=== PATIENT | male | born 1985 | race Caucasian/White ===

== ENCOUNTER 2022-09-22 14:56 | Outpatient (CLI) | payer OTHER, SELFPAY ==
[2022-09-22 15:32] LABS: Basophils Absolute Auto 0.1 K/mm3 (0.0-0.1); Basophils Percent Auto 0.8 % (0.2-1.2); Eosinophils Absolute Auto 0.4 K/mm3 (0-0.3); Eosinophils Percent Auto 3.8 % (0-4.4); Hematocrit 49.1 % (42.0-52.0); Immature Granulocyte Absolute 0.08 K/mm3 (0.00-0.031); Immature Granulocyte Percent A 0.8 % (0-0.5); Lymphocytes Absolute Auto 2.61 K/mm3 (0.9-3.2); Mean Corpuscular HGB Conc 32.6 g/dl (32-36); Mean Corpuscular Hemoglobin 29.1 pg (26-34); Mean Corpuscular Volume 89.3 fl (80-100); Mean Platelet Volume 8.7 fl (7.4-10.4); Monocytes Absolute Auto 0.9 K/mm3 (0.1-0.6); Monocytes Percent Auto 8.6 % (2.6-8.5); Neutrophils Absolute Auto 6.4 K/mm3 (1.3-6.7); Platelet Count Result 250 k/mm3 (150-375); Red Cell Distribution Width 13.5 % (11.5-14.5); White Blood Count 10.4 K/mm3 (4.5-10.0)
== END 2022-09-22 14:57 | disposition home or self-care (01) ==
LOC: ANHLAB 14:57
PROVIDERS: PCP Nurse Practitioner Family; Visit Provider Nurse Practitioner Family
DX: R09.3 Abnormal sputum (principal); J30.9 Allergic rhinitis, unspecified
CPT/HCPCS: 36415; 82785; 85025; 86003

== ENCOUNTER 2022-09-23 06:54 | Outpatient (NON) | payer OTHER, SELFPAY | END 2022-09-23 06:55 | disposition home or self-care (01) | LOC: ANHLAB 06:58 | PROVIDERS: PCP Nurse Practitioner Family; Visit Provider Nurse Practitioner Family | DX: R09.3 Abnormal sputum (principal) | CPT/HCPCS: 87015; 87070; 87102; 87107; 87116; 87205; 87206 ==

== ENCOUNTER 2022-10-18 08:00 | Outpatient (CLI) | payer OTHER, SELFPAY ==
--- NOTE | 2022-10-18 12:50 | WPDSIXMINUTE ---
Six Minute Walk Procedure Procedure Performed Pulmonary Stress Test (6 min walk) Six Minute Walk Six Minute Walk: This is a 6 minute walk test. The test was performed and interpreted in accordance with the 2014 ERS/ATS task force guidelines. Findings: The patient's resting room air oxygen saturation measured by pulse oximetry was 94% and heart rate was 80 bpm. Patient ambulated for 427 meters and oxygen saturation remained 93 to 95%. Heart rate at the end of the study was 90 bpm. The patient did not qualify for supplemental oxygen at rest or with ambulation. There are no prior studies for comparison.
--- NOTE | 2022-10-18 12:51 | WPDPFTINT ---
PFT Procedure Performed PFT Procedure Performed Spirometry with Pre/Post Bronchodilator Plethysmography (Lung Vol) Diffusing Cap (DLCO) Flow Vol Loop PFT Interpretation This is a pulmonary function test with pre and post-bronchodilator spirometry, plethysmography and diffusing capacity. The test was performed and results interpreted in accordance with the 2019 and 2005 ATS/ERS Task Force guidelines respectively using the Global Lung Function Initiative-2012 reference equations. Patient demonstrated good effort and cooperation. Reproducibility criteria were met. The quality of the pre bronchodilator spirometry maneuver was Grade B and post bronchodilator spirometry maneuver was Grade B. Findings: Spirometry: The contour the inspiratory and expiratory flow tracing are normal. The pre bronchodilator FVC is 5.06 L, 109% predicted. The pre bronchodilator FEV1 is 4.11 L, 108% predicted. The pre bronchodilator FEV1: FVC ratio is 81%. The post bronchodilator FVC is 5.17 L, representing a 2% increase. The post bronchodilator FEV1 is 4.24 L, representing a 3% increase. The post bronchodilator FEV1: FVC ratio is 82%. Plethysmography: Total lung capacity is 6.16 L, 100% predicted. The functional residual capacity is 2.59 L, 87% predicted. The residual volume is 1.10 L, 70% predicted. Diffusing capacity: The diffusing capacity unadjusted for hemoglobin and carboxyhemoglobin is 32.6, 102% predicted. The diffusing capacity adjusted for alveolar volume is 6.12, 118% predicted. Impression: The spirometry is normal without evidence of an obstructive abnormality. There is no significant improvement after inhaling a single dose of albuterol. The lung volumes are normal. The diffusing capacity is normal. There are no prior studies for comparison
== END 2022-10-18 08:01 | disposition home or self-care (01) ==
LOC: ANHPFT 08:03
PROVIDERS: PCP Nurse Practitioner Family; Visit Provider Nurse Practitioner Family
DX: R06.09 Other forms of dyspnea (principal); R05.3 Chronic cough
CPT/HCPCS: 94060; 94618; 94726; 94729

== ENCOUNTER 2022-11-10 18:42 | Emergency (ER) | payer OTHER, SELFPAY ==
--- NOTE | ~2022-11-10 | XR_ITS ---
EXAMINATION: [id number] Exam Date/Time: 11/10/2022 19:22 CDT HISTORY: Lt side pain, felt a pop while running this morning non smok Comparison: None. RESULT: Lines, tubes, and devices: None. Lungs and pleura: Clear. Cardiomediastinal silhouette: Normal. Other: No acute osseous or upper abdominal finding. IMPRESSION: No acute cardiopulmonary process. No acute osseous finding in the left ribs. Reviewed, dictated and finalized at location K.
[2022-11-10 18:56] VITALS: BP 133/80; PULSE 61; RESP 18; TEMP 36.4; O2SAT 97
--- NOTE | 2022-11-10 19:22 | ED.GENADULT ---
HPI - General Adult General Chief complaint: Back Pain/Injury Stated complaint: lt side pain Time Seen by Provider: 11/10/22 19:22 Source: patient Mode of arrival: ambulatory Limitations: no limitations History of Present Illness HPI narrative: 36-year-old male presents with complaint of left-sided rib pain. Reports this morning he was doing sprints and felt a sudden pop and left rib cage. Has been having pain since. Took naproxen around 10:00 a.m.. Reports pain when taking a deep breath. Patient is concern for rib fracture. Ambulatory with steady gait. All systems reviewed and negative except as noted above. Related Data Allergies Allergy/AdvReac Type Severity Reaction Status Date / Time No Known Allergies Allergy Verified 11/10/22 19:33 Review of Systems Review of Systems: CONSTITUTIONAL: Denies fever, chills, or sweats. EYES: Denies visual changes, redness, or discharge. ENT: Denies rhinorrhea, congestion, sore throat, or otalgia. CARDIOVASCULAR: Denies chest pain, palpitations, or edema. RESPIRATORY: Denies cough or dyspnea. GASTROINTESTINAL: Denies abdominal pain, nausea, vomiting, or diarrhea. GENITOURINARY: Denies dysuria or hematuria. SKIN: Denies rash or itching. MUSCULOSKELETAL: Denies back pain, joint pain, or myalgia. Reports left-sided rib pain. NEUROLOGIC: Denies headache, numbness, or weakness. PSYCHIATRIC: Denies anxiety or depression. All other systems reviewed are negative, except as documented in HPI. PMFSH Past Medical History Medical History Chronic cough Migraines Sleep apnea Social History Social History Smoking status: Former smoker Additional smoking assessment comments: Smoked 1 year in high school socially. Alcohol intake: current Substance use: never Comments At time of signature, agree with nursing past medical, surgical, social and family history. There is no relevant family history pertinent to the presenting complaint. Exam Narrative: GENERAL: This is a well-nourished, well-developed patient, in no apparent distress. HEAD: normocephalic, atraumatic. EYES: PERRL. Sclera clear/white. Vision is grossly intact. EARS: External ears normal NOSE: External nose normal NECK: Neck supple, non-tender without lymphadenopathy, masses or thyromegaly. CARDIOVASCULAR: Regular rate and rhythm without murmurs, gallops, or rubs. RESPIRATORY: Clear to auscultation. Breath sounds equal bilaterally. No wheezes, rales, or rhonchi. SKIN: warm, Dry, intact with no suspicious lesions or rash, good texture and turgor. NEURO: awake, alert, and oriented to person, place and time. There were no obvious focal neurologic abnormalities. EXTREMITIES: No joint tenderness, effusion, or edema noted. MUSCULOSKELETAL: tenderness to L lateral ribs on palpation. no bruising or swelling noted. Course Course Level of Care: Express Care Visit Vital Signs Vital signs: Vital Signs Temperature 36.4 C 11/10/22 18:56 Pulse Rate 61 11/10/22 18:56 Respiratory Rate 18 11/10/22 18:56 Blood Pressure 133/80 11/10/22 18:56 Pulse Oximetry 97 11/10/22 18:56 Oxygen Delivery Room Air 11/10/22 18:56 Temperature 36.4 C 11/10/22 18:56 Pulse Rate 61 11/10/22 18:56 Respiratory Rate 18 11/10/22 18:56 Blood Pressure 133/80 11/10/22 18:56 Pulse Oximetry 97 11/10/22 18:56 Oxygen Delivery Room Air 11/10/22 18:56 reviewed Medical Decision Making MDM Narrative Medical decision making narrative: Patient is aware of diagnosis, understands and agrees to treatment plan. Anticipatory guidance given. Patient agrees to follow-up as directed and is aware of reasons to seek care at the emergency department. Portions of this record may have been created with voice recognition software Vital Signs Vital Signs: Vital Signs Temperature 36.4
== END 2022-11-10 19:42 | disposition home or self-care (01) ==
PROVIDERS: Emergency Provider Nurse Practitioner Family
DX: S29.011A Strain of muscle and tendon of front wall of thorax, initial encounter (principal); X50.3XXA Overexertion from repetitive movements, initial encounter; Y93.02 Activity, running; Z87.891 Personal history of nicotine dependence
CPT/HCPCS: 71101; 99213; G0463

== ENCOUNTER 2022-11-11 08:42 | Outpatient (CLI) | payer OTHER, SELFPAY ==
[2022-11-11 12:03] LABS: Basophils Absolute Auto 0.1 K/mm3 (0.0-0.1); Basophils Percent Auto 0.7 % (0.2-1.2); Eosinophils Absolute Auto 0.4 K/mm3 (0-0.3); Eosinophils Percent Auto 5.2 % (0-4.4); Hematocrit 48.9 % (42.0-52.0); Hemoglobin 15.9 g/dL (14.0-18.0); Immature Granulocyte Absolute 0.05 K/mm3 (0.00-0.031); Immature Granulocyte Percent A 0.7 % (0-0.5); Lymphocytes Absolute Auto 2.51 K/mm3 (0.9-3.2); Lymphocytes Percent Auto 33.3 % (18.3-44.2); Mean Corpuscular HGB Conc 32.5 g/dl (32-36); Mean Corpuscular Hemoglobin 29.4 pg (26-34); Mean Corpuscular Volume 90.4 fl (80-100); Mean Platelet Volume 9.3 fl (7.4-10.4); Monocytes Absolute Auto 0.6 K/mm3 (0.1-0.6); Monocytes Percent Auto 7.4 % (2.6-8.5); Neutrophils Percent Auto 52.7 % (45.5-73.1); Platelet Count Result 241 k/mm3 (150-375); Red Blood Count 5.41 M/mm3 (4.6-6.20); Red Cell Distribution Width 13.6 % (11.5-14.5); White Blood Count 7.5 K/mm3 (4.5-10.0)
[2022-11-15 15:30] LABS: Eosinophils, Sputum 0%
== END 2022-11-11 08:43 | disposition home or self-care (01) ==
PROVIDERS: Visit Provider Nurse Practitioner Family
DX: R09.3 Abnormal sputum (principal); J45.909 Unspecified asthma, uncomplicated
CPT/HCPCS: 36415; 85025; 87015; 87070; 87102; 87116; 87205; 87206; 89190

== ENCOUNTER 2022-12-07 08:34 | Outpatient (CLI) | payer OTHER, SELFPAY ==
--- NOTE | 2022-12-07 08:36 | EST_ITS ---
Patient Info Name: Jose Elias Vela Age: 36 years : 1985 Gender: Male Ht: 66 in Wt: 200 lbs BSA: 2.09 m2 HR: 72 bpm BP: 144 / 86 mmHg Heart Rhythm: Sinus Rhythm Exam Date: 12/07/2022 8:51 AM Exam Location: [facility] Stress Patient Status: Outpatient Admit Date: 12/07/2022 Staff Ordering Physician: Jose D Queen APRN Attending Provider: Jose D Queen APRN Exercise Technologist: Shira Tucker CT Exercise Physician: Jason Zavaleta DO Exam Type: CA stress test treadmill Study Info Indications R07.89 - Other chest pain A treadmill exercise stress test was performed. Summary 1. 1. Negative Víctor exercise stress test for ischemic ST changes by ECG criteria. 2. 2. Good functional capacity, achieving 14.9 METs of workload. 3. 3. Appropriate HR response to exercise. 4. 4. Appropriate HR recovery at 1 minute post exercise. 5. 5. No imaging with stress testing. 6. 6. Patient informed of the above results. Protocol: Víctor Stress ECG Details Stage: REST Duration (min): 1 min : 33 sec Speed (mph): 0.0 Grade (%): 0 HR (bpm): 75 SBP (mmHg): 144 DBP (mmHg): 86 METS: --- Stage: REST Duration (min): 8 min : 6 sec Speed (mph): 0.0 Grade (%): 0 HR (bpm): 75 SBP (mmHg): 144 DBP (mmHg): 86 METS: --- Stage: STAGE 1 Duration (min): 1 min : 0 sec Speed (mph): 1.7 Grade (%): 10 HR (bpm): 97 SBP (mmHg): 144 DBP (mmHg): 86 METS: --- Stage: STAGE 1 Duration (min): 2 min : 0 sec Speed (mph): 1.7 Grade (%): 10 HR (bpm): 100 SBP (mmHg): 144 DBP (mmHg): 86 METS: --- Stage: STAGE 1 Duration (min): 3 min : 0 sec Speed (mph): 1.7 Grade (%): 10 HR (bpm): 98 SBP (mmHg): 137 DBP (mmHg): 76 METS: --- Stage: STAGE 2 Duration (min): 1 min : 0 sec Speed (mph): 2.5 Grade (%): 12 HR (bpm): 111 SBP (mmHg): 137 DBP (mmHg): 76 METS: --- Stage: STAGE 2 Duration (min): 2 min : 0 sec Speed (mph): 2.5 Grade (%): 12 HR (bpm): 110 SBP (mmHg): 137 DBP (mmHg): 76 METS: --- Stage: STAGE 2 Duration (min): 3 min : 0 sec Speed (mph): 2.5 Grade (%): 12 HR (bpm): 109 SBP (mmHg): 137 DBP (mmHg): 76 METS: --- Stage: STAGE 3 Duration (min): 1 min : 0 sec Speed (mph): 3.4 Grade (%): 14 HR (bpm): 120 SBP (mmHg): 142 DBP (mmHg): 49 METS: --- Stage: STAGE 3 Duration (min): 2 min : 0 sec Speed (mph): 3.4 Grade (%): 14 HR (bpm): 121 SBP (mmHg): 157 DBP (mmHg): 54 METS: --- Stage: STAGE 3 Duration (min): 3 min : 0 sec Speed (mph): 3.4 Grade (%): 14 HR (bpm): 121 SBP (mmHg): 155 DBP (mmHg): 47 METS: --- Stage: STAGE 4 Duration (min): 1 min : 0 sec Speed (mph): 4.2 Grade (%): 16 HR (bpm): 132 SBP (mmHg): 155 DBP (mmHg): 47 METS: --- Stage: STAGE 4 Duration (min): 2 min : 0 sec Speed (mph): 4.2 Grade (%): 16 HR (bpm): 137 SBP (mmHg): 175 DBP (mmHg): 50 METS
== END 2022-12-07 08:35 | disposition home or self-care (01) ==
LOC: ANHCARD 08:35
PROVIDERS: Visit Provider Nurse Practitioner Family
DX: R07.9 Chest pain, unspecified (principal)
CPT/HCPCS: 93017

== ENCOUNTER 2022-12-28 15:50 | Outpatient (CLI) | payer OTHER, SELFPAY ==
[2022-12-28 16:31] LABS: Basophils Absolute Auto 0.1 K/mm3 (0.0-0.1); Basophils Percent Auto 0.6 % (0.2-1.2); Eosinophils Absolute Auto 0.3 K/mm3 (0-0.3); Eosinophils Percent Auto 3.4 % (0-4.4); Hematocrit 46.8 % (42.0-52.0); Hemoglobin 15.5 g/dL (14.0-18.0); Immature Granulocyte Absolute 0.04 K/mm3 (0.00-0.031); Immature Granulocyte Percent A 0.4 % (0-0.5); Lymphocytes Absolute Auto 2.28 K/mm3 (0.9-3.2); Lymphocytes Percent Auto 25.5 % (18.3-44.2); Mean Corpuscular HGB Conc 33.1 g/dl (32-36); Mean Corpuscular Hemoglobin 29.5 pg (26-34); Mean Corpuscular Volume 89.1 fl (80-100); Mean Platelet Volume 9.3 fl (7.4-10.4); Monocytes Absolute Auto 0.8 K/mm3 (0.1-0.6); Monocytes Percent Auto 8.5 % (2.6-8.5); Neutrophils Absolute Auto 5.5 K/mm3 (1.3-6.7); Neutrophils Percent Auto 61.6 % (45.5-73.1); Platelet Count Result 261 k/mm3 (150-375); Red Blood Count 5.25 M/mm3 (4.6-6.20); Red Cell Distribution Width 13.1 % (11.5-14.5); White Blood Count 8.9 K/mm3 (4.5-10.0)
[2022-12-31 19:03] LABS: Aspergillus Fumigatus K/UL <0.10 (<0.10); Conventional Class 0 (0)
[2023-01-01 18:48] LABS: Aspergillus fumigatus (m3) IgG 6.7 mcg/mL (<2.0)
== END 2022-12-28 15:51 | disposition home or self-care (01) ==
PROVIDERS: Visit Provider Internal Medicine Pulmonary Disease
DX: J44.9 Chronic obstructive pulmonary disease, unspecified (principal); J45.991 Cough variant asthma
CPT/HCPCS: 36415; 85025; 86001; 86003

== ENCOUNTER 2023-03-22 12:30 | Outpatient (CLI) | payer OTHER, SELFPAY ==
--- NOTE | 2023-03-22 17:37 | WPDMETH ---
Methacholine Procedure Perform Procedure Performed Methacholine Challenge Methacholine Challenge Methacholine Challenge: This is a methacholine challenge test. The test was performed and interpreted in accordance with the 2017 ERS technical standard, endorsed by the ATS, using the GLI 2012 reference equations. Testing was performed with increasing doses of nebulized methacholine following a quadrupling dosage protocol. The methacholine dose was delivered via the [employer] nebulizer using a 1-minutes tidal breathing protocol. The best post-methacholine FEV1 values were used to determine the change from the post diluent FEV1. The delivered dose of methacholine was used to calculate the provocative dose causing a 20% fall in FEV1 (PD20). Findings: Baseline FEV1 3.60 L, 95% predicted. Post diluent FEV1 3.63 L Post 1.81 mcg methacholine FEV1 3.52 L, decreased 3% Post 7.26 mcg methacholine FEV1 3.55 L, decreased 2% Post 29.03 mcg methacholine FEV1 3.49 L, decreased 4% Post 116.1 mcg methacholine FEV1 3.47 L, decreased 5% Post 464.4 mcg methacholine FEV1 3.40 L, decreased 6% Post albuterol nebulization FEV1 3.80 L Impression: The PD20 is > 400 mcg which is categorized as normal airway hyperresponsiveness. There are no prior methacholine challenge studies for comparison
== END 2023-03-22 12:31 | disposition home or self-care (01) ==
LOC: ANHPFT 12:31
PROVIDERS: Visit Provider Nurse Practitioner Family
DX: J45.991 Cough variant asthma (principal)
CPT/HCPCS: 94070; J7674

== ENCOUNTER 2024-08-12 10:29 | Emergency (ER) | payer OTHER, SELFPAY ==
--- OUTSIDE RECORDS SUMMARY | 2024-08-12 10:32 | XMS_ITS ---
Author Organization [facility] ([address]) Address [address] [place] [address] Care Team Providers [facility] [employer] Drill Operator Name Role Phone Panda Morin Primary Care Provider UnavailAniceto Shaver Unavailable [phone] Jose D Queen Unavailable Unavailable Trav Doan Unavailable [phone] REASON FOR VISIT SCIT - Traditional Schedule Allergy Immunotherapy (Week ) Medications Medication SIG (Take, Route, Frequency, Duration) Notes Start Date End Date Status Fluticasone Propionate 50 MCG/ACT 2 spray(s) in each nostril twice a day for 30 days Active amLODIPine Besylate 2.5 MG 1 tablet Orally Once a day for 30 day(s) 09/20/2023 Active Telmisartan 40 MG 1 tablet Orally Once a day for 30 day(s) 09/20/2023 Active Azelastine HCl 137 MCG/SPRAY 2 puffs (1 spray in each nostril) Nasally Twice a day for 90 days 07/09/2024 Active Cetirizine HCl 10 MG 1 tablet Orally Onc e a day for 90 days 07/09/2024 Active Azelastine-Fluticasone 137-50 MCG/ACT 2 spray(s) intranasally 2 times a day Active SIT (CLUSTER) variable per schedule per schedule for 999 days Active Fluticasone Propionate 50 MCG/ACT 2 spray(s) in each nostril twice a day for 90 days Active Azelastine HCl 137 MCG/SPRAY 2 spray(s) intranasally 2 times a day for 90 days Active Fluticasone Propionate (Inhal) 220 MCG/INH 2 PUFF(S) INHALED 2 TIMES A DAY for 30 DAYS *Please review and pick correct strength-formula tion from [employer] options. If intended option is not shown, discontinue and re-order from Quick Search* Active FLUTICASONE NASAL 50 mcg/inh 2 spray(s) in each nostril twice a day for 90 days Active hydroCHLOROthiazide 25 MG 1 tablet in the morning Orally Once a day Active CETIRIZINE 10 mg 1 tab(s) orally once a day for 90 days Active AZELASTINE NASAL 137 mcg/inh 2 spray(s) intranasally 2 times a day for 90 days Active MONTELUKAST 10 mg 1 tab(s) orally once a day for 90 days 07/19/2023 Active Escitalopram Oxalate 10 MG 1 tablet Orally Once a day Active EpiPen 2-Wilfrido 0.3 mg as directed intramuscularly once for 30 days Active NASAL WASHES N/A as directed intranasally as needed for 30 days Active FLUTICASONE 220 mcg/inh 2 puff(s) inhale d 2 times a day for 30 days Active MONTELUKAST 10 mg 1 tab(s) orally once a day for 90 days Active FLUTICASONE NASAL 50 mcg/inh 2 spray(s) in each nostril twice a day for 90 days Active Encounters Encounter Location Date Provider Diagnosis [facility] [address] [place] [address] 07/17/2024 Trav Doan Allergic rhinitis du e to pollen J30.1 ; Other allergic rhinitis J30.89 ; Allergic rhinitis due to animal (cat) (dog) hair and dander J30.81 and Other chronic allergic conjunctivitis H10.45 Assessments Encounter Date Diagnosis (ICD Code) Assessment Notes Treatment Notes Treatment Clinical Notes Section Notes 07/17/2024 Allergic rhinitis due to pollen (ICD-10 - J30.1) 07/17/2024 Other allergic rhinitis (ICD-10 - J30.89) 07/17/2024 Allergic rhinitis due to animal (cat) (dog) hair and dander (ICD-10 - J30.81) 07/17/2024 Other chronic allergic conjunctivitis (ICD-10 - H10.45) Plan Of Treatment Next Appt Details Follow Up: As scheduled, Anna son: Provider Name:Trav Velasquez Franki , 08/13/2024 04:00:00 PM, [address] [facility], [address], [place], [address], Progress Notes * Jose Elias HERNA[birth year]DOB:[birth year] (38 yo M)Acc No.[id number]:07/17/2024 SCIT-Aeroallergen Patient: Jose Elias FRIEDMAN Provider: Inocencia Doan MD :1985 A ge:38 Y S ex:Male Date:07/17/2024 Address:[address] [place] [address], [place] , [id number] Pcp:Panda Morin Subjective: * Chief Complaints: * S CIT - Traditional Schedule Allergy Immunotherapy (Week ) * HPI: * Introduction: The patient is here for scheduled immunotherapy. Please see the attached specialty form regarding the specifics of the administration of these vaccines. As per our protocol, they must undergo a screening health questionnaire (medication changes, reaction(s) to last immunotherapy dose(s), current health status, ACT (if appropriate), self-injectable epinephrine on patient(?) and peak flow (if appropriate)). Also, the patient must wait in our office for 30 minutes after receiving the vaccine(s). Furthermore, every patient must have an epinephrine pen (self-injectable) with them at the time of administration--and carry if for the following 1.5 hours after they leave our office. The patient must also have taken their antihistamine the day of the injection, preferably 2 hours prior. The consent form for SCIT (subcutaneous immunotherapy) is on file. * Medical History: * Surgical History: * Hospitalization/Major Diagno stic Procedure: * Medications: T akingFLUTICASONE NASAL 50 mcg/inh spray 2 spray(s) in each nostril twice a day EpiPen 2-Wilfrido 0.3 mg kit as directed intramuscularly once NASAL WASHES N/A 1 quart of sterilized tap water or distilled water, 1 tsp NaCl, 1 pinch of baking soda as directed intranasally as needed FLUTICASONE 220 mcg/inh aerosol 2 puff(s) inhaled 2 times a day MONTELUKAST 10 mg tablet 1 tab(s) orally once a day Escitalopram Oxalate 10 MG Tablet 1 tablet Orally Once a day hydroCHLOROthiazide 25 MG Tablet 1 tablet in the morning Orally Once a day EpiPen 2-Wilfrido 0.3 mg kit as directed intramuscularly once CETIRIZINE 10 mg tablet 1 tab(s) orally once a day FLUTICASONE NASAL 50 mcg/inh spray 2 spray(s) in each nostril twice a day AZELASTINE NASAL 137 mcg/inh spray 2 spray(s) intranasally 2 times a day MONTELUKAST 10 mg tablet 1 tab(s) orally once a day SIT (CLUSTER) variable see record per schedule per schedule Fluticasone Propionate 50 MCG/ACT Suspension 2 spray(s) in each nostril twice a day Azelastine HCl 137 MCG/SPRAY Solution 2 spray(s) intranasally 2 times a day Fluticasone Propionate (Inhal) 220 MCG/INH AEROSOL 2 PUFF(S) INHALED 2 TIMES A DAY , Notes to Pharmacist: *Please review and pick correct strength-formulation from [employer] options. If intended option is not shown, discontinue and re-order from Quick Search*Azelastine-Fluticasone 137-50 MCG/ACT Suspension 2 spray(s) intranasally 2 times a day Fluticasone Propionate 50 MCG/ACT Suspension 2 spray(s) in each nostril twice a day amLODIPine Besylate 2.5 MG Tablet 1 tablet Orally Once a day Telmisartan 40 MG Tablet 1 tablet Orally Once a day Azelastine HCl 137 MCG/SPRAY Solution 2 puffs (1 spray in each nostril) Nasally Twice a day Cetirizine HCl 10 MG Tablet 1 tablet Orally Once a day Taking FLUTICASONE NASAL 50 mcg/inh spray 2 spray(s) in each nostril twice a day Taking EpiPen 2-Wilfrido 0.3 mg kit as directed intramuscularly once Taking NASAL WASHES N/A 1 quart of sterilized tap water or distilled water, 1 tsp NaCl, 1 pinch of baking soda as directed intranasally as needed Taking FLUTICASONE 220 mcg/inh aerosol 2 puff(s) inhaled 2 times a day Taking MONTELUKAST 10 mg tablet 1 tab(s) orally once a day Taking Escitalopram Oxalate 10 MG Tablet 1 tablet Orally Once a day Taking hydroCHLOROthiazide 25 MG Tablet 1 tablet in the morning Orally Once a day Taking EpiPen 2-Wilfriod 0.3 mg kit as directed intramuscularly once Taking CETIRIZINE 10 mg tablet 1 tab(s) orally once a day Taking FLUTICASONE NASAL 50 mcg/inh spray 2 spray(s) in each nostril twice a day Taking AZELASTINE NASAL 137 mcg/inh spray 2 spray(s) intranasally 2 times a day Taking MONTELUKAST 10 mg tablet 1 tab(s) orally once a day Taking SIT (CLUSTER) variable see record per schedule per schedule Taking Fluticasone Propionate 50 MCG/ACT Suspension 2 spray(s) in each nostril twice a day Taking Azelastine HCl 137 MCG/SPRAY Solution 2 spray(s) intranasally 2 times a day Taking Fluticasone Propionate (Inhal) 220 MCG/INH AEROSOL 2 PUFF(S) INHALED 2 TIMES A DAY , Notes to Pharmacist: *Please review and pick correct strength-formulation from [employer] options. If intended option is not shown, discontinue and re-order from Quick Search*Taking Azelastine-Fluticasone 137-50 MCG/ACT Suspension 2 spray(s) intranasally 2 times a day Taking Fluticasone Propionate 50 MCG/ACT Suspension 2 spray(s) in each nostril twice a day Taking amLODIPine Besylate 2.5 MG Tablet 1 tablet Orally Once a day Taking Telmisartan 40 MG Tablet 1 tablet Orally Once a day Taking Azelastine HCl 137 MCG/SPRAY Solution 2 puffs (1 spray in each nostril) Nasally Twice a day Taking Cetirizine HCl 10 MG Tablet 1 tablet Orally Once a day Objective: * Vitals: Assessment: * Assessment: 1. A llergic rhinitis due to pollen - J30.1 (Primary) 2 . O ther allergic rhinitis - J30.89 3 . A llergic rhinitis due to animal (cat) (dog) hair and dander - J30.81 4 . O ther chronic allergic conjunctivitis - H10.45 Plan: * Treatment: * Procedure Codes: 9 5117 IMMUNOTHERAPY INJECTIONS * Preventive Medicine: Counseling: E xercise A void heavy lifting on days of allergy immunotherapy. M edication instruction: I njectable epinephrine education and instruction w/ discussion of signs and symptoms of anaphylaxis and reasons to seek urgent or emergent care, Watch for side effects of prescribed medications. E ducation: A ble to return demonstration of self-injectable epinephrine. * Follow Up: A s scheduled * Billing Information: * Visit Code: * Procedure Codes: 70779 IMMUNOTHERAPY INJECTIONS. * Sign off status: Completed true * Provider: Inocencia Doan MD Date: 0 07/17/2024 Generated for Savannah barnes/Millie/Nichole on: 0 08/12/2024 10:32 AM CDT History and Physical Notes * HPI (History of Present Illness) Category Sub-Category Detail Notes Category Not es *Introduction The patient is here for scheduled immunotherapy. Please see the attached specialty form regarding the specifics of the administration of these vaccines. As per our protocol, they must undergo a screening health questionnaire (medication changes, reaction(s) to last immunotherapy dose(s), current health status, ACT (if appropriate), self-injectable epinephrine on patient(?) and peak flow (if appropriate)). Also, the patient must wait in our office for 30 minutes after receiving the vaccine(s). Furthermore, every patient must have an epinephrine pen (self-injectable) with them at the time of administration--and carry if for the following 1.5 hours after they leave our office. The patient must also have taken their antihistamine the day of the injection, preferably 2 hours prior. The consent form for SCIT (subcutaneous immunotherapy) is on file.
--- OUTSIDE RECORDS SUMMARY | 2024-08-12 10:32 | XMS_ITS | Continuity of Care Document ---
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 It does not include entries that were removed or entered in error. 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 Check BP at home. 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 2619D-Ov-C-[facility] Pain in lower limb Active 024 Condition 6138R-Uo-Q-[facility] Tear film insufficiency4 Active Condition Outside Source Comment: Last Assessment & Plan: Moderate SARAHI both eyes (OU), Art tears daily, monitor 5010N-Rd-U-[facility] Chronic cough Active 024 Condition 3733S-As-N-[facility] Chronic sinusitis Active 024 Condition 1352I-Ks-W-[facility] Unspecified problems related to employment Active Condition 0055R [employer]-C-[facility] EXAM/ASSESSMENT, OCCUPATIONAL, FOR INDIVIDUAL IN PERSONAL RELIABILITY PROGRAM/SURETY (CHEMICAL/BIOLOGICA L/NUCLEAR) PROGRAM Active Condition Unknow n Organization 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 gave handout op excercises for choudhury splints. f/u prn or sooner if sx's worsens. 8603Q-Sd-R-[facility] EXAM/ASSESSMENT, OCCUPATIONAL, FOR INDIVIDUAL IN PERSONAL RELIABILITY PROGRAM/SURETY (CHEMICAL/BIOLOGICA L/NUCLEAR) PROGRAM Active Condition DoD Encounter for other administrative examinations Active Condition DoD Person consulting for explanation of examination or test findings Active Condition DoD visit for: administrative purpose Inactive Condition DoD ear symptoms Inactive Condition DoD Laboratory Studies Inactive Condition Do D visit for: refer patient without exam or treatment Inactive Condition DoD SHOULDER SPRAIN ACROMIOCLAVICULAR LIGAMENT RIGHT Inactive Condition DoD pain in the leg (below the knee) Active Condition DoD COMPARTMENT SYNDROME NONTRAUMATIC Active Condition DoD NEOPLASM - SOFT TISSUE LEG LEFT Active Condition DoD Patient Education - Dietary Active Condition DoD SKIN ABSCESS OF THE LEFT AXILLA Inactive Condition DoD joint pain, localized in the knee Inactive Condition DoD WOUND INFECTION Inactive Condition DoD visit for: follow-up exam Inactive Condition DoD SUPERFICIAL INJURY OF KNEE INFECTED Inactive Condition DoD SUPERFICIAL INJURY - NONVENOMOUS INSECT BITE OF LEG Active Condition DoD visit for: examination of subpopulation Inactive Condition See DD From 6963 DoD visit for: services physical Inactive Condition visit for: services physical (INITIAL POST-DEPLOYMEN T ASSESSMENT: DOCUMENTED ON [id number]): No referral, member is to f/u as needed with pcm/provider at home station or if needed RTC at deployed location prn prior to leaving. Pt had all questions answered verbalized understanding and agreed to plan as above. DoD CHOUDHURY SPLINT Active Condition assured pt. gave handout op excercises for choudhury splints. f/u prn or sooner if sx's worsens. DoD Medications Combined list of outpatient medications from Department of Defense and Veterans Affairs facilities.Medications provided include 1) outpatient medications from the last 15 months, and 2) patient-reported medications. Medication Details Route Status Patient Instructions Prescription Expires Prescription Number Last Dispense Date Ordering Provider Order Date Order Qty Source AZELASTINE HCL (AZELASTINE HCL), 137 MCG, SPRAY/PUMP, NASAL, APOTEX ANGELINE, 30 ml SQUEEZ BTL Active [id number] 4 2023 90 Pharmac y Data Transac tion Service Facilit y AZELASTINE HCL (AZELASTINE HCL), 137 MCG, SPRAY/PUMP, NASAL, APOTEX ANGELINE, 30 ml SQUEEZ BTL Active [id number] 4 2023 30 Pharmac y Data Transac tion Service Facilit y CETIRIZINE HCL (cetirizine HCl), 10 MG, TABLET, ORAL, 'S LAB, 500 ea. BOTTLE Active [id number] 4 2023 90 Pharmac y Data Transac tion Service Facilit y CETIRIZINE HCL (cetirizine HCl), 10 MG, TABLET, ORAL, 'S LAB, 500 ea. BOTTLE Active [id number] 4 2023 90 Pharmac y Data Transac tion Service Facilit y CETIRIZINE HCL (cetirizine HCl), 10 MG, TABLET, ORAL, 'S LAB, 500 ea. BOTTLE Active [id number] 4 2023 30 Pharmac y Data Transac tion Service Facilit y EPINEPHRINE (epinephrin e), 0.3MG/0.3, AUTO INJCT, INJECTION, MYLAN SPECIALTY, 2 ea. SYRINGE Active [id number] 4 2023 2 Pharmac y Data Transac tion Service Facilit y FLUTICASONE PROPIONATE (FLUTICASON E PROPIONATE) , 50MCG, SPRAY SUSP, NASAL, LESLIE LABS., 16 g AER W/ADAP Active [id number] 4 2023 48 Pharmac y Data Transac tion Service Facilit y FLUTICASONE PROPIONATE (FLUTICASON E PROPIONATE) , 50MCG, SPRAY SUSP, NASAL, LESLIE LABS., 16 g AER W/ADAP Active [id number] 4 2023 48 Pharmac y Data Transac tion Service Facilit y FLUTICASONE PROPIONATE (FLUTICASON E PROPIONATE) , 50MCG, SPRAY SUSP, NASAL, LESLIE LABS., 16 g AER W/ADAP Active [id number] 4 2023 16 Pharmac y Data Transac tion Service Facilit y FLUTICASONE PROPIONATE HFA (fluticason e propionate) , 220 MCG, AER W/ADAP, INHALATION, PRASCO LABS, 12 g AER W/ADAP Cancele d [id number] : 2023 0 Pharmac y Data Transac tion Service Facilit y FLUTICASONE PROPIONATE HFA (fluticason e propionate) , 220 MCG, AER W/ADAP, INHALATION, PRASCO LABS, 12 g AER W/ADAP Cancele d [id number] : 2023 0 Pharmac y Data Transac tion Service Facilit y HYDROCODONE -ACETAMINOP HEN (HYDROCODON E/ACETAMINO PHEN), 7.5-325MG, TABLET, ORAL, MALLINCKROD T PH, 500 ea. BOTTLE Active [id number] 4 2023 28 Pharmac y Data Transac tion Service Facilit y LORATADINE (LORATADINE ), 10 MG, TABLET, ORAL, NOVARTIS CONSUM, 30 ea. BLIST PACK Cancele d [id number] : 2023 0 Pharmac y Data Transac tion Service Facilit y MONTELUKAST SODIUM (MONTELUKAS T SODIUM), 10 MG, TABLET, ORAL, CAMBER PHARMACE, 1000 ea. BOTTLE Active [id number] 4 2023 90 Pharmac y Data Transac tion Service Facilit y telmisartan (U/D) 40 MG ORAL TAB Be careful if taking OTCs.Samm e or use exactly as directed .Do not take if . Active 09/15/2024 [id number] 2023 90 [facility] [place] Allergies, Adverse Reactions, Alerts Combined list of allergies from Department of Defense and Veterans Affairs facilities. It does not include entries that were removed or entered in error. Substance Category Reaction Severity Reaction type Status Date Reported Comments Source No Known Allergies Drug allergy (disorder) active 12/29/2022 DoD Immunizations Combined list of available immunizations from the Department of Defense and Veterans Affairs facilities. Immunization Series Date Given Administered By Site Reaction Lot Number CVX Code Drug Engine Boss Status Comments Source influenza virus vaccine, inactivated 2022 ANNY Vasquez luis, right (delt oid) [id number] 150 [employer], A MiiPharos complet ed influenza virus vaccine, inactivat ed 01/19/23 Given 0055C-3 [facility] influenza, injectable, quadrivalent- pf 2022 CAPTCHRISTOPH ERRWEISGARBER [id number] 150 complet ed Result Comment: Route: Unknown Manufactu rer: OTH (SEQ) 6130C-A f-C-[facility] yellow fever vaccine 2022 CAPTCHRISTOPVasile CHENISSERGIOBER [id number] 37 complet ed Result Comment: Route: Unknown Manufactu rer: Sanofi Pasteur ([facility]) 6130C-A f-C-375 [facility] typhoid Vi capsular polysaccharid e vac 2022 CAPTCHRISTOPVasile MIN [id number] 101 complet ed Result Comment: Route: Unknown Manufactu rer: Sanofi Pasteur (PMC) 6130C-A f-C-375 [facility] meningococcal oligosacchari de (MCV4O) 2022 [facility] [id number] 136 complet ed Result Comment: Route: Unknown Manufactu rer: SmithKlin e (SKB) 6130C-A f-C-375 Th [facility] yellow fever vaccine 1 2022 [id number] 37 Sanofi Pasteur (PMC) complet ed yellow fever vaccine DoD typhoid Vi capsular polysaccharid e vaccine 3 2022 [id number] Sanofi Pasteur ([facility]) complet ed typhoid Vi capsular polysacch aride vaccine DoD meningococcal oligosacchari de (groups A, C, Y and W-135) diphtheria toxoid conjugate vaccine (MCV4O) 2 2022 [id number] 136 [facility] (SKB) complet ed meningoco ccal oligosacc haride (groups A, C, Y and W-135) diphtheri a toxoid conjugate vaccine (MCV4O) [facility] tetanus-dipht h toxoids (Td) adult/adol 2022 CAPTCHRISTOPH ERRWEISGARBER [id number] 09 complet ed Result Comment: Route: Unknown Manufactu rer: Sanofi Pasteur ([facility]) 6130C-A f-C-375 Th [facility] Paul tetanus and diphtheria toxoids, adsorbed, preservative free, for adult use (2 Lf of tetanus toxoid and 2 Lf of diphtheria toxoid) 3 2022 [id number] 09 Sanofi Pasteur ([facility]) complet ed tetanus and diphtheri a toxoids, adsorbed, preservat mark free, for adult use (2 Lf of tetanus toxoid and 2 Lf of diphtheri a toxoid) [facility] influenza, injectable, quadrivalent- pf 2021 CAPTCHRISTOPH ERRWEISGARBER [id number] 150 complet ed Result Comment: Route: Unknown Manufactu rer: [employer]Klin e ([facility]) 6130C-A f-C-375 Th [facility] Paul Influenza, injectable, quadrivalent, preservative free 0 2021 [id number] 150 [facility] ([facility]) complet ed Influenza , injectabl e, quadrival ent, preservat mark free DoD COVID Vaccine Pfizer 2021 YOMAIRA Vasquez luis, right (delt oid) [id number] 208 PFIZER complet ed COVID Vaccine Pfizer 05/01/21 Given 0083C-K [facility] SARS-COV-2 (COVID-19) vaccine, mRNA, spike protein, LNP, preservative free, 30 mcg/0.3mL dose 3 2021 [id number] 208 Pfizer, Inc (PFR) complet ed SARS-COV- 2 (COVID-19 ) vaccine, mRNA, spike protein, LNP, preservat mark free, 30 mcg/0.3mL dose DoD influenza virus vaccine, inactivated 2020 HORACIO Vasquez luis, right (delt oid) [id number] 150 [facility] complet ed influenza virus vaccine, inactivat ed 01/09/21 Given 0083C-[facility] influenza, injectable, quadrivalent- pf 2020 CAPTCHRISTOPH AMYBER [id number] 150 complet ed Result Comment: Route: Unknown Manufactu rer: RejiKljericho monroe (SKTravis) 6130C-A f-C-375 [facility] Influenza, injectable, quadrivalent, preservative free 0 2020 [id number] 150 S[employer] (SK) complet ed Influenza , injectabl e, quadrival ent, preservat mark free DoD COVID Vaccine Pfizer 2020 [id number] 208 PFIZER complet ed COVID Vaccine Pfizer 07/29/20 Given Ambulat ory Pharmac y SARS-COV-2 (COVID-19) vaccine, mRNA, spike protein, LNP, preservative free, 30 mcg/0.3mL dose 2 2020 [id number] 208 Pfizer, Inc (PFR) complet ed SARS-COV- 2 (COVID-19 ) vaccine, mRNA, spike protein, LNP, preservat mark free, 30 mcg/0.3mL dose DoD COVID Vaccine Pfizer 2020 [id number] 208 PFIZER complet ed COVID Vaccine Pfizer 07/08/20 Given Ambulat ory Pharmac y COVID Vaccine Pfizer 2020 [id number] 208 PFIZER complet ed COVID Vaccine Pfizer 07/08/20 Given Ambulat ory Pharmac y SARS-COV-2 (COVID-19) vaccine, mRNA, spike protein, LNP, preservative free, 30 mcg/0.3mL dose 1 2020 [id number] 208 Pfizer, Inc (PFR) complet ed SARS-COV- 2 (COVID-19 ) vaccine, mRNA, spike protein, LNP, preservat mark free, 30 mcg/0.3mL dose DoD Influenza, inj, MDCK, quadrivalent- pf 2019 171 complet ed Influenza , inj, MDCK, quadrival ent-pf 02/07/20 Given Ambulat ory Pharmac y influenza virus vaccine, unspecified 2019 TRANSCR IBED 88 complet ed influenza virus vaccine, unspecifi ed 02/07/20 Given Ambulat ory Pharmac y Influenza, inj, MDCK, quadrivalent- pf 2019 171 complet ed Influenza , inj, MDCK, quadrival ent-pf 02/07/20 Given Ambulat ory Pharmac y influenza virus vaccine, unspecified 2019 TRANSCR IBED 88 complet ed influenza virus vaccine, unspecifi ed 02/07/20 Given Ambulat ory Pharmac y influenza virus vaccine, inactivated 2019 CAPTCHRISTOPH MECHELLE 88 complet ed Result Comment: Route: Unknown Manufactu rer: Seqirus (SEQ) 6130C-A f-C-375 Th [facility] Influenza, injectable, MDCK, preservative free, quadrivalent 2019 VALENTIN, () Not Given Influenza , injectabl e, MDCK, preservat mark free, quadrival ent DoD influenza virus vaccine, unspecified formulation 1 2019 88 Transcribed (TRS) complet ed influenza virus vaccine, unspecifi ed formulati on DoD Influenza, injectable, Madin Tessy Canine Kidney, preservative free, quadrivalent 0 2019 171 (MVX) complet ed Influenza , injectabl e, Madin Clitherall Canine Kidney, preservat mark free, quadrival ent DoD Influenza, injectable, Madin Clitherall Canine Kidney, quadrivalent with preservative 0 2019 186 Seqirus (SEQ) comple t ed Influenza , injectabl e, Madin Clitherall Canine Kidney, quadrival ent with preservat mark DoD influenza, injectable, quadrivalent- pf 2018 [id number] 040 150 Seqirus complet ed influenza , injectabl e, quadrival ent-pf 01/16/19 Given Ambulat ory Pharmac y influenza, injectable, quadrivalent- pf 2018 [id number] 040 150 Seqirus complet ed influenza , injectabl e, quadrival ent-pf 01/16/19 Given Ambulat ory Pharmac y Influenza, injectable, quadrivalent, preservative free 0 2018 [id number] 040 150 Seqirus (SEQ) complet ed Influenza , injectabl e, quadrival ent, preservat mark free DoD influenza, injectable, quadrivalent- pf 2017 [id number] 150 Seqirus complet ed influenza , injectabl e, quadrival ent-pf 01/25/18 Given Ambulat ory Pharmac y influenza, injectable, quadrivalent- pf 2017 [id number] 150 Seqirus complet ed influenza , injectabl e, quadrival ent-pf 01/25/18 Given Ambulat ory Pharmac y Influenza, injectable, quadrivalent, preservative free 13 2017 [id number] 150 Seqirus (SEQ) comple t ed Influenza , injectabl e, quadrival ent, preservat mark free DoD influenza, injectable, quadrivalent- pf 2016 [id number] 150 GlaxoSmithKli ne complet ed influenza , injectabl e, quadrival ent-pf 01/03/17 Given Ambulat ory Pharmac y influenza, injectable, quadrivalent- pf 2016 [id number] 150 GlaxoSmithKli ne complet ed influenza , injectabl e, quadrival ent-pf 01/03/17 Given Ambulat ory Pharmac y Influenza, injectable, quadrivalent, preservative free 0 2016 [id number] 150 SmithKline (SKB) complet ed Influenza , injectabl e, quadrival ent, preservat mark free DoD influenza, injectable, quadrivalent 2015 [id number] 158 GlaxoSmithKli ne complet ed influenza , injectabl e, quadrival ent 12/29/15 Given Ambulat ory Pharmac y influenza, injectable, quadrivalent 2015 [id number] 158 GlaxoSmithKli ne complet ed influenza , injectabl e, quadrival ent 12/29/15 Given Ambulat ory Pharmac y influenza, injectable, quadrivalent, contains preservative 11 2015 [id number] 158 SmithKline (SKB) complet ed influenza , injectabl e, quadrival ent, contains preservat mark DoD influenza, seasonal, injectable-pf 2014 [id number] 140 CSL Behring complet ed influenza , seasonal, injectabl e-pf 01/17/15 Given Ambulat ory Pharmac y influenza, seasonal, injectable-pf 2014 [id number] 140 CSL Behring complet ed influenza , seasonal, injectabl e-pf 01/17/15 Given Ambulat ory Pharmac y Influenza, seasonal, injectable, preservative free 0 2014 [id number] 140 [facility] [employer] (CSL) complet ed Influenza , seasonal, injectabl e, preservat mark free DoD influenza, seasonal, injectable-pf 2013 [id number] 140 Novartis Pharmaceutica ls complet ed influenza , seasonal, injectabl e-pf 01/15/14 Given Ambulat ory Pharmac y influenza, seasonal, injectable-pf 2013 [id number] 140 Novartis Pharmaceutica ls complet ed influenza , seasonal, injectabl e-pf 01/15/14 Given Ambulat ory Pharmac y Influenza, seasonal, injectable, preservative free 0 2013 [id number] 140 Novartis LeadPagestica [employer] Angeline. (NOV) complet ed Influenza , seasonal, injectabl e, preservat mark free DoD anthrax vaccine 2013 [id number] 24 Emergent [employer] complet ed anthrax vaccine 01/08/14 Given Ambulat ory Pharmac y anthrax vaccine 2013 [id number] 24 [employer] complet ed anthrax vaccine 01/08/14 Given Ambulat ory Pharmac y anthrax vaccine 4 2013 [id number] 24 [employer] [place] (MIP) complet ed anthrax vaccine DoD typhoid Vi capsular polysaccharid e vac 2013 [id number] 101 sanofi pasteur complet ed typhoid Vi capsular polysacch aride vac 06/18/13 Given Ambulat ory Pharmac y anthrax vaccine 2013 [id number] 24 [employer] complet ed anthrax vaccine 06/18/13 Given Ambulat ory Pharmac y typhoid Vi capsular polysaccharid e vac 2013 J1201 101 sanofi pasteur complet ed typhoid Vi capsular polysacch aride vac 06/18/13 Given Ambulat ory Pharmac y anthrax vaccine 2013 [id number] 24 [employer] complet ed anthrax vaccine 06/18/13 Given Ambulat ory Pharmac y anthrax vaccine 3 2013 [id number] 24 [employer] [place] (MIP) complet ed anthrax vaccine DoD typhoid Vi capsular polysaccharid e vaccine 2 2013 J1201 101 Sanofi Pasteur ([facility]) complet ed typhoid Vi capsular polysacch aride vaccine DoD influenza, live, intranasal,qu adrivalent 2012 [id number] 149 Medimmune Inc comple t ed influenza , live, intranasa l,quadriv alent 12/20/12 Given Ambulat ory Pharmac y influenza, live, intranasal,qu adrivalent 2012 [id number] 149 Medimmune Inc comple t ed influenza , live, intranasa l,quadriv alent 12/20/12 Given Ambulat ory Pharmac y influenza, live, intranasal, quadrivalent 8 2012 [id number] 149 MedImmune, Inc. (MED) complet ed influenza , live, intranasa l, quadrival ent DoD tetanus, diphtheria, acellular pertu is 2012 [id number] 115 GlaxoSmithKli ne complet ed tetanus, diphtheri a, acellular pertussis 05/05/12 Given Ambulat ory Pharmac y tetanus, diphtheria, acellular pertu is 2012 [id number] 7AA 115 GlaxoSmithKli ne complet ed tetanus, diphtheri a, acellular pertussis 05/05/12 Given Ambulat ory Pharmac y tetanus toxoid, reduced diphtheria toxoid, and acellular pertu is vaccine, adsorbed 0 2012 [id number] 7AA 115 [facility] (B) complet ed tetanus toxoid, reduced diphtheri a toxoid, and acellular pertussis vaccine, adsorbed DoD influenza virus vaccine, live 2011 [id number] 111 Medimmune Inc comple t ed influenza virus vaccine, live 01/13/12 Given Ambulat ory Pharmac y influenza virus vaccine, live 2011 [id number] 111 Medimmune Inc comple t ed influenza virus vaccine, live 01/13/12 Given Ambulat ory Pharmac y influenza virus vaccine, live, attenuated, for intranasal use 0 2011 [id number] 111 MedImmune, Inc. (MED) complet ed influenza virus vaccine, live, attenuate d, for intranasa l use DoD influenza virus vaccine, live 2009 [id number] 111 Medimmune Inc comple t ed influenza virus vaccine, live 01/06/10 Given Ambulat ory Pharmac y influenza virus vaccine, live 2009 [id number] 111 Medimmune Inc comple t ed influenza virus vaccine, live 01/06/10 Given Ambulat ory Pharmac y influenza virus vaccine, live, attenuated, for intranasal use 1 2009 [id number] 111 MedImmune, Inc. (MED) complet ed influenza virus vaccine, live, attenuate d, for intranasa l use DoD Novel influenza-H1N 1-09,pf,injec table 2009 [id number] 1 126 Novartis Pharmaceutica ls complet ed Novel influenza -[id number], pf,inject able 04/16/09 Given Ambulat ory Pharmac y Novel Influenza-H1N 1-09,live virus,nasal 2009 [id number] 125 Medimmune Inc comple t ed Novel Influenza -Y7M3-71, live virus,josh al 04/16/09 Given Ambulat ory Pharmac y Novel influenza-H1N 1-09,pf,injec table 2009 [id number] 1 126 Novartis Pharmaceutica ls complet ed Novel influenza -V0W8-10, pf,inject able 04/16/09 Given Ambulat ory Pharmac y Novel Influenza-H1N 1-09,live virus,nasal 2009 [id number] 125 Medimmune Inc comple t ed Novel Influenza -P5X2-85, live virus,josh al 04/16/09 Given Ambulat ory Pharmac y Novel Influenza-H1N 1-09, live virus for nasal administratio n 1 2009 [id number] 125 MedImmune, Inc. (MED) complet ed Novel Influenza -J1A9-91, live virus for nasal administr ation DoD Novel influenza-H1N 1-09, preservative- free, injectable 1 2009 [id number] 1 126 Novartis Pharmaceutica l Angeline. (NOV) complet ed Novel influenza -W9N9-25, preservat mark-free, injectabl e DoD influenza virus vaccine, live 2008 [id number] 111 Medimmune Inc comple t ed influenza virus vaccine, live 01/21/09 Given Ambulat ory Pharmac y influenza virus vaccine, live 2008 [id number] 111 Medimmune Inc comple t ed influenza virus vaccine, live 01/21/09 Given Ambulat ory Pharmac y influenza virus vaccine, live, attenuated, for intranasal use 1 2008 [id number] 111 MedImmune, Inc. (MED) complet ed influenza virus vaccine, live, attenuate d, for intranasa l use DoD influenza virus vaccine,split 2007 [id number] 15 sanofi pasteur complet ed influenza virus vaccine,s plit 01/29/08 Given Ambulat ory Pharmac y influenza virus vaccine,split 2007 [id number] 15 sanofi pasteur complet ed influenza virus vaccine,s plit 01/29/08 Given Ambulat ory Pharmac y influenza virus vaccine, split virus (incl. purified surface antigen)-reti red CODE 1 2007 [id number] 15 Sanofi Pasteur (PMC) complet ed influenza virus vaccine, split virus (incl. purified surface antigen)- retired CODE DoD influenza virus vaccine, live 2006 [id number] 111 [employer] comple t ed influenza virus vaccine, live 02/25/07 Given Ambulat ory Pharmac y influenza virus vaccine, live 2006 [id number] 111 [employer] comple t ed influenza virus vaccine, live 02/25/07 Given Ambulat ory Pharmac y influenza virus vaccine, live, attenuated, for intranasal use 0 2006 [id number] 111 [employer] Inc. (MED) complet ed influenza virus vaccine, live, attenuate d, for intranasa l use DoD vaccinia (smallpox) vaccine 2006 [id number] 75 nivio complet ed vaccinia (smallpox ) vaccine 01/23/07 Given Ambulat ory Pharmac y anthrax vaccine 2006 [id number] 24 Emer[employer] complet ed anthrax vaccine 01/23/07 Given Ambulat ory Pharmac y anthrax vaccine 2006 [id number] 24 [employer] complet ed anthrax vaccine 01/23/07 Given Ambulat ory Pharmac y vaccinia (smallpox) vaccine 2006 [id number] 75 nivio complet ed vaccinia (smallpox ) vaccine 01/23/07 Given Ambulat ory Pharmac y anthrax vaccine 3 2006 [id number] 24 [employer] [place] (MIP) complet ed anthrax vaccine DoD vaccinia (smallpox) vaccine 0 2006 [id number] 75 [facility] (WAL) complet ed vaccinia (smallpox ) vaccine DoD anthrax vaccine 2006 [id number] 24 [employer] complet ed anthrax vaccine 12/22/06 Given Ambulat ory Pharmac y anthrax vaccine 2006 [id number] 24 [employer] complet ed anthrax vaccine 12/22/06 Given Ambulat ory Pharmac y anthrax vaccine 2 2006 [id number] 24 [employer] [place] ([facility]) complet ed anthrax vaccine DoD typhoid vaccine, inactivated 2006 [id number] 101 sanofi pasteur complet ed typhoid vaccine, inactivat ed 10/31/06 Given Ambulat ory Pharmac y anthrax vaccine 2006 [id number] 24 [employer] complet ed anthrax vaccine 10/31/06 Given Ambulat ory Pharmac y typhoid vaccine, inactivated 2006 Z1102 101 sanofi pasteur complet ed typhoid vaccine, inactivat ed 10/31/06 Given Ambulat ory Pharmac y anthrax vaccine 2006 [id number] [employer] complet ed anthrax vaccine 10/31/06 Given Ambulat ory Pharmac y anthrax vaccine 1 2006 [id number] [employer] [place] ([facility]) complet ed anthrax vaccine DoD typhoid vaccine, parenteral, other than acetone-kille d, dried 1 2006 [id number] Sanofi Pasteur (PMC) complet ed typhoid vaccine, parentera l, other than acetone-k illed, dried DoD influenza virus vaccine,split 2005 [id number] 15 sanofi pasteur complet ed influenza virus vaccine,s plit 03/10/06 Given Ambulat ory Pharmac y influenza virus vaccine,split 2005 [id number] 15 sanofi pasteur complet ed influenza virus vaccine,s plit 03/10/06 Given Ambulat ory Pharmac y influenza virus vaccine, split virus (incl. purified surface antigen)-reti red CODE 1 2005 [id number] 15 Sanofi Pasteur (PMC) complet ed influenza virus vaccine, split virus (incl. purified surface antigen)- retired CODE DoD hepatitis A adult vaccine 2005 [id number] 52 Merck & Company Inc complet ed hepatitis A adult vaccine 10/08/05 Given Ambulat ory Pharmac y hepatitis A adult vaccine 2005 [id number] 52 [employer]ck [employer] Inc complet ed hepatitis A adult vaccine 10/08/05 Given Ambulat ory Pharmac y hepatitis A vaccine, adult dosage 2 2005 [id number] 52 Merck (MSD) complet ed hepatitis A vaccine, adult dosage DoD hepatitis A adult vaccine 2004 [id number] 52 GlaxoSmithK[employer] ne complet ed hepatitis A adult vaccine 03/17/05 Given Ambulat ory Pharmac y influenza virus vaccine,split 2004 [id number] 15 sanofi pasteur complet ed influenza virus vaccine,s plit 03/17/05 Given Ambulat ory Pharmac y hepatitis A adult vaccine 2004 [id number] 52 GlaxoSmithKli ne complet ed hepatitis A adult vaccine 03/17/05 Given Ambulat ory Pharmac y influenza virus vaccine,split 2004 [id number] 15 sanofi pasteur complet ed influenza virus vaccine,s plit 03/17/05 Given Ambulat ory Pharmac y influenza virus vaccine, whole virus 2004 CAPTCHRISTOPH ERRWEISGARBER [id number] 16 complet ed Result Comment: Route: Unknown Manufactu rer: Sanofi Pasteur ([facility]) [id number]-375 [facility] measles, mumps and rubella virus vaccine 1 2004 03 () Not Given measles, mumps and rubella virus vaccine DoD influenza virus vaccine, split virus (incl. purified surface antigen)-reti red CODE 1 2004 [id number] 15 Sanofi Pasteur ([facility]) complet ed influenza virus vaccine, split virus (incl. purified surface antigen)- retired CODE DoD influenza virus vaccine, whole virus 0 2004 [id number] 16 Sanofi Pasteur ([facility]) complet ed influenza virus vaccine, whole virus DoD varicella virus vaccine 1 2004 21 () Not Given varicella virus vaccine DoD hepatitis B vaccine, adult dosage 1 2004 43 () Not Given hepatitis B vaccine, adult dosage DoD hepatitis A vaccine, adult dosage 1 2004 [id number] 52 [employer] (SKB) complet ed hepatitis A vaccine, adult dosage DoD tuberculin purified protein derivative 2004 [id number] 96 sanofi pasteur complet ed tuberculi n purified protein derivativ e 03/11/05 Given Ambulat ory Pharmac y meningococcal polysaccharid e (MPSV4) 2004 [id number] 32 sanofi pasteur complet ed meningoco ccal polysacch aride (MPSV4) 03/10/05 Given Ambulat ory Pharmac y poliovirus vaccine, inactivated 2004 [id number] 10 sanofi pasteur complet ed polioviru s vaccine, inactivat ed 03/10/05 Given Ambulat ory Pharmac y tetanus-dipht h toxoids (Td) adult/adol 2004 [id number] 09 sanofi pasteur complet ed tetanus-d iphth toxoids (Td) adult/ado l 03/10/05 Given Ambulat ory Pharmac y meningococcal polysaccharid e (MPSV4) 2004 [id number] 32 sanofi pasteur complet ed meningoco ccal polysacch aride (MPSV4) 03/10/05 Given Ambulat ory Pharmac y poliovirus vaccine, inactivated 2004 [id number] 10 sanofi pasteur complet ed polioviru s vaccine, inactivat ed 03/10/05 Given Ambulat ory Pharmac y tetanus-dipht h toxoids (Td) adult/adol 2004 [id number] 09 sanofi pasteur complet ed tetanus-d iphth toxoids (Td) adult/ado l 03/10/05 Given Ambulat ory Pharmac y tetanus and diphtheria toxoids, adsorbed, preservative free, for adult use (2 Lf of tetanus toxoid and 2 Lf of diphtheria toxoid) 1 2004 [id number] 09 Sanofi Pasteur ([facility]) complet ed tetanus and diphtheri a toxoids, adsorbed, preservat mark free, for adult use (2 Lf of tetanus toxoid and 2 Lf of diphtheri a toxoid) DoD poliovirus vaccine, inactivated 1 2004 [id number] 10 Sanofi Pasteur ([facility]MC) complet ed polioviru s vaccine, inactivat ed DoD meningococcal polysaccharid e vaccine (MPSV4) 1 2004 [id number] 32 Sanofi Pasteur (PMC) complet ed meningoco ccal polysacch aride vaccine (MPSV4) DoD hepatitis B adult vaccine 2002 [id number] 43 Merck & Company Inc complet ed hepatitis B adult vaccine 01/25/03 Given Ambulat ory Pharmac y hepatitis B adult vaccine 2002 [id number] 43 [employer]ck [employer] Inc complet ed hepatitis B adult vaccine 01/25/03 Given Ambulat ory Pharmac y HepB, Adult 2002 CAPTCHRISTOPH ERRWEISGARBER [id number] 43 complet ed Result Comment: Route: Unknown Manufactu rer: Merck (MSD) [id number]-A f-C-375 [facility] [employer] hepatitis B vaccine, adult dosage 2 2002 [id number] 43 Merck (MSD) complet ed hepatitis B vaccine, adult dosage DoD hepatitis B adult vaccine 2000 [id number] 43 [employer]ck & Company Inc complet ed hepatitis B adult vaccine 11/29/00 Given Ambulat ory Pharmac y tetanus-dipht h toxoids (Td) adult/adol 2000 [id number] 09 [facility] complet ed tetanus-d iphth toxoids (Td) adult/ado l 11/29/00 Given Ambulat ory Pharmac y hepatitis B adult vaccine 2000 [id number] 43 [employer] Inc complet ed hepatitis B adult vaccine 11/29/00 Given Ambulat ory Pharmac y tetanus-dipht h toxoids (Td) adult/adol 2000 [id number] 09 [facility] complet ed tetanus-d iphth toxoids (Td) adult/ado l 11/29/00 Given Ambulat ory Pharmac y HepB, Adult 2000 CAPTCHRISTOPH ERRWEISGARBER [id number] 43 complet ed Result Comment: Route: Unknown Manufactu rer: Merck (MSD) [id number]-[id number] [id number]-375 [facility] [employer] [facility] tetanus and diphtheria toxoids, adsorbed, preservative free, for adult use (2 Lf of tetanus toxoid and 2 Lf of diphtheria toxoid) 1 2000 [id number] 09 [facility] (CON) complet ed tetanus and diphtheri a toxoids, adsorbed, preservat mark free, for adult use (2 Lf of tetanus toxoid and 2 Lf of diphtheri a toxoid) DoD hepatitis B vaccine, adult dosage 1 2000 [id number] 43 Merck (MSD) complet ed hepatitis B vaccine, adult dosage DoD measles/mumps /rubella virus vaccine 1990 [id number] 03 [employer]ck [employer] Company Inc complet ed measles/m umps/rube lla virus vaccine 11/20/90 Given Ambulat ory Pharmac y measles/mumps /rubella virus vaccine 1990 [id number] 03 [employer] complet ed measles/m umps/rube lla virus vaccine 11/20/90 Given Ambulat ory Pharmac y measles, mumps and rubella virus vaccine 2 1990 [id number] 03 Merck (MSD) complet ed measles, mumps and rubella virus vaccine DoD poliovirus vaccine, live, oral 1989 [id number] 02 sanofi pasteur complet ed polioviru s vaccine, live, oral 11/21/89 Given Ambulat ory Pharmac y poliovirus vaccine, live, oral 1989 [id number] 02 sanofi pasteur complet ed polioviru s vaccine, live, oral 11/21/89 Given Ambulat ory Pharmac y trivalent poliovirus vaccine, live, oral 5 1989 [id number] 02 Sanofi Pasteur ([facility]) complet ed trivalent polioviru s vaccine, live, oral DoD poliovirus vaccine, live, oral 1986 [id number] 02 sanofi pasteur complet ed polioviru s vaccine, live, oral 07/19/86 Given Ambulat ory Pharmac y poliovirus vaccine, live, oral 1986 [id number] 02 sanofi pasteur complet ed polioviru s vaccine, live, oral 07/19/86 Given Ambulat ory Pharmac y trivalent poliovirus vaccine, live, oral 4 1986 [id number] 02 Sanofi Pasteur ([facility]) complet ed trivalent polioviru s vaccine, live, oral DoD measles/mumps /rubella virus vaccine 1986 [id number] 03 [employer] Inc complet ed measles/m umps/rube lla virus vaccine 05/07/86 Given Ambulat ory Pharmac y measles/mumps /rubella virus vaccine 1986 [id number] 03 [employer] Inc complet ed measles/m umps/rube lla virus vaccine 05/07/86 Given Ambulat ory Pharmac y measles, mumps and rubella virus vaccine 1 1986 [id number] 03 Merck (MSD) complet ed measles, mumps and rubella virus vaccine DoD poliovirus vaccine, live, oral 1985 [id number] 02 [facility] complet ed polioviru s vaccine, live, oral 07/19/85 Given Ambulat ory Pharmac y poliovirus vaccine, live, oral 1985 [id number] 02 [facility] complet ed polioviru s vaccine, live, oral 07/19/85 Given Ambulat ory Pharmac y trivalent poliovirus vaccine, live, oral 3 1985 [id number] 02 [facility] (CON) complet ed trivalent polioviru s vaccine, live, oral DoD poliovirus vaccine, live, oral 1985 02 complet ed polioviru s vaccine, live, oral 05/14/85 Given Ambulat ory Pharmac y poliovirus vaccine, live, oral 1985 02 complet ed polioviru s vaccine, live, oral 05/14/85 Given Ambulat ory Pharmac y trivalent poliovirus vaccine, live, oral 2 1985 02 () complet ed trivalent polioviru s vaccine, live, oral DoD poliovirus vaccine, live, oral 1984 02 complet ed polioviru s vaccine, live, oral 03/06/85 Given Ambulat ory Pharmac y poliovirus vaccine, live, oral 1984 02 complet ed polioviru s vaccine, live, oral 03/06/85 Given Ambulat ory Pharmac y trivalent poliovirus vaccine, live, oral 1 1984 02 () complet ed trivalent polioviru s vaccine, live, oral DoD Results Combined list of recent chemistry, hematology and other laboratory results from [facility], ranging from 15 months to all on record, depending upon the facility. Order Name Results Value Reference Range Date Interpretation Specimen Comments Source Infectiou s Disease HIV-1/O/2 Non-Reac tive 12 (07/02/24 11:55 AM) 07/02 N Interpretiv e Data: INTERPRETAT ION: This method is a screening procedure for the detection of HIV p24 Antigen and Antibodies to HIV-1, including Group O, and/or HIV-2. NON-REACTIV E: HIV-1 antigen and HIV-1 / HIV-2 antibodies were not detected. No laboratory evidence of HIV infection. A negative test result does not exclude the possibility of exposure to or infection with HIV. HIV antibodies and/or p24 antigen may be undetectabl e in some stages of the infection and in some clinical conditions. If acute HIV infection is suspected, consider submitting another specimen to a reference laboratory for HIV-1 RNA. SCREEN REACTIVE - CONFIRMATIO N TO FOLLOW: Possible presence of HIV-1antibo dies, HIV-2 antibodies and/or HIV-1 p24 antigen. Specimen will reflex to the confirmatio n testing that fulfills the Center for Disease Control and Prevention' s HIV diagnostic algorithm. Refer to [facility] Lab Guide for additional information : [email or web address] x Testing performed by [employer]. 5600A-US AFSA EPILAB Chemistry eGFR CKD EPI 99 mL/min/1 .73_m2 09/18 Interpretiv e Data: Estimated Glomerular Filtration Rate (eGFR) calculated using the 2020 Chronic Kidney Disease-Epi demiology (CKD-EPI) Collaborati on creatinine equation; units of measure are mL/min/1.73 m2. Results are only valid for adults (>=18 years) whose serum creatinine is in steady state. eGFR calculation s are not valid for patients with acute kidney injury and for patients on dialysis. Creatinine- based estimates of kidney function may also be inaccurate in patients with reduced creatinine generation due to decreased muscle mass (e.g., malnutritio n, severe hypoalbumin emia, sarcopenia, chronic neuromuscul ar disease, amputations , severe heart failure or liver disease) and in patients with increased creatinine generation due to increased muscle mass (e.g., muscle builders, anabolic steroids) or increased dietary intake. CKD is diagnosed based on abnormaliti es of kidney structure or function, present for >3 months, with implication s for health and disease. CKD is classified and staged based on cause, eGFR and albuminuria (quantified as urine albumin to creatinine ratio). An eGFR >60 mL/min/1.73 m2 in the absence of increased urine albumin excretion or structural abnormaliti es does not CKD. eGFR provides only an estimate of measured GFR within +/- 30% for most patients. As mentioned, nutritional status and muscle mass, among many factors, may lead to inaccuracy in the estimate. Consider ordering the creatinine- cystatin C panel if better accuracy is needed for clinical decision-sharron courtney. eGFR (mL/min/1.7 3 m2) CKD stage Interpretat ion Normal 60-89 Mild decrease 45-59 Mild to moderate decrease 30-44 Moderate to severe decrease 15-29 Severe decrease <15 Kidney failure [facility] Chemistry BUN 12 mg/dL 8 - 26 09/18 N [facility] Chemistry BUN/Creat Ratio 12 mg/dL 12 - 20 09/18 N [facility] Chemistry Calcium 9.2 mg/dL 8.4 - 10.2 09/18 N [facility] Chemistry Chloride 109 mmol/L 98 - 107 09/18 H [facility] Chemistry CO2 23 mmol/L 22 - 09/[address] [place] [address] Chemistry Creatinine Level 1.00 mg/dL 0.72 - 1.25 09/[address] [place] [address] Chemistry Glucose Lvl 101 mg/dL 74 - 99 09/[address] [place] [address] Chemistry Potassium Lvl 3.9 mmol/L 3.5 - 5.1 09/[address] [place] [address] Chemistry Sodium 142 mmol/L 136 - 145 09/[address] [place] [address] Chemistry AGAP 10.00 0.00 - 15.00 09/18 N [facility] Hematolog y Differenti al? Auto (09/16/23 12:12 PM) 09/15 N [facility] Hematolog y RDW 12.4 % 11.0 - 14.9 09/15 N [facility] Hematolog y WBC 11.8 x10^3/mc L 4.0 - 11.0103 09/15 H [facility] Hematolog y Platelets 305.0 x10^3/mc L 150.0 - 450.0103 09/15 N [facility] Hematolog y RBC 5.3 x10^6/mc L 4.0 - 5.6106 09/15 N [facility] Hematolog y MCHC 33.0 g/dL 33.0 - 36.5 09/15 N [facility] Hematolog y MCV 88 fL 80 - 97 09/15 N [facility] Hematolog y MPV 8.8 fL 7.4 - 10.4 09/15 N [facility] Hematolog y Hematocrit 47 % 40 - 49 09/15 N [facility] Hematolog y Hemoglobin 15.5 g/dL 13.0 - 16.3 09/15 N [facility] Hematolog y MCH 29 pg 28 - 33 09/[address] [place] [address] Chemistry Triglyceri sarahi 166 mg/dL 7 - 149 09/15 H Interpretiv e Data: AGES 0-9: Desirable: < 75 mg/dL Borderline High: 75-99 mg/dL High: >/= 100 mg/dL AGES 10-19: Desirable: < 90 mg/dL Borderline High: 90-129 mg/dL High: >/= 130 mg/dL ADULTS: Desirable: < 150 mg/dL Borderline High: 150-199 mg/dL High: >/= 240 mg/dL Very High: >/= 500 mg/dL [facility] Chemistry LDL 169 mg/dL 100 - 130 09/15 H Interpretiv e Data: AGES 0-19: Desirable: < 110 mg/dL Borderline High: 110-129 mg/dL High: >/= 130 mg/dL ADULTS: Desirable: <100 mg/dL Near/above optimal: 100-130 mg/dL Borderline High: 131-159 mg/dL High: 160-189 mg/dL Very High: 190 mg/dL [facility] Chemistry LDL/HDL 5 09/15 [facility] Chemistry HDL Cholestero l 37 mg/dL 40 - 59 09/15 L Interpretiv e Data: HDL (HIGH DENSITY LIPOPROTEIN ): ADULTS: Low: < 40 mg/dL High: >/= 60 mg/dL AGES 0 -19: Low: < 40 mg/dL Borderline Low: 40 - 45 mg/dL Acceptable: > 45 mg/dL [address] [place] [address] Chemistry Cholestero l Total 225 mg/dL 09/15 H Interpretiv e Data: According to the [place] [employer] : AGES 0-19: Desirable: < 170 mg/dL Borderline High: 170-199 mg/dL High Blood Cholesterol : >/= 200 mg/dL ADULTS: Desirable < 200 mg/dL Borderline High: 200-239 mg/dL High Blood Cholesterol : >/= 240 mg/dL [address] [place] [address] Chemistry Chol/HDL 6 mg/dL 09/[address] [place] [address] Chemistry Albumin 3.90 g/dL 3.50 - 5.20 09/[address] [place] [address] Chemistry Alk Phos 91 U/L 40 - 150 09/[address] [place] [address] Chemistry ALT 31 U/L 5 - 55 09/[address] [place] [address] Chemistry AST 17 U/L 5 - 34 09/[address] [place] [address] Chemistry Bilirubin Total 0.5 mg/dL 0.2 - 1.2 09/[address] [place] [address] Chemistry AGAP 9.00 0.00 - 15.00 09/[address] [place] [address] Chemistry CO2 24 mmol/L 22 - 29 09/[address] [place] [address] Chemistry Creatinine Level 0.90 mg/dL 0.72 - 1.25 09/[address] [place] [address] Chemistry Glucose Lvl 88 mg/dL 74 - 99 09/[address] [place] [address] Chemistry BUN 17 mg/dL 8 - 26 09/[address] [place] [address] Chemistry BUN/Creat Ratio 19 mg/dL 12 - 20 09/[address] [place] [address] Chemistry Calcium 9.2 mg/dL 8.4 - 10.2 09/[address] [place] [address] [facility] Chemistry Chloride 107 mmol/L 98 - 107 09/15 [facility] Protein Total 7.1 g/dL 6.4 - 8.3 09/15 [facility] Chemistry Potassium Lvl 4.1 mmol/L 3.5 - 5.1 09/15 [facility] Chemistry Sodium 140 mmol/L 136 - 145 09/15 N [facility] Clarity Clear *NA* (09/16/23 12:12 PM) 09/15 [facility] Color Yellow *NA* (09/16/23 12:12 PM) 09/15 [facility] Bili Negative (09/16/23 12:12 PM) 09/15 N [facility]A Blood Negative (09/16/23 12:12 PM) 09/15 N [facility]A WBC TNP 09/15 [facility]A Spec [place] 1.025 1.001 - 1.035 09/15 N [facility]A Protein Negative mg/dL 09/15 N [facility]A RBC TNP 09/15 [facility]A Urobilinog en 0.2 E.U./dL 0.2 - 1.0.. 09/15 N [facility]A Leuk Esterase Negative (09/16/23 12:12 PM) 09/15 N [facility]A Nitrite Negative (09/16/23 12:12 PM) 09/15 N [facility] Urinalysi s UA Glucose Negative mg/dL 09/15 N [facility]inalysi s UA Ketones Negative mg/dL 09/15 N [facility]inalys[facility] s UA pH 5.5 5 - 8 09/[address] [place] [address] Chemistry eAvg Glucose 128 mg/dL 09/[address] [place] [address] Chemistry Hemoglobin A1c 6.1 % 4.0 - 5.6 09/15 H Interpretiv e Data: Normal: 4.0 - 5.6% Increased Risk: 5.7 - 6.4% Diabetic Range: 6.5% For patients without diabetes, the normal range for the hemoglobin A1c test is between 4% and 5.6%. Hemoglobin A1c levels between 5.7% and 6.4% indicate increased risk of diabetes, and levels of 6.5% or higher indicate diabetes. Because studies have repeatedly shown that out-of-cont rol diabetes results in complicatio ns from the disease, the goal for people with diabetes is a hemoglobin A1c less than 7%. The higher the hemoglobin A1c, the higher the risks of developing complicatio ns related to diabetes. If confirmatio n is needed, consider recalling the patient and ordering Hemoglobin Electrophor esis. [facility] Chemistry eGFR CKD EPI 112 mL/min/1 .73_m2 09/15 Interpretiv e Data: Estimated Glomerular Filtration Rate (eGFR) calculated using the 2020 Chronic Kidney Disease-Epi demiology (CKD-EPI) Collaborati on creatinine equation; units of measure are mL/min/1.73 m2. Results are only valid for adults (>=18 years) whose serum creatinine is in steady state. eGFR calculation s are not valid for patients with acute kidney injury and for patients on dialysis. Creatinine- based estimates of kidney function may also be inaccurate in patients with reduced creatinine generation due to decreased muscle mass (e.g., malnutritio n, severe hypoalbumin emia, sarcopenia, chronic neuromuscul ar disease, amputations , severe heart failure or liver disease) and in patients with increased creatinine generation due to increased muscle mass (e.g., muscle builders, anabolic steroids) or increased dietary intake. CKD is diagnosed based on abnormaliti es of kidney structure or function, present for >3 months, with implication s for health and disease. CKD is classified and staged based on cause, eGFR and albuminuria (quantified as urine albumin to creatinine ratio). An eGFR >60 mL/min/1.73 m2 in the absence of increased urine albumin excretion or structural abnormaliti es does not CKD. eGFR provides only an estimate of measured GFR within +/- 30% for most patients. As mentioned, nutritional status and muscle mass, among many factors, may lead to inaccuracy in the estimate. Consider ordering the creatinine- cystatin C panel if better accuracy is needed for clinical decision-sharron courtney. eGFR (mL/min/1.7 3 m2) CKD stage Interpretat ion Normal 60-89 Mild decrease 45-59 Mild to moderate decrease 30-44 Moderate to severe decrease 15-29 Severe decrease <15 Kidney failure [facility] Chemistry TSH 1.190 mIU/L 0.270 - 4.200 09/15 N Interpretiv e Data: Recommend: TPO/Thyrope roxidase Antibody when TSH result is > 4.2 uIU/mL 5600A-US AFSAM EPILAB Hematolog y Eos Absolute 0.1 x10^3/mc L 0.0 - 0.7103 09/15 N [facility] Hematolog y Basophil % Auto 0.2 % 0.0 - 2.5 09/15 N [facility] Hematolog y Lymphocyte % Auto 21.7 % 20.0 - 40.0 09/15 N [facility] Hematolog y Eosinophil % Auto 1 % 0 - 5 09/15 N [facility] Hematolog y Baso Absolute 0.0 x10^3/mc L 0.0 - 0.1103 09/[address] [place] [address] Hematolog y Neutro Absolute 7.9 x10^3/mc L 2.0 - 7.0103 09/15 H [facility] Hematolog y Monocyte % Auto 9 % 1 - 12 09/15 N [facility] Hematolog y Galax Absolute 1.0 x10^3/mc L 0.2 - 0.8103 09/15 H - [facility] Hematolog y Lymph Absolute 2.6 x10^3/mc L 1.2 - 4.0103 09/15 [facility] Hematolog y Neutrophil % Auto 67.2 % 46.0 - 77.0 09/15 N [facility] Chemistry eGFR AA 128 10/[address] [place] [address] Chemistry eGFR Non-AA 110 10/[address] [place] [address] Chemistry CRP Qn.LC 2 mg/L 10/29 Result Comment: Performed At: 01 [facility] [address] [id number] Berny Sutherland MD Ph:[phone] [address] [place] [address] Chemistry Hemoglobin A1c 5.8 % 4.0 - 5.6 10/[address] [place] [address] Chemistry eAvg Glucose 120 10/[address] [place] [address] Hematolog y MCV 86 fL 80 - 100 10/[address] [place] [address] Hematolog y MPV 9.3 8.0 - 11.0 10/[address] [place] [address] Hematolog y Platelets 227 10^3/uL 150 - [id number] 10/[address] [place] [address] Hematolog y RBC 5.67 x10^6/mc L 4.50 - 6.67636 10/[address] [place] [address] Hematolog y WBC 6.0 x10^3/mc L 4.0 - 11.0103 10/[address] [place] [address] Hematolog y Hemoglobin 16.4 g/dL 14.5 - 18.0 10/[address] [place] [address] Hematolog y MCH 28.9 pg 27.0 - 33.0 10/[address] [place] [address] Hematolog y MCHC 34 g/dL 32 - 36 10/[address] [place] [address] Hematolog y Hematocrit 48.8 % 43.0 - 53.0 10/[address] [place] [address] Hematolog y RDW SD 41.2 10/[address] [place] [address] Hematolog y RDW CV 13 10/[address] [place] [address] Chemistry Free Testostero ne Direct LC 11.1 pg/mL 10/29 Result Comment: Performed At: 01 [facility] [place] [address] [facility] [address] [place], [place] [id number] Berny Sutherland MD Ph:[phone] Performed At: [address] [id number] Abraham Vincent MD Ph:[phone] [address] [place] [address] Chemistry Testostero ne Serum LC 455 ng/dL 10/29 Result Comment: Adult male reference interval is based on a population of healthy nonobese males (BMI <30) between 19 and 39 years old. Radha et.al. JCEM 2017,102;11 61-1173. PMID: [id number]. [address] [place] [address] Chemistry Vit D, 25-OH.LC 39.8 ng/mL 10/29 Result Comment: Vitamin D deficiency has been defined by the [place] [employer] and an Endocrine Society practice guideline as a level of serum 25-OH vitamin D less than 20 ng/mL (1,2). The Endocrine Society went on to further define vitamin D insufficien cy as a level between 21 and 29 ng/mL (2). 1. IOM ([place] [employer]). 2010. Dietary reference intakes for calcium and D. [place]: The National Academies Press. 2. Yoni MF, Benji [place], Diana vergara KASPER, et al. Evaluation, treatment, and prevention of vitamin D deficiency: an Endocrine Society clinical practice guideline. JCEM. 2010; 96(7):1911- 30. Performed At: 01 [facility] [address] [facility] [address] [place], [place] [id number] Berny Sutherland MD Ph:[phone] [address] [place] [address] Chemistry ALT 48 U/L 10/[address] [place] [address] Chemistry Alk Phos 72 U/L 38 - 126 10/[address] [place] [address] Chemistry Albumin 4.1 g/dL 3.5 - 5.0 10/[address] [place] [address] Chemistry AGAP 8 10/[address] [place] [address] Chemistry Globulin 3 10/[address] [place] [address] Chemistry Calcium 8.9 mg/dL 8.4 - 10.2 10/[address] [place] [address] Chemistry BUN 21.0 mg/dL 7.0 - 20.0 10/[address] [place] [address] Chemistry Bilirubin Total 0.9 mg/dL 0.2 - 1.5 10/[address] [place] [address] Chemistry Bilirubin Direct No Result 0.0 - 1.1 10/[address] [place] [address] Chemistry AST 31 U/L 15 - 46 10/[address] [place] [address] Chemistry Creatinine Level 0.9 mg/dL 0.7 - 1.5 10/[address] [place] [address] Chemistry A/G Ratio 1.4 10/[address] [place] [address] Chemistry Osmo Calc 272 10/[address] [place] [address] Chemistry BUN/Creat Ratio 24 10/[address] [place] [address] Chemistry Sodium 139 mmol/L 137 - 145 10/[address] [place] [address] Chemistry Potassium Lvl 3.80 mmol/L 3.50 - 5.10 10/[address] [place] [address] Chemistry Glucose Lvl 99 mg/dL 74 - 100 10/[address] [place] [address] Chemistry CO2 20.0 mmol/L 22.0 - 30.0 10/[address] [place] [address] Chemistry Chloride 111 mmol/L 96 - 107 10/[address] [place] [address] Chemistry Protein Total 7 g/dL 6 - 8 10/[address] [place] [address] Chemistry HDL Cholestero l 32 mg/dL 40 - 60 10/[address] [place] [address] Chemistry Chol/HDL 6 10/[address] [place] [address] Chemistry HDL/Chol 0 10/[address] [place] [address] Chemistry Cholestero l Total 183 mg/dL 100 - 200 10/[address] [place] [address] Chemistry Triglyceri sarahi 80.0 mg/dL 0.0 - 150.0 10/[address] [place] [address] Chemistry VLDL 16 10/[address] [place] [address] Chemistry LDL 136 mg/dL 0 - 100 10/[address] [place] [address] Chemistry LDL/HDL 4 10/[address] [place] [address] Chemistry TSH LC 2.340 uIU/mL 10/[address] [place] [address] Chemistry T4 Free Direct.LC 1.16 ng/dL 10/29 Result Comment: Performed At: 01 [facility] [address] [id number] Berny Sutherland MD Ph:[phone] [address] [place] [address] Hematolog y ESR Auto Plus 1 mm/h 0 - 15 10/[address] [place] [address] Hematolog y Neutrophil % Auto 56.6 10/[address] [place] [address] Hematolog y Monocyte % Auto 10.0 10/[address] [place] [address] Hematolog y Imm. Granulocyt e Absolute 0 10/[address] [place] [address] Hematolog y Eosinophil % Auto 3.2 % 0 - 5 10/[address] [place] [address] Hematolog y Imm. Granulocyt e % 0 10/[address] [place] [address] Hematolog y Neutro Absolute 3.4 x10^3/mc L 1.6 - 6.1103 10/[address] [place] [address] Hematolog y Baso Absolute 0.0 x10^3/mc L 0.0 - 0.1103 10/[address] [place] [address] Hematolog y Lymph Absolute 1.8 x10^3/mc L 1.2 - 3.9103 10/[address] [place] [address] Hematolog y Lymphocyte % Auto 30 10/[address] [place] [address] Hematolog y Basophil % Auto 0.3 10/[address] [place] [address] Hematolog y Eos Absolute 0.2 x10^3/mc L 0.0 - 0.5103 10/[address] [place] [address] Hematolog y Galax Absolute 0.6 x10^3/mc L 0.3 - 0.9103 10/[address] [place] [address] Vital Signs Combined list of inpatient and outpatient Vital Signs from Department of Defense and Veterans Affairs, ranging from 12 months to all on record, depending upon the facility. Vital Sign Value Date Comments Source Blood Pressure Manual Automatic 12/24/2022 18:24:00 0055C-[facility]th [facility] Temperature Oral 36.7 Silvia 09/30/2023 18:10:00 7928A-Vp-P-[facility] BP Site Left arm 09/30/2023 18:10:00 8391Y-Vp-L-[facility] Mean Arterial Pressure, Calc 96 mm[Hg] 09/30/2023 18:10:00 4320Z-Ls-F-[facility] Peripheral Pulse Rate 71 bpm 09/30/2023 18:10:00 7884R-Ct-M-[facility] Systolic Blood Pressure 135 mm[Hg] 09/30/19 24 18:10:00 3916Q-Yr-Q-[facility] Diastolic Blood Pressure 76 mm[Hg] 024 18:10:00 6345X-Aj-E-[facility] Respiratory Rate 16 br/min 09/30/2023 18:10:00 3582P-Vs-E-[facility]Th [facility] Peripheral Pulse Rate 69 bpm 05/13/2023 15:17:00 0055C-[facility] Blood Pressure Manual Automatic 05/13/2023 15:17:00 0055C-[facility] Temperature Oral 36.7 Silvia 05/13/2023 15:17:00 0055C-[facility] Respiratory Rate 16 br/min 05/13/2023 15:17:00 0055C-[facility]th [facility] Temperature Oral 36.7 Silvia 10/20/2023 19:15:00 7633X-Bc-Y-[facility] Respiratory Rate 17 br/min 10/20/2023 19:15:00 7630I-Gn-W-[facility]Th [facility] Systolic Blood Pressure 137 mm[Hg] 10/20/19 19:15:00 9409Z-Co-X-[facility] Diastolic Blood Pressure 78 mm[Hg] 19:15:00 8138M-Tj-Y-[facility] BP Site Right arm 10/20/2023 19:15:00 2706Z-Ap-G-[facility] Peripheral Pulse Rate 73 bpm 10/20/2023 19:15:00 2924B-Gl-T-[facility] Mean Arterial Pressure, Calc 98 mm[Hg] 10/20/2023 19:15:00 0424L-Sv-P-[facility] Blood Pressure Manual Automatic 03/16/2021 22:11:[address] [place] [address] Temperature Temporal Artery 37 Silvia 04/27/2023 15:02:00 0055C-[facility] Blood Pressure Manual Automatic 04/27/2023 15:02:00 0055C-[facility] Mean Arterial Pressure, Calc 98 mm[Hg] 09/02/2023 16:40:00 0055C-[facility] BP Site Right arm 09/02/2023 16:40:00 0055C-[facility] Systolic Blood Pressure 138 mm[Hg] 09/02/19 16:40:00 0055C-[facility] Diastolic Blood Pressure 78 mm[Hg] 16:40:00 0055C-[facility] Peripheral Pulse Rate 72 bpm 09/02/2023 16:40:00 0055C-[facility] Temperature Oral 36.8 Silvia 09/02/2023 16:40:00 0055C-[facility] Respiratory Rate 17 br/min 09/02/2023 16:40:00 0055C-[facility] Blood Pressure Manual Automatic 03/20/2024 13:34:00 0055C-[facility] BP Site Right arm 03/20/2024 13:34:00 0055C-[facility] Temperature Oral 36.7 Silvia 03/20/2024 13:34:00 0055C-[facility] Respiratory Rate 16 br/min 03/20/2024 13:34:00 0055C-[facility] Peripheral Pulse Rate 73 bpm 03/20/2024 13:34:00 0055C-[facility] Mean Arterial Pressure, Calc 94 mm[Hg] 03/20/2024 13:34:00 0055C-[facility] Systolic Blood Pressure 135 mm[Hg] 03/20/20 24 13:34:00 0055C-[facility] Diastolic Blood Pressure 73 mm[Hg] 024 13:34:00 0055C-[facility] Systolic Blood Pressure 130 mm[Hg] 09/09/19 24 18:00:00 4433Y-Qk-L-375Th [facility] Diastolic Blood Pressure 75 mm[Hg] 024 18:00:00 0039V-Ni-W-[facility]Th [facility] Respiratory Rate 15 br/min 09/09/2023 18:00:00 4539J-Mf-A-[facility]Th [facility] Temperature Oral 36.7 Silvia 09/09/2023 18:00:00 0242F-Pf-P-[facility] Mean Arterial Pressure, Calc 93 mm[Hg] 09/09/2023 18:00:00 4291G-Xj-C-[facility] Peripheral Pulse Rate 70 bpm 09/09/2023 18:00:00 4737V-Gi-J-[facility]Th [facility] BP Site Right arm 09/09/2023 18:00:00 6935C-Lp-C-[facility]Th [facility] Blood Pressure Manual Automatic 04/29/2022 21:00:00 4035A-DL-G-42nd [facility] Systolic Blood Pressure 145 mm[Hg] 09/16/19 15:51:00 0055C-[facility]th [facility] Diastolic Blood Pressure 79 mm[Hg] 15:51:00 0055C-375th [facility] BP Site Left arm 09/16/2023 15:51:00 0055C-375th [facility]Pual Blood Pressure Manual Automatic 09/16/2023 15:51:00 0055C-[facility] Peripheral Pulse Rate 76 bpm 09/16/2023 15:51:00 0055C-[facility]th [facility] Respiratory Rate 16 br/min 09/16/2023 15:51:00 0055C-[facility]th [facility] Mean Arterial Pressure, Calc 101 mm[Hg] 09/16/2023 15:51:00 0055C-[facility]th [facility] Temperature Oral 36.7 Silvia 09/16/2023 15:51:00 0055C-[facility]th [facility] Peripheral Pulse Rate 78 bpm 02/01/2024 19:39:00 0055C-[facility]th [facility] Mean Arterial Pressure, Calc 98 mm[Hg] 02/01/2024 19:39:00 0055C-[facility] Respiratory Rate 14 br/min 02/01/2024 19:39:00 0055C-[facility]th [facility] Temperature Oral 36.7 Silvia 02/01/2024 19:39:00 0055C-[facility]th [facility] Systolic Blood Pressure 137 mm[Hg] 02/01/20 19:39:00 0055C-[facility] Diastolic Blood Pressure 79 mm[Hg] 19:39:00 0055C-[facility]th [facility] BP Site Left arm 02/01/2024 19:39:00 0055C-[facility] Systolic Blood Pressure 140 mm[Hg] 10/31/19 15:25:00 2671S-Qb-Q-[facility] Diastolic Blood Pressure 82 mm[Hg] 15:25:00 7026F-Dq-G-[facility]Th [facility] BP Site Right arm 10/31/2023 15:25:00 0434S-Mh-B-[facility]Th [facility] Peripheral Pulse Rate 73 bpm 10/31/2023 15:25:00 7061A-Dm-Z-[facility] Mean Arterial Pressure, Calc 101 mm[Hg] 10/31/2023 15:25:00 3288D-Sk-W-[facility]Th [facility] Temperature Oral 36.8 Silvia 10/31/2023 15:25:00 0810N-Yi-N-[facility]Th [facility] Respiratory Rate 17 br/min 10/31/2023 15:25:00 9024C-Br-T-[facility] BP Site Left arm 05/30/2024 17:01:00 0055C-[facility] Blood Pressure Manual Automatic 05/30/2024 17:01:00 0055C-[facility] Systolic Blood Pressure 142 mm[Hg] 05/30/19 25 17:01:00 0055C-[facility] Diastolic Blood Pressure 90 mm[Hg] 025 17:01:00 0055C-[facility] Mean Arterial Pressure, Calc 107 mm[Hg] 05/30/2024 17:01:00 0055C-[facility] Peripheral Pulse Rate 72 bpm 05/30/2024 17:01:00 0055C-[facility]th [facility] Respiratory Rate 16 br/min 05/30/2024 17:01:00 0055C-[facility]th [facility] Temperature Oral 36.9 Silvia 05/30/2024 17:01:00 0055C-[facility] Systolic Blood Pressure 146 mm[Hg] 09/16/19 24 15:55:00 0055C-[facility] Diastolic Blood Pressure 80 mm[Hg] 024 15:55:00 0055C-[facility] Mean Arterial Pressure, Calc 102 mm[Hg] 09/16/2023 15:55:00 0055C-[facility] BP Site Right arm 09/16/2023 15:55:00 0055C-[facility] Blood Pressure Manual Automatic 01/19/2023 14:46:00 0055C-[facility] Blood Pressure Manual Automatic 06/01/2021 17:49:[address] [place] [address] Encounters Combined list of: 1) Encounters from Department of Veterans Affairs facilities going backup to the last 18 months, not all VA inpatient encounters are included; 2) Encounters from the Department of Defense facilities going backup to 280 months. Location Location Details Encounter Type Encounter Number Reason For Visit Attending Provider ADM Date DC Date Status Disposition Source [place] [employer] [place] OUTPATIENT [id number] [facility]ibl e [facility] [place] [facility] [place] [employer] [employer] OUTPATIENT [id number] INNA SANCHEZ 11/01 Released w/o Limitations [place] [employer] [place] [employer] TELE CONSULT [id number] Predepl oLUCITA Flores 11/02 [place] [facility] [employer] [employer] [facility] OUTPATIENT [id number] 01/09 Released w/o Limitations [facility] OUTPATIENT [id number] 01/10 Released w/o Limitations [facility] OUTPATIENT [id number] 02/13 Released with Work/Duty Limitations [facility] OUTPATIENT [id number] 02/14 Released w/o Limitations [facility] OUTPATIENT [id number] 02/14 Released w/o Limitations [facility] [place] [employer] OUTPATIENT [id number] post deploym ent AARTI ZHOU 07/27 Released w/o Limitations [place] [employer] [place] [employer] [employer] OUTPATIENT [id number] PHA RAIN ANDERSON 01/29 Released w/o Limitations [place] [employer] [place] [employer] OUTPATIENT [id number] choudhury splints RUEBN MOON 05/21 Released with Work/Duty Limitations [place] [employer] [place] [employer]) OUTPATIENT [id number] choudhury splint on lf leg CAPO MAYS Y 09/27 Released w/o Limitations [place] ([place] [employer] ) [employer]([facility]) OUTPATIENT [id number] f/u LLE DEMI WADSWORTH 12/19 Released with Work/Duty Limitations [employer](F amily Practic e Blue) [employer](PHA Cell) OUTPATIENT [id number] pha-inp MAURO Huitron 12/27 Released w/o Limitations [employer](P KASPER Cell) [employer] [facility] DENTAL [id number] Operati AP Zimmer 01/07 Released w/o Limitations [employer](D ental Clinic) [employer] DENTAL [id number] #2 cuspal MARYANN Mejia 02/13 Released w/o Limitations [employer](D ental Clinic) [employer]([facility]) TELE CONSULT [id number] referra l for stress test DEMI WADSWORTH 03/31 [employer](F amily Practic e Blue) [employer]([facility]) TELE CONSULT [id number] droppin g off paperwo JESSICA Batres 04/23 [employer](F amily Practic e Blue) [employer](Josette romuscosk eletal Screening ) OUTPATIENT [id number] COMPART MENT SYNDROM E NONTRAU MATFILIPPO BEATTY 04/25 Released w/o Limitations [employer](N euromus coskele ismael Screeni ng) [employer]([facility] Red) OUTPATIENT [id number] SICK CALL- R Shoulde r SAULO Mix 01/14 Released w/o Limitations [employer](F amily Practic e Red) [employer](PHA Cell) OUTPATIENT [id number] KUSH KELLY 01/14 Released w/o Limitations [employer](P KASPER Cell) [employer](Fam dacia Practice Blue) TELE CONSULT [id number] Referra l request for 2nd opinion MONY CHI 01/23 [employer](F amily Practic e Blue) [employer](Fam dacia Practice Blue) TELE CONSULT [id number] Referra l to Veronique BURCIAGA not entered ! SERRANO KERRI 02/02 Referred for Appointment [employer](F amily Practic e Blue) [employer](Fam dacia Practice Blue) OUTPATIENT [id number] ortho referra l JESSICA WATERMAN 02/09 Released w/o Limitations [employer](F amily Practic e Blue) [employer](Fam dacia Practice Blue) TELE CONSULT [id number] pt would like a referra l to be seen with orthope dic provide r MONY CHI 02/23 [employer](F amily Practic e Blue) [employer](Fam dacia Practice Blue) TELE CONSULT [id number] appt line - referra l DR. BING Brooks for f/u appt 1 JESSICA WATERMAN 03/18 Referred for Appointment [employer](F amily Practic e Blue) [employer](Fam dacia Practice Blue) TELE CONSULT [id number] appt line - labs for seperat ion physica dayron 1 KERRI SERRANO 06/16 Referred for Appointment [employer](F amily Practic e Blue) [employer](Fam dacia Practice Blue) OUTPATIENT [id number] seperat ion physica l BINH HICKMAN 07/06 Released w/o Limitations [employer](F amily Practic e Blue) [place] [address](Tylor patel [facility] Team B) TELE CONSULT [id number] Notes Entered by: CHELO LEWIS 01 May 2012 1947 ------- ------- ------- ------- -- PHA ROUTINE RR: 2012: ARPAN PFEIFFER I 05/02 Referred for Appointment [facility] [place] [address](Dayron rangel [facility] Team B) [place] [address]([facility]) TELE CONSULT [id number] Notes Entered by: JORDAN NANCE 30 May 2012 1327 ------- ------- ------- ------- -- Respira JORDAN Nieto 05/30 [facility] [place] [address](O ccupati onal Medicin e [facility]) [place] [address]([facility]) OUTPATIENT [id number] PREDEPL OYMENT/ CHELO LANIER V 06/28 Released w/o Limitations [facility] [place] [address](D [facility]) Theater Facility OUTPATIENT [id number] Theater Provider 01/08 Released w/o Limitations [place] [address]([facility]) OUTPATIENT [id number] [facility] 3 negativ e finding s HEIKE ESCAMILLA 05/24 Released w/o Limitations [facility] [place] [address](D [facility]) [place] [address]([place] _Team E) OUTPATIENT [id number] LEG PAIN/RE STEVE HERRERA 07/22 Released w/o Limitations [facility] [place] [address]([place] _[facility]_Te am E) [place] [address](Phy sical Therapy, [facility]) OUTPATIENT [id number] LIMB PAIN LOWER LEG MARCOS GONZALEZ 08/14 Released w/o Limitations [facility] [place] [address](P hysical Therapy , [facility]) [place] [address](Phy sical Therapy, [facility]) OUTPATIENT [id number] MARCOS GONZALEZ 09/06 Released w/o Limitations [facility] [place] [address](P hysical Therapy , [facility]) [place] [address]([facility] Emergency [facility]) OUTPATIENT [id number] Notes Entered by: YULI ZAVALA 16 Oct 2014 1020 ------- ------- ------- ------- -- CHILLS/ UPSET STOMACH /LIGHT DIARRHE A WAYNE LOUIS 10/16 Sick at Home/Quarter s [facility] [place] [address]([facility], [facility]) [place] [address]([facility]) TELE CONSULT [id number] Notes Entered by: Yifan DOMINGUEZ 21 Jan 2015 0802 ------- ------- ------- ------- -- CATARINO BOO RR [id number] RLG SANA CALLAWAY 01/21 [facility] [place] [address](Dayron [facility]) [place] [address]([facility] OUTPATIENT [id number] Notes Entered by: YOMAIRA STRICKLAND 21 Jan 2015 1428 ------- ------- ------- ------- -- JUN#4/P ALONZO MUSE 01/21 Released w/o Limitations [facility] [place] [address](D eploe [facility], [facility]) [place] [address](Phy sical Med [facility]) OUTPATIENT [id number] Encount er for other general examina tion DIXIE APARICIO 02/18 Released w/o Limitations [facility] [place] [address](P hysical Med BAM) [facility] [place] [address](Ort hopedics, [facility]) OUTPATIENT [id number] Pain in left leg LEXUS SWENSON 03/05 Released w/o Limitations [place] [address](O rthoped ics, [facility]) [place] [address]([facility] hopedi, [facility]) OUTPATIENT [id number] f/u Pain in left leg ;wants bone scan results done [id number] [facility] LEXUS SWENSON 03/20 Released w/o Limitations [facility] [place] [address](O rthoped ics, [facility]) [place] [address]([facility] hopedi, [facility]) OUTPATIENT [id number] f/u for compart ment testing on both legs ;per CARLEY Swenson [id number] LEXUS SWENSON 04/09 Released w/o Limitations [place] [address](O rthoped ics, [facility]) [place] [address]([facility], [facility]) OUTPATIENT [id number] f/u for compart ment testing on both legs ;per CARLEY Swenson [id number] LEXUS SWENSON 04/09 [facility]ased w/o Limitations [facility] [place] [address](O rthoped ics, [facility]) [place] [address]([facility] hopedi, [facility]) OUTPATIENT [id number] Surgica l eval for compart ment syndrom e on left leg ;ref by CARLEY Swenson [id number] KUSH ROGERS 04/23 [facility]ased w/o Limitations [facility] [place] [address](O rthoped ics, [facility]) [place] [address]([facility] hopedi, [facility]) OUTPATIENT [id number] pop hoglund heel resecti on, gastroc [place]; DOS: [id number] . KUSH SHEPPARD 07/10 Released w/o Limitations [place] [address](O rthoped ics, [facility]) [place] [address](Phy sical Therapy, [facility]) OUTPATIENT [id number] Left Leg. Post op, DOS: [id number] PAWAN LEY III 07/14 Released with Work/Duty Limitations [facility] [place] [address](P hysical Therapy , [facility]) [place] [address](Phy sical Therapy, [facility]) OUTPATIENT [id number] RAAD GATICA 07/21 Released w/o Limitations [facility] [place] [address](P hysical Therapy , [facility]) [place] [address](Phy sical Therapy, [facility]) OUTPATIENT [id number] ELAINE YESSENIA Roldan 07/23 Released w/o Limitations [facility] [place] [address](P hysical Therapy , [facility]) [place] [address](Phy sical Therapy, [facility]) OUTPATIENT [id number] KELLY COATES 07/24 [facility]ased w/o Limitations [facility] [place] [address](P hysical Therapy , [facility]) [place] [address](Phy sical Therapy, [facility]) OUTPATIENT [id number] KELLY COATES 07/27 Released w/o Limitations [place] [address](P hysical Therapy , [facility]) [place] [address](Phy sical Therapy, [facility]) OUTPATIENT [id number] KELLY COATES 07/29 [facility]ased w/o Limitations [facility] [place] [address](P hysical Therapy , [facility]) [place] [address](Phy sical Therapy, [facility]) OUTPATIENT [id number] KELLY COATES 07/30 Released w/o Limitations NADIA [place] [address](P hysical Therapy , [facility]) [place] [address](Ort hopedics, [facility]) OUTPATIENT [id number] 3wks f/u left leg surgery KUSH SHEPPARD Linda 07/31 Released w/o Limitations NADIA [place] [address](O rthoped ics, [facility]) [place] [address](Phy sical Therapy, [facility]) OUTPATIENT [id number] KELLY COATES 08/03 Released w/o Limitations [place] [address](P hysical Therapy , [facility]) [place] [address](Phy sical Therapy, [facility]) OUTPATIENT [id number] PAWAN LEY III 08/06 Released with Work/Duty Limitations [place] [address](P hysical Therapy , [facility]) [place] [address](Phy sical Therapy, [facility]) OUTPATIENT [id number] KELLY COATES 08/07 [facility]ased w/o Limitations [facility] [place] [place] [address](P hysical Therapy , [facility]) [place] [address](Phy sical Therapy, [facility]) OUTPATIENT [id number] ANGELITA CATALAN 08/10 Released w/o Limitations NADIA [place] [address](P hysical Therapy , [facility]) [place] [address](Phy sical Therapy, [facility]) OUTPATIENT [id number] ANGELITA CATALAN 08/12 [facility]itations [facility] [place] [address](P hysical Therapy , [facility]) [place] [address](Phy sical Therapy, [facility]) OUTPATIENT [id number] ANGELITA CATALAN 08/13 Released w/o Limitations NADIA [facility] [address](P hysical Therapy , [facility]) [place] [address](Phy sical Therapy, [facility]) OUTPATIENT [id number] ANGELITA CATALAN Rodrigue 08/17 Released w/o Limitations [facility] [address](P hysical Therapy , [facility]) [place] [address](Phy sical Therapy, [facility]) OUTPATIENT [id number] Notes Entered by: DIONISIO GONSALEZ 21 Aug 2015 1410 ------- ------- ------- ------- -- ADRIANA Avitia 08/20 Released w/o Limitations [facility] [place] [address](P hysical Therapy , [facility]) [place] [address](Phy sical Therapy, [facility]) OUTPATIENT [id number] ANGELITA CATALAN 08/24 Released w/o Limitations [facility] [place] [address](P hysical Therapy , [facility]) [place] [address](Phy sical Therapy, [facility]) OUTPATIENT [id number] RAAD GATICA 08/25 Released w/o Limitations [facility] [address](P hysical Therapy , [facility]) [place] [address](Phy sical Therapy, [facility]) OUTPATIENT [id number] ADRIANA DOMINGUEZ 08/27 Released w/o Limitations [place] [address](P hysical Therapy , [facility]) [place] [address](Phy sical Therapy, [facility]) OUTPATIENT [id number] ADRIANA DOMINGUEZ 09/01 Released w/o Limitations [place] [address](P hysical Therapy , [facility]) [place] [address](Phy sical Therapy, [facility]) OUTPATIENT [id number] SHAUN LEY 09/02 Released w/o Limitations [facility] [place] [address](P hysical Therapy , [facility]) [place] [address](Phy sical Therapy, [facility]) OUTPATIENT [id number] [facility] 09/03 Released w/o Limitations [facility] [place] [address](P hysical Therapy , [facility]) [place] [address](Phy sical Therapy, [facility]) OUTPATIENT [id number] GAVI RAAD DEMARCO 09/03 Released w/o Limitations [facility] [place] [address](P hysical Therapy , [facility]) [place] [address](Phy sical Therapy, [facility]) OUTPATIENT [id number] [facility] 10/01 Released w/o Limitations [facility] [place] [address](P hysical Therapy , [facility]) [place] [address](Tylor patel [facility] Team F) OUTPATIENT [id number] left leg pain SANA CALLAWAY 12/23 Released with Work/Duty Limitations [facility] [place] [address](Dayron rangel [facility] Team F) [place] [address](Hea ring Conservat ion,Fritz) OUTPATIENT [id number] Annual Audiogr am-082A KUSH ALMAGUER 03/01 Released w/o Limitations [facility] [place] [address](H earing Conserv ation,R pete) [place] [address]([facility], [facility]) TELE CONSULT [id number] Notes Entered by: YOMAIRA STRICKLAND 18 Mar 2016 1508 ------- ------- ------- ------- -- SU ELIZABETH appoint ment via telepho JAD Jo 03/18 [facility] [place] [address]([facility], [facility]) [place] [address]([facility] Med Team A) OUTPATIENT [id number] Notes Entered by: OSMIN CORDON DO 13 Apr 2016 1455 ------- ------- ------- ------- -- NON FLY ZULY DELACRUZ 04/13 Released w/o Limitations [facility] [place] [address]( [facility] [place] [address]([facility] Team F) OUTPATIENT [id number] C/O LT HAND ISSUES/ [facility] ULICES HUBBARD 01/12 Released w/o Limitations [facility] [place] [address]([facility] Team F) [place] [address]([facility] Team F) TELE CONSULT [id number] Notes Entered by: NIECY STOKES 13 Jan 2017 1110 ------- ------- ------- ------- -- Results ULICES HUBBARD 01/13 [facility] [place] [address]([facility] [place] [address](Occ upational Therapy, [facility]) OUTPATIENT [id number] Pain in left finger( s) HAO ROMO 02/09 Released w/o Limitations [facility] [place] [address](O ccupati onal Therapy , [facility]) [place] [address](Hea ring Conservat ion,Fritz) OUTPATIENT [id number] Annual - [id number] [id number]* * LOLLY ART 03/04 Released w/o Limitations [facility] [place] [address](H earing Conserv ation,R pete) [place] [address](Occ upational Therapy, [facility]) OUTPATIENT [id number] HAO ROMO 03/23 Released w/o Limitations [facility] [place] [address](O ccupati onal Therapy , [facility]) [place] [address](Phy sical Exams, Fritz) TELE CONSULT [id number] Notes Entered by: DERECK WOODWARD 31 Mar 2017 1506 ------- ------- ------- ------- -- AF FORM 422 REQUEST FOR RETRAIN DEONNA RIBERA SA 03/31 [facility] [place] [address](P hysical Exams, Fritz) [place] [address](BOM C,Fritz) OUTPATIENT [id number] MHA/PRE FERRED CONTACT TEL. CELL EULOGIO FARLEY 04/27 Released w/o Limitations [facility] [place] [address](B [facility],Je d) [place] [address]([facility] Team F) TELE CONSULT [id number] Notes Entered by: MARCELLO WALTER 16 May 2017 0914 ------- ------- ------- ------- -- FCR/JILL CK Appt. request re:high blood pressur e. [phone] CIARA GAMBINO 05/16 [facility] [place] [address](Dayron [facility] Team F) [place] [address]([facility] Team F) OUTPATIENT [id number] BLOOD PRESSULICES ARIAS 06/17 Released w/o Limitations [facility] [place] [address](Dayron rangel [facility] Team F) [facility] [place] [address]([facility], [facility]) OUTPATIENT [id number] Shortne ss of breath VERONIQUE MORALES 07/25 Released w/o Limitations [facility] [place] [address](P ulmonar y Medicin e, [facility]) [facility]) OUTPATIENT [id number] ENT referra VERONIQUE Bee 03/29 Released w/o Limitations [facility]) TELE CONSULT [id number] Notes Entered by: MIMI HWANG 06 Apr 2018 1340 ------- ------- ------- ------- -- Rout Req: req Audio ref SINGH BHARATHI Morrison 04/06 Referred for Appointment [facility](Aud iology Cl EG) OUTPATIENT [id number] ken Yusuf STEPHEN D 04/26 Released w/o Limitations [facility](A udiolog y Cl EG) [facility](Ti laryngolo EG) OUTPATIENT [id number] Other specifi ed disorde rs of tympani c membran e, unspeci fied ear STEVE WHALEY 05/01 Released w/o Limitations [facility](O tolaryn golo EG) [facility](Bas e Oper Med Cl Eg) OUTPATIENT [id number] [facility] #[id number] BASIL CATHERINE 05/24 Released w/o Limitations [facility](B ase Oper Med Cl Eg) [facility]) OUTPATIENT [id number] VIRTUAL / AIRFORC E SARAHI GUZMÁN 06/28 Released w/o Limitations [facility]( amily [facility]) [facility](Bas e Oper Med Cl Eg) TELE CONSULT [id number] Notes Entered by: BENITO CURTIS 18 Sep 2018 1412 ------- ------- ------- ------- -- COMMISS HARVEY LANGFORD 09/18 [facility](B ase Oper Med Cl Eg) [facility](Bas e Oper Med Cl Eg) TELE CONSULT [id number] Notes Entered by: YRIS LOJA 25 Jun 2019 0732 ------- ------- ------- ------- -- Eugeneiss GENE Proctor 06/24 [facility](B ase Oper Med Cl Eg) [facility](Bas e Oper Med Cl Eg) OUTPATIENT [id number] [facility]# [phone] DEYANIRA DUPONT 08/29 Released w/o Limitations [facility](B ase Oper Med Cl Eg) [facility](Fli ght Med) OUTPATIENT [id number] Notes Entered by: SHASHANK SCHMIDT CH 17 Oct 2019 0845 ------- ------- ------- ------- -- KUSH ROB 10/16 Released w/o Limitations [facility](F light Med) [facility](Fli ght Med) TELE CONSULT [id number] Notes Entered by: Maurilio OCONNELL 04 Dec 2019 0744 ------- ------- ------- ------- -- Member is stating he has been having SOB since June. KUSH UGALDE 12/03 Referred for Appointment [facility](F light Med) [facility](Z-F light Med) OUTPATIENT [id number] Fatigue GENE LANCE 01/20 Released w/o Limitations [facility](Z -Flight Med) [facility](Spe ech Pathology Cl Eg) OUTPATIENT [id number] Dyspnea , unspeci fied RAISA, SANTA V 02/04 Released w/o Limitations [facility](S peech Patholo gy Cl Eg) [facility](Pul m Disease EG) OUTPATIENT [id number] Notes Entered by: CARLY ROSARIO 08 Feb 2020 1007 ------- ------- ------- ------- -- PFT/Dys pnea, unspeci fied EVAN OWEN 02/07 Released w/o Limitations [facility](P ulm Disease EG) [facility](Z-F light Med) TELE CONSULT [id number] Notes Entered by: GENE LEACH 20 Feb 2020 1555 ------- ------- ------- ------- -- Contact pt GONZÁLEZ HERNANDEZ 02/19 Referred for Appointment [facility](Z -Flight Med) [address] [place] [address](Z-F light Med) OUTPATIENT [id number] F/U GENE LEACH 02/25 Released w/o Limitations [facility](Z -Flight Med) [facility](Z-F light Med) TELE CONSULT [id number] Notes Entered by: GENE LEACH 13 Mar 2020 1140 ------- ------- ------- ------- -- GERD JALEN COHEN 03/13 Other Not Elsewhere Classified [facility](Z -Flight Med) [facility](Pul m Disease EG) OUTPATIENT [id number] Gastro- esophag eal reflux disease without esophag itis KUSH KWON 04/11 Released w/o Limitations [facility](P ulm Disease EG) [facility](Pul m Disease EG) OUTPATIENT [id number] PSG EVAN OWEN 05/09 Released w/o Limitations [facility](P ulm Disease EG) [facility](Z-F light Med) TELE CONSULT [id number] Notes Entered by: Gio BLANCO 01 Jul 2020 1027 ------- ------- ------- ------- -- SLEEP STUDY RESULTS JALEN COHEN 07/01 Other Not Elsewhere Classified [facility](Z -Flight Med) [facility](War rior Operation al Medicine A) TELE CONSULT [id number] Notes Entered by: JALEN MUNSON 01 Jul 2020 1053 ------- ------- ------- ------- -- Request ing Sleep Study Results RUDDYDUANE SANCHEZ Krissy 07/01 Referred for Appointment [facility](W arrior Operati onal Medicin e A) [facility](War rior Operation al Medicine A) OUTPATIENT [id number] HC: Sleep study results MICHELLE CURIEL 07/01 Released w/o Limitations [facility](W arrior Operati onal Medicin e A) [facility](Z-F light Med) TELE CONSULT [id number] Notes Entered by: Maurilio OCONNELL 04 Jul 2020 1011 ------- ------- ------- ------- -- PRP ADHOC JUL 23 WARRIOR CL SARAHI GARCIA 07/04 [facility](Z -Flight Med) [facility], [place] [address](PRP Admin Qual Cell, RAFB) OUTPATIENT [id number] Notes Entered by: ANDRE DEL RIO 24 Jul 2020 0923 ------- ------- ------- ------- -- PRP Admin Qual ANDRE DEL RIO 07/24 Released w/o Limitations [facility] [place] [address](P RP Admin Qual Cell, [facility]) [facility], [place] [address](PRP Admin Qual Cell, RAFB) TELE CONSULT [id number] Notes Entered by: ORLANDO UGALDE 11 Aug 2020 1334 ------- ------- ------- ------- -- THEA Nj e 11 Aug 2020 KURT UGALDE 08/11 Released to Self Care [facility] [place] [address](P RP Admin Qual Cell, RAFB) [address] [place] [address] Paul [facility])(Aud iology Procedure s) OUTPATIENT [id number] ANNUAL [facility] EVERARDO MARKS 05/17 Released w/o Limitations [address] [place] [address])(A udiolog y Procedu res) [address] [place] [address] Paul [facility])(War rior Op Med Cln Tm A Ad) OUTPATIENT [id number] esequiel myles cough for 2 years F2F KUSH BECKETT 05/20 Released w/o Limitations [address] [place] [address] Paul [facility])(W arrior Op Med Cln Tm A Ad) [address] [place] [address] Paul [facility])(Sco tt Flight Medicine Tm) TELE CONSULT [id number] Notes Entered by: RAAD HONG 03 Jun 2022 1304 ------- ------- ------- ------- -- Jimmy knight/nolan myles notice/ 7days/A SWAPNA THOMAS 06/03 Other Not Elsewhere Classified [address] [place] [address] Paul [facility])(S cott Flight Medicin e Tm) [address] [place] [address] Paul [facility])(War rior Op Med Cln Tm A Ad) OUTPATIENT [id number] #5 rash on limbs PANDA MORIN 06/11 Released w/o Limitations [address] [place] [address] Paul [facility])(W arrior Op Med Cln Tm A Ad) [address] [place] [address] Paul [facility])(War rior Op Med Cln Tm A Ad) TELE CONSULT [id number] Notes Entered by: ALEXEY NI 09 Jul 2022 0908 ------- ------- ------- ------- -- Discuss Referra BEATRICE Mart 07/09 Other Not Elsewhere Classified [facility] Paul [facility]W arrior Op Med Cln Tm A Ad) [facility] Paul [facility]War rior Op Med Cln Tm A Ad) OUTPATIENT [id number] L2J-Aqc erral Req-[phone] SHARMAINE BEE 07/22 Released w/o Limitations [facility] Paul [facility]W arrior Op Med Cln Tm A Ad) 5A-375 MEDGRP-[facility] Outpatient [id number] AP BARLOWOBCO 07/02 Discharge Disposition: Home or Self Care - [facility] MEDGRP Paul [id number] C-[id number] Medgrp-[facility] Between Visit [id number] 07/06 Discharge Disposition: Home or Self Care [id number] f-C-[id number] Medgrp Paul 5C-375 [facility] [id number] General ized anxiety disorde r FREDDY MMENDOZA 07/10 Discharge Disposition: Home or Self Care -3 [facility] MED[facility] Paul 5C-375 [facility] [id number] Anxiety disorde r, unspeci fied JASONSIMMO NS 07/25 Discharge Disposition: Home or Self Care -[address] [place] [address] Paul 5C-375 MEDGRP-[facility] [id number] FREDDY MMENDOZA 08/225C-[address] [place] [address] Procedures Combined list of: 1) Procedures from Department of Veterans Affairs facilities going back up to thelast 18 months, not all VA non-surgical procedures are included; 2) All procedures from the Department of Defense facilities. Procedure Procedure Type Code Date Susanna Cantu e Acupuncture, 1 or more needles; without electrical stimulation, initial 15 minutes of personal one-on-one contact with the patient Acupuncture, one or more needles, without electrical stimulation; initial 15 minutes of personal one-on-one contact with the patient [id number] 2023 6130C-Af -C-375Th Medgrp-S giacomo Acupuncture, 1 or more needles; with electrical stimulation, initial 15 minutes of personal one-on-one contact with the patient Acupuncture, one or more needles, with electrical stimulation; initial 15 minutes of personal one-on-one contact with the patient 60080 2023 6130C-Af -C-375Th Medgrp-S cott Acupuncture, 1 or more needles; without electrical stimulation, initial 15 minutes of personal one-on-one contact with the patient Acupuncture, one or more needles, without electrical stimulation; initial 15 minutes of personal one-on-one contact with the patient 15536 2023 6130C-Af -C-375Th Medgrp-S giacomo Acupuncture, 1 or more needles; without electrical stimulation, initial 15 minutes of personal one-on-one contact with the patient Acupuncture, one or more needles, without electrical stimulation; initial 15 minutes of personal one-on-one contact with the patient [id number] 6130-Af -C-375Th Medgrp-S giacomo Acupuncture, 1 or more needles; without electrical stimulation, initial 15 minutes of personal one-on-one contact with the patient Acupuncture, one or more needles, without electrical stimulation; initial 15 minutes of personal one-on-one contact with the patient [id number]-[id number] 5th MEDGRP-S [facility] PURE TONE AUDIOMETRY (THRESHOLD), AUTOMATED; AIR ONLY 2022 [facility] WAIVER SERVICES; NOT OTHERWISE SPECIFIED (NOS) 2020 [facility] TELE ASSESS & MGT SRV PROV QUAL NONPHYS HLTH CARE PRO TO EST PAT,PARENT,GUARD NOT ORIG REL ASSESS & MGT SRV PROV W/IN PREV 7 DAYS NOR LEAD ASSESS & MGT SRV/PX W/IN NXT 24 HR/SOON APT;5-10 MIN MED DIS 2020 [facility] POLYSOMNOGRAPHY; AGE 6 YEARS OR OLDER, SLEEP STAGING WITH 4 OR MORE ADDITIONAL PARAMETERS OF SLEEP, ATTENDED BY A TECHNOLOGIST 2020 [facility] SLEEP STUDY, UNATTENDED, SIMULTANEOUS RECORDING; HEART RATE, OXYGEN SATURATION, RESPIRATORY ANALYSIS (EG, BY AIRFLOW OR PERIPHERAL ARTERIAL TONE), AND SLEEP TIME 2020 [facility] TELE ASSESS & MGT SRV PROV QUAL NONPHYS HLTH CARE PRO TO EST PAT,PARENT,GUARD NOT ORIG REL ASSESS & MGT SRV PROV W/IN PREV 7 DAYS NOR LEAD ASSESS & MGT SRV/PX W/IN NXT 24H/SOON APT; 11-20 MIN MED DIS 2019 DoD ELECTROCARDIOGRAM, ROUTINE ECG WITH AT LEAST 12 LEADS; WITH INTERPRETATION AND REPORT 2019 DoD TELE ASSESS & MGT SRV PROV QUAL NONPHYS HLTH CARE PRO TO EST PAT,PARENT,GUARD NOT ORIG REL ASSESS & MGT SRV PROV W/IN PREV 7 DAYS NOR LEAD ASSESS & MGT SRV/PX W/IN NXT 24H/SOON APT; 21-30 MIN MED DIS 2019 DoD MAXIMUM BREATHING CAPACITY, MAXIMAL VOLUNTARY VENTILATION 2019 DoD LARYNGOSCOPY, FLEXIBLE OR RIGID TELESCOPIC, WITH STROBOSCOPY 2019 DoD ELECTROCARDIOGRAM, ROUTINE ECG WITH AT LEAST 12 LEADS; WITH INTERPRETATION AND REPORT 2019 DoD TELE ASSESS & MGT SRV PROV QUAL NONPHYS HLTH CARE PRO TO EST PAT,PARENT,GUARD NOT ORIG REL ASSESS & MGT SRV PROV W/IN PREV 7 DAYS NOR LEAD ASSESS & MGT SRV/PX W/IN NXT 24H/SOON APT; 11-20 MIN MED DIS 2019 DoD ADMINISTRATION OF PATIENT-FOCUSED HEALTH RISK ASSESSMENT INSTRUMENT (EG, HEALTH HAZARD APPRAISAL) WITH SCORING AND DOCUMENTATION, PER STANDARDIZED INSTRUMENT 2019 DoD BRIEF EMOTIONAL/BEHAVIORAL ASSESSMENT (EG, DEPRESSION INVENTORY, ATTENTION-DEFICIT/HY PERACTIVITY DISORDER [ADHD] SCALE), WITH SCORING AND DOCUMENTATION, PER STANDARDIZED INSTRUMENT 2019 DoD ADMINISTRATION OF PATIENT-FOCUSED HEALTH RISK ASSESSMENT INSTRUMENT (EG, HEALTH HAZARD APPRAISAL) WITH SCORING AND DOCUMENTATION, PER STANDARDIZED INSTRUMENT 2018 DoD BRIEF EMOTIONAL/BEHAVIORAL ASSESSMENT (EG, DEPRESSION INVENTORY, ATTENTION-DEFICIT/HY PERACTIVITY DISORDER [ADHD] SCALE), WITH SCORING AND DOCUMENTATION, PER STANDARDIZED INSTRUMENT 2018 DoD TYMPANOMETRY AND REFLEX THRESHOLD MEASUREMENTS 2018 DoD PHYSICAL THERAPY EVALUATION 2009 DoD Internet Med Svc Qual Nonphys Healthcare Prof Estab Patient Internet Med Svc Qual Nonphys Healthcare Prof Estab Patient 36810 2018 BASIL CATHERINE DoD Tympanometry With Reflex Threshold Measurements Tympanometry With Reflex Threshold Measurements 69636 2018 TRENTON GIBBS DoD Comprehensive Audiometry Comprehensive Audiometry 32202 2018 TRENTON GIBBS Evoked Otoacoustic Stella ions Comprehensive Evoked Otoacoustic Emissions Comprehensive 31478 2018 TRENTON GIBBS Pulmonary Function Tests Flow Volume Loop Pulmonary Function [place] [address] 2017 VERONIQUE MORALES Internet Med Svc Qual Nonphys Healthcare Prof Estab Patient Internet Med Svc Qual Nonphys Healthcare Prof Estab Patient 36830 2017 EULOGIO RODRIGEZ Exercises A isted Exercises For ROM Exercises Assisted Exercises For ROM 44376 2016 HAO ROMO Occupational Therapy Re-Evaluation Occupational Therapy Re-Evaluation 69815 2016 HAO ROMO Threshold Audiogram (Pure Tone) Automated Threshold Audiogram (Pure Tone) Automated 0208T 2016 LOLLY ART Physical Therapy Education Orthotics Training 2016 HAO ROMO Hand finger orthosis, without joints, may include soft interface, straps, prefabricated, [id number] 2016 HAO ROMO Exercises A isted Exercises For ROM Exercises Assisted Exercises For ROM 15035 2016 HAO ROMO Threshold Audiogram (Pure Tone) Automated Threshold Audiogram (Pure Tone) Automated 0208T 2015 KUSH ALMAGUER [facility] Physical Therapy: ___ Se ion Segments, 15 Minutes Each Physical Therapy: ___ Session Segments, 15 Minutes Each 86936 2015 PAWAN LEY [facility] Physical Medicine Physical Therapy Re-Evaluation Physical Medicine Physical Therapy Re-Evaluation 93701 2015 LEYPAWAN SORIA [facility] Postoperative Visit, Without Charge Postoperative Visit, Without Charge 52634 2015 KUSH SHEPPARD [facility] Exercises A isted Exercises For ROM Exercises Assisted Exercises For ROM 60429 2015 RAAD GATICA [facility] Physical Therapy: ___ Se ion Segments, 15 Minutes Each Physical Therapy: ___ Session Segments, 15 Minutes Each 13703 2015 PAWAN LEY [facility] Physical Medicine Physical Therapy Re-Evaluation Physical Medicine Physical Therapy Re-Evaluation 48077 2015 PAWAN LEY [facility] Physical Therapy Neuromuscular Re-education Physical Therapy Neuromuscular Re-education 08736 2015 AV SHAUN [facility] Physical Therapy: ___ Se ion Segments, 15 Minutes Each Physical Therapy: ___ Session Segments, 15 Minutes Each 39090 2015 AV SHAUN Pam Exercises A isted Exercises For ROM Exercises Assisted Exercises For ROM 93969 2015 ADRIANA DOMINGUEZ Exercises A isted Exercises For ROM Exercises Assisted Exercises For ROM 84640 2015 ADRIANA DOMINGUEZ Exercises A isted Exercises For ROM Exercises Assisted Exercises For ROM 55487 2015 RAAD GATICA [facility] Physical Therapy: ___ Se ion Segments, 15 Minutes Each Physical Therapy: ___ Session Segments, 15 Minutes Each 89122 2015 ANGELITA CATALAN A [facility] Physical Therapy Neuromuscular Re-education Physical Therapy Neuromuscular Re-education 89687 2015 ANGELITA CATALAN [facility] Physical Therapy Neuromuscular Re-education Physical Therapy Neuromuscular Re-education 85081 2015 ADRIANA DOMINGUEZ [facility] Physical Therapy: ___ Se ion Segments, 15 Minutes Each Physical Therapy: ___ Session Segments, 15 Minutes Each 26868 2015 ANGELITA CATALAN A [facility] Physical Therapy Neuromuscular Re-education Physical Therapy Neuromuscular Re-education 21480 2015 ANGELITA CATALAN A [facility] Physical Therapy: ___ Se ion Segments, 15 Minutes Each Physical Therapy: ___ Session Segments, 15 Minutes Each 84205 2015 ANGELITA CATALAN A [facility] Neuromuscular Re-education Physical Therapy Neuromuscular Re-education 24658 2015 ANGELITA CATALAN A [facility] Physical Therapy: ___ Se ion Segments, 15 Minutes Each Physical Therapy: ___ Session Segments, 15 Minutes Each [id number] 2015 ANGELITA CATALAN A [facility] Neuromuscular Re-education Physical Therapy Neuromuscular Re-education 31626 2015 ANGELITA CATALAN A [facility] Physical Therapy: ___ Se ion Segments, 15 Minutes Each Physical Therapy: ___ Session Segments, 15 Minutes Each [id number] 2015 ANGELITA CATALAN [facility] Physical Therapy: ___ Se ion Segments, 15 Minutes Each Physical Therapy: ___ Session Segments, 15 Minutes Each [id number] 2015 KELLY COATES Physical Therapy: ___ Se ion Segments, 15 Minutes Each Physical Therapy: ___ Session Segments, 15 Minutes Each [id number] 2015 [facility] Re-Evaluation Physical Medicine Physical Therapy Re-Evaluation 13572 2015 [facility]: ___ Se ion Segments, 15 Minutes Each Physical Therapy: ___ Session Segments, 15 Minutes Each [id number] 2015 KELLY COATES Modalities Cryotherapy Cold Packs Modalities Cryotherapy Cold Packs 68517 2015 KELLY COATES Physical Therapy: ___ Se ion Segments, 15 Minutes Each Physical Therapy: ___ Session Segments, 15 Minutes Each [id number] 2015 KELLY COATES Modalities Cryotherapy Cold Packs Modalities Cryotherapy Cold Packs 38011 2015 KELLY COATES Physical Therapy: ___ Se ion Segments, 15 Minutes Each Physical Therapy: ___ Session Segments, 15 Minutes Each [id number] 2015 KELLY COATES Physical Therapy: ___ Se ion Segments, 15 Minutes Each Physical Therapy: ___ Session Segments, 15 Minutes Each 06103 2015 KELLY COATES Physical Therapy: ___ Se ion Segments, 15 Minutes Each Physical Therapy: ___ Session Segments, 15 Minutes Each [id number] 2015 KELLY COATES Postoperative Visit, Without Charge Postoperative Visit, Without Charge 43113 2015 KUSH SHEPPARD Modalities Cryotherapy Cold Packs Modalities Cryotherapy Cold Packs 20968 2015 YESSENIA HENRY [facility] Physical Therapy: ___ Se ion Segments, 15 Minutes Each Physical Therapy: ___ Session Segments, 15 Minutes Each [id number] 2015 YESSENIA HENRY Modalities Vasopneumatic Device Modalities Vasopneumatic Device 31915 2015 RAAD GATICA [facility] Exercises A isted Exercises For ROM Exercises Assisted Exercises For ROM 61652 2015 RAAD GATICA [facility] Physical Therapy: ___ Se ion Segments, 15 Minutes Each Physical Therapy: ___ Session Segments, 15 Minutes Each [id number] 2015 LEY PAWAN III [facility] Physical Medicine Physical Therapy Evaluation Physical Medicine Physical Therapy Evaluation 70147 2015 LEY, PAWAN III [facility] Interstitial Pre ure Monitoring Interstitial Pressure Monitoring 58063 2015 LEXUS SWENSON Compartments measured using [place] pressure moniter [facility] Physical Therapy: ___ Se ion Segments, 15 Minutes Each Physical Therapy: ___ Session Segments, 15 Minutes Each [id number] 2014 MARCOS GONZALEZ [facility] Physical Medicine Physical Therapy Re-Evaluation Physical Medicine Physical Therapy Re-Evaluation 32714 2014 LISA MARCOS R [facility] Physical Therapy: ___ Se ion Segments, 15 Minutes Each Physical Therapy: ___ Session Segments, 15 Minutes Each 10030 2014 MARCOS GONZALEZ [facility] Physical Medicine Physical Therapy Evaluation Physical Medicine Physical Therapy Evaluation 35348 2014 LISA MARCOS Yifan [facility] Physical Medicine Physical Therapy Evaluation Physical Medicine Physical Therapy Evaluation 85579 2009 FILIPPO LARSON [facility] Non-Physician Phone Call To Pt/Provider Intermed (11-20 min) Non-Physician Phone Call To Pt/Provider Intermed (11-20 min) 64077 KUSH UGALDE [facility] Electrocardiogram Electrocardiogram 27602 GENE LANCE [facility] Fiberoptic Laryngoscopy With Stroboscopy Fiberoptic Laryngoscopy With Stroboscopy 11228 SANTA KLINE V [facility] Pulmonary Function Tests Flow Volume Loop Pulmonary Function Tests Flow Volume Loop [address] [place] Pulmonary Function MVV Pulmonary Function MVV 15487 [place]EN Non-Physician Phone Call To Pt/Provider Lengthy (21-30 min) Non-Physician Phone Call To Pt/Provider Lengthy (21-30 min) 37690 GONZÁLEZ HERNANDEZ [facility] Sleep Study Unattended Record: Heart Rate, O2 Sat, Resp Analysis, Sleep Time Sleep Study Unattended Record: Heart Rate, O2 Sat, Resp Analysis, Sleep Time 55976 KUSH KWON Non-Physician Phone Call To Patient/Provider Brief (5-10min) Non-Physician Phone Call To Patient/Provider Brief (5-10min) 05346 DUANE BOWLING Waiver services; not otherwise specified (NOS) MICHELLE CURIEL Threshold Audiogram (Pure Tone) Automated Threshold Audiogram (Pure Tone) Automated 0208T EVERARDO YOUNG [facility] Social History Combined list of available smoking, tobacco, and other social history from Department of Defense and Veterans Affairs facilities. Social History Type Response Date Comment Sour e Sex Representation Male (finding) 10/01/2020 Un known Organization Tobacco Frequent/Daily exposure to secondhand smoke in indoor/confined spaces No. Cigarette use: Never-cigarette user. Other Tobacco use: Never-other tobacco user (not cigarettes). Ambulatory Pharmacy Sexual Orientation Ambula tory Pharmacy Gender identity Ambulator y Pharmacy This section is an empty social history section. DoD Assessment and Plan Combined list of future care activities from Department of Defense and Veterans Affairs facilities (e.g., assessment and plan notes, appointments, orders, and referrals). Additional future care activities may be listed in the Plan of Care section. Result Assessment and Plan Date Source Assessment and Plan Extracted from:Title : [facility] Anxiety Author: PANDA MORIN PA Date: 07/25/24 1. A nxiety VIRTUAL APPT 38 y/o ADAF male with depression/anxiety. R eviewed PHQ-9, NUPUR-7. Moderate s afety risk using C-SSRS, does not present immediate danger to self or others. Resume Lexapro 10 mg once daily dosing, Begin Wellbutrin 150 mg once daily dosing. - Discussed can take 4-6 weeks t o see improvement - Continue with MH as previously scheduled - Seek emergent care for any HI/SI - F/u in 6-8 weeks. Ordered: escitalopram(Lexapro 10 mg oral tablet), 1 tab(s), Oral, Daily, # 60 tab(s), 0 total refill(s), Maintenance, Pharmacy: [facility] #[id number] [External Rx] buPROPion(Wellbutrin XL 150 mg/24 hours oral tablet, extended release), 1 tab(s), Oral, every 24 hr, # 60 tab(s), 0 total refill(s), Maintenance, Pharmacy: [facility] #[id number] [External Rx] The patient (is not) World Wide Qualified. AM Dispo: Non-Fly Cleared for AFSC/MOS Duties: Y es Cleared for continued service: Yes Cleared for mobility duties: No Cleared for participation in physical fitness program: Yes PHA/MHA/DRHA: UTD Visit deployment related: No Profile Reviewed Yes MEB in progress: No IMR/ASIMS Status: R ed Maj Gio Morin BSC, PAAlisonC [facility] ([facility]) [place] Please note that this dictation was completed with computer voice recognition software, [employer]. Quite often unanticipated grammatical, syntax, homophones, and other interpretive errors are inadvertently transcribed by the computer software. Please disregard these errors and excuse any errors that have escaped final proofreading. If are any questions regarding documentation, please contact this provider directly. Extracted from:Title: [facility] Anxiety Author: GINA VARMA PA Date: 06/19/24 1. A nxiety *Virtual Appt: C onfirmed full name and before discussion* 38 Years o ld M r eports feeling a nxious f or several years. Denies SI/HI. D oes not seem to be a safety risk. Pt is in counseling with [facility] and was recommended to f/u w/ Primary Care for possible medication initiation. P t interested in starting med. PHQ-9: 7 (Q9: 0) NUPUR-7: 15 - Continue counseling with [facility] - Lexapro 5 mg x 14 days then 10mg qd thereafter - Educated pt that SSRIs can take 6-8 weeks for effect. Discussed SE - ED precautions given - F/u in 4 weeks f or reassessment. Will consider dose adjustment if needed Orders: escitalopram(Lexapro 10 mg oral tablet), See Instructions, Take one-half tablet by mouth every day for 14 days, then take one tablet every day for depression and anxiety, # 23 tab(s), 0 total refill(s), Maintenance, 30 days, Pharmacy: [facility] #[id number] [External Rx] The patient (is not) World Wide Qualified. AM Dispo: Non-Fly Cleared for AFSC/MOS Duties: Yes Cleared for continued service: Y es Cleared for mobility duties: N o Cleared for participation in physical fitness program: Y es PHA/MHA/DRHA: U TD Visit deployment related: N o Profile: Reviewed MEB in progress: Y es IMR/ASIMS Status: R ED Medications reconciled. Pt verbalized understanding and agreement. GINA VARMA, 1st Lt, PAYaneth [facility] [place] [address] Extracted from:Title: [facility]-L foot pain/HTN Author: AP BENNETT MD Date: 05/30/24 1. F oot pain Chronic, uncontrolled Exam concerning for fifth metatarsal tenderness Differential includes Bush fracture vs tarsal sprain vs arthritis Ordering PT and x-ray Advise patient on RICE and recommended that he sit out this upcoming marathon Patient verbalized understanding, however, declined profile and stated t hat he intends to continue training and ultimately run the oncoming 26 mile marathon next week Notified patient if he runs the marathon then h e is i ncreasing his risk o f further sprains and fractures w hich can negatively impact his ability to w alk or require surgery/hospitalization, patient verbalized understanding Ordered: Referral Request 2.0 - DoD 2. 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 S creening due Chronic, uncontrolled HIV screen ordered for A OTT, verbal consent obtained f rom?patient Ordered: HIV-1/O/2 Orders: XR Foot Weight Bearing 3+ Left The patient (is not) World Wide Qualified. AM Dispo: Non-Fly Cleared for AFSC/MOS Duties: Yes Cleared for continued service: Yes Cleared for mobility duties: n o Cleared for participation in physical fitness program: no PHA/MHA/DRHA: UTD Visit deployment related: N o Profile Reviewed MEB in progress: No I MR/ASIMS Status: [x] RED (Action: Member is currently OVERDUE for profile, notified to take action/or addressed overdue items) p atient listing as med boarded f or cough variant asthma profile,red also on HIV screen ? I was present in clinic building and examined patient in-person and spent 30 minutes reviewing chart and placing orders for this encounter. Capt Ap Bennett MD Resident, PGY-3 375 MDG, [facility] [place], [place] Extracted from:Title: [facility] Lumbago Author: PANDA MORIN PA Date: 03/20/24 1. L umbago [age] y/o ADAF male with acute midback pain. N o radiculopathy sxs. N o red flag sxs or exam findings. S uspect s pasm Recommend N o restrictions at this time - NSAIDs/Lidoderm patches P RN and F lexeril for severe pain. - D iscussed ER precautions - F/u PRN Ordered: cyclobenzaprine(cyclobenzaprine 10 mg oral tablet), 1 tab(s), Oral, TID, PRN spasm, Use on PRN basis for severe pain. Limit use to one tablet every 8 hours, X 30 days, # 30 tab(s), 0 total refill(s), Acute, 1 tab(s) Oral TID,x30 days,PRN:spasm,Instr:Use on PRN basis for severe pain. Limit use to one... [ lidocaine topical(Lidoderm 5% topical patch), 1 patch(es), Topical, Daily, Leave on for up to 12 hours within a 24 hour period (12 hours on, 12 hours off), # 30 patch(es), 3 total refill(s), Maintenance, 1 patch(es) Topical Daily,Instr:Leave on for up to 12 hours within a 24 hour period (12 hours... The patient (is not) World Wide Qualified. AM Dispo: Non-Fly Cleared for AFSC/MOS Duties: Y es Cleared for continued service: IRILO in process Cleared for mobility duties: No Cleared for participation in physical fitness program: Yes with restrictions PHA/MHA/DRHA: UTD Visit deployment related: No Profile Reviewed N/A MEB in progress: IRILO in process IMR/ASIMS Status: R ed Maj Gio Morin BSC, PA-C [facility] ([facility]) [place] Please note that this dictation was completed with computer voice recognition software, [employer]. Quite often unanticipated grammatical, syntax, homophones, and other interpretive errors are inadvertently transcribed by the computer software. Please disregard these errors and excuse any errors that have escaped final proofreading. If are any questions regarding documentation, please contact this provider directly. Extracted from:Title: [facility] HTN Author: PANDA MORIN PA Date: 02/01/24 1. H ypertension Est d x. Home BP readings r outinely above goal range. P er JNC 8 BP Goal < 140/90. Asymptomatic. Given cardiology concerns over paradoxical BP increase due to possible renal artery stenosis and chronic cough recommend against ELISA/ARB. Resume amlodipine 2.5 mg once daily dosing, continue 25 mg once daily dosing of HCTZ. - Reviewed diet/exercise, impact of weight loss - Discussed DASH diet - Limit ETOH intake - C ontinue home BP monitoring - F/u in 30 days to re-evaluate BP and titrate medication The patient (is not) World Wide Qualified. AM Dispo: Non-Fly Cleared for AFSC/MOS Duties: Y es with limitations Cleared for continued service: No; AMRO referral made Cleared for mobility duties: No Cleared for participation in physical fitness program: Yes PHA/MHA/DRHA: UTD Visit deployment related: No Profile Reviewed Yes MEB in progress: IRILO initiated IMR/ASIMS Status: Todd Morin, BSZhao, PAAlisonC [facility] ([facility]) [place] Please note that this dictation was completed with computer voice recognition software, [employer]. Quite often unanticipated grammatical, syntax, homophones, and other interpretive errors are inadvertently transcribed by the computer software. Please disregard these errors and excuse any errors that have escaped final proofreading. If are any questions regarding documentation, please contact this provider directly. Extracted from:Title: [facility] Cough Author: PANDA MORIN PA Date: 01/27/24 1. C [employer] cough VIRTUAL APPT 38-year-old male with chronic cough thought to be asthma variant, although no airway hyperresponsiveness noted during PFT and methacholine challenge test. Has been using Flovent as instructed. His case has been reviewed by the AMRO board and he has been recommended for completion of IRILO. - Discussed the IRILO process - F/u in clinic on 30 January or completion of vital signs and PFT Capt Panda Morin, ROSALIO, PAAlisonC [facility] ([facility]) [place] Please note that this dictation was completed with computer voice recognition software, [employer]. Quite often unanticipated grammatical, syntax, homophones, and other interpretive errors are inadvertently transcribed by the computer software. Please disregard these errors and excuse any errors that have escaped final proofreading. If are any questions regarding documentation, please contact this provider directly. Extracted from:Title: Office Clinic Note Author: KUSH LEONARD Date: 10/31/23 1. E ntered into device clinical trial Refer to hx of illness, procedure narrative, and pt. instructions for information. Addendum by CLARK RASMUSSEN DO on October 31, 2023 12:48:04 CDT i agree with above documentation and was personally present and placed ASP needles Clark Rasmussen DO. Family Medicine Physician Capt. USADano Extracted from:Title: Office Clinic Note Author: KUSH LEONARD Date: 10/20/23 1. E ncounter for examination for normal comparison and control in clinical research program Refer to history of illness, procedure narrative, and patient instructions for information. Addendum by CLARK RASMUSSEN DO on October 20, 2023 15:45:13 CDT I was present and performed ASP placment Clark Rasmussen DO. Family Medicine Physician Capt. [place] Extracted from:Title: Office Clinic Note Author: KUSH LEONARD Date: 09/30/23 1. E ncounter for examination for normal comparison and control in clinical research program Patient is participating on a clinical research study at the [facility] for sleep impairment / disturbances. They were treated today according to their randomization per study protocol. Treatment was tolerated well with no complications. Patient was released with no limitations. Addendum by VERONIQUE DENTON MD on September 30, 2023 15:02:52 CDT CPT: 16505 - application of a modality to 1 or more areas; electrical stimulationOn the date of this encounter, I saw and examined the patient, personally verifying the dhillon and critical findings and developed appropriate acupuncture t x plan in accordance with genna mcdowell protocol Maj Veronique Denton MD Family Medicine Physician [facility] [place], [place] Extracted from:Title: [facility] HTN Author: PANDA MORIN PA Date: 09/16/23 1. H ypertension New dx. Clear pattern of elevated BP readings a nd recent dx of h ypertensive retinopathy.? P er JNC 8 BP Goal < 140/90. Asymptomatic. EKG with NSR. Complete screening labs. Recommend beginning on Telmisartan (avoid ELISA due to hx of chronic cough), and Amlodipine. Repeat BMP 72 hours after starting Telmisartan. - Reviewed diet/exercise, impact of weight loss - Discussed DASH diet - Limit ETOH intake - C ontinue home BP monitoring - F/u in 2-4 weeks to review labs and titrate medications Ordered: amLODIPine(amLODIPine 2.5 mg oral tablet), 1 tab(s), Oral, Daily, # 90 tab(s), 0 total refill(s), Maintenance, 1 tab(s) Oral Daily, Pharmacy: [facility] [Not filled] telmisartan(telmisartan 40 mg oral tablet), 1 tab(s), Oral, Daily, for blood pressure, # 90 tab(s), 3 total refill(s), Maintenance, 1 tab(s) Oral Daily,Instr:for blood pressure, Pharmacy: [facility] [Not filled] Basic Metabolic Panel CBC w/ Diff Comprehensive Metabolic Panel Hemoglobin A1c Lipid Panel Thyroid Stimulating Hormone Urinalysis with Microscopic and Culture if Indicated 2. H ypertensive retinopathy see above Capt Panda Morin, BSC, PA-C [facility] ([facility]) [place] Please note that this dictation was completed with computer voice recognition software, [employer]. Quite often unanticipated grammatical, syntax, homophones, and other interpretive errors are inadvertently transcribed by the computer software. Please disregard these errors and excuse any errors that have escaped final proofreading. If are any questions regarding documentation, please contact this provider directly. Extracted from:Title: Office Clinic Note Author: KUSH LEONARD Date: 09/09/23 1. E sobeida for examination for normal comparison and control in clinical research program Refer to procedure narrative and patient instructions for information. Addendum by WAYLON GOLDMAN DO on September 09, 2023 13:39:31 CDT Dedra carrera ertify that I w as present during dhillon components of the procedure a nd assisted with the placement of acupuncture needles. I have reviewed the note and concur with the findings, assessment, and plan. Follow up as listed. All labs/imaging/consults to be followed by the ordering provider. Waylon Goldman, , [facility], Staff Physician Extracted from:Title: Office Clinic Note Author: KUSH LEONARD Date: 09/02/23 1. E sobeida for examination for normal comparison and control in clinical research program Please refer to procedure narrative and patient instructions for details. Addendum by REBEKAH WHYTE MD on September 05, 2023 14:23:07 CDT On the date of this encounter, I saw and examined the patient, personally completing the history, physical and procedure Lt Col Rebekah Whyte MD Family Medicine Physician [facility] [place], [place] Extracted from:Title: Optometry-CEE Author: JENNIFER CROFT, OD Date: 06/03/23 1. E XAM, FORMAL OCCUPATIONAL HEALTH PROGRAM INCLUDING HEARING CONSERVATION PROGRAM, PERIODIC FOR CONTINUED SURVEILLANCE FOR OCCUPATIONAL WORKPLACE EXPOSURE Testing completed for occupational health to include: Visual Acuity with (and without lenses), color vision, confrontation visual curry, slit lamp exam, and funduscopic eval. ASIMS updated. Normal findings with Dilated exam today. Mydriatic specs offered. Recommend comprehensive exam q2-3 years. I assessed the member's ocular health status and determined that it does not affect his/her ability to perform duties of assigned [employer], meet deployment standards, meet retention standards, or complete all components of the Fitness Assessment. Ordered: lifitegrast ophthalmic(Xiidra 5% ophthalmic solution), 1 drop(s), Eye-Both, BID, # 60 EA, 10 total refill(s), Maintenance, 1 drop(s) Eye-Both BID, Pharmacy: [facility] 2. 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 Discussed options, d ecided to trial x iidra due to no improvement and not willing to be on chronic l ow dose steroid.? O rdered: Determination Refractive State [id number]; 05/31/2023 08:13:00 M[facility] OR GLACIER GUIDE ? Ophthalmological Medical Xm&Eval Compre New Pt 1/> Vst [id number]; 05/31/2023 08:13:00 MOUNTAIN OR GLACIER GUIDE End of Orders Ordered: lifitegrast ophthalmic(Xiidra 5% ophthalmic solution), 1 drop(s), Eye-Both, BID, # 60 EA, 10 total refill(s), Maintenance, 1 drop(s) Eye-Both BID, Pharmacy: [facility] Extracted from:Title: [facility] R Knee Pain Author: PANDA MORIN PA Date: 05/13/23 1. R ight knee pain 37 y/o male with PMHx of [place] Schlatter with R knee pain. T TP and swelling at R tibial tubercle following injury 8 weeks. No findings suggestive of instability, infection, or acute systemic process. Suspect bone bruise, complete plain films to evaluate for fx. No restrictions recommended at this time. - Handout given on home exercises to perform - NSAIDS on PRN basis for pain relief - Reviewed ER precautions - F/u PRN, consider PT if pain fails to resolve Ordered: diclofenac topical(Voltaren 1% topical gel), See instructions, Apply 2 grams (upper extremities) or 4 grams (lower extremities) to affected area topically four times daily as needed for pain. Max total body dose of 32 grams per day, # 100 g, 0 total refill(s), Maintenance, Apply 2 grams (upper e... XR Knee 3 Views Right Capt Panda Morin, ROSALIO, PA-C [facility] ([facility]) [employer] Extracted from:Title: [facility] - MEQ Examination Author: BING RUSSELL DO Date: 04/27/23 1. C hest pain on exertion Patient has had extensive work-up recently from both pulmonary medicine and cardiology. Notes that he is presently being worked for asthma (states that different providers have told him differing opinions with one stating he has asthma and the other stating he does not) and notes that he has underwent recent cardiac risk stratification with treadmill stress testing which was normal. He is still at present endorsing exertional chest pain and dyspnea. Work-up is still ongoing and diagnosis that would explain his symptoms has yet to be arrived at. Thusly, he has not received targeted treatment for the underlying etiology as this is again, not know. Given the elusive diagnosis, will defer signing his MEQ form at this time until a final diagnosis can be arrived at. Reassuringly, his physical examination was largely unremarkable, including his cardiopulmonary assessment. --Defer MEQ signing at this time until patient is asymptomatic, diagnosis obtained and targeted therapy initiated. --No additional consults needed, as all that are involved are adequate enough to arrive at diagnosis 2. D yspnea on exertion See Above . //SIGNED// Bing Russell DO, Capt [facility] Wire Products Inspector/Flight Surgeon [facility] Extracted from:Title: [facility] - Asthma Follow-Up Author: KUSH BECKETT PA Date: 01/19/[address] [facility] Patient with recent diagnosis of asthma presents to clinic for updates. Patient states that for the past 4 years he has been suffering with chronic cough and chest tightness. Concerned that may have been caused from fungal infection to lungs due to sputum results and requested a second opinion referral to pulmonology. Followed up with second rfid systems architect and was determined that patient does have asthma but an MCT w as required. patient was discontinued on Advair and started on Flovent and states that he has had significant relief with current treatment plan. Patient still uses albuterol as needed. He has follow-up appointment with original rfid systems architect in 1 month for reassessment. Additionally patient is in the process of establishing care with allergy due to recent blood work showing elevated eosinophils. Discussed the following with the patient: - Expressed to patient that if fungal infection was present, steroid therapy could make symptoms worse. The fact that inhaled steroids in systemic steroids improved symptoms suggest that patient is most likely dealing with eosinophilic airway inflammation. - Additionally, advised patient to stress that h e needs a methacholine challenge test due to requirements for AMROB. - follow-up in the next 2-3 months for reevaluation. Once receipt of pulmonology records with MCT, return to clinic for repeat PFT. Patient verbalized understanding and agrees w ith plan. All questions were answered. Ordered: Referral Request 2.0 2. 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 Patient has tried topical eye droplets with no relief. - Referral placed optometry for consult. Ordered: Referral Request 2.0 Referral Request 2.0 Kush Ferraro Physician Meat Manager [facility] CLAUDIA Morales Extracted from:Title: Ambulatory Patient Education Author: EN BARKER Date: 04/07/21 Patient Education Materials Follows: Preventing Hearing Loss, Adult Hearing loss is a partial or total loss of the ability to hear. Hearing loss may start suddenly or gradually, at any age. It may be temporary or permanent, and it may affect one or both ears. There are two types of hearing loss. You can have just one type or both types. You may have a problem with: Damage to your hearing nerves (sensorineural hearing loss). This type of hearing loss is more likely to be permanent. A hearing aid is often the best treatment. Sound getting to your inner ear (conductive hearing loss). This type of hearing loss can usually be treated medically or surgically. Hearing loss may be referred to as deafness. Symptoms that may develop along with hearing loss include ringing in your ear (tinnitus), fullness in your ear, and dizziness (vertigo). Hearing loss that is not associated with aging can often be prevented by taking certain measures to protect your ears. How can hearing loss affect me? Hearing loss can affect you at school, at work, and at home. It can lower your overall quality of life. You may: Have trouble having conversations, especially in busy places with a lot of background noise. Need to make changes at work or at school. Feel depressed, isolated, or anxious. Sometimes hearing loss can make it more difficult to make friends, play sports, and have an active social life. Struggle to hear the TV, radio, or sound at the movies. Have trouble hearing the phone or doorbell. Have trouble hearing alarms and other warning sounds. What changes can I make to protect myself from hearing loss? Have hearing tests (screenings) as often as directed by your health care provider. Hearing screenings can help detect hearing loss early and may help prevent hearing loss from getting worse. This may include having screenings done by: An ear, nose, and throat specialist (loading machine tool setter or ENT specialist). A specialist in hearing problems (truck repair supervisor). Noise damage is the most preventable cause of hearing loss. Noise damage is caused by the loudness of the noise and how long you are exposed to it. Noises that can cause temporary or permanent nerve damage include noises from: Lawn mowers or chainsaws. Guns (firearms). Sirens. Jet engines. To avoid hearing loss from noise exposure: Wear ear protection whenever you are exposed to loud noises or working in a noisy environment, such as: Using a industrial sales manager or leaf blower. Shooting firearms. Woodworking with machines. Being near jet engines or sirens. If you are exposed to loud noise at your job, make sure that you are provided with the proper noise protection. Do not sit close to speakers at concerts. If you listen to music, keep the volume at a comfortable level. If you wear headphones, make sure that the noise is only loud enough for you to hear. If someone else can hear it, it is too loud. What can I do to cope with hearing loss? Work with your health care providers to determine what types of treatment are best for you. If you need a hearing aid, have it fitted by a specialist. Do not buy hearing aids without having a hearing aid evaluation first. Use assistive hearing devices and warning devices or alarms that vibrate or use lights. Face people who are talking to you and pay attention to their expressions as they speak. Ask people if they can speak more clearly or more slowly. Tell friends and family about your hearing loss. Avoid areas that have a lot of background noise. If you are feeling isolated, anxious, or depressed, tell someone. Where to find support For more support: Talk with your health care provider. Ask about hearing screenings and online or in-person support groups. Find resources through the Hearing Loss Association of [place]: www.hearingloss.org Get tips for living with hearing loss from the [place] [employer] for the Deaf and Hard of Hearing: www.agbell.org Where to find more information Find more information about how to prevent hearing loss from: Centers for Disease Control and Prevention: www.cdc.gov National [place] on Deafness and Other Communication Disorders: www.nidcd.nih.gov Contact a health care provider if you have: Any change in your hearing. Sudden hearing loss. Other symptoms, such as: Ear pain. Ear pressure. Tinnitus. Vertigo. Summary Have your hearing screened to detect early hearing loss and to prevent further loss. Hearing loss may be caused by damage to your hearing nerves, problems with sound getting to your inner ear, or both. Avoiding loud noises is the best way to prevent hearing loss. If your hearing changes suddenly, tell your health care provider right away. This information is not intended to replace advice given to you by your health care provider. Make sure you discuss any questions you have with your health care provider. Document Released: 05/10/2018 Document Revised: 05/10/2018 Document Reviewed: 05/10/2018 [employer] Interactive Patient Education 2019 [employer] Inc[employer] Future Appointments Appointment Date: 08/22/2024 01:30:00 PM Scheduled Provider: [facility] Location: [id number] Appointment Type: FTR Appointment Date: 09/04/2024 11:30:00 AM Scheduled Provider: PANDA MORIN Location: [id number] Appointment Type: [facility] 08/12/[address] [place], [place] [address]German Assessment and Plan Extracted from:Title : [facility] Anxiety Author: PANDA MORIN PA Date: 07/25/24 1. A nxiety VIRTUAL APPT 38 y/o ADAF male with depression/anxiety. R eviewed PHQ-9, NUPUR-7. Moderate s afety risk using C-SSRS, does not present immediate danger to self or others. Resume Lexapro 10 mg once daily dosing, Begin Wellbutrin 150 mg once daily dosing. - Discussed can take 4-6 weeks t o see improvement - Continue with MH as previously scheduled - Seek emergent care for any HI/SI - F/u in 6-8 weeks. Ordered: escitalopram(Lexapro 10 mg oral tablet), 1 tab(s), Oral, Daily, # 60 tab(s), 0 total refill(s), Maintenance, Pharmacy: [facility] #[id number] [External Rx] buPROPion(Wellbutrin XL 150 mg/24 hours oral tablet, extended release), 1 tab(s), Oral, every 24 hr, # 60 tab(s), 0 total refill(s), Maintenance, Pharmacy: [facility] #[id number] [External Rx] The patient (is not) World Wide Qualified. AM Dispo: Non-Fly Cleared for AFSC/MOS Duties: Y es Cleared for continued service: Yes Cleared for mobility duties: No Cleared for participation in physical fitness program: Yes PHA/MHA/DRHA: UTD Visit deployment related: No Profile Reviewed Yes MEB in progress: No IMR/ASIMS Status: R ed Maj Gio Morin BSC, PA-C [facility] ([facility]) [place] Please note that this dictation was completed with computer voice recognition software, [employer]. Quite often unanticipated grammatical, syntax, homophones, and other interpretive errors are inadvertently transcribed by the computer software. Please disregard these errors and excuse any errors that have escaped final proofreading. If are any questions regarding documentation, please contact this provider directly. Extracted from:Title: [facility] Anxiety Author: GINA VARMA PA Date: 06/19/24 1. A nxiety *Virtual Appt: C onfirmed full name and before discussion* 38 Years o ld M r eports feeling a nxious f or several years. Denies SI/HI. D oes not seem to be a safety risk. Pt is in counseling with OP and was recommended to f/u w/ Primary Care for possible medication initiation. P t interested in starting med. PHQ-9: 7 (Q9: 0) NUPUR-7: 15 - Continue counseling with [facility] - Lexapro 5 mg x 14 days then 10mg qd thereafter - Educated pt that SSRIs can take 6-8 weeks for effect. Discussed SE - ED precautions given - F/u in 4 weeks f or reassessment. Will consider dose adjustment if needed Orders: escitalopram(Lexapro 10 mg oral tablet), See Instructions, Take one-half tablet by mouth every day for 14 days, then take one tablet every day for depression and anxiety, # 23 tab(s), 0 total refill(s), Maintenance, 30 days, Pharmacy: [facility] #[id number] [External Rx] The patient (is not) World Wide Qualified. AM Dispo: Non-Fly Cleared for AFSC/MOS Duties: Yes Cleared for continued service: Y es Cleared for mobility duties: N o Cleared for participation in physical fitness program: Y es PHA/MHA/DRHA: U TD Visit deployment related: N o Profile: Reviewed MEB in progress: Y es IMR/ASIMS Status: R ED Medications reconciled. Pt verbalized understanding and agreement. GINA VARMA, 1st Lt, PAAlisonC [facility] [place] [facility] [place] [id number] Extracted from:Title: [facility]- foot pain/HTN Author: AP BENNETT MD Date: 05/30/24 1. F oot pain Chronic, uncontrolled Exam concerning for fifth metatarsal tenderness Differential includes Bush fracture vs tarsal sprain vs arthritis Ordering PT and x-ray Advise patient on RICE and recommended that he sit out this upcoming marathon Patient verbalized understanding, however, declined profile and stated t hat he intends to continue training and ultimately run the oncoming 26 mile marathon next week Notified patient if he runs the marathon then h e is i ncreasing his risk o f further sprains and fractures w hich can negatively impact his ability to w alk or require surgery/hospitalization, patient verbalized understanding Ordered: Referral Request 2.0 - [facility] 2. 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 S creening due Chronic, uncontrolled HIV screen ordered for A OTT, verbal consent obtained f rom?patient Ordered: HIV-1/O/2 Orders: XR Foot Weight Bearing 3+ Left The patient (is not) World Wide Qualified. AM Dispo: Non-Fly Cleared for AFSC/MOS Duties: Yes Cleared for continued service: Yes Cleared for mobility duties: n o Cleared for participation in physical fitness program: no PHA/MHA/DRHA: UTD Visit deployment related: N o Profile Reviewed MEB in progress: No I MR/ASIMS Status: [x] RED (Action: Member is currently OVERDUE for profile, notified to take action/or addressed overdue items) p atient listing as med boarded f or cough variant asthma profile,red also on HIV screen ? I was present in clinic building and examined patient in-person and spent 30 minutes reviewing chart and placing orders for this encounter. Capt Ap Bennett MD Resident, PGY-3 375 MDG, [employer] [facility] [place], [place] Extracted from:Title: [facility] Lumbago Author: PANDA MORIN PA Date: 03/20/24 1. L umbago [age] y/o ADAF male with acute midback pain. N o radiculopathy sxs. N o red flag sxs or exam findings. S uspect s pasm Recommend N o restrictions at this time - NSAIDs/Lidoderm patches P RN and F lexeril for severe pain. - D iscussed ER precautions - F/u PRN Ordered: cyclobenzaprine(cyclobenzaprine 10 mg oral tablet), 1 tab(s), Oral, TID, PRN spasm, Use on PRN basis for severe pain. Limit use to one tablet every 8 hours, X 30 days, # 30 tab(s), 0 total refill(s), Acute, 1 tab(s) Oral TID,x30 days,PRN:spasm,Instr:Use on PRN basis for severe pain. Limit use to one... [ lidocaine topical(Lidoderm 5% topical patch), 1 patch(es), Topical, Daily, Leave on for up to 12 hours within a 24 hour period (12 hours on, 12 hours off), # 30 patch(es), 3 total refill(s), Maintenance, 1 patch(es) Topical Daily,Instr:Leave on for up to 12 hours within a 24 hour period (12 hours... The patient (is not) World Wide Qualified. AM Dispo: Non-Fly Cleared for AFSC/MOS Duties: Y es Cleared for continued service: SONJALO in process Cleared for mobility duties: No Cleared for participation in physical fitness program: Yes with restrictions PHA/MHA/DRHA: UTD Visit deployment related: No Profile Reviewed N/A MEB in progress: IRILO in process IMR/ASIMS Status: Yifan Morin BSC, PA-C [facility] ([facility]) [place] Please note that this dictation was completed with computer voice recognition software, [employer]. Quite often unanticipated grammatical, syntax, homophones, and other interpretive errors are inadvertently transcribed by the computer software. Please disregard these errors and excuse any errors that have escaped final proofreading. If are any questions regarding documentation, please contact this provider directly. Extracted from:Title: [facility] HTN Author: PANDA MORIN PA Date: 02/01/24 1. H ypertension Est d x. Home BP readings r outinely above goal range. P er JNC 8 BP Goal < 140/90. Asymptomatic. Given cardiology concerns over paradoxical BP increase due to possible renal artery stenosis and chronic cough recommend against ELISA/ARB. Resume amlodipine 2.5 mg once daily dosing, continue 25 mg once daily dosing of HCTZ. - Reviewed diet/exercise, impact of weight loss - Discussed DASH diet - Limit ETOH intake - C ontinue home BP monitoring - F/u in 30 days to re-evaluate BP and titrate medication The patient (is not) World Wide Qualified. AM Dispo: Non-Fly Cleared for AFSC/MOS Duties: Y es with limitations Cleared for continued service: No; AMRO referral made Cleared for mobility duties: No Cleared for participation in physical fitness program: Yes PHA/MHA/DRHA: UTD Visit deployment related: No Profile Reviewed Yes MEB in progress: IRILO initiated IMR/ASIMS Status: Todd Morin BSC, JORGE [facility] ([facility]) [place] Please note that this dictation was completed with computer voice recognition software, [employer]. Quite often unanticipated grammatical, syntax, homophones, and other interpretive errors are inadvertently transcribed by the computer software. Please disregard these errors and excuse any errors that have escaped final proofreading. If are any questions regarding documentation, please contact this provider directly. Extracted from:Title: [facility] Cough Author: PANDA MORIN PA Date: 01/27/24 1. C hronic cough VIRTUAL APPT 38-year-old male with chronic cough thought to be asthma variant, although no airway hyperresponsiveness noted during PFT and methacholine challenge test. Has been using Flovent as instructed. His case has been reviewed by the AMRO board and he has been recommended for completion of IRILO. - Discussed the IRILO process - F/u in clinic on 30 January or completion of vital signs and PFT Capt Panda Morin, ROSALIO, PA-C [facility] ([facility]) [place] Please note that this dictation was completed with computer voice recognition software, [employer]. Quite often unanticipated grammatical, syntax, homophones, and other interpretive errors are inadvertently transcribed by the computer software. Please disregard these errors and excuse any errors that have escaped final proofreading. If are any questions regarding documentation, please contact this provider directly. Extracted from:Title: Office Clinic Note Author: KUSH LEONARD Date: 10/31/23 1. E ntered into device clinical trial Refer to hx of illness, procedure narrative, and pt. instructions for information. Addendum by CLARK RASMUSSEN DO on October 31, 2023 12:48:04 CDT i agree with above documentation and was personally present and placed ASP needles Clark Rasmussen DO. Family Medicine Physician Capt. RUBY Extracted from:Title: Office Clinic Note Author: KUSH LEONARD Date: 10/20/23 1. E ncounter for examination for normal comparison and control in clinical research program Refer to history of illness, procedure narrative, and patient instructions for information. Addendum by CLARK RASMUSSEN DO on October 20, 2023 15:45:13 CDT I was present and performed ASP placment Clark Rasmussen DO. Family Medicine Physician Capt. RUBY Extracted from:Title: Office Clinic Note Author: KUSH LEONARD Date: 09/30/23 1. E ncounter for examination for normal comparison and control in clinical research program Patient is participating on a clinical research study at the [facility] for sleep impairment / disturbances. They were treated today according to their randomization per study protocol. Treatment was tolerated well with no complications. Patient was released with no limitations. Addendum by VERONIQUE DENTON MD on September 30, 2023 15:02:52 CDT CPT: 42360 - application of a modality to 1 or more areas; electrical stimulationOn the date of this encounter, I saw and examined the patient, personally verifying the dhillon and critical findings and developed appropriate acupuncture t x plan in accordance with genna mcdowell protocol Maj Veronique Denton MD Family Medicine Physician [facility] [place], [place] Extracted from:Title: [facility] HTN Author: PANDA MORIN PA Date: 09/16/23 1. H ypertension New dx. Clear pattern of elevated BP readings a nd recent dx of h ypertensive retinopathy.? P er JNC 8 BP Goal < 140/90. Asymptomatic. EKG with NSR. Complete screening labs. Recommend beginning on Telmisartan (avoid ELISA due to hx of chronic cough), and Amlodipine. Repeat BMP 72 hours after starting Telmisartan. - Reviewed diet/exercise, impact of weight loss - Discussed DASH diet - Limit ETOH intake - C ontinue home BP monitoring - F/u in 2-4 weeks to review labs and titrate medications Ordered: amLODIPine(amLODIPine 2.5 mg oral tablet), 1 tab(s), Oral, Daily, # 90 tab(s), 0 total refill(s), Maintenance, 1 tab(s) Oral Daily, Pharmacy: [facility] [Not filled] telmisartan(telmisartan 40 mg oral tablet), 1 tab(s), Oral, Daily, for blood pressure, # 90 tab(s), 3 total refill(s), Maintenance, 1 tab(s) Oral Daily,Instr:for blood pressure, Pharmacy: [facility] [Not filled] Basic Metabolic Panel CBC w/ Diff Comprehensive Metabolic Panel Hemoglobin A1c Lipid Panel Thyroid Stimulating Hormone Urinalysis with Microscopic and Culture if Indicated 2. H ypertensive retinopathy see above Capt Panda Morin BSC, PA-C [facility] ([facility]) [place] Please note that this dictation was completed with computer voice recognition software, [employer]. Quite often unanticipated grammatical, syntax, homophones, and other interpretive errors are inadvertently transcribed by the computer software. Please disregard these errors and excuse any errors that have escaped final proofreading. If are any questions regarding documentation, please contact this provider directly. Extracted from:Title: Office Clinic Note Author: NAYEKUSH FOLEY Date: 09/09/23 1. E dawitunter for examination for normal comparison and control in clinical research program Refer to procedure narrative and patient instructions for information. Addendum by WAYLON GOLDMAN DO on September 09, 2023 13:39:31 CDT I c ertify that I w as present during dhillon components of the procedure a nd assisted with the placement of acupuncture needles. I have reviewed the note and concur with the findings, assessment, and plan. Follow up as listed. All labs/imaging/consults to be followed by the ordering provider. Maj Pam, [facility], Staff Physician Extracted from:Title: Office Clinic Note Author: KUSH LEONARD Date: 09/02/23 1. E sobeida for examination for normal comparison and control in clinical research program Please refer to procedure narrative and patient instructions for details. Addendum by REBEKAH WHYTE MD on September 05, 2023 14:23:07 CDT On the date of this encounter, I saw and examined the patient, personally completing the history, physical and procedure Lt Col Rebekah Whyte MD Family Medicine Physician [facility] [place], [place] Extracted from:Title: Optometry-CEE Author: JENNIFER CROFT, OD Date: 06/03/23 1. E XAM, FORMAL OCCUPATIONAL HEALTH PROGRAM INCLUDING HEARING CONSERVATION PROGRAM, PERIODIC FOR CONTINUED SURVEILLANCE FOR OCCUPATIONAL WORKPLACE EXPOSURE Testing completed for occupational health to include: Visual Acuity with (and without lenses), color vision, confrontation visual curry, slit lamp exam, and funduscopic eval. ASIMS updated. Normal findings with Dilated exam today. Mydriatic specs offered. Recommend comprehensive exam q2-3 years. I assessed the member's ocular health status and determined that it does not affect his/her ability to perform duties of assigned AFSC, meet deployment standards, meet retention standards, or complete all components of the Fitness Assessment. Ordered: lifitegrast ophthalmic(Xiidra 5% ophthalmic solution), 1 drop(s), Eye-Both, BID, # 60 EA, 10 total refill(s), Maintenance, 1 drop(s) Eye-Both BID, Pharmacy: [facility] 2. 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 Discussed options, d ecided to trial x iidra due to no improvement and not willing to be on chronic l ow dose steroid.? O rdered: Determination Refractive State [id number]; 05/31/2023 08:13:00 MOUNTAIN OR GLACIER GUIDE ? Ophthalmological Medical Xm&Eval Compre New Pt 1/> Vst [id number]; 05/31/2023 08:13:00 MOUNTAIN OR GLACIER GUIDE End of Orders Ordered: lifitegrast ophthalmic(Xiidra 5% ophthalmic solution), 1 drop(s), Eye-Both, BID, # 60 EA, 10 total refill(s), Maintenance, 1 drop(s) Eye-Both BID, Pharmacy: [facility] Extracted from:Title: [facility] R Knee Pain Author: PANDA MORIN PA Date: 05/13/23 1. R ight knee pain 37 y/o male with PMHx of Michael Schlatter with R knee pain. T TP and swelling at R tibial tubercle following injury 8 weeks. No findings suggestive of instability, infection, or acute systemic process. Suspect bone bruise, complete plain films to evaluate for fx. No restrictions recommended at this time. - Handout given on home exercises to perform - NSAIDS on PRN basis for pain relief - Reviewed ER precautions - F/u PRN, consider PT if pain fails to resolve Ordered: diclofenac topical(Voltaren 1% topical gel), See instructions, Apply 2 grams (upper extremities) or 4 grams (lower extremities) to affected area topically four times daily as needed for pain. Max total body dose of 32 grams per day, # 100 g, 0 total refill(s), Maintenance, Apply 2 grams (upper e... XR Knee 3 Views Right Capt Panda Morin BSC, PA-C [facility] ([facility]) Paul [place] Extracted from:Title: [facility] - MEQ Examination Author: BING RUSSELL DO Date: 04/27/23 1. C hest pain on exertion Patient has had extensive work-up recently from both pulmonary medicine and cardiology. Notes that he is presently being worked for asthma (states that different providers have told him differing opinions with one stating he has asthma and the other stating he does not) and notes that he has underwent recent cardiac risk stratification with treadmill stress testing which was normal. He is still at present endorsing exertional chest pain and dyspnea. Work-up is still ongoing and diagnosis that would explain his symptoms has yet to be arrived at. Thusly, he has not received targeted treatment for the underlying etiology as this is again, not know. Given the elusive diagnosis, will defer signing his MEQ form at this time until a final diagnosis can be arrived at. Reassuringly, his physical examination was largely unremarkable, including his cardiopulmonary assessment. --Defer MEQ signing at this time until patient is asymptomatic, diagnosis obtained and targeted therapy initiated. --No additional consults needed, as all that are involved are adequate enough to arrive at diagnosis 2. D yspnea on exertion See Above . //SIGNED// Bing Russell DO, , [facility] Wire Products Inspector/Flight Surgeon [facility] Extracted from:Title: [facility] - Asthma Follow-Up Author: KUSH BECKETT PA Date: 01/19/[address] [facility] Patient with recent diagnosis of asthma presents to clinic for updates. Patient states that for the past 4 years he has been suffering with chronic cough and chest tightness. Concerned that may have been caused from fungal infection to lungs due to sputum results and requested a second opinion referral to pulmonology. Followed up with second rfid systems architect and was determined that patient does have asthma but an MCT w as required. patient was discontinued on Advair and started on Flovent and states that he has had significant relief with current treatment plan. Patient still uses albuterol as needed. He has follow-up appointment with original rfid systems architect in 1 month for reassessment. Additionally patient is in the process of establishing care with allergy due to recent blood work showing elevated eosinophils. Discussed the following with the patient: - Expressed to patient that if fungal infection was present, steroid therapy could make symptoms worse. The fact that inhaled steroids in systemic steroids improved symptoms suggest that patient is most likely dealing with eosinophilic airway inflammation. - Additionally, advised patient to stress that h e needs a methacholine challenge test due to requirements for AMROB. - follow-up in the next 2-3 months for reevaluation. Once receipt of pulmonology records with MCT, return to clinic for repeat PFT. Patient verbalized understanding and agrees w ith plan. All questions were answered. Ordered: Referral Request 2.0 2. 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 Patient has tried topical eye droplets with no relief. - Referral placed optometry for consult. Ordered: Referral Request 2.0 Referral Request 2.0 Kush Ferraro Physician Meat Manager [facility] [place] ID Extracted from:Title: Ambulatory Patient Education Author: EN BARKER Date: 04/07/21 Patient Education Materials Follows: Preventing Hearing Loss, Adult Hearing loss is a partial or total loss of the ability to hear. Hearing loss may start suddenly or gradually, at any age. It may be temporary or permanent, and it may affect one or both ears. There are two types of hearing loss. You can have just one type or both types. You may have a problem with: Damage to your hearing nerves (sensorineural hearing loss). This type of hearing loss is more likely to be permanent. A hearing aid is often the best treatment. Sound getting to your inner ear (conductive hearing loss). This type of hearing loss can usually be treated medically or surgically. Hearing loss may be referred to as deafness. Symptoms that may develop along with hearing loss include ringing in your ear (tinnitus), fullness in your ear, and dizziness (vertigo). Hearing loss that is not associated with aging can often be prevented by taking certain measures to protect your ears. How can hearing loss affect me? Hearing loss can affect you at school, at work, and at home. It can lower your overall quality of life. You may: Have trouble having conversations, especially in busy places with a lot of background noise. Need to make changes at work or at school. Feel depressed, isolated, or anxious. Sometimes hearing loss can make it more difficult to make friends, play sports, and have an active social life. Struggle to hear the TV, radio, or sound at the movies. Have trouble hearing the phone or doorbell. Have trouble hearing alarms and other warning sounds. What changes can I make to protect myself from hearing loss? Have hearing tests (screenings) as often as directed by your health care provider. Hearing screenings can help detect hearing loss early and may help prevent hearing loss from getting worse. This may include having screenings done by: An ear, nose, and throat specialist (loading machine tool setter or ENT specialist). A specialist in hearing problems (truck repair supervisor). Noise damage is the most preventable cause of hearing loss. Noise damage is caused by the loudness of the noise and how long you are exposed to it. Noises that can cause temporary or permanent nerve damage include noises from: Lawn mowers or chainsaws. Guns (firearms). Sirens. Jet engines. To avoid hearing loss from noise exposure: Wear ear protection whenever you are exposed to loud noises or working in a noisy environment, such as: Using a industrial sales manager or leaf blower. Shooting firearms. Woodworking with machines. Being near jet engines or sirens. If you are exposed to loud noise at your job, make sure that you are provided with the proper noise protection. Do not sit close to speakers at concerts. If you listen to music, keep the volume at a comfortable level. If you wear headphones, make sure that the noise is only loud enough for you to hear. If someone else can hear it, it is too loud. What can I do to cope with hearing loss? Work with your health care providers to determine what types of treatment are best for you. If you need a hearing aid, have it fitted by a specialist. Do not buy hearing aids without having a hearing aid evaluation first. Use assistive hearing devices and warning devices or alarms that vibrate or use lights. Face people who are talking to you and pay attention to their expressions as they speak. Ask people if they can speak more clearly or more slowly. Tell friends and family about your hearing loss. Avoid areas that have a lot of background noise. If you are feeling isolated, anxious, or depressed, tell someone. Where to find support For more support: Talk with your health care provider. Ask about hearing screenings and online or in-person support groups. Find resources through the Hearing Loss Association of [place]: www.hearingloss.org Get tips for living with hearing loss from the [place] [employer] for the Deaf and Hard of Hearing: www.agbell.org Where to find more information Find more information about how to prevent hearing loss from: Centers for Disease Control and Prevention: www.cdc.gov National [place] on Deafness and Other Communication Disorders: www.nidcd.nih.gov Contact a health care provider if you have: Any change in your hearing. Sudden hearing loss. Other symptoms, such as: Ear pain. Ear pressure. Tinnitus. Vertigo. Summary Have your hearing screened to detect early hearing loss and to prevent further loss. Hearing loss may be caused by damage to your hearing nerves, problems with sound getting to your inner ear, or both. Avoiding loud noises is the best way to prevent hearing loss. If your hearing changes suddenly, tell your health care provider right away. This information is not intended to replace advice given to you by your health care provider. Make sure you discuss any questions you have with your health care provider. Document Released: 05/10/2018 Document Revised: 05/10/2018 Document Reviewed: 05/10/2018 [employer] Interactive Patient Education 2019 [employer] Inc[employer] Future Appointments Appointment Date: 08/22/2024 01:30:00 PM Scheduled Provider: [facility] Location: [id number] Appointment Type: [facility] Appointment Date: 09/04/2024 11:30:00 AM Scheduled Provider: PANDA MORIN Location: [id number] Appointment Type: [facility] 08/12/2024 [id number] [facility] Extracted from:Title : [facility] Anxiety Author: PANDA MORIN PA Date: 07/25/24 1. A nxiety VIRTUAL APPT 38 y/o ADAF male with depression/anxiety. R gertrudeieweroldan PHQ-9, NUPUR-7. Moderate s afety risk using C-SSRS, does not present immediate danger to self or others. Resume Lexapro 10 mg once daily dosing, Begin Wellbutrin 150 mg once daily dosing. - Discussed can take 4-6 weeks t o see improvement - Continue with MH as previously scheduled - Seek emergent care for any HI/SI - F/u in 6-8 weeks. Ordered: escitalopram(Lexapro 10 mg oral tablet), 1 tab(s), Oral, Daily, # 60 tab(s), 0 total refill(s), Maintenance, Pharmacy: [facility] #[id number] [External Rx] buPROPion(Wellbutrin XL 150 mg/24 hours oral tablet, extended release), 1 tab(s), Oral, every 24 hr, # 60 tab(s), 0 total refill(s), Maintenance, Pharmacy: [facility] #[id number] [External Rx] The patient (is not) World Wide Qualified. AM Dispo: Non-Fly Cleared for AFSC/MOS Duties: Y es Cleared for continued service: Yes Cleared for mobility duties: No Cleared for participation in physical fitness program: Yes PHA/MHA/DRHA: UTD Visit deployment related: No Profile Reviewed Yes MEB in progress: No IMR/ASIMS Status: R ed Maj Gio Morin BSC, PA-C [facility] ([facility]) [place] Please note that this dictation was completed with computer voice recognition software, [employer]. Quite often unanticipated grammatical, syntax, homophones, and other interpretive errors are inadvertently transcribed by the computer software. Please disregard these errors and excuse any errors that have escaped final proofreading. If are any questions regarding documentation, please contact this provider directly. Extracted from:Title: [facility] Anxiety Author: GINA VARMA PA Date: 06/19/24 1. A nxiety *Virtual Appt: C onfirmed full name and before discussion* 38 Years o ld M r eports feeling a nxious f or several years. Denies SI/HI. D oes not seem to be a safety risk. Pt is in counseling with [facility] and was recommended to f/u w/ Primary Care for possible medication initiation. P t interested in starting med. PHQ-9: 7 (Q9: 0) NUPUR-7: 15 - Continue counseling with BHOP - Lexapro 5 mg x 14 days then 10mg qd thereafter - Educated pt that SSRIs can take 6-8 weeks for effect. Discussed SE - ED precautions given - F/u in 4 weeks f or reassessment. Will consider dose adjustment if needed Orders: escitalopram(Lexapro 10 mg oral tablet), See Instructions, Take one-half tablet by mouth every day for 14 days, then take one tablet every day for depression and anxiety, # 23 tab(s), 0 total refill(s), Maintenance, 30 days, Pharmacy: [facility] #[id number] [External Rx] The patient (is not) World Wide Qualified. AM Dispo: Non-Fly Cleared for AFSC/MOS Duties: Yes Cleared for continued service: Y es Cleared for mobility duties: N o Cleared for participation in physical fitness program: Y es PHA/MHA/DRHA: U TD Visit deployment related: N o Profile: Reviewed MEB in progress: Y jake IMR/ASIMS Status: R ED Medications reconciled. Pt verbalized understanding and agreement. GINA VARMA, 1st Lt, PAAlisonC [facility] [place] [address] Extracted from:Title: [facility]- foot pain/HTN Author: AP BENNETT MD Date: 05/30/24 1. F oot pain Chronic, uncontrolled Exam concerning for fifth metatarsal tenderness Differential includes Bush fracture vs tarsal sprain vs arthritis Ordering PT and x-ray Advise patient on RICE and recommended that he sit out this upcoming marathon Patient verbalized understanding, however, declined profile and stated t hat he intends to continue training and ultimately run the oncoming 26 mile marathon next week Notified patient if he runs the marathon then h e is i ncreasing his risk o f further sprains and fractures w hich can negatively impact his ability to w alk or require surgery/hospitalization, patient verbalized understanding Ordered: Referral Request 2.0 - DoD 2. 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 S creening due Chronic, uncontrolled HIV screen ordered for A OTT, verbal consent obtained f rom?patient Ordered: HIV-1/O/2 Orders: XR Foot Weight Bearing 3+ Left The patient (is not) World Wide Qualified. AM Dispo: Non-Fly Cleared for AFSC/MOS Duties: Yes Cleared for continued service: Yes Cleared for mobility duties: n o Cleared for participation in physical fitness program: no PHA/MHA/DRHA: UTD Visit deployment related: N o Profile Reviewed MEB in progress: No I MR/ASIMS Status: [x] RED (Action: Member is currently OVERDUE for profile, notified to take action/or addressed overdue items) p atient listing as med boarded f or cough variant asthma profile,red also on HIV screen ? I was present in clinic building and examined patient in-person and spent 30 minutes reviewing chart and placing orders for this encounter. Capt Ap Bennett MD Resident, PGY-3 375 MDG, [facility] [place], [place] Extracted from:Title: [facility] Lumbago Author: PANDA MORIN PA Date: 03/20/24 1. L umbago [age] y/o ADAF male with acute midback pain. N o radiculopathy sxs. N o red flag sxs or exam findings. S uspect s pasm Recommend N o restrictions at this time - NSAIDs/Lidoderm patches P RN and F lexeril for severe pain. - D iscussed ER precautions - F/u PRN Ordered: cyclobenzaprine(cyclobenzaprine 10 mg oral tablet), 1 tab(s), Oral, TID, PRN spasm, Use on PRN basis for severe pain. Limit use to one tablet every 8 hours, X 30 days, # 30 tab(s), 0 total refill(s), Acute, 1 tab(s) Oral TID,x30 days,PRN:spasm,Instr:Use on PRN basis for severe pain. Limit use to one... [ lidocaine topical(Lidoderm 5% topical patch), 1 patch(es), Topical, Daily, Leave on for up to 12 hours within a 24 hour period (12 hours on, 12 hours off), # 30 patch(es), 3 total refill(s), Maintenance, 1 patch(es) Topical Daily,Instr:Leave on for up to 12 hours within a 24 hour period (12 hours... The patient (is not) World Wide Qualified. AM Dispo: Non-Fly Cleared for AFSC/MOS Duties: Y es Cleared for continued service: IRILO in process Cleared for mobility duties: No Cleared for participation in physical fitness program: Yes with restrictions PHA/MHA/DRHA: UTD Visit deployment related: No Profile Reviewed N/A MEB in progress: IRILO in process IMR/ASIMS Status: Yifan Morin BSC, PA-C [facility] ([facility]) [place] Please note that this dictation was completed with computer voice recognition software, [employer]. Quite often unanticipated grammatical, syntax, homophones, and other interpretive errors are inadvertently transcribed by the computer software. Please disregard these errors and excuse any errors that have escaped final proofreading. If are any questions regarding documentation, please contact this provider directly. Extracted from:Title: [facility] HTN Author: PANDA MORIN PA Date: 02/01/24 1. H ypertension Est d x. Home BP readings r outinely above goal range. P er JNC 8 BP Goal < 140/90. Asymptomatic. Given cardiology concerns over paradoxical BP increase due to possible renal artery stenosis and chronic cough recommend against ELISA/ARB. Resume amlodipine 2.5 mg once daily dosing, continue 25 mg once daily dosing of HCTZ. - Reviewed diet/exercise, impact of weight loss - Discussed DASH diet - Limit ETOH intake - C ontinue home BP monitoring - F/u in 30 days to re-evaluate BP and titrate medication The patient (is not) World Wide Qualified. AM Dispo: Non-Fly Cleared for AFSC/MOS Duties: Y es with limitations Cleared for continued service: No; AMRO referral made Cleared for mobility duties: No Cleared for participation in physical fitness program: Yes PHA/MHA/DRHA: UTD Visit deployment related: No Profile Reviewed Yes MEB in progress: IRILO initiated IMR/ASIMS Status: Todd Morin BSC, PA-C [facility] ([facility]) [place] Please note that this dictation was completed with computer voice recognition software, [employer]. Quite often unanticipated grammatical, syntax, homophones, and other interpretive errors are inadvertently transcribed by the computer software. Please disregard these errors and excuse any errors that have escaped final proofreading. If are any questions regarding documentation, please contact this provider directly. Extracted from:Title: [facility] Cough Author: PANDA MORIN PA Date: 01/27/24 1. C Plainlegal cough VIRTUAL APPT 38-year-old male with chronic cough thought to be asthma variant, although no airway hyperresponsiveness noted during PFT and methacholine challenge test. Has been using Flovent as instructed. His case has been reviewed by the AMRO board and he has been recommended for completion of IRILO. - Discussed the IRILO process - F/u in clinic on 30 January or completion of vital signs and PFT Capt Panda Morin BSC, JORGE [facility] ([facility]) [place] Please note that this dictation was completed with computer voice recognition software, [employer]. Quite often unanticipated grammatical, syntax, homophones, and other interpretive errors are inadvertently transcribed by the computer software. Please disregard these errors and excuse any errors that have escaped final proofreading. If are any questions regarding documentation, please contact this provider directly. Extracted from:Title: Office Clinic Note Author: KUSH LEONARD Date: 10/31/23 1. E ntered into device clinical trial Refer to hx of illness, procedure narrative, and pt. instructions for information. Addendum by CLARK RASMUSSEN DO on October 31, 2023 12:48:04 CDT i agree with above documentation and was personally present and placed ASP needles Clark Rasmussen DO. Family Medicine Physician CaptJeffrey RUBY Extracted from:Title: Office Clinic Note Author: KUSH LEONARD Date: 10/20/23 1. E ncounter for examination for normal comparison and control in clinical research program Refer to history of illness, procedure narrative, and patient instructions for information. Addendum by CLARK RASMUSSEN DO on October 20, 2023 15:45:13 CDT I was present and performed ASP placment Clark Rasmussen DO. Family Medicine Physician Capt. RUBY Extracted from:Title: Office Clinic Note Author: KUSH LEONARD Date: 09/30/23 1. E ncounter for examination for normal comparison and control in clinical research program Patient is participating on a clinical research study at the [facility] for sleep impairment / disturbances. They were treated today according to their randomization per study protocol. Treatment was tolerated well with no complications. Patient was released with no limitations. Addendum by VERONIQUE DENTON MD on September 30, 2023 15:02:52 CDT CPT: 66234 - application of a modality to 1 or more areas; electrical stimulationOn the date of this encounter, I saw and examined the patient, personally verifying the dhillon and critical findings and developed appropriate acupuncture t x plan in accordance with genna mcdowell protocol Maj Veronique Denton MD Family Medicine Physician [facility] [place] ID Extracted from:Title: [facility] HTN Author: PANDA MORIN PA Date: 09/16/23 1. H ypertension New dx. Clear pattern of elevated BP readings a nd recent dx of h ypertensive retinopathy.? P er JNC 8 BP Goal < 140/90. Asymptomatic. EKG with NSR. Complete screening labs. Recommend beginning on Telmisartan (avoid ELISA due to hx of chronic cough), and Amlodipine. Repeat BMP 72 hours after starting Telmisartan. - Reviewed diet/exercise, impact of weight loss - Discussed DASH diet - Limit ETOH intake - C ontinue home BP monitoring - F/u in 2-4 weeks to review labs and titrate medications Ordered: amLODIPine(amLODIPine 2.5 mg oral tablet), 1 tab(s), Oral, Daily, # 90 tab(s), 0 total refill(s), Maintenance, 1 tab(s) Oral Daily, Pharmacy: [facility] [Not filled] telmisartan(telmisartan 40 mg oral tablet), 1 tab(s), Oral, Daily, for blood pressure, # 90 tab(s), 3 total refill(s), Maintenance, 1 tab(s) Oral Daily,Instr:for blood pressure, Pharmacy: [facility] [Not filled] Basic Metabolic Panel CBC w/ Diff Comprehensive Metabolic Panel Hemoglobin A1c Lipid Panel Thyroid Stimulating Hormone Urinalysis with Microscopic and Culture if Indicated 2. H ypertensive retinopathy see above Capt Panda Morin, BSC, PA-C [facility] ([facility]) [place] Please note that this dictation was completed with computer voice recognition software, [employer]. Quite often unanticipated grammatical, syntax, homophones, and other interpretive errors are inadvertently transcribed by the computer software. Please disregard these errors and excuse any errors that have escaped final proofreading. If are any questions regarding documentation, please contact this provider directly. Extracted from:Title: Office Clinic Note Author: KUSH LEONARD Date: 09/09/23 1. E dawitunter for examination for normal comparison and control in clinical research program Refer to procedure narrative and patient instructions for information. Addendum by WAYLON GOLDMAN DO on September 09, 2023 13:39:31 CDT I c ertify that I w as present during dhillon components of the procedure a nd assisted with the placement of acupuncture needles. I have reviewed the note and concur with the findings, assessment, and plan. Follow up as listed. All labs/imaging/consults to be followed by the ordering provider. Maj Pam, [facility], Staff Physician Extracted from:Title: Office Clinic Note Author: KUSH LEONARD Date: 09/02/23 1. E dawituntar for examination for normal comparison and control in clinical research program Please refer to procedure narrative and patient instructions for details. Addendum by REBEKAH WHYTE MD on September 05, 2023 14:23:07 CDT On the date of this encounter, I saw and examined the patient, personally completing the history, physical and procedure Lt Col Rebekah Whyte MD Family Medicine Physician [facility] [place], [place] Extracted from:Title: Optometry-CEE Author: JENNIFER CROFT, OD Date: 06/03/23 1. E XAM, FORMAL OCCUPATIONAL HEALTH PROGRAM INCLUDING HEARING CONSERVATION PROGRAM, PERIODIC FOR CONTINUED SURVEILLANCE FOR OCCUPATIONAL WORKPLACE EXPOSURE Testing completed for occupational health to include: Visual Acuity with (and without lenses), color vision, confrontation visual curry, slit lamp exam, and funduscopic eval. ASIMS updated. Normal findings with Dilated exam today. Mydriatic specs offered. Recommend comprehensive exam q2-3 years. I assessed the member's ocular health status and determined that it does not affect his/her ability to perform duties of assigned [employer], meet deployment standards, meet retention standards, or complete all components of the Fitness Assessment. Ordered: lifitegrast ophthalmic(Xiidra 5% ophthalmic solution), 1 drop(s), Eye-Both, BID, # 60 EA, 10 total refill(s), Maintenance, 1 drop(s) Eye-Both BID, Pharmacy: [facility] 2. 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 Discussed options, d ecided to trial x iidra due to no improvement and not willing to be on chronic l ow dose steroid.? O rdered: Determination Refractive State [id number]; 05/31/2023 08:13:00 MOUNTAIN OR GLACIER GUIDE ? Ophthalmological Medical Xm&Eval Compre New Pt 1/> Vst [id number]; 05/31/2023 08:13:00 MOUNTAIN OR GLACIER GUIDE End of Orders Ordered: lifitegrast ophthalmic(Xiidra 5% ophthalmic solution), 1 drop(s), Eye-Both, BID, # 60 EA, 10 total refill(s), Maintenance, 1 drop(s) Eye-Both BID, Pharmacy: [facility] Extracted from:Title: [facility] R Knee Pain Author: PANDA MORIN PA Date: 05/13/23 1. R ight knee pain 37 y/o male with PMHx of [place] with R knee pain. T TP and swelling at R tibial tubercle following injury 8 weeks. No findings suggestive of instability, infection, or acute systemic process. Suspect bone bruise, complete plain films to evaluate for fx. No restrictions recommended at this time. - Handout given on home exercises to perform - NSAIDS on PRN basis for pain relief - Reviewed ER precautions - F/u PRN, consider PT if pain fails to resolve Ordered: diclofenac topical(Voltaren 1% topical gel), See instructions, Apply 2 grams (upper extremities) or 4 grams (lower extremities) to affected area topically four times daily as needed for pain. Max total body dose of 32 grams per day, # 100 g, 0 total refill(s), Maintenance, Apply 2 grams (upper e... XR Knee 3 Views Right Capt Panda Morin, ROSALIO, PAAlisonC [facility] ([facility]) [place] Extracted from:Title: [facility] - MEQ Examination Author: BING RUSSELL DO Date: 04/27/23 1. C hest pain on exertion Patient has had extensive work-up recently from both pulmonary medicine and cardiology. Notes that he is presently being worked for asthma (states that different providers have told him differing opinions with one stating he has asthma and the other stating he does not) and notes that he has underwent recent cardiac risk stratification with treadmill stress testing which was normal. He is still at present endorsing exertional chest pain and dyspnea. Work-up is still ongoing and diagnosis that would explain his symptoms has yet to be arrived at. Thusly, he has not received targeted treatment for the underlying etiology as this is again, not know. Given the elusive diagnosis, will defer signing his MEQ form at this time until a final diagnosis can be arrived at. Reassuringly, his physical examination was largely unremarkable, including his cardiopulmonary assessment. --Defer MEQ signing at this time until patient is asymptomatic, diagnosis obtained and targeted therapy initiated. --No additional consults needed, as all that are involved are adequate enough to arrive at diagnosis 2. D yspnea on exertion See Above . //SIGNED// Bing Russell DO, Capt, [facility] Wire Products Inspector/Flight Surgeon [facility] Extracted from:Title: [facility] - Asthma Follow-Up Author: KUSH BECKETT PA Date: 01/19/[address] [facility] Patient with recent diagnosis of asthma presents to clinic for updates. Patient states that for the past 4 years he has been suffering with chronic cough and chest tightness. Concerned that may have been caused from fungal infection to lungs due to sputum results and requested a second opinion referral to pulmonology. Followed up with second rfid systems architect and was determined that patient does have asthma but an MCT w as required. patient was discontinued on Advair and started on Flovent and states that he has had significant relief with current treatment plan. Patient still uses albuterol as needed. He has follow-up appointment with original rfid systems architect in 1 month for reassessment. Additionally patient is in the process of establishing care with allergy due to recent blood work showing elevated eosinophils. Discussed the following with the patient: - Expressed to patient that if fungal infection was present, steroid therapy could make symptoms worse. The fact that inhaled steroids in systemic steroids improved symptoms suggest that patient is most likely dealing with eosinophilic airway inflammation. - Additionally, advised patient to stress that h e needs a methacholine challenge test due to requirements for [facility]ROB. - follow-up in the next 2-3 months for reevaluation. Once receipt of pulmonology records with MCT, return to clinic for repeat PFT. Patient verbalized understanding and agrees w ith plan. All questions were answered. Ordered: Referral Request 2.0 2. 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 Patient has tried topical eye droplets with no relief. - Referral placed optometry for consult. Ordered: Referral Request 2.0 Referral Request 2.0 Kush Ferraro Physician Meat Manager [facility] CLAUDIA Morales Extracted from:Title: Ambulatory Patient Education Author: EN BARKER Date: 04/07/21 Patient Education Materials Follows: Preventing Hearing Loss, Adult Hearing loss is a partial or total loss of the ability to hear. Hearing loss may start suddenly or gradually, at any age. It may be temporary or permanent, and it may affect one or both ears. There are two types of hearing loss. You can have just one type or both types. You may have a problem with: Damage to your hearing nerves (sensorineural hearing loss). This type of hearing loss is more likely to be permanent. A hearing aid is often the best treatment. Sound getting to your inner ear (conductive hearing loss). This type of hearing loss can usually be treated medically or surgically. Hearing loss may be referred to as deafness. Symptoms that may develop along with hearing loss include ringing in your ear (tinnitus), fullness in your ear, and dizziness (vertigo). Hearing loss that is not associated with aging can often be prevented by taking certain measures to protect your ears. How can hearing loss affect me? Hearing loss can affect you at school, at work, and at home. It can lower your overall quality of life. You may: Have trouble having conversations, especially in busy places with a lot of background noise. Need to make changes at work or at school. Feel depressed, isolated, or anxious. Sometimes hearing loss can make it more difficult to make friends, play sports, and have an active social life. Struggle to hear the TV, radio, or sound at the movies. Have trouble hearing the phone or doorbell. Have trouble hearing alarms and other warning sounds. What changes can I make to protect myself from hearing loss? Have hearing tests (screenings) as often as directed by your health care provider. Hearing screenings can help detect hearing loss early and may help prevent hearing loss from getting worse. This may include having screenings done by: An ear, nose, and throat specialist (loading machine tool setter or ENT specialist). A specialist in hearing problems (truck repair supervisor). Noise damage is the most preventable cause of hearing loss. Noise damage is caused by the loudness of the noise and how long you are exposed to it. Noises that can cause temporary or permanent nerve damage include noises from: Lawn mowers or chainsaws. Guns (firearms). Sirens. Jet engines. To avoid hearing loss from noise exposure: Wear ear protection whenever you are exposed to loud noises or working in a noisy environment, such as: Using a industrial sales manager or leaf blower. Shooting firearms. Woodworking with machines. Being near jet engines or sirens. If you are exposed to loud noise at your job, make sure that you are provided with the proper noise protection. Do not sit close to speakers at concerts. If you listen to music, keep the volume at a comfortable level. If you wear headphones, make sure that the noise is only loud enough for you to hear. If someone else can hear it, it is too loud. What can I do to cope with hearing loss? Work with your health care providers to determine what types of treatment are best for you. If you need a hearing aid, have it fitted by a specialist. Do not buy hearing aids without having a hearing aid evaluation first. Use assistive hearing devices and warning devices or alarms that vibrate or use lights. Face people who are talking to you and pay attention to their expressions as they speak. Ask people if they can speak more clearly or more slowly. Tell friends and family about your hearing loss. Avoid areas that have a lot of background noise. If you are feeling isolated, anxious, or depressed, tell someone. Where to find support For more support: Talk with your health care provider. Ask about hearing screenings and online or in-person support groups. Find resources through the Hearing Loss Association of [place]: www.hearingloss.org Get tips for living with hearing loss from the [place] [employer] for the [employer] and Hard of Hearing: www.agbell.org Where to find more information Find more information about how to prevent hearing loss from: Centers for Disease Control and Prevention: www.cdc.gov National [place] on Deafness and Other Communication Disorders: www.nidcd.nih.gov Contact a health care provider if you have: Any change in your hearing. Sudden hearing loss. Other symptoms, such as: Ear pain. Ear pressure. Tinnitus. Vertigo. Summary Have your hearing screened to detect early hearing loss and to prevent further loss. Hearing loss may be caused by damage to your hearing nerves, problems with sound getting to your inner ear, or both. Avoiding loud noises is the best way to prevent hearing loss. If your hearing changes suddenly, tell your health care provider right away. This information is not intended to replace advice given to you by your health care provider. Make sure you discuss any questions you have with your health care provider. Document Released: 05/10/2018 Document Revised: 05/10/2018 Document Reviewed: 05/10/2018 [employer] Interactive Patient Education 2019 [employer] Future Appointments Appointment Date: 08/22/2024 01:30:00 PM Scheduled Provider: FREDDY HELM LCSW Location: [id number] Appointment Type: MARY GÓMEZ Appointment Date: 09/04/2024 11:30:00 AM Scheduled Provider: PANDA MORIN Location: [id number] Appointment Type: BENJI NEAL 08/12/[address] [place] [address] Functional Status Combined list of recent functional and cognitive assessments recorded at [employer] (VA).VA Functional [place] Measurement (FIM) Scale: 1 = Total Assistance (Subject = 0% +), 2 = Maximal Assistance (Subject = 25% +), 3 = Moderate Assistance (Subject = 50% +), 4 = Minimal Assistance (Subject = 75% +), 5 = Supervision, 6 = Modified [place] (Device), 7 = Complete [place] (Timely, Safely). Assessment Date/Time Source Assessment Type Assessment Skill Assessment Score Assessment Details No data available for this section
[2024-08-12 10:33] VITALS: BP 148/93; PULSE 79; RESP 18; TEMP 37.4; O2SAT 97
--- OUTSIDE RECORDS SUMMARY | 2024-08-12 10:33 | XMS_ITS | Data Portability ---
Author Organization [place] [facility], Main Office Address [address] [place] [address] Care Team Providers Care Telephone Supervisor Name Role Phone ALEXANDRA BURCIAGA REFERRAL MANAGEMENT Primary Care Provi luis SAULO KC Chest Pain Coordinator Assessment No assessment recorded. Plan of Treatment Reminders Order Date Submit Date Provider Last Modified By Organization Details Last Modified Time Details Appointments None recorded. Lab None recorded. Referral None recorded. Procedures None recorded. Surgeries septoplasty (SURG) 2023 024 [email or web address] Not available 4 09:27:42 endoscopy, nasal/sinus , w/ maxillary antrostomy & tissue removal (SURG) 2023 024 [email or web address] Not available 4 09:27:42 endoscopy, nasal/sinus , with frontal sinus exploration (SURG) 2023 024 [email or web address] Not available 4 09:27:42 endoscopy, nasal/sinus , w/ total ethmoidecto my (SURG) 2023 024 [email or web address] Not available 4 09:27:42 Imaging None recorded. Medication Orders None recorded. Patient TargetsNo targets recorded. Patient Instructions Encounter Date Encounter Id Patient Instructions Last Modified By Organization Details Last Modified Time 07/06/2023 [id number] to make sure alyce t no sinus cause of cough has been overlooked sinus CT is ordered. Not available 07/06/2023 15:49:36 09/19/2023 [id number] he will return a s needed Not available 09/19/2023 16:40:53 Reason for Referral None Reported. Results Created Date Observation Date Name Description Value Unit Range Abnormal Flag Note LastModifiedBy Organization Detail LastModifiedTime 09/05/19 24 09/12/2023 PATHO LOGY SERVI CE [facility] SEE COMMEN T See separ ate patho logy repor t. Not Available [facility] ([facility]) [address] [place], [address], 09/12/2023 14:40:34 08/11/19 24 08/08/2023 CT, sinus es, w/o contr ast No observ ation record ed. [email or web address] [facility] [address] [place], [address], 08/15/2023 10:32:08 08/12/19 24 08/12/2023 CT, sinus es, w/o contr ast No observ ation record ed. BARCODE [facility] [address] [place], [address], 08/12/2023 09:42:45 Result Notes None recorded. Problems Name Problem SNOMED Code Status Onset Date Resolution Date Notes Provider Name and Address Organization Details Recorded Time Posterior rhinorrhea 52876769 Active 024 Naz Beckwith RN null, [employer] [facility] [employer] 4 15:47:47 Chronic sinusitis 84772997 Active 024 Tanner Sena MD [address], [address], [address], [employer] [facility] [employer] 4 15:49:20 Chronic maxillary sinusitis 31995741 Active 024 Tanner Sena MD [address], [place], [address], [employer] [facility] [employer] 4 17:00:51 Chronic ethmoidal sinusitis 64478621 Active 024 Tanner Sena MD [address], [place], [address], [employer] [facility] [employer] [facility] 4 17:01:00 Chronic frontal sinusitis 58009189 Active 024 Tanner Sena MD [address], [place], [address], [facility] [employer] [facility] [employer] [facility] 4 17:01:11 Chronic sphenoidal sinusitis 75022143 Active 024 Tanner Sena MD [address], [address], [place], [address], [facility] [employer] [facility] [employer] [facility] 4 17:01:22 Deviated nasal septum 777109516 Active 024 Tanner Sena MD [address], [address], [place], [address], [facility] [employer] [facility] [employer] [facility] 4 17:01:30 Problem Notes None recorded. Procedures Surgical History Date Name Laterality Status Provider Name and Address Organization Details Recorded Time 4 nasal septoplasty completed SUSHANT Charles [facility] [employer] [facility] 09/16/2023 10:35:11 4 SEPTOPLASTY (SURG) completed Naz Beckwith RN [facility] @[employer] [facility] 09/19/2023 10:18:22 Imaging Results Imaging Date Name Status LastModified by Organiz ation Details LastModified Time 08/08/2023 CT, sinuses, w/o contrast completed [email or web address] [facility] [address] [place], [address], 08/15/2023 10:32:08 08/12/2023 CT, sinuses, w/o contrast completed BARCODE [facility] [address] [place], [address], 08/12/2023 09:42:45 Procedure Notes None recorded. Medical Equipment None Reported. Allergies No known drug allergies Medications Name Sig Start Date Stop Date Status Note LastModified by Organization Details LastModified Time cyclobenz aprine 10 mg tablet TAKE 1 TABLET BY MOUTH EVERY 8 HOURS NEEDED FOR MUSCLE SPASM active Not Available Not Available No t Available cetirizin e 10 mg tablet TAKE 1 TABLET BY MOUTH EVERY DAY active Not Available Not Available No t Available prednison e 20 mg tablet TAKE 1 TABLET BY MOUTH TWO TIMES A DAY FOR 5 DAYS 09/18 completed Not Available Not Available Not Available amlodipin e 2.5 mg tablet active Not Available Not Available Not Available ciclopiro x 8 % topical solution active Not Available Not Available Not Available prednisol one acetate 1 % eye drops,justyna pension INSTILL 1 DROP BOTH EYES FOUR TIMES DAILY active Not Available Not Available No t Available hydrocodo ne 7.5 mg-acetam inophen 325 mg tablet TAKE 1 TABLET BY MOUTH EVERY 4 HOURS NEEDED FOR PAIN 09/18 completed Not Available Not Available Not Available telmisart an 40 mg tablet active Not Available Not Available Not Available monteluka st 10 mg tablet TAKE 1 TABLET BY MOUTH DAILY active Not Available Not Available No t Available fluticaso ne propionat e 220 mcg/actua tion HFA aerosol inhaler INHALE 2 PUFFS EVERY 12 HOURS. USE WITH SPACER active Not Available Not Available No t Available azelastin e 137 mcg (0.1 %) nasal spray USE 2 SPRAYS IN EACH NOSTRIL TWICE DAILY active Not Available Not Available No t Available epinephri ne 0.3 mg/0.3 mL injection , auto-inje ctor INJECT 1 PEN IN THE MUSCLE ONE TIME DIRECTED active Not Available Not Available No t Available albuterol sulfate HFA 90 mcg/actua tion aerosol inhaler INHALE 2 PUFFS BY MOUTH EVERY 4 TO 6 HOURS NEEDED FOR SHORTNES S OF BREATH OR WHEEZING active Not Available Not Available No t Available fluticaso ne propionat e 50 mcg/actua tion nasal spray,justyna pension SHAKE LIQUID AND USE 2 SPRAYS IN EACH NOSTRIL TWICE DAILY active Not Available Not Available No t Available monteluka st active Not Available Not Available Not Available azelastin e 08/16 completed Nasal spray Not Available Not Available Not Available cetirizin e 08/16 completed Not Available Not Available Not Available diclofena c 1 % topical gel active Not Available Not Available Not Available inhaler, assist devices, accessori es active Flovent Inhaler Not Available Not Available Not Available Wixela Inhub 500 mcg-50 mcg/dose powder for inhalatio n INHALE 1 PUFF BY MOUTH EVERY 12 HOURS. RINSE AND SPIT. active Not Available Not Available No t Available Vitals Date Recorded Body height Body mass index (BMI) Body weight Body temperature Provider Name and Address Organization Details Last Updated DateTime 07/06/2023 167.64 cm 35.5 kg/m2 96663.32 g 97.9 [degF] Naz Beckwith RN [facility] [employer] [facility] 07/06/2023 15:41:08 Date Recorded Body height Body mass index (BMI) Body weight Body temperature Provider Name and Address Organization Details Last Updated DateTime 08/17/2023 167.64 cm 33.7 kg/m2 23187.81 g 97.9 [degF] Naz Beckwith RN [facility] [employer] [facility] 08/17/2023 16:43:00 Date Recorded Body height Body mass index (BMI) Body weight Provider Name and Address Organization Details Last Updated DateTime 09/19/2023 167.64 cm 33.6 kg/m2 07257.65 g Naz Beckwith RN [facility] [employer] [facility] 09/19/2023 16:13:39 Social History Question Answer Notes LastModified by Organizat ion Details LastModified Time Tobacco Smoking Status Former Smoker SUSHANT Charles, [facility] [employer] [facility] 06/17/2023 09:42:54 What Is Your Level Of Alcohol Consumption? Occasional ftrotter Information not available 06/17/2023 Sex: Unknown Functional Status None recorded. Mental Status None recorded. Family History Relationship Description Onset Age of this Age Resolved Age Notes LastModified by Organization Details LastModified Time Son Complete deafness R) ear [email or web address] Not available 2023 09:42:40 Medical History Condition Response ENT SLEEP DISORDER Y Past Encounters Encounter ID Performer Location Encounter Start Date Encounter Closed Date Diagnosis/Indication Diagnosis SNOMED-CT Code Diagnosis ICD10 Code Diagnosis Note [id number] Tanner Sena MD [facility] [place] [address] [place] [address] 07/06/2023 15:30:04 07/07/2023 09:49:41 Chronic sinusitis 99493069 J32.9 [id number] Tanner Sena MD [facility] [place] [address] [place] [address] 08/17/2023 16:38:12 08/18/2023 15:41:49 Chronic sinusitis 88339127 J32.9 Chronic ma xillary sinusitis 10157131 J32.0 Chronic et hmoidal sinusitis 82427991 J32.2 Chronic fr ontal sinusitis 38026935 J32.1 Chronic sp henoidal sinusitis 78363916 J32.3 Deviated nasal septum 12 2383863 J34.2 [id number] Tanner Sena MD [facility] [place] [address] [place] [address] 09/19/2023 16:10:37 09/20/2023 16:49:42 Deviated nasal septum 787425966 J34.2 Health Concerns Section Related Observation LastModified by Organization Detai ls LastModified Time None Recorded Concern Status LastModified by Organization Details LastModified Time None Recorded Advance Directives Directive None Recorded Payers Encounter Date Sequence Insurance Name Policy Number Policy Zendejas Covered Member ID Zendejas Member ID Guarantor Name 07/06/2023 1 [employer] () Jose Elias Batistaaconmandy [id number] Jose Elias Vela 08/17/2023 1 [employer] () Jose Elias Vela [id number] Jose Elias Batsitaaconmandy 09/19/2023 1 [employer] () Jose Elias Vela [id number] Jose Elias Vela Notes Date Note Type Note Provider Name and Address Organization Details Recorded Time 07/06/2023 text/html this patient is a 4 year history of chronic cough. This occurred in multiple different geographic locations. A legger press operator referred him to an showcase maker who found multiple allergies. Since treating the allergies his cough has substantially reduced in severity. Tanner Sena MD [address], [place], [address], [employer] 07/06/2023 15:49:59 08/17/2023 text/html patient had a si s CT and this revealed pansinusitis and septal deviation. He has not surprised but has been struggling with this for 4 years. Tanner Sena MD [address], [address], [place], [address], [employer] 08/17/2023 17:01:53 09/19/2023 text/html The patient is extremely happy with the result. He is now training for a marathon Tanner Sena MD [address] [place] [address], [address], [address], [facility] Sidelines 09/19/2023 16:41:13
--- OUTSIDE RECORDS SUMMARY | 2024-08-12 10:33 | XMS_ITS | Clinical Summary ---
Author Organization [facility] ([place], [place]) Address [address] [place] [address] Care Team Providers Care Drupal Developer Name Role Phone No, Physician Primary Care Provider [phone] Allergies No known active allergies Medications azelastine (ASTELIN) 137 mcg (0.1 %) nasal spray USE 1 SPRAY IN EACH NOSTRIL EVERY 12 HOURS 3 Active fluticasone propionate (FLONASE) 50 mcg/actuation nasal spray Vista 1 spray every day by intranasal route. 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 Check BP at home. Full Gomes visual field (HVF), normal RNFL both eyes (OU) and visual acuity ([place]) Neurology referral for management of migranes Dry eye syndrome of both eyes 08/16/2023 Assessment & Plan (08/16/2023 9:20 AM CDT): Moderate RICCARDO both eyes (OU), Art tears daily, monitor Conjunctivitis 08/16/2023 Assessment & Plan (08/16/2023 9:20 AM CDT): Loteprednol BID both eyes (OU) for 1 week Pataday daily lead assembler Monitor Hypertensive retinopathy of both eyes, grade 1 0 08/16/2023 Assessment & Plan (08/16/2023 9:22 AM CDT): Arterial narrowing and crossing changes Ou, pt states BP runs 140/90s. FU PCP Chronic cough 08/08/2023 Generalized enlarged lymph nodes 08/08/2023 Chronic sinusitis 07/06/2023 Posterior rhinorrhea 07/06/2023 Social History Tobacco Use Types Packs/Day Years Used Date Smoking Tobacco: Never Tobacco Cessation:Counseling Given: Not Answered Personal Safety Answer Date Recorded Getting School Help Needed Not on file 09/17 Sex and Gender Information Value Date Recorded Sex Assigned at Not on file Legal Sex Male 11:04 AM CDT Gender Identity Not on file Sexual Orientation Not on file Obstetrics History Last Filed Vital Signs Vital Sign Reading Time Taken Comments Blood Pressure 149/78 09/09/2022 4:35 PM CDT Pulse 84 09/09/2022 4:35 PM CDT Temperature 36.9 C (98.5 F) 09/09/2022 11:09 AM CDT Respiratory Rate 18 09/09/2022 4:35 PM CDT Oxygen Saturation 96% 09/09/2022 4:35 PM CDT Inhaled Oxygen Concentration - - Weight 91.3 kg (201 lb 4.5 oz) 09/09/2022 11:09 AM CDT Height - - Body Mass Index - - Plan of Treatment Health Maintenance Due Date Last Done Comments Depression Screening 1985 Hepatitis C Screening 1985 Regular Well Visit/Exam 18-64 2002 Varicella Vaccines (1 of 2 - 13+ 2-dose series) 01/17/2013 Covid-19 Vaccine ( season) 2023 05/01/2021, 07/29/2020, 07/08/2020 Influenza Vaccine (#1) 2023 , 02/18/2022, 01/09/2021, Additional history exists DTaP/Tdap/Td Vaccine (3 - Td or Tdap) 05/25/2032 05/25/2022, 05/05/2012, 03/10/2005, Additional history exists Hepatitis B Screening Completed 01/25/2003, 001 HPV Vaccines Aged Out No longer eligi ble based on patient's age to complete this topic Pneumococcal vaccine <65 Aged Out No longer eligible based on patient's age to complete this topic Insurance [facility] CLAIMS [facility] Care Teams Drupal Developer Relationship Specialty Start Date End Date No, Physician PCP - General 09/09/22
--- OUTSIDE RECORDS SUMMARY | 2024-08-12 10:33 | XMS_ITS | Clinical Summary ---
Author Organization [facility] Address [address] [place] [address] Care Team Providers Care Primary Counselor Name Role Phone Panda Morin PA-C Primary Care Provider [phone] Medications azelastine (ASTELIN) 0.1 % nasal spray 2 sprays 2 (two) times daily. 09/25/2023 Active cetirizine (ZYRTEC) 10 MG tablet Take 1 tablet (10 mg total) by mouth daily. 09/25/2023 Active montelukast (SINGULAIR) 10 MG tablet Take 1 tablet (10 mg total) by mouth daily. 07/19/2023 Active hydroCHLOROthiaz dae (HYDRODIURIL) 25 MG tablet Take 1 tablet (25 mg total) by mouth every morning. 90 tablet 3 10/28/2023 Active Active Problems No known active problems Family History Medical History Relation Comments Stroke Father Relation Status Comments Brother Alive Father Alive Mother Alive Sister Alive Social History Tobacco Use Types Packs/Day Years Used Date Smoking Tobacco: Never Smokeless Tobacco: Never Alcohol Use Standard Drinks/Week Comments Yes 0 (1 standard drink = 0.6 oz pur e alcohol) 4 x week Sex and Gender Information Value Date Recorded Sex Assigned at Not on file Legal Sex Male 8:00 AM CDT Gender Identity Not on file Sexual Orientation Not on file Last Filed Vital Signs Vital Sign Reading Time Taken Comments Blood Pressure 152/80 10/28/2023 3:22 PM CDT Pulse 76 10/28/2023 3:22 PM CDT Temperature - - Respiratory Rate - - Oxygen Saturation - - Inhaled Oxygen Concentration - - Weight 98 kg (216 lb) 10/28/2023 3:22 PM CDT Height 167.6 cm (5' 6 ) 10/28/2023 3:22 PM CDT Body Mass Index 34.86 10/28/2023 3:22 PM CDT Plan of Treatment Health Maintenance Due Date Last Done Comments Annual Physical 01/01/1988 Hepatitis C 2002 Hepatitis B Vaccines (3 of 3 - 3-dose series) 03/22/2003 01/25/2003, 11/29/2000 COVID-19 Vaccine ( - season) 2023 05/01/2021, 07/29/2020, 07/08/2020 DTaP, Tdap and Td Vaccines (4 - Td or Tdap) 05/25/2032 05/25/2022, 05/05/2012, 03/10/2005, Additional history exists Meningococcal Vaccine Aged Out 06/03/2022, 005 No longer eligible based on patient's age to complete this topic HPV Vaccines Aged Out No longer eligi ble based on patient's age to complete this topic Meningococcal B Vaccine Aged Out No l onger eligible based on patient's age to complete this topic Pneumococcal Vaccine: Pediatrics (0 to 5 Years) and At-Risk Patients (6 to 49 Years) Aged Out No longer eligible based on patient's age to complete this topic RSV Immunizations Under 20 Months Aged Out No longer eligible based on patient's age to complete this topic Insurance Care Teams Primary Counselor Relationship Specialty Start Date End Date Panda Morin PA-C [facility] [place] [address] PCP - General PHYSICIAN SYSTEMS MANAGER 09/22/23
--- OUTSIDE RECORDS SUMMARY | 2024-08-12 10:33 | XMS_ITS | Referral Summary ---
Author Organization [facility] Address [address] [place] [address] Care Team Providers Care Food And Beverage Manager Name Role Phone No, Physician Primary Care Provider Allergies No known active allergies Medications azelastine (ASTELIN) 137 mcg (0.1 %) nasal spray USE 1 SPRAY IN EACH NOSTRIL EVERY 12 HOURS 3 Active fluticasone propionate (FLONASE) 50 mcg/actuation nasal spray Crump 1 spray every day by intranasal route. [...] eyes (OU) for 1 week Pataday daily director long term care Monitor Hypertensive retinopathy of both eyes, grade [...] Mass Index - - Plan of Treatment Not on file Insurance [facility] Member Subscriber Plan / Payer (Ef fective 2022-Present) Name:Jose Elias Vela Relation to Subscriber:Self Name:Jose Elias Vela Payer ID:[id number] (NAIC) Group ID:Not on file Type: Address: [place] [phone] [facility] Member Subscriber Plan / Payer (Ef fective 2022-Present) Name:Jose Elias Vela Relation to Subscriber:Self Name:Jose Elias Vela Payer ID:[id number] (NAIC) Group ID:Not on file Type: Address: [place] [phone] [facility] Care Teams Food And Beverage Manager Relationship Specialty Start Date End Date No, Physician PCP - General 09/09/22
--- OUTSIDE RECORDS SUMMARY | 2024-08-12 10:33 | XMS_ITS ---
Author Organization [facility] [place] ([address]) Address [address] [place] [address] Care Team Providers Care Concrete Block Mason Name Role Phone Panda Morin Primary Care Provider UnavailAniceto Shaver Unavailable [phone] Jose D Queen Unavailable Unavailable Trav Doan Unavailable [phone] REASON FOR VISIT SCIT (Aeroallergen) Encounters Encounter Location Date Provider Diagnosis [facility] [address] [place] [address] 08/07/2024 Trav Doan Plan Of Treatment Next Appt Details Provider Name:Trav Doan , 08/13/2024 04:00:00 PM, [address] [facility], [address], [place], [address], Progress Notes * Fritz HERNANDEZferDOB:[birth year] (38 yo M)Acc No.[id number]:08/07/2024 SCIT-Aeroallergen Patient: Jose Elias FRIEDMAN Provider: Inocencia Doan MD :1985 A ge:38 Y S ex:Male Date:08/07/2024 Address:[address] [place], [place] [id number] Pcp:Panda Morin Subjective: * Chief Complaints: * 1 . SCIT (Aeroallergen). * Medical History: Objective: * Vitals: Assessment: Plan: * Treatment: * Billing Information: * Visit Code: * Procedure Codes: * Electronic signature of Cindy Doan MD, FAAAAI on 08/12/2024 at 10:32 AM CDT Sign off status: Pending * Provider: Inocencia Doan MD Date: 08/07/2024 Generated for Savannah barnes/Millie/Nichole on: 08/12/2024 10:32 AM CDT
--- OUTSIDE RECORDS SUMMARY | 2024-08-12 10:33 | XMS_ITS ---
Author Organization [facility] [place] ([address]) Address [address] [place] [address] Care Team Providers Care Energy Specialist Name Role Phone Panda Morin Primary Care Provider UnavailAniceto Shaver Unavailable [phone] Jose D Queen Unavailable Unavailable Trav Doan Unavailable [phone] REASON FOR VISIT SCIT (Aeroallergen) Encounters Encounter Location Date Provider Diagnosis [facility] [address] [place] [address] 07/11/2024 Trav Doan Plan Of Treatment Next Appt Details Provider Name:Trav Doan , 08/13/2024 04:00:00 PM, [address], [address], [place], [address], Progress Notes * Fritz HERNANDEZferDOB:[birth year] (38 yo M)Acc No.[id number]:07/11/2024 SCIT-Aeroallergen Patient: Jose Elias FRIEDMAN Provider: Inocencia Doan MD :1985 A ge:38 Y S ex:Male Date:07/11/2024 Address:[address] [place], [place] [address] Pcp:Panda Morin Subjective: * Chief Complaints: * 1 . SCIT (Aeroallergen). * Medical History: Objective: * Vitals: Assessment: Plan: * Treatment: * Billing Information: * Visit Code: * Procedure Codes: * Electronic signature of Cindy Doan MD, FAAAAI on 08/12/2024 at 10:33 AM CDT Sign off status: Pending * Provider: Inocencia Doan MD Date: 0 07/11/2024 Generated for Savannah barnes/Millie/Nichole on: 0 08/12/2024 10:33 AM CDT
--- OUTSIDE RECORDS SUMMARY | 2024-08-12 10:34 | XMS_ITS | Patient Health Record ---
Author Organization Formerly [facility] ([id number]) Address [address] [place] [address] Care Team Providers Care Memorial Designer Name Role Phone Panda Morin Primary Care Provider UnavailAniceto Shaver Unavailable [phone] Jose D Queen Unavailable Unavailable Trav Doan Unavailable [phone] Jennifer Coley Unavailable [phone] [facility], Provider Unavailable Unavailab le Allergies No Known Allergies Reason For Referral Reason [id number] Referring Provider First Name Panda Referring Provider Last Name Morin Referred Organization [facility] Referred Provider Aniceto Stone Referred Address [address] [place], [place],[address],[place] Referred Provider Specialty Allergy/Immu nology Referral Priority Routine Medications Medication SIG (Take, Route, Frequency, Duration) Notes Start Date End Date Status FLUTICASONE NASAL 50 mcg/inh 2 spray(s) in each nostril twice a day for 90 days Active Escitalopram Oxalate 10 MG 1 tablet Orally Once a day Active Azelastine-Fluticasone 137-50 MCG/ACT 2 spray(s) intranasally 2 times a day Active hydroCHLOROthiazide 25 MG 1 tablet in the morning Orally Once a day Active Fluticasone Propionate 50 MCG/ACT 2 spray(s) in each nostril twice a day for 30 days Active amLODIPine Besylate 2.5 MG 1 tablet Orally Once a day for 30 day(s) 09/20/2023 Active CETIRIZINE 10 mg 1 tab(s) orally once a day for 90 days Active Telmisartan 40 MG 1 tablet Orally Once a day for 30 day(s) 09/20/2023 Active EPIPEN 2-WILFRIDO 0.3 mg as directed intramuscularly once for 30 days Active EpiPen 2-Wilfrido 0.3 mg as directed intramuscularly once for 30 days Active SIT (CLUSTER) variable per schedule per schedule for 999 days Active NASAL WASHES N/A as directed intranasally as needed for 30 days Active Fluticasone Propionate 50 MCG/ACT 2 spray(s) in each nostril twice a day for 90 days Active FLUTICASONE 220 mcg/inh 2 puff(s) inhale d 2 times a day for 30 days Active Azelastine HCl 137 MCG/SPRAY 2 spray(s) intranasally 2 times a day for 90 days Active MONTELUKAST 10 mg 1 tab(s) orally once a day for 90 days Active Fluticasone Propionate (Inhal) 220 MCG/INH 2 PUFF(S) INHALED 2 TIMES A DAY for 30 DAYS *Please review and pick correct strength-formula tion from [facility] options. If intended option is not shown, discontinue and re-order from Quick Search* Active Azelastine HCl 137 MCG/SPRAY 2 puffs (1 spray in each nostril) Nasally Twice a day for 90 days 07/09/2024 Active AZELASTINE NASAL 137 mcg/inh 2 spray(s) intranasally 2 times a day for 90 days Active Cetirizine HCl 10 MG 1 tablet Orally Onc e a day for 90 days 07/09/2024 Active FLUTICASONE NASAL 50 mcg/inh 2 spray(s) in each nostril twice a day for 90 days Active MONTELUKAST 10 mg 1 tab(s) orally once a day for 90 days 07/19/2023 Active Social History Tobacco Use: Social History Observation Description Date Details (start date - stop date) Never Smoker NA - NA Tobacco Control (Standard) Question Answer Notes Tobacco use: Nonsmoker AUDIT-C (Standard) Question Answer Notes Did you have a drink contain ing alcohol in the past year? Yes How often did you have a dri nk containing alcohol in the past year? 2 to 4 times a month (2 points) How many drinks did you have on a typical day when you were drinking in the past year? 1 or 2 drinks (0 point) How often did you have six o r more drinks on one occasion in the past year? Less than monthly (1 point) Points 3 Interpretation Negative Problems Problem Type SNOMED Code ICD Code Onset Dates Problem Status W/U Status Risk Notes Problem Chronic allergic conjunctivitis (60886184) Other chronic allergic conjunctivitis (H10.45) Active confirmed Problem Allergic rhinitis caused by pollen (disorder) (44127986) Allergic rhinitis due to pollen (J30.1) Active confirmed Problem Allergic rhinitis (57574752) Other allergic rhinitis (J30.89) Active confirmed Problem Allergic rhinitis caused by animal hair and dander (614564597708462) Allergic rhinitis due to animal (cat) (dog) hair and dander (J30.81) Active confirmed Problem Chronic cough (54379177) Chronic cough (R05.3) Active confirmed Vital Signs Oximetry 96 % 07/09/2024 Blood pressure diastolic 78 mm Hg 07/09/2024 Height 66 in 07/09/2024 Blood pressure systolic 130 mm Hg 07/09/2024 Weight 208.0 lbs 07/09/2024 BMI 33.57 kg/m2 07/09/2024 Encounters Encounter Location Date Provider Diagnosis [address] [phone] 09/17/2023 Provider [facility]Migration Allergic rhinitis due to pollen J30.1 and Chronic cough R05.3 [facility] [address] [place] [phone] 01/24/2024 Trav Doan Allergic rhinitis du e to pollen J30.1 ; Other allergic rhinitis J30.89 ; Allergic rhinitis due to animal (cat) (dog) hair and dander J30.81 and Other chronic allergic conjunctivitis H10.[address] [phone] 01/31/2024 Trav Doan Allergic rhinitis du e to pollen J30.1 ; Other allergic rhinitis J30.89 ; Allergic rhinitis due to animal (cat) (dog) hair and dander J30.81 and Other chronic allergic conjunctivitis H10.[address] [address] 08/17/2023 Trav Doan Allergic rhinitis du e to pollen J30.1 ; Allergic rhinitis due to animal (cat) (dog) hair and dander J30.81 ; Other allergic rhinitis J30.89 and Other chronic allergic conjunctivitis H10.45 [facility] [address] [place] [id number] 08/24/2023 Trav Doan Allergic rhinitis du e to pollen J30.1 ; Allergic rhinitis due to animal (cat) (dog) hair and dander J30.81 ; Other allergic rhinitis J30.89 and Other chronic allergic conjunctivitis H10.45 [facility] [address] [place] [phone] 08/31/2023 Trav Doan Allergic rhinitis du e to pollen J30.1 ; Allergic rhinitis due to animal (cat) (dog) hair and dander J30.81 ; Other allergic rhinitis J30.89 and Other chronic allergic conjunctivitis H10.45 [facility] [address] [place] [phone] 09/20/2023 Jennifer Coley Allergic rhinitis du e to pollen J30.1 ; Allergic rhinitis due to animal (cat) (dog) hair and dander J30.81 ; Other allergic rhinitis J30.89 ; Other chronic allergic conjunctivitis H10.45 ; Chronic cough R05.3 and Elevated blood-pressure reading, without diagnosis of hypertension R03.0 [facility] [address] [place] [phone] 09/29/2023 Trav Doan Allergic rhinitis du e to pollen J30.1 ; Allergic rhinitis due to animal (cat) (dog) hair and dander J30.81 ; Other allergic rhinitis J30.89 and Other chronic allergic conjunctivitis H10.45 [facility] [address] [place] [phone] 10/05/2023 Trav Doan Allergic rhinitis du e to pollen J30.1 ; Other allergic rhinitis J30.89 ; Allergic rhinitis due to animal (cat) (dog) hair and dander J30.81 and Other chronic allergic conjunctivitis H10.45 [facility] [address] [place] [id number] 10/11/2023 Trav Doan Allergic rhinitis du e to pollen J30.1 ; Other allergic rhinitis J30.89 ; Allergic rhinitis due to animal (cat) (dog) hair and dander J30.81 and Other chronic allergic conjunctivitis H10.45 [facility] [address] [place] [phone] 10/20/2023 Trav Doan Allergic rhinitis du e to pollen J30.1 ; Other allergic rhinitis J30.89 ; Allergic rhinitis due to animal (cat) (dog) hair and dander J30.81 and Other chronic allergic conjunctivitis H10.45 [facility] [address] [place] [id number] 10/27/2023 Trav Doan Allergic rhinitis du e to pollen J30.1 ; Other allergic rhinitis J30.89 ; Allergic rhinitis due to animal (cat) (dog) hair and dander J30.81 and Other chronic allergic conjunctivitis H10.[address] [address] 11/10/2023 Trav Doan Allergic rhinitis du e to pollen J30.1 ; Other allergic rhinitis J30.89 ; Allergic rhinitis due to animal (cat) (dog) hair and dander J30.81 and Other chronic allergic conjunctivitis H10.45 [facility] [address] [place] [id number] 11/24/2023 Trav Doan Allergic rhinitis du e to pollen J30.1 ; Other allergic rhinitis J30.89 ; Allergic rhinitis due to animal (cat) (dog) hair and dander J30.81 and Other chronic allergic conjunctivitis H10.[address] [address] 12/07/2023 Trav Doan Allergic rhinitis du e to pollen J30.1 ; Other allergic rhinitis J30.89 ; Allergic rhinitis due to animal (cat) (dog) hair and dander J30.81 and Other chronic allergic conjunctivitis H10.[address] [address] 12/21/2023 Trav Doan Allergic rhinitis du e to pollen J30.1 ; Other allergic rhinitis J30.89 ; Allergic rhinitis due to animal (cat) (dog) hair and dander J30.81 and Other chronic allergic conjunctivitis H10.45 [facility] [address] [place] [phone] 01/19/2024 Trav Franki Allergic rhinitis du e to pollen J30.1 ; Other allergic rhinitis J30.89 ; Allergic rhinitis due to animal (cat) (dog) hair and dander J30.81 and Other chronic allergic conjunctivitis H10.45 [facility] [address] [place] [phone] 02/21/2024 Trav Franki Allergic rhinitis du e to pollen J30.1 ; Other allergic rhinitis J30.89 ; Allergic rhinitis due to animal (cat) (dog) hair and dander J30.81 and Other chronic allergic conjunctivitis H10.45 [facility] [address] [place] [id number] 03/20/2024 Trav Doan Allergic rhinitis du e to pollen J30.1 ; Other allergic rhinitis J30.89 ; Allergic rhinitis due to animal (cat) (dog) hair and dander J30.81 and Other chronic allergic conjunctivitis H10.45 [facility] [address] [place] [id number] 04/17/2024 Travponce Doan Allergic rhinitis du e to pollen J30.1 ; Other allergic rhinitis J30.89 ; Allergic rhinitis due to animal (cat) (dog) hair and dander J30.81 and Other chronic allergic conjunctivitis H10.[address] [phone] 06/12/2024 Trav Doan Allergic rhinitis du e to pollen J30.1 ; Other allergic rhinitis J30.89 ; Allergic rhinitis due to animal (cat) (dog) hair and dander J30.81 and Other chronic allergic conjunctivitis H10.[address] [address] 07/09/2024 Jennifer Coley Allergic rhinitis du e to pollen J30.1 ; Allergic rhinitis due to animal (cat) (dog) hair and dander J30.81 ; Other allergic rhinitis J30.89 ; Other chronic allergic conjunctivitis H10.45 ; Chronic cough R05.3 and Elevated blood-pressure reading, without diagnosis of hypertension R03.0 [facility] [address] [place] [phone] 07/17/2024 Trav Doan Allergic rhinitis du e to pollen J30.1 ; Other allergic rhinitis J30.89 ; Allergic rhinitis due to animal (cat) (dog) hair and dander J30.81 and Other chronic allergic conjunctivitis H10.[address] [address] 09/07/2023 Aniceto Stone [facility] [address] [place] [phone] 06/28/2024 Aniceto Stone Assessments Encounter Date Diagnosis (ICD Code) Assessment Notes Treatment Notes Treatment Clinical Notes Section Notes 08/17/2023 Allergic rhinitis due to pollen (ICD-10 - J30.1) 08/24/2023 Allergic rhinitis due to pollen (ICD-10 - J30.1) 08/31/2023 Allergic rhinitis due to pollen (ICD-10 - J30.1) 09/17/2023 Allergic rhinitis due to pollen (ICD-10 - J30.1) 09/20/2023 Allergic rhinitis due to pollen (ICD-10 - J30.1) Sp clearly suffers from atopic disease based upon our skin testing and clinical history. Accordingly, we have encouraged his aggressive medication regimen, discussed nasal washes and allergy-specific avoidance measures. We elected to continue SCIT via rapid build-up of which was tolerated without issue. Sp presented 13 days behind on SCIT dosing, repeated cluster 7 dosing without issue. He is to return next week for final cluster. Keep AIE on hand 2 hours after SCIT. Continue to premedicate with Zyrtec prior to SCIT. Follow-up in 1 week for SCIT and in 3-4 months for further evaluation and management 09/20/2023 Allergic rhinitis due to animal (cat) (dog) hair and dander (ICD-10 - J30.81) Follow allergen avoidance, meds and continue SCIT as an adjunctive treatment to current regimen 09/29/2023 Allergic rhinitis due to pollen (ICD-10 - J30.1) 10/05/2023 Allergic rhinitis due to pollen (ICD-10 - J30.1) 10/05/2023 Other allergic rhinitis (ICD-10 - J30.89) 10/11/2023 Allergic rhinitis due to pollen (ICD-10 - J30.1) 10/11/2023 Other allergic rhinitis (ICD-10 - J30.89) 10/20/2023 Allergic rhinitis due to pollen (ICD-10 - J30.1) 10/20/2023 Other allergic rhinitis (ICD-10 - J30.89) 10/27/2023 Allergic rhinitis due to pollen (ICD-10 - J30.1) 10/27/2023 Other allergic rhinitis (ICD-10 - J30.89) 11/10/2023 Allergic rhinitis due to pollen (ICD-10 - J30.1) 11/10/2023 Other allergic rhinitis (ICD-10 - J30.89) 11/24/2023 Allergic rhinitis due to pollen (ICD-10 - J30.1) 11/24/2023 Other allergic rhinitis (ICD-10 - J30.89) 12/07/2023 Allergic rhinitis due to pollen (ICD-10 - J30.1) 12/07/2023 Other allergic rhinitis (ICD-10 - J30.89) 12/21/2023 Allergic rhinitis due to pollen (ICD-10 - J30.1) 12/21/2023 Other allergic rhinitis (ICD-10 - J30.89) 01/19/2024 Allergic rhinitis due to pollen (ICD-10 - J30.1) 01/19/2024 Other allergic rhinitis (ICD-10 - J30.89) 01/24/2024 Allergic rhinitis due to pollen (ICD-10 - J30.1) 01/24/2024 Other allergic rhinitis (ICD-10 - J30.89) 01/31/2024 Allergic rhinitis due to pollen (ICD-10 - J30.1) 01/31/2024 Other allergic rhinitis (ICD-10 - J30.89) 02/21/2024 Allergic rhinitis due to pollen (ICD-10 - J30.1) 02/21/2024 Other allergic rhinitis (ICD-10 - J30.89) 03/20/2024 Allergic rhinitis due to pollen (ICD-10 - J30.1) 03/20/2024 Other allergic rhinitis (ICD-10 - J30.89) 04/17/2024 Allergic rhinitis due to pollen (ICD-10 - J30.1) 04/17/2024 Other allergic rhinitis (ICD-10 - J30.89) 06/12/2024 Allergic rhinitis due to pollen (ICD-10 - J30.1) 06/12/2024 Other allergic rhinitis (ICD-10 - J30.89) 07/09/2024 Allergic rhinitis due to pollen (ICD-10 - J30.1) Sp clearly suffers from atopic disease based upon our skin testing and clinical history. Accordingly, we have encouraged his aggressive medication regimen, discussed nasal washes and allergy-specific avoidance measures. - Sp continues SCIT, now at . He has gotten reduced dosing the last two visits as he has been behind. Dosing tolerated today without issue. Return next week for full dose. - Continue medication regimen as above, refills provided. - Discussed increasing frequency in peak season. - Follow-up in 6 months for further evaluation and management 07/09/2024 Allergic rhinitis due to animal (cat) (dog) hair and dander (ICD-10 - J30.81) Follow allergen avoidance, meds and continue SCIT as an adjunctive treatment to current regimen 07/17/2024 Allergic rhinitis due to pollen (ICD-10 - J30.1) 07/17/2024 Other allergic rhinitis (ICD-10 - J30.89) 07/17/2024 Allergic rhinitis due to animal (cat) (dog) hair and dander (ICD-10 - J30.81) 07/09/2024 Other allergic rhinitis (ICD-10 - J30.89) Follow allergen avoidance, meds and continue SCIT as an adjunctive treatment to current regimen 06/12/2024 Allergic rhinitis due to animal (cat) (dog) hair and dander (ICD-10 - J30.81) 04/17/2024 Allergic rhinitis due to animal (cat) (dog) hair and dander (ICD-10 - J30.81) 03/20/2024 Allergic rhinitis due to animal (cat) (dog) hair and dander (ICD-10 - J30.81) 02/21/2024 Allergic rhinitis due to animal (cat) (dog) hair and dander (ICD-10 - J30.81) 01/31/2024 Allergic rhinitis due to animal (cat) (dog) hair and dander (ICD-10 - J30.81) 01/24/2024 Allergic rhinitis due to animal (cat) (dog) hair and dander (ICD-10 - J30.81) 01/19/2024 Allergic rhinitis due to animal (cat) (dog) hair and dander (ICD-10 - J30.81) 12/21/2023 Allergic rhinitis due to animal (cat) (dog) hair and dander (ICD-10 - J30.81) 12/07/2023 Allergic rhinitis due to animal (cat) (dog) hair and dander (ICD-10 - J30.81) 11/24/2023 Allergic rhinitis due to animal (cat) (dog) hair and dander (ICD-10 - J30.81) 11/10/2023 Allergic rhinitis due to animal (cat) (dog) hair and dander (ICD-10 - J30.81) 10/27/2023 Allergic rhinitis due to animal (cat) (dog) hair and dander (ICD-10 - J30.81) 10/20/2023 Allergic rhinitis due to animal (cat) (dog) hair and dander (ICD-10 - J30.81) 10/11/2023 Allergic rhinitis due to animal (cat) (dog) hair and dander (ICD-10 - J30.81) 10/05/2023 Allergic rhinitis due to animal (cat) (dog) hair and dander (ICD-10 - J30.81) 09/29/2023 Allergic rhinitis due to animal (cat) (dog) hair and dander (ICD-10 - J30.81) 09/20/2023 Other allergic rhinitis (ICD-10 - J30.89) Follow allergen avoidance, meds and continue SCIT as an adjunctive treatment to current regimen 08/31/2023 Allergic rhinitis due to animal (cat) (dog) hair and dander (ICD-10 - J30.81) 08/24/2023 Allergic rhinitis due to animal (cat) (dog) hair and dander (ICD-10 - J30.81) 08/17/2023 Allergic rhinitis due to animal (cat) (dog) hair and dander (ICD-10 - J30.81) 08/17/2023 Other allergic rhinitis (ICD-10 - J30.89) 08/24/2023 Other allergic rhinitis (ICD-10 - J30.89) 08/31/2023 Other allergic rhinitis (ICD-10 - J30.89) 10/05/2023 Other chronic allergic conjunctivitis (ICD-10 - H10.45) 09/20/2023 Other chronic allergic conjunctivitis (ICD-10 - H10.45) Given ocular signs and symptoms I encouraged allergy avoidance measures and meds as above. If symptoms persist, consider adding additional medications including intraocular antihistamine/mast cell stabilizer, PRN and continue SCIT as an adjunctive measure 09/29/2023 Other allergic rhinitis (ICD-10 - J30.89) 10/11/2023 Other chronic allergic conjunctivitis (ICD-10 - H10.45) 10/20/2023 Other chronic allergic conjunctivitis (ICD-10 - H10.45) 10/27/2023 Other chronic allergic conjunctivitis (ICD-10 - H10.45) 11/10/2023 Other chronic allergic conjunctivitis (ICD-10 - H10.45) 11/24/2023 Other chronic allergic conjunctivitis (ICD-10 - H10.45) 12/07/2023 Other chronic allergic conjunctivitis (ICD-10 - H10.45) 12/21/2023 Other chronic allergic conjunctivitis (ICD-10 - H10.45) 01/19/2024 Other chronic allergic conjunctivitis (ICD-10 - H10.45) 01/24/2024 Other chronic allergic conjunctivitis (ICD-10 - H10.45) 01/31/2024 Other chronic allergic conjunctivitis (ICD-10 - H10.45) 02/21/2024 Other chronic allergic conjunctivitis (ICD-10 - H10.45) 03/20/2024 Other chronic allergic conjunctivitis (ICD-10 - H10.45) 04/17/2024 Other chronic allergic conjunctivitis (ICD-10 - H10.45) 06/12/2024 Other chronic allergic conjunctivitis (ICD-10 - H10.45) 07/09/2024 Other chronic allergic conjunctivitis (ICD-10 - H10.45) Given ocular signs and symptoms I encouraged allergy avoidance measures and meds as above. If symptoms persist, consider adding additional medications including intraocular antihistamine/mast cell stabilizer, PRN and continue SCIT as an adjunctive measure 07/17/2024 Other chronic allergic conjunctivitis (ICD-10 - H10.45) 07/09/2024 Chronic cough (ICD-10 - R05.3) Ongoing cough for the past 4 years occurring year-round. No noted triggers. Has treated with oral steroids 3 times in total with temporary resolution. Currently on Flovent. I have been through so many inhalers. This cough has persisted despite multiple moves across the country. Cough is worse in the am with production. Currently followed by Dr. 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 Reports PFT in May that was normal. Noted methacholine challenge that was also normal. No records to review today. - Currently on Diskus device with pulmonary. He is aware to rinse his mouth after use. - Slated for follow-up tomorrow. - Had chest CT in March 2023 showing a node followed by Dr. Queen. He does have a history of sleep apnea on CPAP. - Spirometry at initial visit was essentially normal. Records have again been requested from Dr. Queen. Plan to continue with Dr. Queen. - Continue SCIT as above. If cough persists, consider neurogenic cough and establish with neurology 09/20/2023 Chronic cough (ICD-10 - R05.3) Ongoing cough for the past 4 years occurring year-round. No noted triggers. Has treated with oral steroids 3 times in total with temporary resolution. Currently on Flovent. I have been through so many inhalers. This cough has persisted despite multiple moves across the country. Cough is worse in the am with production. Currently followed by Dr. 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 Reports PFT in May that was normal. Noted methacholine challenge that was also normal. No records to review today. Feels like Flovent was initially beneficial. He denies CECY use. He did smoke in high school, though none for at least 20 years. He has had pneumonia once in his life. No prior hospitalizations for lower airway issues. Had chest CT in March 2023 showing a node followed by Dr. Queen. He does have a history of sleep apnea on CPAP. Spirometry at initial visit was essentially normal. Records have again been requested from Dr. Queen. Plan to continue with Dr. Queen. Continue Flovent. Continue SCIT as above. If could persist, consider neurogenic cough and establish with neurology 09/29/2023 Other chronic allergic conjunctivitis (ICD-10 - H10.45) 09/17/2023 Chronic cough (ICD-10 - R05.3) 08/17/2023 Other chronic allergic conjunctivitis (ICD-10 - H10.45) 08/24/2023 Other chronic allergic conjunctivitis (ICD-10 - H10.45) 08/31/2023 Other chronic allergic conjunctivitis (ICD-10 - H10.45) 09/20/2023 Elevated blood-pressure reading, without diagnosis of hypertension (ICD-10 - R03.0) BP elevated today without symptoms of urgency or emergency. Continue serial checks and follow-up with PCP 07/09/2024 Elevated blood-pressure reading, without diagnosis of hypertension (ICD-10 - R03.0) BP elevated today without symptoms of urgency or emergency. Continue serial checks and follow-up with PCP 08/17/2023 Other 08/24/2023 Other 08/31/2023 Other 09/29/2023 Other Plan Of Treatment Next Appt Details Provider Name:Trav HJeffrey Doan , 08/13/2024 04:00:00 PM, [address] [facility], [address], [address], Insurance Providers Payer Name Payer Address Payer Phone Subscriber Number Group Number Insured Name Patient Relationship to Insured Coverage Start Date Coverage End Date [facility] [place] [address] [place] [address] [id number] Jose Elias Vela Self - patient is the insured Medical (General) History Medical History History ICD Code Chronic cough R05.3 Allergic rhinitis due to animal (cat) (d og) hair and dander J30.81 Other allergic rhinitis J30.89 Other chronic allergic conjunctivitis H1 0.45 Allergic rhinitis due to pollen J30.1 Surgical History Surgery Date(Month/Year) [place] teeth removal 2010 Sinoplasty 09/2023 Ceptoplasty 09/2023
--- NOTE | 2024-08-12 10:36 | ED.HEATRA ---
HPI - Head Injury General Chief complaint: Head Injury Stated complaint: head injury Time Seen by Provider: 08/12/24 10:33 History of Present Illness HPI Narrative: 38-year-old otherwise healthy appearing male presenting to the emergency room with chief complaint of a laceration to the top of head. 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 Patient did not lose consciousness, acting appropriately and ambulating without difficulty. No reported nausea, vomiting, vision changes or headache. He has a laceration approximately 6 cm without any active bleeding. He is not sure of his tetanus is up today. Does not take any blood thinner medications, has no history of seizures. Related Data Home Medications ?Medication ?Instructions ?Recorded ?Confirmed ?Last Taken ?Type cetirizine 10 mg tablet 10 mg PO DAILY PRN 11/02/23 07/10/24 Unknown History fluticasone propionate 50 1 spray intranasal DAILY 11/02/23 07/10/24 Unknown History mcg/actuation nasal spray,suspension (Allergy Relief (fluticasone)) hydrochlorothiazide 25 mg tablet 25 mg PO DAILY 11/02/23 07/10/24 Unknown History amlodipine 2.5 mg tablet (Norvasc) 2.5 mg PO DAILY 04/24/24 07/10/24 Unknown History escitalopram oxalate 10 mg tablet 10 mg PO DAILY 07/10/24 07/10/24 Unknown History Allergies Allergy/AdvReac Type Severity Reaction Status Date / Time No Known Allergies Allergy Verified 08/12/24 10:30 Review of Systems Review of Systems: As reviewed above in HPI [facility] Past Medical History Medical History Chronic cough Sleep apnea Migraines Surgical History Surgical History Hx of sinus surgery Social History Social History Smoking status: Former smoker Additional smoking assessment comments: Smoked 1 year in high school socially. Alcohol intake: current Substance use: never Exam Narrative: GENERAL: [Well-appearing, well-nourished, and in no acute distress.] HEAD: [Normocephalic, 6 cm laceration to the top of the head on the right side, no active bleeding, no wound dehiscence. EYES: [PERRLA and EOMI.] ENT: Nares clear, no rhinorrhea or epistaxis. Mucous membranes moist. NECK: Supple. CHEST: [Clear to auscultation. No respiratory distress.] HEART: [Regular rate and rhythm]. No murmur heard. [Normal peripheral pulses.] ABDOMEN: [Soft, nondistended], [nontender], [No rigidity or guarding] EXTREMITIES: Normal range of motion. [No edema.] SKIN: Warm, dry, no rash. NEURO: [No focal deficits]. Alert and oriented [x3.] PSYCH: [Normal mood and affect.] Course Vital Signs Vital signs: Vital Signs Temperature 37.4 C 08/12/24 10:33 Pulse Rate 79 08/12/24 10:33 Respiratory Rate 18 08/12/24 10:33 Blood Pressure 148/93 H 08/12/24 10:33 Pulse Oximetry 97 08/12/24 10:33 Oxygen Delivery Room Air 08/12/24 10:33 Temperature 37.4 C 08/12/24 10:33 Pulse Rate 79 08/12/24 10:33 Respiratory Rate 18 08/12/24 10:33 Blood Pressure 148/93 H 08/12/24 10:33 Pulse Oximetry 97 08/12/24 10:33 Oxygen Delivery Room Air 08/12/24 10:33 Procedures Laceration Laceration 1: Date: 08/12/24 Time: 10:45 Site: scalp Size (cm): 6 Description: linear and clean Depth: simple, single layer Local Anesthetic: lidocaine 1% and with epi Amount of anesthesia used (mL): 3 Pre-repair: wound explored, irrigated extensively and deep structures intact ====== Skin Level ====== Skin layer closed with: jaron (9 jaron) ====== Subcutaneous Layer ====== ====== Muscle Layer ====== ====== Tendon Layer ====== Dressing: gauze applied overtop MDM - Head Injury MDM Narrative Medical decision making narrative: 38-year-old male presenting with a head laceration after a freight delivery driver slipped and hit the top of his head. Patient did not lose consciousness, not having any nausea, vomiting, mental status changes, ataxia, headache or vision changes. He has normal vital signs, answer all questions appropriately and ambulatory here in the emergency department. He meets [place] head CT rules to be low risk and we can safely exclude significant intracranial injury and avoid CT imaging. Patient's laceration will be repaired with jaron, let gel was applied to anesthetize the area, tetanus was updated he was discharged home after repair. Patient given return precautions and management instructions. Medical Records Attestation: I reviewed the patient's medical records. Discharge Plan Discharge Clinical Impression: Scalp laceration, Closed head injury Patient Disposition: Home Condition: Stable Instructions: Antibiotic Form, Head Injury (ED), Staple Care (ED), Head Laceration (ED) Additional Instructions: Leave the jaron in for approximately 10-14 days and then return for removal and wound evaluation. He can take Tylenol and ibuprofen for any pain. Return with any urgent or emergent concerns otherwise. Follow-up with either Urgent Care, here at the emergency department, primary care or any healthcare provider that can remove the jaron. Patient Language: Georgian Prescriptions: No Action (DME) inhalational spacing device Spacer See Rx Instructions .ROUTE .MEDSUPPLY Qty: 1 0RF Rx Instructions: As directed azelastine 137 mcg (0.1 %) aerosol,spray 1 spray intranasal Q12H Qty: 30 2RF Rx Instructions: administer into each nostril hydrochlorothiazide 25 mg tablet 25 mg PO DAILY cetirizine 10 mg tablet 10 mg PO DAILY PRN fluticasone propionate [Allergy Relief (fluticasone)] 50 mcg/actuation spray,suspension 1 spray intranasal DAILY Rx Instructions: administer into each nostril amlodipine [Norvasc] 2.5 mg tablet 2.5 mg PO DAILY escitalopram oxalate 10 mg tablet 10 mg PO DAILY montelukast 10 mg tablet 10 mg PO QHS Qty: 30 6RF fluticasone propion-salmeterol [Wixela Inhub] 500-50 mcg/dose blister with device 1 inh inhalation Q12H Qty: 60 6RF Follow-up/Referrals: KESWICK, [Primary Care Provider] - Time of Disposition: 11:05
[2024-08-12] MEDS: LIDOCAINE, EPINEPHRINE, TETRACAINE VISCOUS SOLN 3 ML TOPICAL (10:40)
[2024-08-12] MEDS: TETANUS,DIPHTHERIA,AC PERTUSSIS ADULT (0.5 ML) BOOSTRIX IM (10:40)
--- OUTSIDE RECORDS SUMMARY | 2024-08-12 10:48 | XMS_ITS | Continuity of Care Document ---
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 It does not include entries that were removed or entered in error. 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 0117S-Hm-L-[facility] Migraine without aura, not refractory2 [...] ([place]) Neurology referral for management of migranes 8931X-Ro-H-[facility] 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 3899V-Qw-C-[facility] Pain in lower limb Active 024 Condition 0682P-Ke-Z-[facility] Tear film insufficiency4 Active Condition Outside Source Comment: Last Assessment & Plan: Moderate SARAHI both eyes (OU), Art tears daily, monitor 2001I-Zo-X-[facility] Chronic cough Active 024 Condition 0510D-Xo-R-[facility] Chronic sinusitis Active 024 Condition 5060B-Bd-Z-[facility] EXAM/ASSESSMENT, OCCUPATIONAL, FOR INDIVIDUAL IN [...] of subpopulation Inactive Condition See DD From 2115 DoD visit for: services physical Inactive Condition visit for: services physical (INITIAL POST-DEPLOYMEN T ASSESSMENT: DOCUMENTED ON [id number]): No referral, member is to f/u as needed with pcm/provider at home station or if needed RTC at deployed location prn prior to leaving. Pt had all questions answered verbalized understanding and agreed to plan as above. DoD CHOUDHURY SPLINT Active Condition assured pt. gave handout op excercises for choudhury splints. f/u prn or sooner if sx's worsens. 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 gave handout op excercises for choudhury splints. f/u prn or sooner if sx's worsens. 7704K-Iy-U-[facility] Medications Combined list of outpatient medications from Department of Defense and Veterans Affairs facilities.Medications provided include 1) outpatient medications from the last 15 months, and 2) patient-reported medications. Medication Details Route Status Patient Instructions Prescription Expires Prescription Number Last Dispense Date Ordering Provider Order Date Order Qty Source AZELASTINE HCL (AZELASTINE HCL), 137 MCG, SPRAY/PUMP, NASAL, APOTEX ANGELINE, 30 ml SQUEEZ BTL Active [id number] 4 2023 90 Pharmac y Data Transac tion Service Facilit y AZELASTINE HCL (AZELASTINE HCL), 137 MCG, SPRAY/PUMP, NASAL, APOTEX ANGELINE, 30 ml SQUEEZ BTL Active [id number] 4 2023 30 Pharmac y Data Transac tion Service Facilit y CETIRIZINE HCL (cetirizine HCl), 10 MG, TABLET, ORAL, 'S LAB, 500 ea. BOTTLE Active [id number] 4 2023 90 Pharmac y Data Transac tion Service Facilit y CETIRIZINE HCL (cetirizine HCl), 10 MG, TABLET, ORAL, 'S LAB, 500 ea. BOTTLE Active [id number] 4 2023 90 Pharmac y Data Transac tion Service Facilit y CETIRIZINE HCL (cetirizine HCl), 10 MG, TABLET, ORAL, 'S LAB, 500 ea. BOTTLE Active [id number] 4 2023 30 Pharmac y Data Transac tion Service Facilit y EPINEPHRINE (epinephrin e), 0.3MG/0.3, AUTO INJCT, INJECTION, MYLAN SPECIALTY, 2 ea. SYRINGE Active [id number] 4 2023 2 Pharmac y Data Transac tion Service Facilit y FLUTICASONE PROPIONATE (FLUTICASON E PROPIONATE) , 50MCG, SPRAY SUSP, NASAL, LESLIE LABS., 16 g AER W/ADAP Active [id number] 4 2023 48 Pharmac y Data Transac tion Service Facilit y FLUTICASONE PROPIONATE (FLUTICASON E PROPIONATE) , 50MCG, SPRAY SUSP, NASAL, LESLIE LABS., 16 g AER W/ADAP Active [id number] 4 2023 48 Pharmac y Data Transac tion Service Facilit y FLUTICASONE PROPIONATE (FLUTICASON E PROPIONATE) , 50MCG, SPRAY SUSP, NASAL, LESLIE LABS., 16 g AER W/ADAP Active [id number] 4 2023 16 Pharmac y Data Transac tion Service Facilit y FLUTICASONE PROPIONATE HFA (fluticason e propionate) , 220 MCG, AER W/ADAP, INHALATION, PRASCO LABS, 12 g AER W/ADAP Cancele d [id number] : 2023 0 Pharmac y Data Transac tion Service Facilit y FLUTICASONE PROPIONATE HFA (fluticason e propionate) , 220 MCG, AER W/ADAP, INHALATION, PRASCO LABS, 12 g AER W/ADAP Cancele d [id number] : 2023 0 Pharmac y Data Transac tion Service Facilit y HYDROCODONE -ACETAMINOP HEN (HYDROCODON E/ACETAMINO PHEN), 7.5-325MG, TABLET, ORAL, MALLINCKROD T PH, 500 ea. BOTTLE Active [id number] 2023 28 Pharmac y Data Transac tion Service Facilit y LORATADINE (LORATADINE ), 10 MG, TABLET, ORAL, NOVARTIS CONSUM, 30 ea. BLIST PACK Cancele d [id number] : 2023 0 Pharmac y Data Transac tion Service Facilit y MONTELUKAST SODIUM (MONTELUKAS T SODIUM), 10 MG, TABLET, ORAL, CAMBER PHARMACE, 1000 ea. BOTTLE Active [id number] 4 2023 90 Pharmac y Data Transac tion Service Facilit y telmisartan (U/D) 40 MG ORAL TAB Be careful if taking OTCs.Samm e or use exactly as directed .Do not take if . Active 09/15/2024 [id number] 2023 90 [facility] BURCIAGA ([facility]) Allergies, Adverse Reactions, Alerts Combined list of [...] Site Reaction Lot Number CVX Code Drug Legal Officer Status Comments Source influenza virus vaccine, inactivated 2022 ANNY Vasquez luis, right (delt oid) [id number] 150 [employer] complet ed influenza virus vaccine, inactivat ed 01/19/23 Given 0055C[facility] influenza, injectable, quadrivalent- pf 2022 CAPTCHRISTOPH ERRWEISGARBER [id number] 150 complet ed Result Comment: Route: Unknown Manufactu rer: OT (SEQ) 6130C-A f-C-375 [facility] yellow fever vaccine 1 2022 [id number] 37 Sanofi Pasteur ([facility]) complet ed yellow fever vaccine DoD typhoid Vi capsular polysaccharid e vaccine 3 2022 [id number] 101 Sanofi Pasteur (PMC) complet ed typhoid Vi capsular polysacch aride vaccine DoD meningococcal oligosacchari de (groups A, C, Y and W-135) diphtheria toxoid conjugate vaccine (MCV4O) 2 2022 [id number] 136 SmithKline (SKB) complet ed meningoco ccal oligosacc haride (groups A, C, Y and W-135) diphtheri a toxoid conjugate vaccine (MCV4O) DoD yellow fever vaccine 2022 CAPTCHRISTOPH ERRWEISGARBER [id number] 37 complet ed Result Comment: Route: Unknown Manufactu rer: Sanofi Pasteur (PMC) 6130C-A f-C-375 Th [facility] typhoid Vi capsular polysaccharid e vac 2022 CAPTCHRISTOPH APRILISGARBER [id number] 101 complet ed Result Comment: Route: Unknown Manufactu rer: SanLYYN Pasteur ([facility]) 6130C-A f-C-375 [facility] [place] meningococcal oligosacchari de (MCV4O) 2022 CAPTCHRISTOPH APRILISGARBER [id number] 136 complet ed Result Comment: Route: Unknown Manufactu rer: GeoMejericho e ([facility]) 6130C-A f-C-375 [facility] [place] tetanus and diphtheria toxoids, adsorbed, preservative free, for adult use (2 Lf of tetanus toxoid and 2 Lf of diphtheria toxoid) 3 2022 [id number] 09 SanLYYN Pasteur ([facility]) complet ed tetanus and diphtheri a toxoids, adsorbed, preservat mark free, for adult use (2 Lf of tetanus toxoid and 2 Lf of diphtheri a toxoid) DoD tetanus-dipht h toxoids (Td) adult/adol 2022 CAPTCHRISTOPH ERRJAMSHIDISGARBER [id number] 09 complet ed Result Comment: Route: Unknown Manufactu rer: Sanofi Pasteur ([facility]) 6130C-A f-C-375 [facility] [place] Influenza, injectable, quadrivalent, preservative free 0 2021 [id number] 150 [employer] [facility] ([facility] complet ed Influenza , injectabl e, quadrival ent, preservat mark free DoD influenza, injectable, quadrivalent- pf 2021 CAPTCHRISTOPVasile CHENISGARBER [id number] 150 complet ed Result Comment: Route: Unknown Manufactu rer: GeoMein e ([facility]) 6130C-A f-C-375 [facility] [place] COVID Vaccine Pfizer 2021 YOMAIRA Vasquez luis, right (delt oid) [id number] 208 PFIZER complet ed COVID Vaccine Pfizer 05/01/21 Given 0083C-K [facility] SARS-COV-2 (COVID-19) vaccine, mRNA, spike protein, LNP, preservative free, 30 mcg/0.3mL dose 3 2021 [id number] 208 Pfizer, Inc (PFR) complet ed SARS-COV- 2 (COVID-19 ) vaccine, mRNA, spike protein, LNP, preservat mark free, 30 mcg/0.3mL dose DoD influenza virus vaccine, inactivated 2020 HORACIO Gundersonelizabeth luis, right (delt oid) [id number] 150 [facility] complet ed influenza virus vaccine, inactivat ed 01/09/21 Given 0083C-K [facility] Influenza, injectable, quadrivalent, preservative free 0 2020 [id number] 150 [facility] ([facility]) complet ed Influenza , injectabl e, quadrival ent, preservat mark free DoD influenza, injectable, quadrivalent- pf 2020 CAPTCHRISTOPH MECHELLE [id number] 150 complet ed Result Comment: Route: Unknown Manufactu rer: John monroe ([facility]) 6130C-A f-C-375 Th [facility] COVID Vaccine Pfizer 2020 [id number] 208 PFIZER complet ed COVID Vaccine Pfizer 07/29/20 Given Ambulat ory Pharmac y SARS-COV-2 (COVID-19) vaccine, mRNA, spike protein, LNP, preservative free, 30 mcg/0.3mL dose 2 2020 [id number] 208 Pfizer, Inc (PFR) complet ed SARS-COV- 2 (COVID-19 ) vaccine, mRNA, spike protein, LNP, preservat mark free, 30 mcg/0.3mL dose DoD COVID Vaccine Pfizer 2020 [id number] 208 PFIZER complet ed COVID Vaccine Pfizer 07/08/20 Given Ambulat ory Pharmac y COVID Vaccine Pfizer 2020 [id number] 208 PFIZER complet ed COVID Vaccine Pfizer 07/08/20 Given Ambulat ory Pharmac y SARS-COV-2 (COVID-19) vaccine, mRNA, spike protein, LNP, preservative free, 30 mcg/0.3mL dose 1 2020 [id number] 208 Pfizer, Inc (PFR) complet ed SARS-COV- [...] 02/07/20 Given Ambulat ory Pharmac y Influenza, injectable, MDCK, preservative free, quadrivalent 2019 VALENTIN, () Not Given Influenza , injectabl e, MDCK, preservat mark free, quadrival ent DoD influenza virus vaccine, unspecified formulation 1 2019 88 Transcribed (TRS) complet ed influenza virus vaccine, unspecifi ed formulati on DoD Influenza, injectable, Madin Tessy Canine Kidney, preservative free, quadrivalent 0 2019 171 (MVX) complet ed Influenza , injectabl e, Madin Tessy Canine Kidney, preservat mark free, quadrival ent DoD Influenza, injectable, Madin [place] Canine Kidney, quadrivalent with preservative 0 2019 186 Seqirus (SEQ) comple t ed Influenza , injectabl e, Madin [place] Canine Kidney, quadrival ent with preservat mark DoD influenza virus vaccine, inactivated 2019 CAPTCHRISJACI MIN 88 complet ed Result Comment: Route: Unknown Manufactu rer: Seq[employer] (SEQ) 6130C-A f-C-375 [facility] influenza, injectable, quadrivalent- pf 2018 [id number] 040 150 [employer] complet ed influenza , injectabl e, quadrival ent-pf 01/16/19 Given Ambulat ory Pharmac y influenza, injectable, quadrivalent- pf 2018 [id number] 040 150 [employer] complet ed influenza , injectabl e, quadrival ent-pf 01/16/19 Given Ambulat ory Pharmac y Influenza, injectable, quadrivalent, preservative free 0 2018 [id number] 040 150 Se[employer] (SEQ) complet ed Influenza , injectabl e, quadrival ent, preservat mark free DoD influenza, injectable, quadrivalent- pf 2017 [id number] 150 [employer] complet ed influenza , injectabl e, quadrival ent-pf 01/25/18 Given Ambulat ory Pharmac y influenza, injectable, quadrivalent- pf 2017 [id number] 150 [employer] complet ed influenza , injectabl e, quadrival ent-pf 01/25/18 Given Ambulat ory Pharmac y Influenza, injectable, quadrivalent, preservative free 13 2017 [id number] 150 Se[employer] (SEQ) comple t ed Influenza [...] preservat mark DoD influenza, seasonal, injectable-pf 2014 [id number] 140 CSL Behring complet ed influenza , seasonal, injectabl e-pf 01/17/15 Given Ambulat ory Pharmac y influenza, seasonal, injectable-pf 2014 [id number] 140 CSL Behring complet ed influenza , seasonal, injectabl e-pf 01/17/15 Given Ambulat ory Pharmac y Influenza, seasonal, injectable, preservative free 0 2014 [id number] 140 [facility] [employer] Inc. (CSL) complet ed Influenza , seasonal, injectabl e, preservat mark free DoD influenza, seasonal, injectable-pf 2013 [id number] 140 Novartis Pharmaceutica ls complet ed influenza , seasonal, injectabl e-pf 01/15/14 Given Ambulat ory Pharmac y influenza, seasonal, injectable-pf 2013 [id number] 140 Novartis Pharmaceutica ls complet ed influenza , seasonal, injectabl e-pf 01/15/14 Given Ambulat ory Pharmac y Influenza, seasonal, injectable, preservative free 0 2013 [id number] 140 Novartis [employer] Aldis Angeline. (NOV) complet ed Influenza , seasonal, injectabl e, preservat mark free DoD anthrax vaccine 2013 [id number] 24 Emergent [employer] complet ed anthrax vaccine 01/08/14 Given Ambulat ory Pharmac y anthrax vaccine 2013 [id number] 24 [employer] complet ed anthrax vaccine 01/08/14 Given Ambulat ory Pharmac y anthrax vaccine 4 2013 [id number] 24 [employer] (MIP) complet ed anthrax vaccine DoD typhoid Vi capsular polysaccharid e vac 2013 J1201 101 sanofi pasteur complet ed typhoid Vi capsular polysacch aride vac 06/18/13 Given Ambulat ory Pharmac y anthrax vaccine 2013 [id number] 24 [employer] complet ed anthrax vaccine 06/18/13 Given Ambulat ory Pharmac y typhoid Vi capsular polysaccharid e vac 2013 J1201 101 sanofi pasteur complet ed typhoid Vi capsular polysacch aride vac 06/18/13 Given Ambulat ory Pharmac y anthrax vaccine 2013 [id number] 24 [employer] complet ed anthrax vaccine 06/18/13 Given Ambulat ory Pharmac y anthrax vaccine 3 2013 [id number] 24 [employer] (MIP) complet ed anthrax vaccine DoD typhoid Vi capsular polysaccharid e vaccine 2 2013 J1201 101 Sanofi Pasteur ([facility]) complet ed typhoid Vi capsular polysacch aride vaccine DoD influenza, live, intranasal,qu adrivalent 2012 [id number] 149 Medimmune Inc comple t ed influenza , live, intranasa l,quadriv alent 12/20/12 Given Ambulat ory Pharmac y influenza, live, intranasal,qu adrivalent 2012 [id number] 149 Medimmune Inc comple t ed influenza , live, intranasa l,quadriv alent 12/20/12 Given Ambulat ory Pharmac y influenza, live, intranasal, quadrivalent 8 2012 [id number] 149 MedImmune, Inc. (MED) complet ed influenza , live, intranasa l, quadrival ent DoD tetanus, diphtheria, acellular pertu is 2012 [id number] 7AA 115 GlaxoSmithKli ne complet ed tetanus, diphtheri a, acellular pertussis 05/05/12 Given Ambulat ory Pharmac y tetanus, diphtheria, acellular pertu is 2012 [id number] 7AA 115 GlaxoSmithKli ne complet ed tetanus, diphtheri a, acellular pertussis 05/05/12 Given Ambulat ory Pharmac y tetanus toxoid, reduced diphtheria toxoid, and acellular pertu is vaccine, adsorbed 0 2012 [id number] 7AA 115 [facility] (B) complet ed tetanus toxoid, reduced diphtheri a toxoid, and acellular pertussis vaccine, adsorbed DoD influenza virus vaccine, live 2011 [id number] 111 Medimmune Inc comple t ed influenza virus vaccine, live 01/13/12 Given Ambulat ory Pharmac y influenza virus vaccine, live 2011 [id number] 111 Medimmune Inc comple t ed influenza virus vaccine, live 01/13/12 Given Ambulat ory Pharmac y influenza virus vaccine, live, attenuated, for intranasal use 0 2011 [id number] 111 MedImmune, Inc. (MED) complet ed influenza virus vaccine, live, attenuate d, for intranasa l use DoD influenza virus vaccine, live 2009 [id number] 111 Medimmune Inc comple t ed influenza virus vaccine, live 01/06/10 Given Ambulat ory Pharmac y influenza virus vaccine, live 2009 [id number] 111 Medimmune Inc comple t ed influenza virus vaccine, live 01/06/10 Given Ambulat ory Pharmac y influenza virus vaccine, live, attenuated, for intranasal use 1 2009 [id number] 111 MedImmune, Inc. (MED) complet ed influenza virus vaccine, live, attenuate d, for intranasa l use DoD Novel influenza-H1N 1-09,pf,injec table 2009 [id number] 1 126 Novartis Pharmaceutica ls complet ed Novel influenza -T2D3-91, pf,inject able 04/16/09 Given Ambulat ory Pharmac y Novel Influenza-H1N 1-09,live virus,nasal 2009 [id number] 125 Medimmune Inc comple t ed Novel Influenza -P4X0-14, live virus,josh al 04/16/09 Given Ambulat ory Pharmac y Novel influenza-H1N 1-09,pf,injec table 2009 [id number] 1 126 Novartis Pharmaceutica ls complet ed Novel influenza -L4K4-35, pf,inject able 04/16/09 Given Ambulat ory Pharmac y Novel Influenza-H1N 1-09,live virus,nasal 2009 [id number] 125 Medimmune Inc comple t ed Novel Influenza -V5Q4-78, live virus,josh al 04/16/09 Given Ambulat ory Pharmac y Novel Influenza-H1N 1-09, live virus for nasal administratio n 1 2009 [id number] 125 MedImmune, Inc. (MED) complet ed Novel Influenza -N8H1-03, live virus for nasal administr ation DoD Novel influenza-H1N 1-09, preservative- free, injectable 1 2009 [id number] 1 126 Novartis Pharmaceutica l Angeline. (NOV) complet ed Novel influenza -R2T5-81, preservat mark-free, injectabl e DoD influenza virus vaccine, live 2008 [id number] 111 Medimmune Inc comple t ed influenza virus vaccine, live 01/21/09 Given Ambulat ory Pharmac y influenza virus vaccine, live 2008 [id number] 111 Medimmune Inc comple t ed influenza virus vaccine, live 01/21/09 Given Ambulat ory Pharmac y influenza virus vaccine, live, attenuated, for intranasal use 1 2008 [id number] 111 MedImmune, Inc. (MED) complet ed influenza virus vaccine, live, attenuate d, for intranasa l use DoD influenza virus vaccine,split 2007 [id number] 15 sanofi pasteur complet ed influenza virus vaccine,s plit 01/29/08 Given Ambulat ory Pharmac y influenza virus vaccine,split 2007 [id number] 15 sanofi pasteur complet ed influenza virus vaccine,s plit 01/29/08 Given Ambulat ory Pharmac y influenza virus vaccine, split virus (incl. purified surface antigen)-reti red CODE 1 2007 [id number] 15 Sanofi Pasteur (PMC) complet ed influenza virus vaccine, split virus (incl. purified surface antigen)- retired CODE DoD influenza virus vaccine, live 2006 [id number] 111 In[employer] Inc comple t ed influenza virus vaccine, live 02/25/07 Given Ambulat ory Pharmac y influenza virus vaccine, live 2006 [id number] 111 In[employer] Inc comple t ed influenza virus vaccine, live 02/25/07 Given Ambulat ory Pharmac y influenza virus vaccine, live, attenuated, for intranasal use 0 2006 [id number] 111 [employer], Inc. (MED) complet ed influenza virus vaccine, live, attenuate d, for intranasa l use DoD vaccinia (smallpox) vaccine 2006 [id number] 75 [employer] complet ed vaccinia (smallpox ) vaccine 01/23/07 Given Ambulat ory Pharmac y anthrax vaccine 2006 [id number] 24 Emergent [employer] complet ed anthrax vaccine 01/23/07 Given Ambulat ory Pharmac y anthrax vaccine 2006 [id number] 24 [employer] complet ed anthrax vaccine 01/23/07 Given Ambulat ory Pharmac y vaccinia (smallpox) vaccine 2006 [id number] 75 [employer] complet ed vaccinia (smallpox ) vaccine 01/23/07 Given Ambulat ory Pharmac y anthrax vaccine 3 2006 [id number] 24 [employer] (MIP) complet ed anthrax vaccine DoD vaccinia (smallpox) vaccine 0 2006 [id number] 75 [facility] ([facility]) complet ed vaccinia (smallpox ) vaccine DoD anthrax vaccine 2006 [id number] 24 [employer] complet ed anthrax vaccine 12/22/06 Given Ambulat ory Pharmac y anthrax vaccine 2006 [id number] 24 [employer] complet ed anthrax vaccine 12/22/06 Given Ambulat ory Pharmac y anthrax vaccine 2 2006 [id number] 24 [employer] ([facility]) complet ed anthrax vaccine DoD typhoid vaccine, inactivated 2006 [id number] 101 sanofi pasteur complet ed typhoid vaccine, inactivat ed 10/31/06 Given Ambulat ory Pharmac y anthrax vaccine 2006 [id number] 24 [employer] complet ed anthrax vaccine 10/31/06 Given Ambulat ory Pharmac y typhoid vaccine, inactivated 2006 Z1102 101 sanofi pasteur complet ed typhoid vaccine, inactivat ed 10/31/06 Given Ambulat ory Pharmac y anthrax vaccine 2006 [id number] 24 [employer] complet ed anthrax vaccine 10/31/06 Given Ambulat ory Pharmac y anthrax vaccine 1 2006 [id number] 24 [employer] ([facility]) complet ed anthrax vaccine DoD typhoid vaccine, parenteral, other than acetone-kille d, dried 1 2006 [id number] 41 Sanofi Pasteur (PMC) complet ed typhoid vaccine, parentera l, other than acetone-k illed, dried DoD influenza virus vaccine,split 2005 [id number] 15 sanofi pasteur complet ed influenza virus vaccine,s plit 03/10/06 Given Ambulat ory Pharmac y influenza virus vaccine,split 2005 [id number] 15 sanofi pasteur complet ed influenza virus vaccine,s plit 03/10/06 Given Ambulat ory Pharmac y influenza virus vaccine, split virus (incl. purified surface antigen)-reti red CODE 1 2005 [id number] 15 Sanofi Pasteur (PMC) complet ed influenza [...] ory Pharmac y influenza virus vaccine,split 2004 [id number] 15 sanofi pasteur complet ed influenza virus vaccine,s plit 03/17/05 Given Ambulat ory Pharmac y hepatitis A adult vaccine 2004 [id number] 52 GlaxoSmithKli ne complet ed hepatitis A adult vaccine 03/17/05 Given Ambulat ory Pharmac y influenza virus vaccine,split 2004 [id number] 15 sanofi pasteur complet ed influenza virus vaccine,s plit 03/17/05 Given Ambulat ory Pharmac y measles, mumps and rubella virus vaccine 1 2004 03 () Not Given measles, mumps and rubella virus vaccine DoD influenza virus vaccine, split virus (incl. purified surface antigen)-reti red CODE 1 2004 [id number] 15 Sanofi Pasteur ([facility]) complet ed influenza virus vaccine, split virus (incl. purified surface antigen)- retired CODE DoD influenza virus vaccine, whole virus 0 2004 [id number] 16 Sanofi Pasteur ([facility]) complet ed influenza virus vaccine, whole virus DoD varicella virus vaccine 1 2004 21 () Not Given varicella virus vaccine DoD hepatitis B vaccine, adult dosage 1 2004 43 () Not Given hepatitis B vaccine, adult dosage DoD hepatitis A vaccine, adult dosage 1 2004 [id number] 52 SmithKline (SKB) complet ed hepatitis A vaccine, adult dosage DoD influenza virus vaccine, whole virus 2004 CAPTCHRISTOPH ERRWEISGARBER [id number] 16 complet ed Result Comment: Route: Unknown Manufactu rer: Sanofi Pasteur (PMC) 6130C-A f-C-375 [facility] tuberculin purified protein derivative 2004 [id number] 96 sanofi pasteur complet ed tuberculi n purified protein derivativ e 03/11/05 Given Ambulat ory Pharmac y meningococcal polysaccharid e (MPSV4) 2004 [id number] 32 sanofi pasteur complet ed meningoco ccal polysacch aride (MPSV4) 03/10/05 Given Ambulat ory Pharmac y poliovirus vaccine, inactivated 2004 [id number] 10 sanofi pasteur complet ed polioviru s vaccine, inactivat ed 03/10/05 Given Ambulat ory Pharmac y tetanus-dipht h toxoids (Td) adult/adol 2004 [id number] 09 sanofi pasteur complet ed tetanus-d iphth toxoids (Td) adult/ado l 03/10/05 Given Ambulat ory Pharmac y meningococcal polysaccharid e (MPSV4) 2004 [id number] 32 sanofi pasteur complet ed meningoco ccal polysacch aride (MPSV4) 03/10/05 Given Ambulat ory Pharmac y poliovirus vaccine, inactivated 2004 [id number] 10 sanofi pasteur complet ed polioviru s vaccine, inactivat ed 03/10/05 Given Ambulat ory Pharmac y tetanus-dipht h toxoids (Td) adult/adol 2004 [id number] 09 sanofi pasteur complet ed tetanus-d iphth toxoids (Td) adult/ado l 03/10/05 Given Ambulat ory Pharmac y tetanus and diphtheria toxoids, adsorbed, preservative free, for adult use (2 Lf of tetanus toxoid and 2 Lf of diphtheria toxoid) 1 2004 [id number] Sanofi Pasteur (PMC) complet ed tetanus and diphtheri a toxoids, adsorbed, preservat mark free, for adult use (2 Lf of tetanus toxoid and 2 Lf of diphtheri a toxoid) DoD poliovirus vaccine, inactivated 1 2004 [id number] 10 Sanofi Pasteur (PMC) complet ed polioviru s vaccine, inactivat ed DoD meningococcal polysaccharid e vaccine (MPSV4) 1 2004 [id number] 32 Sanofi Pasteur (PMC) complet ed meningoco ccal polysacch aride vaccine (MPSV4) DoD hepatitis B adult vaccine 2002 [id number] 43 [employer] complet ed hepatitis B adult vaccine 01/25/03 Given Ambulat ory Pharmac y hepatitis B adult vaccine 2002 [id number] 43 [employer] complet ed hepatitis B adult vaccine 01/25/03 Given Ambulat ory Pharmac y hepatitis B vaccine, adult dosage 2 2002 [id number] 43 Merck (MSD) complet ed hepatitis B vaccine, adult dosage DoD HepB, Adult 2002 CAPTCHRISTOPH ERRWEISGARBER 1167M 43 complet ed Result Comment: Route: Unknown Manufactu rer: Merck (MSD) 6130C-A f-C-375 Th [facility] hepatitis B adult vaccine 2000 [id number] 43 [employer] Inc complet ed hepatitis B adult vaccine 11/29/00 Given Ambulat ory Pharmac y tetanus-dipht h toxoids (Td) adult/adol 2000 [id number] 09 [facility] complet ed tetanus-d iphth toxoids (Td) adult/ado l 11/29/00 Given Ambulat ory Pharmac y hepatitis B adult vaccine 2000 [id number] 43 [employer] complet ed hepatitis B adult vaccine 11/29/00 Given Ambulat ory Pharmac y tetanus-dipht h toxoids (Td) adult/adol 2000 [id number] 09 [facility] complet ed tetanus-d iphth toxoids (Td) adult/ado l 11/29/00 Given Ambulat ory Pharmac y tetanus and diphtheria toxoids, adsorbed, preservative free, for adult use (2 Lf of tetanus toxoid and 2 Lf of diphtheria toxoid) 1 2000 [id number] 09 [facility] (CON) complet ed tetanus and diphtheri a toxoids, adsorbed, preservat mark free, for adult use (2 Lf of tetanus toxoid and 2 Lf of diphtheri a toxoid) DoD hepatitis B vaccine, adult dosage 1 2000 [id number] 43 Merck (MSD) complet ed hepatitis B vaccine, adult dosage DoD HepB, Adult 2000 CAPTCHRISTOPH ERRWEISGARBER [id number] 43 complet ed Result Comment: Route: Unknown Manufactu rer: Merck (MSD) 6130C-[id number] f-C-375 Th [facility] measles/mumps /rubella virus vaccine 1990 [id number] 03 [...] 5 1989 T0559 02 Sanofi Pasteur ([facility]) complet ed trivalent polioviru s vaccine, [...] 4 1986 T0485 02 Sanofi Pasteur ([facility]) complet ed trivalent polioviru s vaccine, [...] vaccine DoD poliovirus vaccine, live, oral 1985 [id number] 02 [facility] complet ed polioviru s vaccine, live, oral 07/19/85 Given Ambulat ory Pharmac y poliovirus vaccine, live, oral 1985 L3321-9 02 [facility] complet ed polioviru s vaccine, live, oral 07/19/85 Given Ambulat ory Pharmac y trivalent poliovirus vaccine, live, oral 3 1985 A2249-7 02 [facility] (CON) complet ed trivalent polioviru s vaccine, [...] Prevention' s HIV diagnostic algorithm. Refer to [facility] Lab Guide for additional information : [email or web address]. [employer]/ [email or web address] ab/[email or web address]/la [email or web address].asp x Testing performed by [employer] ce. 5600A-US AFSA EPILAB Chemistry eGFR CKD [...] decrease 15-29 Severe decrease <15 Kidney failure [address] [place] [address] Chemistry BUN 12 mg/dL 8 - 26 09/[address] [place] [address] Chemistry BUN/Creat Ratio 12 mg/dL 12 - 20 09/[address] [place] [address] Chemistry Calcium 9.2 mg/dL 8.4 - 10.2 09/[address] [place] [address] Chemistry Chloride 109 mmol/L 98 - 107 09/[address] [place] [address] Chemistry CO2 23 mmol/L 22 - 09/[address] [place] [address] Chemistry Creatinine Level 1.00 mg/dL 0.72 - 1.25 09/[address] [place] [address] Chemistry Glucose Lvl 101 mg/dL 74 - 99 09/[address] [place] [address] Chemistry Potassium Lvl 3.9 mmol/L 3.5 - 5.1 09/[address] [place] [address] Chemistry Sodium 142 mmol/L 136 - 145 09/[address] [place] [address] Chemistry AGAP 10.00 0.00 - 15.00 09/[address] [place] [address] Chemistry Triglyceri sarahi 166 mg/dL 7 - 149 09/15 H Interpretiv e Data: AGES 0-9: Desirable: < 75 mg/dL Borderline High: 75-99 mg/dL High: >/= 100 mg/dL AGES 10-19: Desirable: < 90 mg/dL Borderline High: 90-129 mg/dL High: >/= 130 mg/dL ADULTS: Desirable: < 150 mg/dL Borderline High: 150-199 mg/dL High: >/= 240 mg/dL Very High: >/= 500 mg/dL [address] [place] [address] Chemistry LDL 169 mg/dL 100 - 130 09/15 H Interpretiv e Data: AGES 0-19: Desirable: < 110 mg/dL Borderline High: 110-129 mg/dL High: >/= 130 mg/dL ADULTS: Desirable: <100 mg/dL Near/above optimal: 100-130 mg/dL Borderline High: 131-159 mg/dL High: 160-189 mg/dL Very High: 190 mg/dL [address] [place] [address] Chemistry LDL/HDL 5 09/[address] [place] [address] Chemistry HDL Cholestero l 37 mg/dL 40 - 59 09/15 L Interpretiv e Data: HDL (HIGH DENSITY LIPOPROTEIN ): ADULTS: Low: < 40 mg/dL High: >/= 60 mg/dL AGES 0 -19: Low: < 40 mg/dL Borderline Low: 40 - 45 mg/dL Acceptable: > 45 mg/dL [address] [place] [address] Chemistry Cholestero l Total 225 mg/dL 09/15 H Interpretiv e Data: According to the [place] [employer] : AGES 0-19: Desirable: < 170 mg/dL Borderline High: 170-199 mg/dL High Blood Cholesterol : >/= 200 mg/dL ADULTS: Desirable < 200 mg/dL Borderline High: 200-239 mg/dL High Blood Cholesterol : >/= 240 mg/dL [address] [place] [address] Chemistry Chol/HDL 6 mg/dL 09/[address] [place] [address] Chemistry Albumin 3.90 g/dL 3.50 - 5.20 09/[address] [place] [address] Chemistry Alk Phos 91 U/L 40 - 150 09/[address] [place] [address] Chemistry ALT 31 U/L 5 - 55 09/[address] [place] [address] Chemistry AST 17 U/L 5 - 34 09/[address] [place] [address] Chemistry Bilirubin Total 0.5 mg/dL 0.2 - 1.2 09/[address] [place] [address] Chemistry AGAP 9.00 0.00 - 15.00 09/[address] [place] [address] Chemistry CO2 24 mmol/L 22 - 29 09/[address] [place] [address] Chemistry Creatinine Level 0.90 mg/dL 0.72 - 1.25 09/[address] [place] [address] Chemistry Glucose Lvl 88 mg/dL 74 - 99 09/[address] [place] [address] Chemistry BUN 17 mg/dL 8 - 26 09/[address] [place] [address] Chemistry BUN/Creat Ratio 19 mg/dL 12 - 20 09/[address] [place] [address] Chemistry Calcium 9.2 mg/dL 8.4 - 10.2 09/[address] [place] [address] Chemistry Chloride 107 mmol/L 98 - 107 09/[address] [place] [address] Chemistry Protein Total 7.1 g/dL 6.4 - 8.3 09/[address] [place] [address] Chemistry Potassium Lvl 4.1 mmol/L 3.5 - 5.1 09/[address] [place] [address] Chemistry Sodium 140 mmol/L 136 - 145 09/[address] [place] [address] Chemistry eAvg Glucose 128 mg/dL 09/[address] [place] [address] Chemistry Hemoglobin A1c 6.1 % 4.0 - [...] the patient and ordering Hemoglobin Electrophor esis. [address] [place] [address] Chemistry eGFR CKD EPI 112 mL/min/1 .73_m2 [...] decrease 15-29 Severe decrease <15 Kidney failure [address] [place] [address] Chemistry TSH 1.190 mIU/L 0.270 - 4.200 09/15 N Interpretiv e Data: Recommend: TPO/Thyrope roxidase Antibody when TSH result is > 4.2 uIU/mL 5600A-US AFSAM EPILAB Hematolog y Differenti al? Auto (09/16/23 12:12 PM) 09/15 N [facility] Hematolog y RDW 12.4 % 11.0 - 14.9 09/15 N [facility] Hematolog y WBC 11.8 x10^3/mc L 4.0 - 11.0103 09/15 H -37 [facility] [place] Hematolog y Platelets 305.0 x10^3/mc L 150.0 - 450.0103 09/15 N 37 [facility] [place] Hematolog y RBC 5.3 x10^6/mc L 4.0 - 5.6106 09/15 N - [facility] Hematolog y MCHC 33.0 g/dL 33.0 - 36.5 09/15 N - [facility] Hematolog y MCV 88 fL 80 - 97 09/15 N - [facility] Hematolog y MPV 8.8 fL 7.4 - 10.4 09/15 N - [facility] Hematolog y Hematocrit 47 % 40 - 49 09/15 N - [facility] Hematolog y Hemoglobin 15.5 g/dL 13.0 - 16.3 09/15 N -37 [facility] Hematolog y MCH 29 pg 28 - 33 09/15 N - [facility] Hematolog y Eos Absolute 0.1 x10^3/mc L 0.0 - 0.7103 09/15 N [facility] Hematolog y Basophil % Auto 0.2 % 0.0 - 2.5 09/15 N [facility] Hematolog y Lymphocyte % Auto 21.7 % 20.0 - 40.0 09/15 N - [facility] Hematolog y Eosinophil % Auto 1 % 0 - 5 09/15 N [facility] Hematolog y Baso Absolute 0.0 x10^3/mc L 0.0 - 0.1103 09/15 N [facility] Hematolog y Neutro Absolute 7.9 x10^3/mc L 2.0 - 7.0103 09/15 H [facility] [place] Hematolog y Monocyte % Auto 9 % 1 - 12 09/15 N [facility] Hematolog y [place] Absolute 1.0 x10^3/mc L 0.2 - 0.8103 09/15 H [facility] Hematolog y Lymph Absolute 2.6 x10^3/mc L 1.2 - 4.0103 09/15 N [facility] Hematolog y Neutrophil % Auto 67.2 % 46.0 - 77.0 09/15 N [facility] Urinalysi s UA Clarity Clear *NA* (09/16/23 12:12 PM) 09/15 [facility] Urinalysi s UA Color Yellow *NA* (09/16/23 12:12 PM) 09/15 [facility]ys[facility] UA Bili Negative (09/16/23 12:12 PM) 09/15 N [facility] Urinalysi s UA Blood Negative (09/16/23 12:12 PM) 09/15 N [facility]ys[facility] UA WBC TNP 09/15 [facility] Urinalysi s UA Spec Sandy 1.025 1.001 - 1.035 09/15 N [facility] Urinalysi s UA Protein Negative mg/dL 09/15 N [facility] Urinalysi s UA RBC TNP 09/15 [facility] Urinalysi s UA Urobilinog en 0.2 E.U./dL 0.2 - 1.0.. 09/15 N [facility] Urinalysi s UA Leuk Esterase Negative (09/16/23 12:12 PM) 09/15 N [facility] Urinalysi s UA Nitrite Negative (09/16/23 12:12 PM) 09/15 N [facility] Urinalysi s UA Glucose Negative mg/dL 09/15 N [facility] Urinalysi s UA Ketones Negative mg/dL 09/15 N [facility] Urinalysi s UA pH 5.5 5 - 8 09/15- [facility] Chemistry eGFR AA 128 10/[address] [place] [address] Chemistry eGFR Non-AA 110 10/[address] [place] [address] Chemistry CRP Qn.LC 2 mg/L 10/29 Result Comment: Performed At: 01 [facility] [place] [address] [id number] Berny Sutherland MD Ph:[phone] [address] [place] [address] Chemistry Hemoglobin A1c 5.8 % 4.0 - 5.6 10/[address] [place] [address] Chemistry eAvg Glucose 120 10/[address] [place] [address] Chemistry Free Testostero ne Direct LC 11.1 pg/mL 10/29 Result Comment: Performed At: 01 [facility] [place] [address] [id number] Berny Sutherland MD Ph:[phone] Performed At: [address] [id number] Abraham Vincent MD Ph:[phone] [address] [place] [address] Chemistry Testostero ne Serum LC 455 ng/dL 10/29 Result Comment: Adult male reference interval is based on a population of healthy nonobese males (BMI <30) between 19 and 39 years old. trudy Garcia.al. JCEM 2017,102;11 61-1173. PMID: [id number]. [address] [place] [address] Chemistry Vit D, 25-OH.LC 39.8 ng/mL 10/29 Result Comment: Vitamin D deficiency has been defined by the [place] [employer] and an Endocrine Society practice guideline as a level of serum 25-OH vitamin D less than 20 ng/mL (1,2). The Endocrine Society went on to further define vitamin D insufficien cy as a level between 21 and 29 ng/mL (2). 1. IOM ([place] [employer]). 2010. Dietary reference intakes for calcium and D. [place]: The National Academies Press. 2. Yoni MF, Benji FRYE, Diana vergara KASPER, et al. Evaluation, treatment, and prevention of vitamin D deficiency: an Endocrine Society clinical practice guideline. JCEM. 2010; 96(7):1911- 30. Performed At: 01 [facility] [place] [address] [id number] Berny Sutherland MD Ph:[phone] [address] [place] [address] Chemistry ALT 48 U/L 10/[address] [place] [address] Chemistry Alk Phos 72 U/L 38 - 126 10/[address] [place] [address] Chemistry Albumin 4.1 g/dL 3.5 - 5.0 10/[address] [place] [address] Chemistry AGAP 8 10/[address] [place] [address] Chemistry Globulin 3 10/[address] [place] [address] Chemistry Calcium 8.9 mg/dL 8.4 - 10.2 10/[address] [place] [address] Chemistry BUN 21.0 mg/dL 7.0 - 20.0 10/[address] [place] [address] Chemistry Bilirubin Total 0.9 mg/dL 0.2 - 1.5 10/[address] [place] [address] Chemistry Bilirubin Direct No Result 0.0 - 1.1 10/[address] [place] [address] Chemistry AST 31 U/L 15 - 46 10/[address] [place] [address] Chemistry Creatinine Level 0.9 mg/dL 0.7 - 1.5 10/[address] [place] [address] Chemistry A/G Ratio 1.4 10/[address] [place] [address] Chemistry Osmo Calc 272 10/[address] [place] [address] Chemistry BUN/Creat Ratio 24 10/[address] [place] [address] Chemistry Sodium 139 mmol/L 137 - 145 10/[address] [place] [address] Chemistry Potassium Lvl 3.80 mmol/L 3.50 - 5.10 10/[address] [place] [address] Chemistry Glucose Lvl 99 mg/dL 74 - 100 10/[address] [place] [address] Chemistry CO2 20.0 mmol/L 22.0 - 30.0 10/[address] [place] [address] Chemistry Chloride 111 mmol/L 96 - 107 10/[address] [place] [address] Chemistry Protein Total 7 g/dL 6 - 8 10/[address] [place] [address] Chemistry HDL Cholestero l 32 mg/dL 40 - 60 10/[address] [place] [address] Chemistry Chol/HDL 6 10/[address] [place] [address] Chemistry HDL/Chol 0 10/[address] [place] [address] Chemistry Cholestero l Total 183 mg/dL 100 - 200 10/[address] [place] [address] Chemistry Triglyceri sarahi 80.0 mg/dL 0.0 - 150.0 10/[address] [place] [address] Chemistry VLDL 16 10/[address] [place] [address] Chemistry LDL 136 mg/dL 0 - 100 10/[address] [place] [address] Chemistry LDL/HDL 4 10/[address] [place] [address] Chemistry TSH LC 2.340 uIU/mL 10/[address] [place] [address] Chemistry T4 Free Direct.LC 1.16 ng/dL 10/29 Result Comment: Performed At: 01 [facility] [address] [id number] Berny Sutherland MD Ph:[phone] [place] [address] Hematolog y MCV 86 fL 80 - 100 10/[address] [place] [address] Hematolog y MPV 9.3 8.0 - 11.0 10/[address] [place] [address] Hematolog y Platelets 227 10^3/uL 150 - 649115 10/[address] [place] [address] Hematolog y RBC 5.67 x10^6/mc L 4.50 - 6.85785 10/[address] [place] [address] Hematolog y WBC 6.0 x10^3/mc L 4.0 - 11.0103 10/[address] [place] [address] Hematolog y Hemoglobin 16.4 g/dL 14.5 - 18.0 10/[address] [place] [address] Hematolog y MCH 28.9 pg 27.0 - 33.0 10/[address] [place] [address] Hematolog y MCHC 34 g/dL 32 - 36 10/[address] [place] [address] Hematolog y Hematocrit 48.8 % 43.0 - 53.0 10/[address] [place] [address] Hematolog y RDW SD 41.2 10/[address] [place] [address] Hematolog y RDW CV 13 10/[address] [place] [address] Hematolog y ESR Auto Plus 1 mm/h 0 - 15 10/[address] [place] [address] Hematolog y Neutrophil % Auto 56.6 10/[address] [place] [address] Hematolog y Monocyte % Auto 10.0 10/[address] [place] [address] Hematolog y Imm. Granulocyt e Absolute 0 10/[address] [place] [address] Hematolog y Eosinophil % Auto 3.2 % 0 - 5 10/[address] [place] [address] Hematolog y Imm. Granulocyt e % 0 10/[address] [place] [address] Hematolog y Neutro Absolute 3.4 x10^3/mc L 1.6 - 6.1103 10/[address] [place] [address] Hematolog y Baso Absolute 0.0 x10^3/mc L 0.0 - 0.1103 10/[address] [place] [address] Hematolog y Lymph Absolute 1.8 x10^3/mc L 1.2 - 3.9103 10/[address] [place] [address] Hematolog y Lymphocyte % Auto 30 10/[address] [place] [address] Hematolog y Basophil % Auto 0.3 10/[address] [place] [address] Hematolog y Eos Absolute 0.2 x10^3/mc L 0.0 - 0.5103 10/[address] [place] [address] Hematolog y [place] Absolute 0.6 x10^3/mc L 0.3 - 0.9103 10/[address] [place] [address] Vital Signs Combined list of inpatient and outpatient Vital Signs from Department of Defense and Veterans Affairs, ranging from 12 months to all on record, depending upon the facility. Vital Sign Value Date Comments Source Blood Pressure Manual Automatic 12/24/2022 18:24:00 0055C-[facility] Temperature Oral 36.7 Silvia 09/30/2023 18:10:00 9695R-Ia-I-[facility] BP Site Left arm 09/30/2023 18:10:00 6478H-Uc-N-[facility] Mean Arterial Pressure, Calc 96 mm[Hg] 09/30/2023 18:10:00 7559G-Hr-S-[facility] Peripheral Pulse Rate 71 bpm 09/30/2023 18:10:00 0350N-Ky-Z-[facility] Systolic Blood Pressure 135 mm[Hg] 09/30/19 24 18:10:00 9240U-Uo-J-[facility] Diastolic Blood Pressure 76 mm[Hg] 024 18:10:00 7878A-Hz-E-[facility] Respiratory Rate 16 br/min 09/30/2023 18:10:00 6474L-Dn-U-[facility] Peripheral Pulse Rate 69 bpm 05/13/2023 15:17:00 0055C-[facility] Blood Pressure Manual Automatic 05/13/2023 15:17:00 0055C-[facility] Temperature Oral 36.7 Silvia 05/13/2023 15:17:00 0055C-[facility] Respiratory Rate 16 br/min 05/13/2023 15:17:00 0055C-[facility] Temperature Oral 36.7 Silvia 10/20/2023 19:15:00 2418G-Gr-B-[facility] Respiratory Rate 17 br/min 10/20/2023 19:15:00 3109Z-Ji-F-[facility] Systolic Blood Pressure 137 mm[Hg] 10/20/19 19:15:00 4006Z-Qg-A-[facility] Diastolic Blood Pressure 78 mm[Hg] 19:15:00 1502G-De-M-[facility] BP Site Right arm 10/20/2023 19:15:00 8413J-Te-O-[facility] Peripheral Pulse Rate 73 bpm 10/20/2023 19:15:00 3263W-Hn-L-[facility] Mean Arterial Pressure, Calc 98 mm[Hg] 10/20/2023 19:15:00 0336E-Xl-K-[facility] Blood Pressure Manual Automatic 03/16/2021 22:11:[address] [place] [address] Temperature Temporal Artery 37 Silvia 04/27/2023 15:02:00 [...] Blood Pressure 130 mm[Hg] 09/09/19 24 18:00:00 5286F-Ng-D-[facility] Diastolic Blood Pressure 75 mm[Hg] 024 18:00:00 1545L-Ft-Q-[facility] Respiratory Rate 15 br/min 09/09/2023 18:00:00 5118Y-Ms-F-[facility] Temperature Oral 36.7 Silvia 09/09/2023 18:00:00 8638N-Ar-R-[facility] Mean Arterial Pressure, Calc 93 mm[Hg] 09/09/2023 18:00:00 8314Y-Je-E-[facility] Peripheral Pulse Rate 70 bpm 09/09/2023 18:00:00 7547C-Ab-W-[facility] BP Site Right arm 09/09/2023 18:00:00 3338X-Ur-X-[facility] Blood Pressure Manual Automatic 04/29/2022 21:00:00 6613X-QB-H-42nd [facility] Systolic Blood Pressure 145 mm[Hg] 09/16/19 15:51:00 0055C-[facility] Diastolic Blood Pressure 79 mm[Hg] 15:51:00 0055C-[facility] BP Site Left arm 09/16/2023 15:51:00 0055C-[facility] Blood Pressure Manual Automatic 09/16/2023 15:51:00 0055C-375th [...] Systolic Blood Pressure 140 mm[Hg] 10/31/19 15:25:00 2482Y-Fb-Z-[facility] Diastolic Blood Pressure 82 mm[Hg] 15:25:00 9221P-Aj-A-[facility] BP Site Right arm 10/31/2023 15:25:00 1365C-Oj-J-[facility] Peripheral Pulse Rate 73 bpm 10/31/2023 15:25:00 3728X-Kk-G-[facility] Mean Arterial Pressure, Calc 101 mm[Hg] 10/31/2023 15:25:00 5708N-Wj-V-[facility] Temperature Oral 36.8 Silvia 10/31/2023 15:25:00 6876V-Ez-D-[facility] Respiratory Rate 17 br/min 10/31/2023 15:25:00 7964G-Ir-E-[facility] BP Site Left arm 05/30/2024 17:01:00 [...] [facility] Blood Pressure Manual Automatic 06/01/2021 17:49:[address] [place] [address] Encounters Combined list of: 1) Encounters from Department of Veterans Affairs facilities going backup to the last 18 months, not all VA inpatient encounters are included; 2) Encounters from the Department of Defense facilities going backup to 280 months. Location Location Details Encounter Type Encounter Number Reason For Visit Attending Provider ADM Date DC Date Status Disposition Source [place] [facility] [facility]PAT[facility] [id number] [facility]ibl [facility]/30 [facility] Limitations [place] [facility] [employer] [place] [facility] [facility] OUTPATIENT [id number] INNA SANCHEZ 11/01 Released w/o Limitations [place] [employer] [place] [facility] [facility] TELE CONSULT [id number] Predepl oLUCITA Flores 11/02 [place] [facility] [employer] OUTPATIENT [id number] 01/09 Released w/o Limitations [facility] OUTPATIENT [id number] 01/10 Released w/o Limitations [facility] OUTPATIENT [id number] 02/13 Released with Work/Duty Limitations [facility] OUTPATIENT [id number] 02/14 Released w/o Limitations [facility] OUTPATIENT [id number] 02/14 Released w/o Limitations Theater Facilit y [place] [employer] OUTPATIENT [id number] post deploym ent AARTI ZHOU 07/27 Released w/o Limitations [place] [employer] [place] [employer] OUTPATIENT [id number] PHA RAIN ANDERSON 01/29 Released w/o Limitations [place] [employer] [facility] [place] [facility] [employer] [employer] OUTPATIENT [id number] choudhury splints RUBEN MOON 05/21 Released with Work/Duty Limitations [place] [facility] [facility] [place] [facility] [facility] OUTPATIENT [id number] choudhury splint on lf leg CAPO MAYS Y 09/27 Released w/o Limitations [facility] [place] ) [employer]([facility]) OUTPATIENT [id number] f/u LLE DEMI WADSWORTH 12/19 Released with Work/Duty Limitations [employer](F amily Practic [facility]) [employer]([facility]) OUTPATIENT [id number] pha-inp MAURO Huitron 12/27 Released w/o Limitations [employer](P [facility] Cell) [facility] DENTAL [id number] Operati AP Zimmer 01/07 Released w/o Limitations [employer]([facility]) [facility] DENTAL [id number] #2 cuspal MARYANN Mejia 02/13 Released w/o Limitations [employer]([facility]al [facility]) [employer]([facility]) TELE CONSULT [id number] referra l for stress test DEMI WADSWORTH 03/31 [employer](F [facility] Practic e Blue) [employer]([facility] Blue) TELE CONSULT [id number] droppin g off paperwo JESSICA Batres 04/23 [employer](F [facility] Pract[facility] e Blue) [employer]([facility] eletal Screening ) OUTPATIENT [id number] COMPART MENT SYNDROM E NONTRAU MATFILIPPO BEATTY 04/25 Released w/o Limitations [employer](N euromus coskele ismael Screeni ng) [employer]([facility] Red) OUTPATIENT [id number] SICK CALL- R Shoulde r SAULO Mix 01/14 Released w/o Limitations [employer](F amily Practic e Red) [employer](PHA Cell) OUTPATIENT [id number] KUSH KELLY 01/14 Released w/o Limitations [employer](P [facility] Cell) [employer](Fam [facility]) TELE CONSULT [id number] Referra l request for 2nd opinion MONY CHI 01/23 [employer] [facility](F [facility] Practic e Blue) [employer] [facility]) TELE CONSULT [id number] Referra l to Veronique BURCIAGA not entered ! SERRANO KERRI 02/02 Referred for Appointment [facility](F [facility] Pract[facility]) [employer](Fam [facility]) OUTPATIENT [id number] ortho referra l JESSICA WATERMAN 02/09 Released w/o Limitations [employer](F amily Practic e Blue) [employer](Fam dacia Practice Blue) TELE CONSULT [id number] pt would like a referra l to be seen with orthope dic provide r MONY CHI 02/23 [employer](F am[facility] Practic e Blue) [employer]([facility]) TELE CONSULT [id number] appt line - referra l DR. BING Brooks for f/u appt 1 JESSICA WATERMAN 03/18 Referred for Appointment [employer](F amily Practic e Blue) [employer]([facility]am [facility] Practice Blue) TELE CONSULT [id number] appt line - labs for seperat ion physica dayron 1 KERRI SERRANO 06/16 Referred for Appointment [employer](F amily Practic e Blue) [employer](Fam [facility]acia Practice Blue) OUTPATIENT [id number] seperat ion physica l BINH HICKMAN 07/06 Released w/o Limitations [employer](F amily Practic e Blue) [place] [address](Tylor patel [facility] Team B) TELE CONSULT [id number] Notes Entered by: CHELO LEWIS 01 May 2012 1947 ------- ------- ------- ------- -- PHA ROUTINE RR: 2012: ARPAN PFEIFFER I 05/02 Referred for Appointment [facility] [place] [address](Dayron rangel [facility] Team B) [place] [address]([facility]) TELE CONSULT [id number] Notes Entered by: JORDAN NANCE 30 May 2012 1327 ------- ------- ------- ------- -- Respira JORDAN Nieto 05/30 [facility] [place] [address](O ccupati onal Medicin e [facility]) [place] [address]([facility]) OUTPATIENT [id number] PREDEPL OYMENT/ CHELO LANIER V 06/28 Released w/o Limitations [facility] [place] [address]([facility]) Theater Facility OUTPATIENT [id number] Theater Provider 01/08 Released w/o Limitations [place] [address]([facility]) OUTPATIENT [id number] [facility] 3 negativ e finding s HEIKE ESCAMILLA 05/24 Released w/o Limitations [facility] [place] [address](D [facility]) [place] [address]([place]_[facility] _Team E) OUTPATIENT [id number] LEG PAIN/RE STEVE HERRERA 07/22 Released w/o Limitations [facility] [place] [address]([place] _[facility]_Te am E) [place] [address](Phy sical Therapy, [facility]) OUTPATIENT [id number] LIMB PAIN LOWER LEG MARCOS GONZALEZ 08/14 Released w/o Limitations [facility] [place] [address](P hysical Therapy , [facility]) [place] [address](Phy sical Therapy, [facility]) OUTPATIENT [id number] MARCOS GONZALEZ 09/06 Released w/o Limitations [facility] [place] [address](P hysical Therapy , [facility]) [place] [address]([facility] [place],[facility]) OUTPATIENT [id number] Notes Entered by: YULI ZAVALA 16 Oct 2014 1020 ------- ------- ------- ------- -- CHILLS/ UPSET STOMACH /LIGHT DIARRHE A WAYNE LOUIS 10/16 Sick at Home/Quarter s [facility] [place] [address]([facility], [facility]) [place] [address]([facility]) TELE CONSULT [id number] Notes Entered by: Yifan DOMINGUEZ 21 Jan 2015 0802 ------- ------- ------- ------- -- CATARINO BOO RR [id number] RLG SANA CALLAWAY 01/21 [facility] [place] [address](Dayron [facility] am [facility]) [place] [address]([facility] OUTPATIENT [id number] Notes Entered by: YOMAIRA STRICKLAND 21 Jan 2015 1428 ------- ------- ------- ------- -- JUN#4/P ALONZO MUSE 01/21 Released w/o Limitations [facility] [place] [address](D eploe [facility], [facility]) [place] [address](Phy sical Med [facility]) OUTPATIENT [id number] Encount er for other general examina tion DIXIE APARICIO 02/18 Released w/o Limitations [facility] [place] [address](P hysical Med BAM) [facility] [place] [address](Ort hopedics, [facility]) OUTPATIENT [id number] Pain in left leg LEXUS SWENSON 03/05 Released w/o Limitations [facility] [place] [address](O rthoped ics, [facility]) [place] [address]([facility] hopedi, [facility]) OUTPATIENT [id number] f/u Pain in left leg ;wants bone scan results done [id number] @BANNER LEXUS SWENSON 03/20 Released w/o Limitations [facility] [place] [address](O rthoped ics, [facility]) [place] [address]([facility] hopedi, [facility]) OUTPATIENT [id number] f/u for compart ment testing on both legs ;per CARLEY Swenson [id number] LEXUS SWENSON 04/09 Released w/o Limitations [facility] [place] [address](O rthoped ics, [facility]) [place] [address]([facility]) OUTPATIENT [id number] f/u for compart ment testing on both legs ;per CARLEY Swenson [id number] LEXUS SWENSON 04/09 Released w/o Limitations [facility] [place] [address](O rthoped ics, [facility]) [place] [address]([facility] hopedi, [facility]) OUTPATIENT [id number] Surgica l eval for compart ment syndrom e on left leg ;ref by CARLEY Swenson [id number] KUSH ROGERS 04/23 Released w/o Limitations [facility] [place] [address](O rthoped ics, [facility]) [place] [address]([facility] hopedi, [facility]) OUTPATIENT [id number] pop hoglund heel resecti on, gastroc lengthe south; DOS: [id number] . KUSH SHEPPARD 07/10 Released w/o Limitations [facility] [place] [address](O rthoped ics, [facility]) [place] [address](Phy sical Therapy, [facility]) OUTPATIENT [id number] Left Leg. Post op, DOS: [id number] PAWAN LEY III 07/14 Released with Work/Duty Limitations [facility] [place] [address](P hysical Therapy , [facility]) [place] [address](Phy sical Therapy, [facility]) OUTPATIENT [id number] RAAD GATICA 07/21 Released w/o Limitations [facility] [place] [address](P hysical Therapy , [facility]) [place] [address](Phy sical Therapy, [facility]) OUTPATIENT [id number] ELAINE YESSENIA Roldan 07/23 Released w/o Limitations [facility] [place] [address](P hysical Therapy , [facility]) [place] [address](Phy sical Therapy, [facility]) OUTPATIENT [id number] KELLY COATES 07/24 Released w/o Limitations [facility] [place] [address](P hysical Therapy , [facility]) [place] [address](Phy sical Therapy, [facility]) OUTPATIENT [id number] KELLY COATES 07/27 Released w/o Limitations [facility] [place] [address](P hysical Therapy , [facility]) [place] [address](Phy sical Therapy, [facility]) OUTPATIENT [id number] KELLY COATES 07/29 Released w/o Limitations [facility] [place] [address](P hysical Therapy , [facility]) [place] [address](Phy sical Therapy, [facility]) OUTPATIENT [id number] KELLY COATES 07/30 Released w/o Limitations NADIA [facility] [place] [address](P hysical Therapy , [facility]) [place] [address](Ort hopedics, [facility]) OUTPATIENT [id number] 3wks f/u left leg surgery KUSH SHEPPARD Linda 07/31 Released w/o Limitations NADIA [facility] [place] [address](O rthoped ics, [facility]) [place] [address](Phy sical Therapy, [facility]) OUTPATIENT [id number] KELLY COATES 08/03 Released w/o Limitations [facility] [place] [address](P hysical Therapy , [facility]) [place] [address](Phy sical Therapy, [facility]) OUTPATIENT [id number] PAWAN LEY III 08/06 Released with Work/Duty Limitations [facility] [place] [address](P hysical Therapy , [facility]) [place] [address](Phy sical Therapy, [facility]) OUTPATIENT [id number] KELLY COATES 08/07 Released w/o Limitations [facility] [place] [address](P hysical Therapy , [facility]) [place] [address](Phy sical Therapy, [facility]) OUTPATIENT [id number] ANGELITA CATALAN 08/10 Released w/o Limitations NADIA [facility] [place] [address](P hysical Therapy , [facility]) [place] [address](Phy sical Therapy, [facility]) OUTPATIENT [id number] ANGELITA CATALAN 08/12 [facility] Limitations [facility] [place] [address](P hysical Therapy , [facility]) [place] [address](Phy sical Therapy, [facility]) OUTPATIENT [id number] ANGELITA CATALAN 08/13 Released w/o Limitations NADIA [facility] [place] [address](P hysical Therapy , [facility]) [place] [address](Phy sical Therapy, [facility]) OUTPATIENT [id number] ANGELITA CATALAN Rodrigue 08/17 Released w/o Limitations [facility] [place] [address](P hysical Therapy , [facility]) [place] [address](Phy sical Therapy, [facility]) OUTPATIENT [id number] Notes Entered by: DIONISIO GONSALEZ 21 Aug 2015 1410 ------- ------- ------- ------- -- ADRIANA Avitia 08/20 Released w/o Limitations [facility] [place] [address](P hysical Therapy , [facility]) [place] [address](Phy sical Therapy, [facility]) OUTPATIENT [id number] ANGELITA CATALAN 08/24 Released w/o Limitations [facility] [place] [address](P hysical Therapy , [facility]) [place] [address](Phy sical Therapy, [facility]) OUTPATIENT [id number] RAAD GATICA 08/25 Released w/o Limitations [facility] [place] [address](P hysical Therapy , [facility]) [place] [address](Phy sical Therapy, [facility]) OUTPATIENT [id number] ADRIANA DOMINGUEZ 08/27 Released w/o Limitations [facility] [place] [address](P hysical Therapy , [facility]) [place] [address](Phy sical Therapy, [facility]) OUTPATIENT [id number] ADRIANA DOMINGUEZ 09/01 Released w/o Limitations [facility] [place] [address](P hysical Therapy , [facility]) [place] [address](Phy sical Therapy, [facility]) OUTPATIENT [id number] SHAUN LEY 09/02 Released w/o Limitations [facility] [place] [address](P hysical Therapy , [facility]) [place] [address](Phy sical Therapy, [facility]) OUTPATIENT [id number] [facility] 09/03 Released w/o Limitations [facility] [place] [address](P hysical Therapy , [facility]) [place] [address](Phy sical Therapy, [facility]) OUTPATIENT [id number] GAVI RAAD DEMARCO 09/03 Released w/o Limitations [facility] [place] [address](P hysical Therapy , [facility]) [place] [address](Phy sical Therapy, [facility]) OUTPATIENT [id number] [facility] 10/01 Released w/o Limitations [facility] [place] [address](P hysical Therapy , [facility]) [place] [address](Tylor patel [facility] Team F) OUTPATIENT [id number] left leg pain SANA CALLAWAY 12/23 Released with Work/Duty Limitations [facility] [place] [address](Dayron rangel [facility] Team F) [place] [address](Hea ring Conservat ion,Fritz) OUTPATIENT [id number] Annual Audiogr am-082A KUSH ALMAGUER 03/01 Released w/o Limitations [facility] [place] [address](H earing Conserv ation,R pete) [place] [address]([facility], [facility]) TELE CONSULT [id number] Notes Entered by: YOMAIRA STRICKLAND 18 Mar 2016 1508 ------- ------- ------- ------- -- SU ELIZABETH appoint ment via telepho JAD Jo 03/18 [facility] [place] [address]([facility]an [facility], [facility]) [place] [address]([facility] Med Team A) OUTPATIENT [id number] Notes Entered by: OSMIN CORDON DO 13 Apr 2016 1455 ------- ------- ------- ------- -- NON FLY ZULY DELACRUZ 04/13 Released w/o Limitations [facility] [place] [address]( [facility] [place] [address]([facility] Team F) OUTPATIENT [id number] C/O LT HAND ISSUES/ [facility] ULICES HUBBARD 01/12 Released w/o Limitations [facility] [place] [address]([facility] Team F) [place] [address]([facility] Team F) TELE CONSULT [id number] Notes Entered by: NIECY STOKES 13 Jan 2017 1110 ------- ------- ------- ------- -- Results ULICES HUBBARD 01/13 [facility] [place] [address]([facility]) [place] [address](Occ upational Therapy, [facility]) OUTPATIENT [id number] Pain in left finger( s) HAO ROMO 02/09 Released w/o Limitations [facility] [place] [address](O ccupati onal Therapy , [facility]) [place] [address](Hea ring Conservat ion,Fritz) OUTPATIENT [id number] Annual - [id number]* * LOLLY ART 03/04 Released w/o Limitations [facility] [place] [address](H earing Conserv ation,R pete) [place] [address](Occ upational Therapy, [facility]) OUTPATIENT [id number] HAO ROMO 03/23 Released w/o Limitations [facility] [place] [address](O ccupati onal Therapy , [facility]) [place] [address](Phy sical Exams, [employer]) TELE CONSULT [id number] Notes Entered by: DERECK WOODWARD 31 Mar 2017 1506 ------- ------- ------- ------- -- AF FORM 422 REQUEST FOR RETRAIN DEONNA RIBERA SA 03/31 [facility] [place] [address](P hysical Exams, Fritz) [place] [address](BOM C,Fritz) OUTPATIENT [id number] MHA/PRE FERRED CONTACT TEL. CELL EULOGIO FARLEY 04/27 Released w/o Limitations [facility] [place] [address]([facility],Je d) [place] [address]([facility] Team F) TELE CONSULT [id number] Notes Entered by: MARCELLO WALTER 16 May 2017 0914 ------- ------- ------- ------- -- FCR/JILL CK Appt. request re:high blood pressur e. [phone] CIARA GAMBINO 05/16 [facility] [place] [address](Dayron [facility] Team F) [place] [address]([facility] Team F) OUTPATIENT [id number] BLOOD PRESSULICES ARIAS 06/17 Released w/o Limitations [facility] [place] [address](Dayron rangel [facility] Team F) [facility] [place] [address]([facility], [facility]) OUTPATIENT [id number] Shortne ss of breath VERONIQUE MORALES 07/25 Released w/o Limitations [facility] [place] [address](P ulmonar y Medicin e, [facility]) [facility]) OUTPATIENT [id number] ENT referra VERONIQUE Bee 03/29 Released w/o Limitations [facility]) TELE CONSULT [id number] Notes Entered by: MIMI HWANG 06 Apr 2018 1340 ------- ------- ------- ------- -- Rout Req: req Audio ref SINGH BHARATHI Morrison 04/06 Referred for Appointment [facility](Aud iology Cl EG) OUTPATIENT [id number] ken Yusuf STEPHEN D 04/26 Released w/o Limitations [facility](A udiolog y Cl EG) [facility](Ti laryngolo EG) OUTPATIENT [id number] Other specifi ed disorde rs of tympani c membran e, unspeci fied ear STEVE WHALEY 05/01 Released w/o Limitations [facility](O tolaryn golo EG) [facility](Bas e Oper Med Cl Eg) OUTPATIENT [id number] [id number] BASIL CATHERINE 05/24 Released w/o Limitations [facility](B ase Oper Med Cl Eg) [facility]) OUTPATIENT [id number] VIRTUAL / AIRFORC E SARAHI GUZMÁN 06/28 Released w/o Limitations [facility]( amily [facility]) [facility](Bas e Oper Med Cl Eg) TELE CONSULT [id number] Notes Entered by: BENITO CURTIS 18 Sep 2018 1412 ------- ------- ------- ------- -- COMMISS HARVEY LANGFORD 09/18 [facility](B ase Oper Med Cl Eg) [facility](Bas e Oper Med Cl Eg) TELE CONSULT [id number] Notes Entered by: YRIS LOJA 25 Jun 2019 0732 ------- ------- ------- ------- -- Eugeneiss GENE Proctor 06/24 [facility](B ase Oper Med Cl Eg) [facility](Bas e Oper Med Cl Eg) OUTPATIENT [id number] [facility]# [phone] DEYANIRA DUPONT 08/29 Released w/o Limitations [facility](B ase Oper Med Cl Eg) [facility](Fli ght Med) OUTPATIENT [id number] Notes Entered by: SHASHANK SCHMIDT CH 17 Oct 2019 0845 ------- ------- ------- ------- -- KUSH ROB 10/16 Released w/o Limitations [facility](F light Med) [facility](Fli ght Med) TELE CONSULT [id number] Notes Entered by: Maurilio OCONNELL 04 Dec 2019 0744 ------- ------- ------- ------- -- Member is stating he has been having SOB since June. KUSH UGALDE 12/03 Referred for Appointment [facility](F light Med) [facility](Z-F light Med) OUTPATIENT [id number] Fatigue GENE LANCE 01/20 Released w/o Limitations [facility](Z -Flight Med) [facility](Spe ech Pathology Cl Eg) OUTPATIENT [id number] Dyspnea , unspeci fied RAISA, SANTA V 02/04 Released w/o Limitations [facility](S peech Patholo gy Cl Eg) [facility](Pul m Disease EG) OUTPATIENT [id number] Notes Entered by: CARLY ROSARIO 08 Feb 2020 1007 ------- ------- ------- ------- -- PFT/Dys pnea, unspeci fied EVAN OWEN 02/07 Released w/o Limitations [facility](P ulm Disease EG) [facility](Z-F light Med) TELE CONSULT [id number] Notes Entered by: GENE LEACH 20 Feb 2020 1555 ------- ------- ------- ------- -- Contact pt GONZÁLEZ HERNANDEZ 02/19 Referred for Appointment [facility](Z -Flight Med) [address] [place] [address](Z-F light Med) OUTPATIENT [id number] F/U GENE LEACH 02/25 Released w/o Limitations [facility](Z -Flight Med) [facility](Z-F light Med) TELE CONSULT [id number] Notes Entered by: GENE LEACH 13 Mar 2020 1140 ------- ------- ------- ------- -- GERD JALEN COHEN 03/13 Other Not Elsewhere Classified [facility](Z -Flight Med) [facility](Pul m Disease EG) OUTPATIENT [id number] Gastro- esophag eal reflux disease without esophag itis KUSH KWON 04/11 Released w/o Limitations [facility](P ulm Disease EG) [facility](Pul m Disease EG) OUTPATIENT [id number] PSG EVAN OWEN 05/09 Released w/o Limitations [facility](P ulm Disease EG) [facility](Z-F light Med) TELE CONSULT [id number] Notes Entered by: Gio BLANCO 01 Jul 2020 1027 ------- ------- ------- ------- -- SLEEP STUDY RESULTS JALEN COHEN 07/01 Other Not Elsewhere Classified [facility](Z -Flight Med) [facility](War rior Operation al Medicine A) TELE CONSULT [id number] Notes Entered by: JALEN MUNSON 01 Jul 2020 1053 ------- ------- ------- ------- -- Request ing Sleep Study Results RUDDYDUANE SANCHEZ Krissy 07/01 Referred for Appointment [facility](W arrior Operati onal Medicin e A) [facility](War rior Operation al Medicine A) OUTPATIENT [id number] HC: Sleep study results MICHELLE CURIEL 07/01 Released w/o Limitations [facility](W arrior Operati onal Medicin e A) [facility](Z-F light Med) TELE CONSULT [id number] Notes Entered by: Maurilio OCONNELL 04 Jul 2020 1011 ------- ------- ------- ------- -- PRP ADHOC JUL 23 WARRIOR CL SARAHI GARCIA 07/04 [facility](Z -Flight Med) [facility], [place] [address](PRP Admin Qual Cell, RAFB) OUTPATIENT [id number] Notes Entered by: ANDRE DEL RIO 24 Jul 2020 0923 ------- ------- ------- ------- -- PRP Admin Qual ANDRE DEL RIO 07/24 Released w/o Limitations [facility] [place] [address](P RP Admin Qual Cell, [facility]) [facility], [place] [address](PRP Admin Qual Cell, [facility]) TELE CONSULT [id number] Notes Entered by: ORLANDO UGALDE 11 Aug 2020 1334 ------- ------- ------- ------- -- THEA Nj e 11 Aug 2020 KURT UGALDE 08/11 Released to Self Care [facility] [place] [address](P RP Admin Qual Cell, RAFB) [address] [place] [address] Ap[facility])(Aud iology Procedure s) OUTPATIENT [id number] ANNUAL [facility] EVERARDO MARKS 05/17 Released w/o Limitations [address] [place] [address])(A udiolog y Procedu res) [address] [place] [address] Paul [facility])(War rior Op Med Cln Tm A Ad) OUTPATIENT [id number] esequiel myles cough for 2 years F2F KUSH BECKETT 05/20 Released w/o Limitations [address] [place] [address] Paul [facility])(W arrior Op Med Cln Tm A Ad) [address] [place] [address] Paul [facility])(Sco tt Flight Medicine Tm) TELE CONSULT [id number] Notes Entered by: RAAD HONG 03 Jun 2022 1304 ------- ------- ------- ------- -- Jimmy knight/nolan myles notice/ 7days/A SWAPNA THOMAS 06/03 Other Not Elsewhere Classified [address] [place] [address] Paul [facility])(S cott Flight Medicin e Tm) [address] [place] [address] Paul [facility])(War rior Op Med Cln Tm A Ad) OUTPATIENT [id number] #5 rash on limbs PANDA MORIN 06/11 Released w/o Limitations [address] [place] [address] Paul [facility])(W arrior Op Med Cln Tm A Ad) [address] [place] [address] [facility] OF [place] ri[facility] Cln Tm A Ad) TELE CONSULT [id number] Notes Entered by: ALEXEY NI 09 Jul 2022 0908 ------- ------- ------- ------- -- Discuss Referra BEATRICE Mart 07/09 Other Not Elsewhere Classified [employer] [place] MANUEL ([facility]W arrior Op Med Cln Tm A Ad) [employer] [place]EL ([facility])(War rior Op Med Cln Tm A Ad) OUTPATIENT [id number] errilya [phone] SHARMAINE BEE 07/22 Released w/o Limitations [employer] [place]UEL ([facility])(W arrior Op Med Cln Tm A Ad) 0055A-375 th [facility] Outpatient [id number] AP BARLOWOBCO 07/02 Discharge Disposition: Home or Self Care 5A-3 [address] [facility] [place] 6130C-Af- C-375Th [facility] Between Visit [id number] 07/06 Discharge Disposition: Home or Self Care 6130C-A f-C-375 Th Medgr[facility]- [place] 0055C-375 th [facility] Clinic [id number] General ized anxiety disorde r FREDDY MMENDOZA 07/10 Discharge Disposition: Home or Self Care 5C-3 75th [facility]- [place] 0055C-375 th [facility] Clinic [phone] Anxiety disorde r, unspeci fied JASONSIMMO NS 07/25 Discharge Disposition: Home or Self Care 5C-3 [facility] MED[facility] Paul 5C-375 th [facility] Preclinic [id number] FREDDY MMENDOZA 08/225C-[address] [place] [address] Procedures Combined list of: 1) Procedures from Department of Veterans Affairs facilities going back up to thelast 18 months, not all VA non-surgical procedures are included; 2) All procedures from the Department of Defense facilities. Procedure Procedure Type Code Date Perfomer Comments Sourc e PURE TONE AUDIOMETRY (THRESHOLD), AUTOMATED; AIR ONLY 2022 DoD WAIVER SERVICES; NOT OTHERWISE SPECIFIED (NOS) 2020 DoD TELE ASSESS & MGT SRV PROV QUAL NONPHYS HLTH CARE PRO TO EST PAT,PARENT,GUARD NOT ORIG REL ASSESS & MGT SRV PROV W/IN PREV 7 DAYS NOR LEAD ASSESS & MGT SRV/PX W/IN NXT 24 HR/SOON APT;5-10 MIN MED DIS 2020 DoD POLYSOMNOGRAPHY; AGE 6 YEARS OR OLDER, SLEEP STAGING WITH 4 OR MORE ADDITIONAL PARAMETERS OF SLEEP, ATTENDED BY A TECHNOLOGIST 2020 DoD SLEEP STUDY, UNATTENDED, SIMULTANEOUS RECORDING; HEART RATE, OXYGEN SATURATION, RESPIRATORY ANALYSIS (EG, BY AIRFLOW OR PERIPHERAL ARTERIAL TONE), AND SLEEP TIME 2020 DoD TELE ASSESS & MGT SRV PROV [...] SCORING AND DOCUMENTATION, PER STANDARDIZED INSTRUMENT 2018 [facility] BRIEF EMOTIONAL/BEHAVIORAL ASSESSMENT (EG, DEPRESSION INVENTORY, ATTENTION-DEFICIT/HY PERACTIVITY DISORDER [ADHD] SCALE), WITH SCORING AND DOCUMENTATION, PER STANDARDIZED INSTRUMENT 2018 [facility] TYMPANOMETRY AND REFLEX THRESHOLD MEASUREMENTS 2018 [facility] PHYSICAL THERAPY EVALUATION 2009 [facility] Internet Med Svc Qual Nonphys Healthcare Prof Estab Patient Internet Med Svc Qual Nonphys Healthcare Prof Estab Patient 40027 2018 BASIL CATHERINE [facility] Tympanometry With Reflex Threshold Measurements Tympanometry With Reflex Threshold Measurements 54833 2018 TRENTON GIBBS Comprehensive Audiometry Comprehensive Audiometry 99032 2018 TRENTON GIBBS Evoked Otoacoustic Stella ions Comprehensive Evoked Otoacoustic Emissions Comprehensive 23706 2018 TRENTON GIBBS Pulmonary Function Tests Flow Volume Loop Pulmonary Function Tests Flow Volume Loop [address] 2017 VERONIQUE MORALES [facility] Internet Med Svc Qual Nonphys Healthcare Prof Estab Patient Internet Med Svc Qual Nonphys Healthcare Prof Estab Patient 85635 2017 EULOGIO RODRIGEZ Exercises A isted Exercises For ROM Exercises Assisted Exercises For ROM 97871 2016 HAO ROMO Occupational Therapy Re-Evaluation Occupational Therapy Re-Evaluation 32112 2016 HAO ROMO Threshold Audiogram (Pure Tone) Automated Threshold Audiogram (Pure Tone) Automated 0208T 2016 LOLLY ART [facility] Physical Therapy Education Orthotics Training 2016 HAO ROMO Hand finger orthosis, without joints, may include soft interface, straps, prefabricated, [id number] 2016 HAO ROMO Exercises A isted Exercises For ROM Exercises Assisted [place] ROM 59605 2016 HAO ROMO Threshold Audiogram (Pure Tone) Automated Threshold Audiogram (Pure Tone) Automated 0208T 2015 KUSH ALMAGUER [facility] Physical Therapy: ___ Se ion Segments, 15 Minutes Each Physical Therapy: ___ Session Segments, 15 Minutes Each 38804 2015 PAWAN LEY III [facility] Physical Medicine Physical Therapy Re-Evaluation Physical Medicine Physical Therapy Re-Evaluation 05553 2015 PAWAN LEY [facility] Postoperative Visit, Without Charge Postoperative Visit, Without Charge 42521 2015 KUSH SHEPPARD Exercises A isted Exercises For ROM Exercises Assisted Exercises For ROM 05698 2015 RAAD GATICA Physical Therapy: ___ Se ion Segments, 15 Minutes Each Physical Therapy: ___ Session Segments, 15 Minutes Each 22267 2015 PAWAN LEY [facility] Physical Medicine Physical Therapy Re-Evaluation Physical Medicine Physical Therapy Re-Evaluation 49099 2015 PAWAN LEY [facility] Physical Therapy Neuromuscular Re-education Physical Therapy Neuromuscular Re-education 70492 2015 SHAUN LEY Physical Therapy: ___ Se ion Segments, 15 Minutes Each Physical Therapy: ___ Session Segments, 15 Minutes Each 91403 2015 SHAUN LEY Exercises A isted Exercises For ROM Exercises Assisted Exercises For ROM 33985 2015 ADRIANA DOMINGUEZ Exercises A isted Exercises For ROM Exercises Assisted Exercises For ROM 91453 2015 ADRIANA DOMINGUEZ Exercises A isted Exercises For ROM Exercises Assisted Exercises [place] ROM 59539 2015 RAAD GATICA Physical Therapy: ___ Se ion Segments, 15 Minutes Each Physical Therapy: ___ Session Segments, 15 Minutes Each 06495 2015 ANGELITA CATALAN Physical Therapy Neuromuscular Re-education Physical Therapy Neuromuscular Re-education 70060 2015 ANGELITA CATALAN Physical Therapy Neuromuscular Re-education Physical Therapy Neuromuscular Re-education 39012 2015 ADRIANA DOMINGUEZ Physical Therapy: ___ Se ion Segments, 15 Minutes Each Physical Therapy: ___ Session Segments, 15 Minutes Each 15264 2015 ANGELITA CATALAN Physical Therapy Neuromuscular Re-education Physical Therapy Neuromuscular Re-education 65682 2015 ANGELITA CATALAN Physical Therapy: ___ Se ion Segments, 15 Minutes Each Physical Therapy: ___ Session Segments, 15 Minutes Each 55765 2015 ANGELITA CATALAN Physical Therapy Neuromuscular Re-education Physical Therapy Neuromuscular Re-education 30199 2015 HOSSEIN ANGELITA Husain [facility] Physical Therapy: ___ Se ion Segments, 15 Minutes Each Physical Therapy: ___ Session Segments, 15 Minutes Each 98773 2015 HOSSEIN ANGELITA A [facility] Physical Therapy Neuromuscular Re-education Physical Therapy Neuromuscular Re-education 60914 2015 ANGELITA CATALAN Rodrigue [facility] Physical Therapy: ___ Se ion Segments, 15 Minutes Each Physical Therapy: ___ Session Segments, 15 Minutes Each 15085 2015 HOSSEIN ANGELITA A [facility] Physical Therapy: ___ Se ion Segments, 15 Minutes Each Physical Therapy: ___ Session Segments, 15 Minutes Each 97739 2015 KELLY COATES Physical Therapy: ___ Se ion Segments, 15 Minutes Each Physical Therapy: ___ Session Segments, 15 Minutes Each 43228 [facility] Re-Evaluation Physical Medicine Physical Therapy Re-Evaluation 36875 2015 LEY, [email or web address] Physical Therapy: ___ Se ion Segments, 15 Minutes Each Physical Therapy: ___ Session Segments, 15 Minutes Each 31393 2015 KELLY COATES Modalities Cryotherapy Cold Packs Modalities Cryotherapy Cold Packs 96147 2015 KELLY COATES Physical Therapy: ___ Se ion Segments, 15 Minutes Each Physical Therapy: ___ Session Segments, 15 Minutes Each 70336 2015 KELLY COATES Modalities Cryotherapy Cold Packs Modalities Cryotherapy Cold Packs 91144 2015 KELLY COATES Physical Therapy: ___ Se ion Segments, 15 Minutes Each Physical Therapy: ___ Session Segments, 15 Minutes Each 31434 2015 KELLY COATES Physical Therapy: ___ Se ion Segments, 15 Minutes Each Physical Therapy: ___ Session Segments, 15 Minutes Each 69869 2015 KELLY COATES Physical Therapy: ___ Se ion Segments, 15 Minutes Each Physical Therapy: ___ Session Segments, 15 Minutes Each 12209 2015 KELLY COATES Postoperative Visit, Without Charge Postoperative Visit, Without Charge 79247 2015 KUSH SHEPPARD [facility] Modalities Cryotherapy Cold Packs Modalities Cryotherapy Cold Packs 90389 2015 YESSENIA HENRY [facility] Physical Therapy: ___ Se ion Segments, 15 Minutes Each Physical Therapy: ___ Session Segments, 15 Minutes Each 78205 2015 YESSENIA HENRY [facility] Modalities Vasopneumatic Device Modalities Vasopneumatic Device 36507 2015 RAAD GATICA [facility] Exercises A isted Exercises For ROM Exercises Assisted Exercises For ROM 29645 2015 RAAD GATICA [facility] Physical Therapy: ___ Se ion Segments, 15 Minutes Each Physical Therapy: ___ Session Segments, 15 Minutes Each 00002 2015 LEYPAWAN SORIA [facility] Physical Medicine Physical Therapy Evaluation Physical Medicine Physical Therapy Evaluation 93987 2015 [facility] Interstitial Pre ure Monitoring Interstitial Pressure Monitoring 27516 2015 LEXUS SWENSON Compartments measured using [place] pressure moniter [facility] Physical Therapy: ___ Se ion Segments, 15 Minutes Each Physical Therapy: ___ Session Segments, 15 Minutes Each 35259 2014 MARCOS GONZALEZ [facility] Physical Medicine Physical Therapy Re-Evaluation Physical Medicine Physical Therapy Re-Evaluation 39959 2014 MARCOS GONZALEZ [facility] Physical Therapy: ___ Se ion Segments, 15 Minutes Each Physical Therapy: ___ Session Segments, 15 Minutes Each 97847 2014 MARCOS GONZALEZ [facility] Physical Medicine Physical Therapy Evaluation Physical Medicine Physical Therapy Evaluation 81022 2014 MARCOS GONZALEZ [facility] Physical Medicine Physical Therapy Evaluation Physical Medicine Physical Therapy Evaluation 94841 2009 FILIPPO LARSON [facility] Non-Physician Phone Call To Pt/Provider Intermed (11-20 min) Non-Physician Phone Call To Pt/Provider Intermed (11-20 min) 04523 KUSH UGALDE [facility] Electrocardiogram Electrocardiogram 41544 GENE LANCE Fiberoptic Laryngoscopy With Stroboscopy Fiberoptic Laryngoscopy With Stroboscopy [address]67 [place] Pulmonary Function Tests Flow Volume Loop Pulmonary [place] [address] [place] Pulmonary Function MVV Pulmonary Function MVV 46736 [place] Non-Physician Phone Call To Pt/Provider Lengthy (21-30 min) Non-Physician Phone Call To Pt/Provider Lengthy (21-30 min) 44495 GONZÁLEZ HERNANDEZ [facility] Sleep Study Unattended Record: Heart Rate, O2 Sat, Resp Analysis, Sleep Time Sleep Study Unattended Record: Heart Rate, O2 Sat, Resp Analysis, Sleep Time 36373 KUSH KWON [facility] Non-Physician Phone Call To Patient/Provider Brief (5-10min) Non-Physician Phone Call To Patient/Provider Brief (5-10min) 36615 DUANE BOWLING Waiver services; not otherwise specified (NOS) MICHELLE CURIEL Threshold Audiogram (Pure Tone) Automated Threshold Audiogram (Pure Tone) Automated 0208T EVERARDO YOUNG [facility] Acupuncture, 1 or more needles; without electrical stimulation, initial 15 minutes of personal one-on-one contact with the patient Acupuncture, one or more needles, without electrical stimulation; initial 15 minutes of personal one-on-one contact with the patient 34887 2023 6130C-Af -C-375Th Medgr[facility]-S cott Acupuncture, 1 or more needles; with electrical stimulation, initial 15 minutes of personal one-on-one contact with the patient Acupuncture, one or more needles, with electrical stimulation; initial 15 minutes of personal one-on-one contact with the patient 34144 2023 6130C-Af -C-375Th Medgrp-S cott Acupuncture, 1 or more needles; without electrical stimulation, initial 15 minutes of personal one-on-one contact with the patient Acupuncture, one or more needles, without electrical stimulation; initial 15 minutes of personal one-on-one contact with the patient 44182 2023 6130C-Af -C-375Th Medgrp-S cott Acupuncture, 1 or more needles; without electrical stimulation, initial 15 minutes of personal one-on-one contact with the patient Acupuncture, one or more needles, without electrical stimulation; initial 15 minutes of personal one-on-one contact with the patient 51710 2023 6130C-Af -C-375Th Medgrp-S cott Acupuncture, 1 or more needles; without electrical stimulation, initial 15 minutes of personal one-on-one contact with the patient Acupuncture, one or more needles, without electrical stimulation; initial 15 minutes of personal one-on-one contact with the patient 91495 2023 0055C-37 [facility] Social History Combined list of available smoking, tobacco, and other social history from Department of Defense and Veterans Affairs facilities. Social History Type Response Date Comment [facility] e Sex Representation Male (finding) 10/01/2020 Un known Organization This section is an empty social history section. [facility] Tobacco Frequent/Daily exposure to secondhand smoke in indoor/confined spaces No. Cigarette use: Never-cigarette user. Other Tobacco use: Never-other tobacco user (not cigarettes). Ambulatory Pharmacy Sexual Orientation Ambula tory Pharmacy Gender identity Ambulator y Pharmacy Assessment and Plan Combined list of future care activities from Department of Defense and Veterans Affairs facilities (e.g., assessment and plan notes, appointments, orders, and referrals). Additional future care activities may be listed in the Plan of Care section. Result Assessment and Plan Date Source Assessment and Plan Extracted from:Title : [facility] Anxiety Author: PANDA MORIN PA Date: 07/25/24 [...] 60 tab(s), 0 total refill(s), Maintenance, Pharmacy: [facility] #[id number] [External Rx] buPROPion(Wellbutrin XL 150 mg/24 hours oral tablet, extended release), 1 tab(s), Oral, every 24 hr, # 60 tab(s), 0 total refill(s), Maintenance, Pharmacy: [facility] #[id number] [External Rx] The patient (is not) World Wide Qualified. AM Dispo: Non-Fly Cleared for AFSC/MOS Duties: Y es Cleared for continued service: Yes Cleared for mobility duties: No Cleared for participation in physical fitness program: Yes PHA/MHA/DRHA: UTD Visit deployment related: No Profile Reviewed Yes MEB in progress: No IMR/ASIMS Status: R ed Maj Gio Morin BSC, PAAlisonC [facility] ([facility]) [place] Please note that this dictation was completed with computer voice recognition software, [employer]. Quite often unanticipated grammatical, syntax, homophones, and other interpretive errors are inadvertently transcribed by the computer software. Please disregard these errors and excuse any errors that have escaped final proofreading. If are any questions regarding documentation, please contact this provider directly. Extracted from:Title: [facility] Anxiety Author: GINA VARMA PA Date: 06/19/24 [...] 0 total refill(s), Maintenance, 30 days, Pharmacy: [facility] #[id number] [External Rx] The patient (is not) World [...] and agreement. GINA VARMA, 1st Lt, PAYaneth [facility] [place] [address] Extracted from:Title: [facility]-L foot pain/HTN Author: AP BENNETT MD Date: [...] discontinuation precautions Recommended patient follow up with [facility] energy technician blood pressure clinic next week, patient verbalized understanding Advised on weight reduction strategies Ordered: amLODIPine(amLODIPine 10 mg oral tablet), 1 tab(s), Oral, Daily, # 90 tab(s), 0 total refill(s), Maintenance, Pharmacy: [facility] [Not filled] 3. S creening [...] Ap Bennett MD Resident, PGY-3 [facility] [place], [place] Extracted from:Title: [facility] Lumbago Author: PANDA MORIN PA Date: 03/20/24 [...] R ed Maj Gio Morin BSC, PA-C [facility] ([facility]) [place] Please note that this dictation was completed with computer voice recognition software, [employer]. Quite often unanticipated grammatical, syntax, homophones, and other interpretive errors are inadvertently transcribed by the computer software. Please disregard these errors and excuse any errors that have escaped final proofreading. If are any questions regarding documentation, please contact this provider directly. Extracted from:Title: [facility] HTN Author: PANDA MORIN PA Date: 02/01/24 [...] initiated IMR/ASIMS Status: Todd Morin, BSZhao, PAAlisonC [facility] ([facility]) [place] Please note that this dictation was completed with computer voice recognition software, [employer]. Quite often unanticipated grammatical, syntax, homophones, and other interpretive errors are inadvertently transcribed by the computer software. Please disregard these errors and excuse any errors that have escaped final proofreading. If are any questions regarding documentation, please contact this provider directly. Extracted from:Title: [facility] Cough Author: PANDA MORIN PA Date: 01/27/24 1. C [employer] cough VIRTUAL APPT 38-year-old male with chronic [...] and PFT Capt Panda Morin, ROSALIO, PAAlisonC [facility] ([facility]) [place] Please note that this dictation was completed with computer voice recognition software, [employer]. Quite often unanticipated grammatical, syntax, homophones, and [...] on a clinical research study at the [facility] for sleep impairment / disturbances. They were treated today according to their randomization per study protocol. Treatment was tolerated well with no complications. Patient was released with no limitations. Addendum by VERONIQUE DENTON MD on September 30, 2023 15:02:52 CDT CPT: 84572 - application of a modality to 1 or more areas; electrical stimulationOn the date of this encounter, I saw and examined the patient, personally verifying the dhillon and critical findings and developed appropriate acupuncture t x plan in accordance with genna mcdowell protocol Maj Veronique Denton MD Family Medicine Physician [facility] [place], [place] Extracted from:Title: [facility] HTN Author: PANDA MORIN PA Date: 09/16/23 [...] Maintenance, 1 tab(s) Oral Daily, Pharmacy: [facility] [Not filled] telmisartan(telmisartan 40 mg oral tablet), 1 tab(s), Oral, Daily, for blood pressure, # 90 tab(s), 3 total refill(s), Maintenance, 1 tab(s) Oral Daily,Instr:for blood pressure, Pharmacy: [facility] [Not filled] Basic Metabolic Panel CBC w/ Diff Comprehensive Metabolic Panel Hemoglobin A1c Lipid Panel Thyroid Stimulating Hormone Urinalysis with Microscopic and Culture if Indicated 2. H ypertensive retinopathy see above Capt Panda Morin, BSC, PA-C [facility] ([facility]) [place] Please note that this dictation was completed with computer voice recognition software, [employer]. Quite often unanticipated grammatical, syntax, homophones, and [...] by the ordering provider. Waylon Goldman, , [facility], Staff Physician Extracted from:Title: Office Clinic Note [...] Col Rebekah Whyte MD Family Medicine Physician [facility] [place], [place] Extracted from:Title: Optometry-CEE Author: JENNIFER CROFT, [...] his/her ability to perform duties of assigned AFME, meet deployment standards, meet retention standards, or complete all components of the Fitness Assessment. Ordered: lifitegrast ophthalmic(Xiidra 5% ophthalmic solution), 1 drop(s), Eye-Both, BID, # 60 EA, 10 total refill(s), Maintenance, 1 drop(s) Eye-Both BID, Pharmacy: [facility] 2. D ry eye syndrome of [...] dose steroid.? O rdered: Determination Refractive State 60830; 05/31/2023 08:13:00 MATHEMATICAL ENGINEERING TECHNICIAN ? Ophthalmological Medical Xm&Eval Compre New Pt 1/> Vst 01408; 05/31/2023 08:13:00 MATHEMATICAL ENGINEERING TECHNICIAN End of Orders Ordered: lifitegrast ophthalmic(Xiidra 5% ophthalmic solution), 1 drop(s), Eye-Both, BID, # 60 EA, 10 total refill(s), Maintenance, 1 drop(s) Eye-Both BID, Pharmacy: [facility] Extracted from:Title: [facility] R Knee Pain Author: PANDA MORIN PA Date: 05/13/23 1. 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 T TP [...] Views Right Capt Panda Morin, ROSALIO, PA-C [facility] ([facility]) [place] [employer] Extracted from:Title: [facility] - MEQ Examination Author: BING RUSSELL DO [...] Above . //SIGNED// Bing Russell DO, Capt [facility] Public Relations Intern/Flight Surgeon [facility] Extracted from:Title: [facility] - Asthma Follow-Up Author: KUSH BECKETT PA Date: 01/19/23 1. A [facility] Patient with recent diagnosis of asthma presents to clinic for updates. Patient states that for the past 4 years he has been suffering with chronic cough and chest tightness. Concerned that may have been caused from fungal infection to lungs due to sputum results and requested a second opinion referral to pulmonology. Followed up with second account contact associate and was determined that patient does have asthma but an MCT w as required. patient was discontinued on Advair and started on Flovent and states that he has had significant relief with current treatment plan. Patient still uses albuterol as needed. He has follow-up appointment with original account contact associate in 1 month for reassessment. Additionally patient [...] 2.0 Referral Request 2.0 Kush Ferraro Physician Reinforcing Steel Placer [facility] CLAUDIA Morales Extracted from:Title: Ambulatory Patient Education [...] by: An ear, nose, and throat specialist (steel tier or ENT specialist). A specialist in hearing problems (parts room assistant). Noise damage is the most preventable cause [...] a noisy environment, such as: Using a assistant principal or leaf blower. Shooting firearms. Woodworking with [...] for Disease Control and Prevention: www.cdc.gov National [place] on Deafness and Other Communication Disorders: www.nidcd.nih.gov [...] 05/10/2018 Document Revised: 05/10/2018 Document Reviewed: 05/10/2018 [employer] Patient Education 2019 [employer] Future Appointments Appointment Date: 08/22/2024 01:30:00 PM Scheduled Provider: [facility] Location: [id number] Appointment Type: FTR Appointment Date: 09/04/2024 11:30:00 AM Scheduled Provider: PANDA MORIN Location: [id number]-[id number] [facility]ment [facility] [place], [place] [address]German Assessment and Plan Extracted from:Title : [facility] Anxiety Author: PANDA MORIN PA Date: 07/25/24 [...] 60 tab(s), 0 total refill(s), Maintenance, Pharmacy: [facility] #[id number] [External Rx] buPROPion(Wellbutrin XL 150 mg/24 hours oral tablet, extended release), 1 tab(s), Oral, every 24 hr, # 60 tab(s), 0 total refill(s), Maintenance, Pharmacy: [facility] #[id number] [External Rx] The patient (is not) World Wide Qualified. AM Dispo: Non-Fly Cleared for AFSC/MOS Duties: Y es Cleared for continued service: Yes Cleared for mobility duties: No Cleared for participation in physical fitness program: Yes PHA/MHA/DRHA: UTD Visit deployment related: No Profile Reviewed Yes MEB in progress: No IMR/ASIMS Status: R ed Maj Gio Morin BSC, PA-C [facility] ([facility]) [place] Please note that this dictation was completed with computer voice recognition software, [employer]. Quite often unanticipated grammatical, syntax, homophones, and other interpretive errors are inadvertently transcribed by the computer software. Please disregard these errors and excuse any errors that have escaped final proofreading. If are any questions regarding documentation, please contact this provider directly. Extracted from:Title: [facility] Anxiety Author: GINA VARMA PA Date: 06/19/24 [...] 0 total refill(s), Maintenance, 30 days, Pharmacy: [facility] #[id number] [External Rx] The patient (is not) World [...] and agreement. GINA VARMA, 1st Lt, PAAlisonC [facility] [place] [id number] Extracted from:Title: [facility]- foot pain/HTN Author: AP BENNETT MD Date: [...] verbalized understanding Ordered: Referral Request 2.0 - [facility] 2. H [place] - Hypertension Chronic, uncontrolled per JNC-8 Repeat automated BP with 152/92 Pt reports home BP's also not controlled Recommend patient increase amlodipine at 10 mg daily Counseled on side effects and discontinuation precautions Recommended patient follow up with [facility] energy technician blood pressure clinic next week, patient verbalized understanding Advised on weight reduction strategies Ordered: amLODIPine(amLODIPine 10 mg oral tablet), 1 tab(s), Oral, Daily, # 90 tab(s), 0 total refill(s), Maintenance, Pharmacy: [facility] [Not filled] 3. S creening due [...] Bennett MD Resident, PGY-3 375 MDG, [facility] [facility] Family and Community Medicine Program [place], [place] Extracted from:Title: [facility] Lumbago Author: PANDA MORIN PA Date: 03/20/24 [...] process IMR/ASIMS Status: Yifan Morin BSC, PA-C [facility] ([facility]) [place] Please note that this dictation was completed with computer voice recognition software, [employer]. Quite often unanticipated grammatical, syntax, homophones, and other interpretive errors are inadvertently transcribed by the computer software. Please disregard these errors and excuse any errors that have escaped final proofreading. If are any questions regarding documentation, please contact this provider directly. Extracted from:Title: [facility] HTN Author: PANDA MORIN PA Date: 02/01/24 [...] initiated IMR/ASIMS Status: Todd Morin BSC, JORGE [facility] ([facility]) [place] Please note that this dictation was completed with computer voice recognition software, [employer]. Quite often unanticipated grammatical, syntax, homophones, and other interpretive errors are inadvertently transcribed by the computer software. Please disregard these errors and excuse any errors that have escaped final proofreading. If are any questions regarding documentation, please contact this provider directly. Extracted from:Title: [facility] Cough Author: PANDA MORIN PA Date: 01/27/24 [...] and PFT Capt Panda Morin, ROSALIO, PA-C [facility] ([facility]) [place] Please note that this dictation was completed with computer voice recognition software, [employer]. Quite often unanticipated grammatical, syntax, homophones, and [...] on a clinical research study at the [facility] for sleep impairment / disturbances. They were treated today according to their randomization per study protocol. Treatment was tolerated well with no complications. Patient was released with no limitations. Addendum by VERONIQUE DENTON MD on September 30, 2023 15:02:52 CDT CPT: 94286 - application of a modality to 1 or more areas; electrical stimulationOn the date of this encounter, I saw and examined the patient, personally verifying the dhillon and critical findings and developed appropriate acupuncture t x plan in accordance with genna mcdowell protocol Maj Veronique Denton MD Family Medicine Physician [facility] [place], [place] Extracted from:Title: [facility] HTN Author: PANDA MORIN PA Date: 09/16/23 [...] Maintenance, 1 tab(s) Oral Daily, Pharmacy: [facility] [Not filled] telmisartan(telmisartan 40 mg oral tablet), 1 tab(s), Oral, Daily, for blood pressure, # 90 tab(s), 3 total refill(s), Maintenance, 1 tab(s) Oral Daily,Instr:for blood pressure, Pharmacy: [facility] [Not filled] Basic Metabolic Panel CBC w/ Diff Comprehensive Metabolic Panel Hemoglobin A1c Lipid Panel Thyroid Stimulating Hormone Urinalysis with Microscopic and Culture if Indicated 2. H ypertensive retinopathy see above Capt Panda Morin BSC, PA-C [facility] ([facility]) [place] Please note that this dictation was completed with computer voice recognition software, [employer]. Quite often unanticipated grammatical, syntax, homophones, and [...] followed by the ordering provider. Maj Pam, [facility], Staff Physician Extracted from:Title: Office Clinic Note [...] Col Rebekah Whyte MD Family Medicine Physician [facility] [place], [place] Extracted from:Title: Optometry-CEE Author: JENNIFER CROFT, [...] Maintenance, 1 drop(s) Eye-Both BID, Pharmacy: [facility] 2. D ry eye syndrome of [...] dose steroid.? O rdered: Determination Refractive State [id number]; 05/31/2023 08:13:00 MATHEMATICAL ENGINEERING TECHNICIAN ? Ophthalmological Medical Xm&Eval Compre New Pt 1/> Vst [id number]; 05/31/2023 08:13:00 MATHEMATICAL ENGINEERING TECHNICIAN End of Orders Ordered: lifitegrast ophthalmic(Xiidra 5% ophthalmic solution), 1 drop(s), Eye-Both, BID, # 60 EA, 10 total refill(s), Maintenance, 1 drop(s) Eye-Both BID, Pharmacy: [facility] Extracted from:Title: [facility] R Knee Pain Author: PANDA MORIN PA [...] Views Right Capt Panda Morin BSC, PA-C [facility] ([facility]) [place] Extracted from:Title: [facility] - MEQ Examination Author: BING RUSSELL DO [...] Above . //SIGNED// Bing Russell DO, , [facility] Public Relations Intern/Flight Surgeon [facility] Extracted from:Title: [facility] - Asthma Follow-Up Author: KUSH BECKETT PA Date: 01/19/23 1. A [facility] Patient with recent diagnosis of asthma presents to clinic for updates. Patient states that for the past 4 years he has been suffering with chronic cough and chest tightness. Concerned that may have been caused from fungal infection to lungs due to sputum results and requested a second opinion referral to pulmonology. Followed up with second account contact associate and was determined that patient does have asthma but an MCT w as required. patient was discontinued on Advair and started on Flovent and states that he has had significant relief with current treatment plan. Patient still uses albuterol as needed. He has follow-up appointment with original account contact associate in 1 month for reassessment. Additionally patient [...] 2.0 Referral Request 2.0 Kush Ferraro Physician Reinforcing Steel Placer [facility] [place] Extracted from:Title: Ambulatory Patient [...] by: An ear, nose, and throat specialist (steel tier or ENT specialist). A specialist in hearing problems (parts room assistant). Noise damage is the most preventable cause [...] a noisy environment, such as: Using a assistant principal or leaf blower. Shooting firearms. Woodworking with [...] for Disease Control and Prevention: www.cdc.gov National [place] on Deafness and Other Communication Disorders: www.nidcd.nih.gov [...] 05/10/2018 Document Revised: 05/10/2018 Document Reviewed: 05/10/2018 [employer] Interactive Patient Education 2019 [employer] Future Appointments Appointment Date: 08/22/2024 01:30:00 PM Scheduled Provider: FREDDY HELM [facility] Location: [id number] Appointment Type: [facility] Appointment Date: 09/04/2024 11:30:00 AM Scheduled Provider: PANDA MORIN Location: [id number] [facility] [id number] [facility] Extracted from:Title : [facility] Anxiety Author: PANDA MORIN PA Date: 07/25/24 [...] 60 tab(s), 0 total refill(s), Maintenance, Pharmacy: [facility] #[id number] [External Rx] buPROPion(Wellbutrin XL 150 mg/24 hours oral tablet, extended release), 1 tab(s), Oral, every 24 hr, # 60 tab(s), 0 total refill(s), Maintenance, Pharmacy: [facility] #[id number] [External Rx] The patient (is not) World Wide Qualified. AM Dispo: Non-Fly Cleared for AFSC/MOS Duties: Y es Cleared for continued service: Yes Cleared for mobility duties: No Cleared for participation in physical fitness program: Yes PHA/MHA/DRHA: UTD Visit deployment related: No Profile Reviewed Yes MEB in progress: No IMR/ASIMS Status: R ed Maj Gio Morin BSC, PA-C [facility] ([facility]) [place] Please note that this dictation was completed with computer voice recognition software, [employer]. Quite often unanticipated grammatical, syntax, homophones, and other interpretive errors are inadvertently transcribed by the computer software. Please disregard these errors and excuse any errors that have escaped final proofreading. If are any questions regarding documentation, please contact this provider directly. Extracted from:Title: [facility] Anxiety Author: GINA VARMA PA Date: 06/19/24 [...] 0 total refill(s), Maintenance, 30 days, Pharmacy: [facility] #[id number] [External Rx] The patient (is not) World [...] and agreement. GINA VARMA, 1st Lt, PAAlisonC [facility] [place] [address] Extracted from:Title: [facility]- foot pain/HTN Author: AP BENNETT MD Date: [...] discontinuation precautions Recommended patient follow up with [facility] energy technician blood pressure clinic next week, patient verbalized understanding Advised on weight reduction strategies Ordered: amLODIPine(amLODIPine 10 mg oral tablet), 1 tab(s), Oral, Daily, # 90 tab(s), 0 total refill(s), Maintenance, Pharmacy: [facility] [Not filled] 3. S creening due [...] Ap Bennett MD Resident, PGY-3 375 [facility]G, [facility] [place], [place] Extracted from:Title: [facility] Lumbago Author: PANDA MORIN PA Date: 03/20/24 [...] process IMR/ASIMS Status: Yifan Morin BSC, PA-C [facility] ([facility]) [place] Please note that this dictation was completed with computer voice recognition software, [employer]. Quite often unanticipated grammatical, syntax, homophones, and other interpretive errors are inadvertently transcribed by the computer software. Please disregard these errors and excuse any errors that have escaped final proofreading. If are any questions regarding documentation, please contact this provider directly. Extracted from:Title: [facility] HTN Author: PANDA MORIN PA Date: 02/01/24 [...] initiated IMR/ASIMS Status: Todd Morin BSC, PA-C [facility] ([facility]) [place] Please note that this dictation was completed with computer voice recognition software, [employer]. Quite often unanticipated grammatical, syntax, homophones, and other interpretive errors are inadvertently transcribed by the computer software. Please disregard these errors and excuse any errors that have escaped final proofreading. If are any questions regarding documentation, please contact this provider directly. Extracted from:Title: [facility] Cough Author: PANDA MORIN PA Date: 01/27/24 1. C [place] cough VIRTUAL APPT 38-year-old male with chronic [...] and PFT Capt Panda Morin BSC, JORGE [facility] ([facility]) [place] Please note that this dictation was completed with computer voice recognition software, [employer]. Quite often unanticipated grammatical, syntax, homophones, and [...] on a clinical research study at the [facility] for sleep impairment / disturbances. They were treated today according to their randomization per study protocol. Treatment was tolerated well with no complications. Patient was released with no limitations. Addendum by VERONIQUE DENTON MD on September 30, 2023 15:02:52 CDT CPT: 27761 - application of a modality to 1 or more areas; electrical stimulationOn the date of this encounter, I saw and examined the patient, personally verifying the dhillon and critical findings and developed appropriate acupuncture t x plan in accordance with genna mcdowell protocol Maj Veronique Denton MD Family Medicine Physician [facility] [place] Extracted from:Title: [facility] HTN Author: PANDA MORIN PA Date: 09/16/23 [...] Maintenance, 1 tab(s) Oral Daily, Pharmacy: [facility] [Not filled] telmisartan(telmisartan 40 mg oral tablet), 1 tab(s), Oral, Daily, for blood pressure, # 90 tab(s), 3 total refill(s), Maintenance, 1 tab(s) Oral Daily,Instr:for blood pressure, Pharmacy: [facility] [Not filled] Basic Metabolic Panel CBC w/ Diff Comprehensive Metabolic Panel Hemoglobin A1c Lipid Panel Thyroid Stimulating Hormone Urinalysis with Microscopic and Culture if Indicated 2. H ypertensive retinopathy see above Capt Panda Morin, BSC, PA-C [facility] ([facility]) [place] Please note that this dictation was completed with computer voice recognition software, [employer]. Quite often unanticipated grammatical, syntax, homophones, and [...] followed by the ordering provider. Maj Pam, [facility], Staff Physician Extracted from:Title: Office Clinic Note [...] Col Rebekah Whyte MD Family Medicine Physician [facility] [place], [place] Extracted [...] refill(s), Maintenance, 1 drop(s) Eye-Both BID, Pharmacy: [facility] 2. D ry eye syndrome of [...] dose steroid.? O rdered: Determination Refractive State [id number]; 05/31/2023 08:13:00 MATHEMATICAL ENGINEERING TECHNICIAN ? Ophthalmological Medical Xm&Eval Compre New Pt 1/> Vst [id number]; 05/31/2023 08:13:00 MATHEMATICAL ENGINEERING TECHNICIAN End of Orders Ordered: lifitegrast ophthalmic(Xiidra 5% ophthalmic solution), 1 drop(s), Eye-Both, BID, # 60 EA, 10 total refill(s), Maintenance, 1 drop(s) Eye-Both BID, Pharmacy: [facility] Extracted from:Title: [facility] R Knee Pain Author: PANDA MORIN PA Date: 05/13/23 1. 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 T TP [...] Views Right Capt Panda Morin, ROSALIO, PAAlisonC [facility] ([facility]) [place] Extracted from:Title: [facility] - MEQ Examination Author: BING RUSSELL DO [...] Above . //SIGNED// Bing Russell DO, Capt, [facility] Public Relations Intern/Flight Surgeon [facility] Extracted from:Title: [facility] - Asthma Follow-Up Author: KUSH BECKETT PA Date: 01/19/23 1. A [facility] Patient with recent diagnosis of asthma presents to clinic for updates. Patient states that for the past 4 years he has been suffering with chronic cough and chest tightness. Concerned that may have been caused from fungal infection to lungs due to sputum results and requested a second opinion referral to pulmonology. Followed up with second account contact associate and was determined that patient does have asthma but an MCT w as required. patient was discontinued on Advair and started on Flovent and states that he has had significant relief with current treatment plan. Patient still uses albuterol as needed. He has follow-up appointment with original account contact associate in 1 month for reassessment. Additionally patient [...] 2.0 Referral Request 2.0 Kush Ferraro Physician Reinforcing Steel Placer [facility] CLAUDIA Morales Extracted from:Title: Ambulatory Patient Education [...] by: An ear, nose, and throat specialist (steel tier or ENT specialist). A specialist in hearing problems (parts room assistant). Noise damage is the most preventable cause [...] a noisy environment, such as: Using a assistant principal or leaf blower. Shooting firearms. Woodworking with [...] for Disease Control and Prevention: www.cdc.gov National [place] on Deafness and Other Communication Disorders: www.nidcd.nih.gov [...] 05/10/2018 Document Revised: 05/10/2018 Document Reviewed: 05/10/2018 [employer]lio Interactive Patient Education 2019 [employer] Future Appointments Appointment Date: 08/22/2024 01:30:00 PM Scheduled Provider: FREDDY HELM LCSW Location: [id number] Appointment Type: MARY GÓMEZ Appointment Date: 09/04/2024 11:30:00 AM Scheduled Provider: PANDA MORIN Location: [id number] Appointment Type: BENJI NEAL 08/12/[address] [place] [address] Functional Status Combined list of recent functional and cognitive assessments recorded at [employer] (VA).VA Functional [place] Measurement (FIM) Scale: 1 = Total Assistance (Subject = 0% +), 2 = Maximal Assistance (Subject = 25% +), 3 = Moderate Assistance (Subject = 50% +), 4 = Minimal Assistance (Subject = 75% +), 5 = Supervision, 6 = Modified [place] (Device), 7 = Complete [place] (Timely, Safely). Assessment Date/Time Source Assessment Type Assessment Skill Assessment Score Assessment Details No data available for this section
[2024-08-12 11:09] VITALS: BP 140/84; PULSE 78; RESP 14; O2SAT 99
== END 2024-08-12 11:10 | disposition home or self-care (01) ==
LOC: ANHED 10:46
PROVIDERS: Emergency Provider Student in an Organized Health Care Education/Training Program
DX: S01.01XA Laceration without foreign body of scalp, initial encounter (principal); Z23 Encounter for immunization; W27.8XXA Contact with other nonpowered hand tool, initial encounter
CPT/HCPCS: 12002; 90471; 90715; 99283

== ENCOUNTER 2024-08-31 08:02 | Emergency (ER) | payer OTHER, SELFPAY ==
--- NOTE | 2024-08-31 08:05 | ED_ITS ---
HPI - Extremity Injury (Lower) General Chief Complaint: Skin/Abscess/Foreign Body Stated Complaint: wound on leg Time Seen by Provider: 08/31/24 08:08 Source: patient, RN notes reviewed and old records reviewed Mode of arrival: ambulatory Limitations: no limitations History of Present Illness HPI Narrative: 38-year-old male presents to the [facility] with concerns for a wound to the left lower leg. Wound occurred approximately 2 weeks ago when he hit with a crowbar. has been washing it, pouring peroxide on it and using Neosporin with lidocaine. Last tetanus was 08/12/2024 Onset (ago): week(s) (2) Related Data Home Medications ?Medication ?Instructions ?Recorded ?Confirmed ?Last Taken ?Type cetirizine 10 mg tablet 10 mg PO DAILY PRN 11/02/23 07/10/24 Unknown History fluticasone propionate 50 1 spray intranasal DAILY 11/02/23 07/10/24 Unknown History mcg/actuation nasal spray,suspension (Allergy Relief (fluticasone)) hydrochlorothiazide 25 mg tablet 25 mg PO DAILY 11/02/23 07/10/24 Unknown History amlodipine 2.5 mg tablet (Norvasc) 2.5 mg PO DAILY 04/24/24 07/10/24 Unknown History escitalopram oxalate 10 mg tablet 10 mg PO DAILY 07/10/24 07/10/24 Unknown History Allergies Allergy/AdvReac Type Severity Reaction Status Date / Time No Known Allergies Allergy Verified 08/31/24 08:10 Review of Systems 2 Review of Systems: All systems reviewed & are unremarkable except as noted in HPI and below Constitutional: Constitutional: Reports no additional constitutional complaints Respiratory: Respiratory: Reports no additional respiratory complaints Musculoskeletal: Musculoskeletal: Reports no additional musculoskeletal complaints Integumentary/Breasts: Skin/Breast: Reports as per HPI PMFSH Past Medical History Medical History Chronic cough Sleep apnea Migraines Surgical History Surgical History Hx of sinus surgery Social History Social History Smoking status: Former smoker Additional smoking assessment comments: Smoked 1 year in high school socially. Alcohol intake: current Substance use: never Comments At the time of my signature, I reviewed and agree with the nursing past medical, surgical, social, and family history. There is no relevant family history pertinent to the patient complaint. Exam 2 Const: General: cooperative, healthy appearing, comfortable, no acute distress, well developed, alert and well nourished Nutritional Appearance: w ell nourished Orientation/consciousness: patient oriented x3 Limitations: no limitations HENMT: Head: normal to inspection Eyes: General: appearance normal, both eyes and all related structures A lignment and Position: alignment normal Neck: Neck: normal visual inspection, full ROM and no meningeal signs Chest: Chest palpation & inspection: normal inspection of the chest Resp: Effort & Inspection: normal respiratory effort and able to speak in complete sentences Cardio: Rate: regular rate Skin: General skin exam: normal color and no rashes or lesions noted W ounds: wounds noted Other: center open area, healing 1.5x0.5cm pink area Full body images: 1. small wound. open center, scabbed over 1.5 x .5 cm [place] area 2x1 cm. No increased warmth, area is not red, not swollen, no fluctuance. No purulent drainage Neuro: General: patient oriented x3, gait normal, moves all extremities and no meningeal signs Cognition (Neuro): normal cognition Speech: normal speech Gait exam (Neuro): Normal gait present Extrem: General: normal to inspection, full ROM, capillary refill normal and normal gait Psych: Appearance: grossly normal and well kempt Mental Status: mental status grossly normal Speech and movement: Normal speech and movement present and Clear speech present Affect: normal affect Attitude: cooperative Course Course Level of Care: Express Care Visit Vital Signs Vital signs: Vital Signs Temperature 97.9 F 08/31/24 08:11 Pulse Rate 68 08/31/24 08:11 Respiratory Rate 19 08/31/24 08:11 Blood Pressure 128/72 08/31/24 08:11 Pulse Oximetry 95 08/31/24 08:11 Oxygen Delivery Room Air 08/31/24 08:11 Temperature 97.9 F 08/31/24 08:11 Pulse Rate 68 08/31/24 08:11 Respiratory Rate 19 08/31/24 08:11 Blood Pressure 128/72 08/31/24 08:11 Pulse Oximetry 95 08/31/24 08:11 Oxygen Delivery Room Air 08/31/24 08:11 Reviewed MDM - Extremity Injury (Lower) MDM Narrative Medical decision making narrative: Patient sitting in exam room. Patient is nontoxic, vitals stable. Patient presents for a wound to the lower leg. Does not have cellulitic changes. No fluctuance, no purulent drainage. Discussed treatment of acute wounds, stop using peroxide Patient appropriate for outpatient treatment with close follow-up Discharge instructions reviewed with patient, as well as provided in writing per nursing staff. The instructions also include specific and strict return/GO TO THE ER as well as f/u information. All questions have been answered, and the patient deny any further questions with discharge and discharge plan. Some parts of this dictation were generated by voice recognition software and may contain typographical and/or grammatical inaccuracies. Differential Diagnosis Differential diagnosis: Likely other (Nonhealing wound, cellulitis, abscess) Critical Care Time Critical Care Time Critical Care Time: No Discharge Plan Discharge Clinical Impression: Healing wound Patient Disposition: Home Condition: Stable Instructions: Acute Wounds (DC) Additional Instructions: wash area twice a day with warm soapy water, pat dry. It is recommended you something like Dial soap. Stop using peroxide try leaving open tear approximately 4-5 hours per day follow-up with primary care provider Patient Language: Welsh Prescriptions: No Action (DME) inhalational spacing device Spacer See Rx Instructions .ROUTE .MEDSUPPLY Qty: 1 0RF Rx Instructions: As directed azelastine 137 mcg (0.1 %) aerosol,spray 1 spray intranasal Q12H Qty: 30 2RF Rx Instructions: administer into each nostril hydrochlorothiazide 25 mg tablet 25 mg PO DAILY cetirizine 10 mg tablet 10 mg PO DAILY PRN fluticasone propionate [Allergy Relief (fluticasone)] 50 mcg/actuation spray,suspension 1 spray intranasal DAILY Rx Instructions: administer into each nostril amlodipine [Norvasc] 2.5 mg tablet 2.5 mg PO DAILY escitalopram oxalate 10 mg tablet 10 mg PO DAILY montelukast 10 mg tablet 10 mg PO QHS Qty: 30 6RF fluticasone propion-salmeterol [Wixela Inhub] 500-50 mcg/dose blister with device 1 inh inhalation Q12H Qty: 60 6RF Follow-up/Referrals: [place], [Primary Care Provider] - 2 Weeks (wound check ) Time of Disposition: 08:22
--- OUTSIDE RECORDS SUMMARY | 2024-08-31 08:10 | XMS_ITS | Data Portability ---
Author Organization [place] [facility], Main Office Address [address] [place] [address] Care Team Providers Care Buyer Assistant Name Role Phone ALEXANDRA BURCIAGA REFERRAL MANAGEMENT Primary Care Provi luis SAULO CK Complex Manager Assessment No assessment recorded. Plan of Treatment [...] By Organization Details Last Modified Time 07/06/2023 [id number] to make sure alyce t no sinus cause of cough has been overlooked sinus CT is ordered. Not available 07/06/2023 15:49:36 09/19/2023 [id number] he will return a s needed Not available 09/19/2023 16:40:53 Reason for Referral None Reported. Results Created Date Observation Date Name Description Value Unit Range Abnormal Flag Note LastModifiedBy Organization Detail LastModifiedTime 09/05/19 24 09/12/2023 PATHO LOGY SERVI CE pathserv SEE COMMEN T See separ ate patho logy repor t. Not Available [facility] [address] [place], [address], 09/12/2023 14:40:34 08/11/19 24 08/08/2023 CT, sinus es, w/o contr ast No observ ation record ed. [email or web address] [facility] [address] [place], [address], 08/15/2023 10:32:08 08/12/19 24 08/12/2023 CT, sinus es, w/o contr ast No observ ation record ed. BARCODE [facility] [address] [place], [address], 08/12/2023 09:42:45 Result Notes None recorded. Problems Name Problem SNOMED Code Status Onset Date Resolution Date Notes Provider Name and Address Organization Details Recorded Time Posterior rhinorrhea 94952681 Active 024 Naz Beckwith RN null, [employer] [facility] [employer] 4 15:47:47 Chronic sinusitis 41971928 Active 024 Tanner Sena MD [address], [address], [address], [employer] [facility] [employer] 4 15:49:20 Chronic maxillary sinusitis 18207989 Active 024 Tanner Sena MD [address], [place], [address], [employer] [facility] [employer] 4 17:00:51 Chronic ethmoidal sinusitis 58834781 Active 024 Tanner Sena MD [address], [place], [address], [employer] [facility] [employer] [facility] 4 17:01:00 Chronic frontal sinusitis 15945055 Active 024 Tanner Sena MD [address], [place], [address], [facility] [employer] [facility] [employer] [facility] 4 17:01:11 Chronic sphenoidal sinusitis 86631604 Active 024 Tanner Sena MD [address], [address], [place], [address], [facility] [employer] [facility] [employer] [facility] 4 17:01:22 Deviated nasal septum 986815358 Active 024 Tanner Sena MD [address], [place], [address], [facility] [employer] [facility] [employer] [facility] 4 17:01:30 Problem Notes None recorded. Procedures Surgical History Date Name Laterality Status Provider Name and Address Organization Details Recorded Time 4 nasal septoplasty completed SUSHANT Charles [facility] [employer] [facility] 09/16/2023 10:35:11 4 SEPTOPLASTY (SURG) completed Naz Beckwith RN [facility] [employer] [facility] 09/19/2023 10:18:22 Imaging Results None recorded. Procedure Notes None recorded. Medical Equipment None [...] Updated DateTime 07/06/2023 167.64 cm 35.5 kg/m2 22043.32 g 97.9 [degF] Naz Beckwith RN [facility] [employer] 07/06/2023 15:41:08 Date Recorded Body height Body mass index (BMI) Body weight Body temperature Provider Name and Address Organization Details Last Updated DateTime 08/17/2023 167.64 cm 33.7 kg/m2 95574.81 g 97.9 [degF] Naz Beckwith RN [facility] [employer] 08/17/2023 16:43:00 Date Recorded Body height Body mass index (BMI) Body weight Provider Name and Address Organization Details Last Updated DateTime 09/19/2023 167.64 cm 33.6 kg/m2 93789.65 g Naz Beckwith RN [place] [facility] [employer] [facility] 09/19/2023 16:13:39 Social History None recorded. Functional Status Question Answer Note LastModified by Organizat ion Details LastModified Time What is your level of alcohol consumption? Occasional ftrotter Information not available 06/17/2023 Mental Status None recorded. Family History Relationship Description Onset Age of this Age Resolved Age Notes LastModified by Organization Details LastModified Time Son Complete deafness R) ear ftrotter Not available 2023 09:42:40 Medical History Condition Response ENT SLEEP DISORDER Y Past Encounters Encounter ID Performer Location Encounter Start Date Encounter Closed Date Diagnosis/Indication Diagnosis SNOMED-CT Code Diagnosis ICD10 Code Diagnosis Note [id number] Tanner Sena MD [facility] [place] [address] [place] [address] 07/06/2023 15:30:04 07/07/2023 09:49:41 Chronic sinusitis 06723671 J32.9 [id number] Tanner Sena MD [facility] [place] [address] [place] [address] 08/17/2023 16:38:12 08/18/2023 15:41:49 Chronic sinusitis 81644277 J32.9 Chronic ma xillary sinusitis 09694330 J32.0 Chronic et hmoidal sinusitis 91005505 J32.2 Chronic fr ontal sinusitis 78818878 J32.1 Chronic sp henoidal sinusitis 62679030 J32.3 Deviated nasal septum 12 6186626 J34.2 [id number] Tanner Sen[facility] MD [facility] [place] [address] [place] [address] 09/19/2023 16:10:37 09/20/2023 16:49:42 Deviated nasal septum 319027481 J34.2 Health Concerns Section Related Observation LastModified by Organization Detai ls LastModified Time None Recorded Concern Status LastModified by Organization Details LastModified Time None Recorded Advance Directives Directive None Recorded Payers Encounter Date Sequence Insurance Name Policy Number Policy Zendejas Covered Member ID Zendejas Member ID Guarantor Name 07/06/2023 1 [employer] () Jose Elias Batistaacona [id number] Jose Elias Johnson [place]ac[place] 08/17/2023 1 [employer] () Jose Elias Johnson Giac[place] [id number] Jose Elias Johnson Giacona 09/19/2023 1 [employer] () Jose Elias Batistaaconmandy [id number] Jose Elias Batistaaconmandy Notes Date Note Type Note Provider Name and Address Organization Details Recorded Time 07/06/2023 text/html this patient is a 4 year history of chronic cough. This occurred in multiple different geographic locations. A frog shaker referred him to an assembler seat who found multiple allergies. Since treating the allergies his cough has substantially reduced in severity. Tanner Sena MD [address], [employer], [place], [address], [place] 07/06/2023 15:49:59 08/17/2023 text/html patient had a si nus CT and this revealed pansinusitis and septal deviation. He has not surprised but has been struggling with this for 4 years. Tanner Sena MD [address], [employer], [place], [address], [place] 08/17/2023 17:01:53 09/19/2023 text/html The patient is extremely happy with the result. He is now training for a marathon Tanner Sena MD [address], [address], [place], [address], [place] 09/19/2023 16:41:13
--- OUTSIDE RECORDS SUMMARY | 2024-08-31 08:10 | XMS_ITS | Clinical Summary ---
Author Organization [facility] Address [address] [place] [address] Care Team Providers Care Neck Fitter Name Role Phone No, Physician Primary Care Provider [phone] Allergies No known active allergies Medications azelastine (ASTELIN) 137 mcg (0.1 %) nasal spray USE 1 SPRAY IN EACH NOSTRIL EVERY 12 HOURS 3 Active fluticasone propionate (FLONASE) 50 mcg/actuation nasal spray Jewell 1 spray every day by intranasal route. [...] both eyes daily 2.5 mL 11 4 Active Active Problems Problem Noted Date Diagnosed [...] eyes (OU) for 1 week Pataday daily mcfp Monitor Hypertensive retinopathy of both eyes, grade [...] season) 2023 05/01/2021, 07/29/2020, 07/08/2020 Influenza Vaccine (Season Ended) 2024 01/19/2023, 02/18/2022, 01/09/2021, Additional history exists DTaP/Tdap/Td Vaccine (3 - Td or Tdap) 05/25/2032 05/25/2022, 05/05/2012, 03/10/2005, Additional history exists Hepatitis B Screening Completed 01/25/2003, 001 HPV Vaccines Aged Out No longer eligi ble based on patient's age to complete this topic Pneumococcal vaccine <65 Aged Out No longer eligible based on patient's age to complete this topic Insurance [facility] CLAIMS [facility] Care Teams Neck Fitter Relationship Specialty Start Date End Date No, Physician PCP - General 09/09/22
--- OUTSIDE RECORDS SUMMARY | 2024-08-31 08:10 | XMS_ITS | Referral Summary ---
Author Organization [facility] Address [address] [place] [address] Care Team Providers Care Driver License Agent Name Role Phone No, Physician Primary Care Provider [phone] Allergies No known active allergies Medications azelastine (ASTELIN) 137 mcg (0.1 %) nasal spray USE 1 SPRAY IN EACH NOSTRIL EVERY 12 HOURS 3 Active fluticasone propionate (FLONASE) 50 mcg/actuation nasal spray Mooers 1 spray every day by intranasal route. [...] by PCP. Check BP at home. Full Ogmes visual field (HVF), normal RNFL both eyes (OU) and visual acuity (VA) Neurology referral for management of migranes Dry eye syndrome of both eyes 08/16/2023 Assessment & Plan (08/16/2023 9:20 AM CDT): Moderate RICCARDO both eyes (OU), Art tears daily, monitor Conjunctivitis 08/16/2023 Assessment & Plan (08/16/2023 9:20 AM CDT): Loteprednol BID both eyes (OU) for 1 week Pataday daily half-way Monitor Hypertensive retinopathy of both eyes, grade [...] Plan of Treatment Not on file Insurance [facility] Member Subscriber Plan / Payer (Ef fective 2022-Present) Name:Jose Elias Vela Relation to Subscriber:Self Name:Jose Elias Vela Payer ID:[id number] (NAIC) Group ID:Not on file Type: Address: [place] [phone] [facility] Member Subscriber Plan / Payer (Ef fective 2022-Present) Name:Jose Elias Vela Relation to Subscriber:Self Name:Jose Elias Vela Payer ID:[id number] (NAIC) Group ID:Not on file Type: Address: [place] [phone] [facility] Care Teams Driver License Agent Relationship Specialty Start Date End Date No, Physician PCP - General 09/09/22
--- OUTSIDE RECORDS SUMMARY | 2024-08-31 08:10 | XMS_ITS ---
Author Organization [facility] [place] ([address]) Address [address] [place] [address] Care Team Providers Care Insurance Sales Agent Name Role Phone Panda Morin Primary Care Provider UnavailAniceto Shaver Unavailable [phone] Jose D Queen Unavailable Unavailable Trav Doan Unavailable [phone] REASON FOR VISIT SCIT (Aeroallergen) Encounters Encounter Location Date Provider Diagnosis [facility] [address] [place] [address] 08/07/2024 Trav Doan Plan Of Treatment Next Appt Details Provider Name:Trav Doan , 09/10/2024 04:40:00 PM, [address] [facility], [address], [place], [address], Progress Notes * Fritz HERNANDEZferDOB:[birth year] (38 yo M)Acc No.[id number]:08/07/2024 SCIT-Aeroallergen Patient: Jose Elias FRIEDMAN Provider: Inocencia Doan MD :1985 A ge:38 Y S ex:Male Date:08/07/2024 Address:[address] [place], [place] [id number] Pcp:Panda Morin Subjective: * Chief Complaints: * 1 . SCIT (Aeroallergen). * Medical History: Objective: * Vitals: Assessment: Plan: * Treatment: * Billing Information: * Visit Code: * Procedure Codes: * Electronic signature of Cindy Doan MD, FAAAAI on 08/31/2024 at 08:09 AM CDT Sign off status: Pending * Provider: Inocencia Doan MD Date: 08/07/2024 Generated for Savannah barnes/Millie/Nichole on: 08/31/2024 08:09 AM CDT
--- OUTSIDE RECORDS SUMMARY | 2024-08-31 08:10 | XMS_ITS | Continuity of Care Document ---
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 It does not include entries that were removed or entered in error. Problem Status Onset Date Problem Type Date of Resolution Comments Source Anxiety disorder, unspecified Active 025 Diagnosis 0055C[facility] Anxiety Active 025 Diagnosis 0055C[facility] Compartment syndrome Active 024 Condition 2420E-Jt-K-[facility] Conjunctivitis1 Active Condition Outside Source Comment: Last Assessment & Plan: Loteprednol BID both eyes (OU) for 1 week Pataday daily senior care Monitor 0667V-Zv-O-[facility] Migraine without aura, not refractory2 Active 024 Condition Outside Source Comment: Last Assessment & Plan: Magnesium supplement daily, Recommend MRI of Brain and orbits w/wo contrast by pcp or ENT + Hypertensive retinopathy, recommend treatment of hypertension by PCP. Check BP at home. 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 1061B-Ur-Z-[facility] Pain in lower limb Active 024 Condition 4966B-Ac-V-[facility] Tear film insufficiency4 Active Condition Outside Source Comment: Last Assessment & Plan: Moderate SARAHI both eyes (OU), Art tears daily, monitor 4900P-Eb-K-[facility] Chronic cough Active 024 Condition 8288X-Pk-E-[facility] Chronic sinusitis Active 024 Condition 8595U-Bi-M-[facility] Unspecified problems related to employment Active Condition 0055R [employer]-C-[facility] EXAM/ASSESSMENT, OCCUPATIONAL, FOR INDIVIDUAL IN PERSONAL RELIABILITY PROGRAM/SURETY (CHEMICAL/BIOLOGICA L/NUCLEAR) PROGRAM Active Condition Unknow n Organization EXAM/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 gave handout op excercises for choudhury splints. f/u prn or sooner if sx's worsens. 0434B-Xk-Z-[facility] EXAM/ASSESSMENT, OCCUPATIONAL, FOR INDIVIDUAL IN [...] of subpopulation Inactive Condition See DD From 0578 DoD visit for: services physical Inactive Condition visit for: services physical (INITIAL POST-DEPLOYMEN T ASSESSMENT: DOCUMENTED ON [id number]): No referral, member is to f/u as [...] APOTEX ANGELINE, 30 ml SQUEEZ BTL Active [id number] 2023 90 Pharmac y Data Transac tion Service Facilit y AZELASTINE HCL (AZELASTINE HCL), 137 MCG, SPRAY/PUMP, NASAL, APOTEX ANGELINE, 30 ml SQUEEZ BTL Active [id number] 4 2023 30 Pharmac y Data Transac tion Service Facilit y CETIRIZINE HCL (cetirizine HCl), 10 MG, TABLET, ORAL, 'S LAB, 500 ea. BOTTLE Active [id number] 4 2023 90 Pharmac y Data Transac tion Service Facilit y CETIRIZINE HCL (cetirizine HCl), 10 MG, TABLET, ORAL, 'S LAB, 500 ea. BOTTLE Active [id number] 4 2023 90 Pharmac y Data Transac tion Service Facilit y CETIRIZINE HCL (cetirizine HCl), 10 MG, TABLET, ORAL, 'S LAB, 500 ea. BOTTLE Active [id number] 4 2023 30 Pharmac y Data Transac tion Service Facilit y EPINEPHRINE (epinephrin e), 0.3MG/0.3, AUTO INJCT, INJECTION, MYLAN SPECIALTY, 2 ea. SYRINGE Active [id number] 2023 2 Pharmac y Data Transac tion Service Facilit y FLUTICASONE PROPIONATE (FLUTICASON E PROPIONATE) , 50MCG, SPRAY SUSP, NASAL, LESLIE LABS., 16 g AER W/ADAP Active [id number] 4 2023 48 Pharmac y Data Transac tion Service Facilit y FLUTICASONE PROPIONATE (FLUTICASON E PROPIONATE) , 50MCG, SPRAY SUSP, NASAL, LESLIE LABS., 16 g AER W/ADAP Active [id number] 2023 48 Pharmac y Data Transac tion Service Facilit y FLUTICASONE PROPIONATE (FLUTICASON E PROPIONATE) , 50MCG, SPRAY SUSP, NASAL, LESLIE LABS., 16 g AER W/ADAP Active [id number] 4 2023 16 Pharmac y Data Transac tion Service Facilit y FLUTICASONE PROPIONATE HFA (fluticason e propionate) , 220 MCG, AER W/ADAP, INHALATION, PRASCO LABS, 12 g AER W/ADAP Cancele d [id number] : 2023 0 Pharmac y Data Transac tion Service Facilit y FLUTICASONE PROPIONATE HFA (fluticason e propionate) , 220 MCG, AER W/ADAP, INHALATION, PRASCO LABS, 12 g AER W/ADAP Cancele d [id number] : 2023 0 Pharmac y Data Transac tion Service Facilit y HYDROCODONE -ACETAMINOP HEN (HYDROCODON E/ACETAMINO PHEN), 7.5-325MG, TABLET, ORAL, MALLINCKROD T PH, 500 ea. BOTTLE Active [id number] 4 2023 28 Pharmac y Data Transac tion Service Facilit y LORATADINE (LORATADINE ), 10 MG, TABLET, ORAL, NOVARTIS CONSUM, 30 ea. BLIST PACK Cancele d [id number] : 2023 0 Pharmac y Data Transac tion Service Facilit y MONTELUKAST SODIUM (MONTELUKAS T SODIUM), 10 MG, TABLET, ORAL, CAMBER PHARMACE, 1000 ea. BOTTLE Active [id number] 2023 90 Pharmac y Data Transac tion Service Facilit y telmisartan (U/D) 40 MG ORAL TAB Be careful if taking OTCs.Samm e or use exactly as directed .Do not take if . 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 Status Comments Source influenza virus vaccine, inactivated 2022 ANNY Vasquez luis, right (delt oid) [id number] 150 [facility] ([facility]), A [employer] complet ed influenza virus vaccine, inactivat ed 01/19/23 Given 0055C-3 [facility] influenza, injectable, quadrivalent- pf 2022 CAPTCHRISTOPH ERRWEISGARBER [id number] 150 complet ed Result Comment: Route: Unknown Manufactu rer: OTH (SEQ) 6130C-A f-C-[facility] yellow fever vaccine 2022 CAPTCHRISTOP JACKLYNWEISGARBER [id number] 37 complet ed Result Comment: Route: Unknown Manufactu rer: Sanofi Pasteur (PMC) 6130C-A f-C-375 [facility] typhoid Vi capsular polysaccharid e vac 2022 CAPTCHRISTOP APRILISGARBER [id number] 101 complet ed Result Comment: Route: Unknown Manufactu rer: Sanofi Pasteur (PMC) 6130C-A f-C-375 [facility] meningococcal oligosacchari de (MCV4O) 2022 [facility] APRILISGARBER [id number] 136 complet ed Result Comment: Route: Unknown Manufactu rer: [employer] e (SKB) 6130C-A f-C-375 [facility] yellow fever vaccine 1 2022 [id number] 37 Sanofi Pasteur (PMC) complet ed yellow fever vaccine DoD typhoid Vi capsular polysaccharid e vaccine 3 2022 [id number] 101 Sanofi Pasteur ([facility]) complet ed typhoid Vi capsular polysacch aride vaccine DoD meningococcal oligosacchari de (groups A, C, Y and W-135) diphtheria toxoid conjugate vaccine (MCV4O) 2 2022 [id number] 136 [employer] (SKB) complet ed meningoco ccal oligosacc haride (groups A, C, Y and W-135) diphtheri a toxoid conjugate vaccine (MCV4O) DoD tetanus-dipht h toxoids (Td) adult/adol 2022 CAPTCHRISTOPH ERRWEISGARBER [id number] 09 complet ed Result Comment: Route: Unknown Manufactu rer: Sanofi Pasteur ([facility]) 6130C-A f-C-375 [facility] tetanus and diphtheria toxoids, adsorbed, preservative free, for adult use (2 Lf of tetanus toxoid and 2 Lf of diphtheria toxoid) 3 2022 [id number] 09 Sanofi Pasteur ([facility]) complet ed tetanus and diphtheri a toxoids, adsorbed, preservat mark free, for adult use (2 Lf of tetanus toxoid and 2 Lf of diphtheri a toxoid) [facility] influenza, injectable, quadrivalent- pf 2021 CAPTCHRISTOPH ERRWEISGARBER [id number] 150 complet ed Result Comment: Route: Unknown Manufactu rer: Executive IntermediaryKlin krissy ([facility]) 6130C-A f-C-375 [facility] Influenza, injectable, quadrivalent, preservative free 0 2021 [id number] 150 [facility] ([facility]) complet ed Influenza , injectabl e, quadrival ent, preservat mark free DoD COVID Vaccine Pfizer 2021 YOMAIRA Vasquez luis, right (delt oid) [id number] 208 PFIZER complet ed COVID Vaccine Pfizer 05/01/21 Given 0083C-K [facility] SARS-COV-2 (COVID-19) vaccine, mRNA, spike protein, LNP, preservative free, 30 mcg/0.3mL dose 3 2021 [id number] 208 Pfizer, Inc (PFR) complet ed SARS-COV- 2 (COVID-19 ) vaccine, mRNA, spike protein, LNP, preservat mark free, 30 mcg/0.3mL dose DoD influenza virus vaccine, inactivated 2020 HORACIO Vasquez luis, right (delt oid) [id number] 150 [facility] complet ed influenza virus vaccine, inactivat ed 01/09/21 Given 0083C-K [facility] influenza, injectable, quadrivalent- pf 2020 CAPTCHRISTOPH AMYBER [id number] 150 complet ed Result Comment: Route: Unknown Manufactu rer: [employer] [place] ([facility]) 6130C-A f-C-375 [facility] Influenza, injectable, quadrivalent, preservative free 0 2020 [id number] 150 [facility]) complet ed Influenza , injectabl e, quadrival ent, preservat mark free DoD COVID Vaccine Pfizer 2020 [id number] 208 P[employer] complet ed COVID Vaccine Pfizer 07/29/20 Given Ambulat ory Pharmac y SARS-COV-2 (COVID-19) vaccine, mRNA, spike protein, LNP, preservative free, 30 mcg/0.3mL dose 2 2020 [id number] 208 [email or web address] (PFR) complet ed SARS-COV- 2 (COVID-19 ) vaccine, mRNA, spike protein, LNP, preservat mark free, 30 mcg/0.3mL dose DoD COVID Vaccine Pfizer 2020 [id number] 208 PFI[employer]ER complet ed COVID Vaccine Pfizer 07/08/20 Given Ambulat ory Pharmac y COVID Vaccine Pfizer 2020 [id number] 208 PFI[employer]ER complet ed COVID Vaccine Pfizer 07/08/20 Given Ambulat ory Pharmac y SARS-COV-2 (COVID-19) vaccine, mRNA, spike protein, LNP, preservative free, 30 mcg/0.3mL dose 1 2020 [id number] 208 [email or web address], [employer] (PFR) complet ed SARS-COV- 2 (COVID-19 ) [...] Pharmac y influenza virus vaccine, inactivated 2019 CAPTCHRISTOPVasile MIN 88 complet ed Result Comment: Route: Unknown Manufactu rer: [employer] (SEQ) 6130C-A f-C-375 Th [facility] Influenza, injectable, MDCK, preservative free, quadrivalent 2019 [...] free, quadrival ent DoD Influenza, injectable, Madin [place] Canine Kidney, quadrivalent with preservative 0 2019 186 [employer] (SEQ) comple t ed Influenza , injectabl e, Madin [place] Canine Kidney, quadrival ent with preservat mark DoD influenza, injectable, quadrivalent- pf 2018 [id number] 040 150 [employer] complet ed influenza , injectabl e, quadrival ent-pf 01/16/19 Given Ambulat ory Pharmac y influenza, injectable, quadrivalent- pf 2018 [id number] 040 150 [employer] complet ed influenza , injectabl e, quadrival ent-pf 01/16/19 Given Ambulat ory Pharmac y Influenza, injectable, quadrivalent, preservative free 0 2018 [id number] 040 150 [employer] (SEQ) complet ed Influenza , injectabl e, quadrival ent, preservat mark free DoD influenza, injectable, quadrivalent- pf 2017 [id number] 150 [employer] complet ed influenza , injectabl e, quadrival ent-pf 01/25/18 Given Ambulat ory Pharmac y influenza, injectable, quadrivalent- pf 2017 [id number] 150 [employer] complet ed influenza , injectabl e, quadrival ent-pf 01/25/18 Given Ambulat ory Pharmac y Influenza, injectable, quadrivalent, preservative free 13 2017 [id number] 150 [employer] (SEQ) comple t ed Influenza [...] preservat mark DoD influenza, seasonal, injectable-pf 2014 [id number] 140 CSL [employer]ring complet ed influenza , seasonal, injectabl e-pf 01/17/15 Given Ambulat ory Pharmac y influenza, seasonal, injectable-pf 2014 [id number] 140 C[employer] complet ed influenza , seasonal, injectabl e-pf 01/17/15 Given Ambulat ory Pharmac y Influenza, seasonal, injectable, preservative free 0 2014 [id number] 140 [employer]Leo[employer] Inc. (CSL) complet ed Influenza , seasonal, injectabl e, preservat mark free DoD influenza, seasonal, injectable-pf 2013 [id number] 140 Novartis Pharmaceutica ls complet ed influenza , seasonal, injectabl e-pf 01/15/14 Given Ambulat ory Pharmac y influenza, seasonal, injectable-pf 2013 [id number] 140 Novartis Pharmaceutica ls complet ed influenza , seasonal, injectabl e-pf 01/15/14 Given Ambulat ory Pharmac y Influenza, seasonal, injectable, preservative free 0 2013 [id number] 140 Novartis BTCJamtica [employer]PG [employer] [place]eline. (NOV) complet ed Influenza , seasonal, injectabl e, preservat mark free DoD anthrax vaccine 2013 [id number] 24 [employer] complet ed anthrax vaccine 01/08/14 Given Ambulat ory Pharmac y anthrax vaccine 2013 [id number] 24 [employer] complet ed anthrax vaccine 01/08/14 Given Ambulat ory Pharmac y anthrax vaccine 4 2013 [id number] 24 [employer] [place] (MIP) complet ed anthrax vaccine DoD typhoid Vi capsular polysaccharid e vac 2013 J1201 101 sanofi pasteur complet ed typhoid Vi capsular polysacch aride vac 06/18/13 Given Ambulat ory Pharmac y anthrax vaccine 2013 [id number] 24 [employer] complet ed anthrax vaccine 06/18/13 Given Ambulat ory Pharmac y typhoid Vi capsular polysaccharid e vac 2013 J1201 101 sanofi pasteur complet ed typhoid Vi capsular polysacch aride vac 06/18/13 Given Ambulat ory Pharmac y anthrax vaccine 2013 [id number] 24 [employer] complet ed anthrax vaccine 06/18/13 Given Ambulat ory Pharmac y anthrax vaccine 3 2013 [id number] 24 [employer] [place] (MIP) complet ed anthrax vaccine DoD typhoid Vi capsular polysaccharid e vaccine 2 2013 J1201 101 Sanofi Pasteur ([facility]) complet ed typhoid Vi capsular polysacch aride vaccine DoD influenza, live, intranasal,qu adrivalent 2012 [id number] 149 Medimmune Inc comple t ed influenza , live, intranasa l,quadriv alent 12/20/12 Given Ambulat ory Pharmac y influenza, live, intranasal,qu adrivalent 2012 [id number] 149 Med[employer] Inc comple t ed influenza , live, intranasa l,quadriv alent 12/20/12 Given Ambulat ory Pharmac y influenza, live, intranasal, quadrivalent 8 2012 [id number] 149 MedImmune, Inc. (MED) complet ed influenza , live, intranasa l, quadrival ent DoD tetanus, diphtheria, acellular pertu is 2012 [id number] 7AA 115 GlaxoSmithKli ne complet ed tetanus, diphtheri a, acellular pertussis 05/05/12 Given Ambulat ory Pharmac y tetanus, diphtheria, acellular pertu is 2012 [id number] 7AA 115 GlaxoSmithKli ne complet ed tetanus, diphtheri a, acellular pertussis 05/05/12 Given Ambulat ory Pharmac y tetanus toxoid, reduced diphtheria toxoid, and acellular pertu is vaccine, adsorbed 0 2012 [id number] 7AA 115 [facility] (B) complet ed tetanus toxoid, reduced diphtheri a toxoid, and acellular pertussis vaccine, adsorbed DoD influenza virus vaccine, live 2011 [id number] 111 Medimmune Inc comple t ed influenza virus vaccine, live 01/13/12 Given Ambulat ory Pharmac y influenza virus vaccine, live 2011 [id number] 111 Medimmune Inc comple t ed influenza virus vaccine, live 01/13/12 Given Ambulat ory Pharmac y influenza virus vaccine, live, attenuated, for intranasal use 0 2011 [id number] 111 MedImmune, Inc. (MED) complet ed influenza virus vaccine, live, attenuate d, for intranasa l use DoD influenza virus vaccine, live 2009 [id number] 111 Medimmune Inc comple t ed influenza virus vaccine, live 01/06/10 Given Ambulat ory Pharmac y influenza virus vaccine, live 2009 [id number] 111 Medimmune Inc comple t ed influenza virus vaccine, live 01/06/10 Given Ambulat ory Pharmac y influenza virus vaccine, live, attenuated, for intranasal use 1 2009 [id number] 111 MedImmune, Inc. (MED) complet ed influenza virus vaccine, live, attenuate d, for intranasa l use DoD Novel influenza-H1N 1-09,pf,injec table 2009 [id number] 1 126 Novartis Pharmaceutica ls complet ed Novel influenza -F9S0-53, pf,inject able 04/16/09 Given Ambulat ory Pharmac y Novel Influenza-H1N 1-09,live virus,nasal 2009 [id number] 125 Medimmune Inc comple t ed Novel Influenza -C9A0-42, live virus,josh al 04/16/09 Given Ambulat ory Pharmac y Novel influenza-H1N 1-09,pf,injec table 2009 [id number] 1 126 Novartis Pharmaceutica ls complet ed Novel influenza -V7E6-36, pf,inject able 04/16/09 Given Ambulat ory Pharmac y Novel Influenza-H1N 1-09,live virus,nasal 2009 [id number] 125 Medimmune Inc comple t ed Novel Influenza -Z6M8-82, live virus,josh al 04/16/09 Given Ambulat ory Pharmac y Novel Influenza-H1N 1-09, live virus for nasal administratio n 1 2009 [id number] 125 MedImmune, Inc. (MED) complet ed Novel Influenza -M7J9-82, live virus for nasal administr ation DoD Novel influenza-H1N 1-09, preservative- free, injectable 1 2009 [id number] 1 126 Novartis Pharmaceutica l [place]. (NOV) complet ed Novel influenza -G2B7-53, preservat mark-free, injectabl e DoD influenza virus vaccine, live 2008 [id number] 111 Medimmune Inc comple t ed influenza virus vaccine, live 01/21/09 Given Ambulat ory Pharmac y influenza virus vaccine, live 2008 [id number] 111 Medimmune Inc comple t ed influenza virus vaccine, live 01/21/09 Given Ambulat ory Pharmac y influenza virus vaccine, live, attenuated, for intranasal use 1 2008 [id number] 111 MedImmune, Inc. (MED) complet ed influenza virus vaccine, live, attenuate d, for intranasa l use DoD influenza virus vaccine,split 2007 [id number] 15 sanofi pasteur complet ed influenza virus vaccine,s plit 01/29/08 Given Ambulat ory Pharmac y influenza virus vaccine,split 2007 [id number] 15 sanofi pasteur complet ed influenza virus vaccine,s plit 01/29/08 Given Ambulat ory Pharmac y influenza virus vaccine, split virus (incl. purified surface antigen)-reti red CODE 1 2007 [id number] 15 Sanofi Pasteur (PMC) complet ed influenza virus vaccine, split virus (incl. purified surface antigen)- retired CODE DoD influenza virus vaccine, live 2006 [id number] 111 [employer] comple t ed influenza virus vaccine, live 02/25/07 Given Ambulat ory Pharmac y influenza virus vaccine, live 2006 [id number] 111 [employer] comple t ed influenza virus vaccine, live 02/25/07 Given Ambulat ory Pharmac y influenza virus vaccine, live, attenuated, for intranasal use 0 2006 [id number] 111 [employer], Inc. (MED) complet ed influenza virus vaccine, live, attenuate d, for intranasa l use DoD vaccinia (smallpox) vaccine 2006 [id number] 75 [place] [employer] complet ed vaccinia (smallpox ) vaccine 01/23/07 Given Ambulat ory Pharmac y anthrax vaccine 2006 [id number] 24 [employer] complet ed anthrax vaccine 01/23/07 Given Ambulat ory Pharmac y anthrax vaccine 2006 [id number] 24 [employer] complet ed anthrax vaccine 01/23/07 Given Ambulat ory Pharmac y vaccinia (smallpox) vaccine 2006 [id number] 75 [place] complet ed vaccinia (smallpox ) vaccine 01/23/07 Given Ambulat ory Pharmac y anthrax vaccine 3 2006 [id number] 24 [employer] [place] (MIP) complet ed anthrax vaccine DoD vaccinia (smallpox) vaccine 0 2006 [id number] 75 [facility] ([facility]) complet ed vaccinia (smallpox ) vaccine DoD anthrax vaccine 2006 [id number] 24 [employer] complet ed anthrax vaccine 12/22/06 Given Ambulat ory Pharmac y anthrax vaccine 2006 [id number] 24 [employer] complet ed anthrax vaccine 12/22/06 Given Ambulat ory Pharmac y anthrax vaccine 2 2006 [id number] 24 [employer] [place] ([facility] complet ed anthrax vaccine DoD typhoid vaccine, inactivated 2006 [id number] 101 sanofi pasteur complet ed typhoid vaccine, inactivat ed 10/31/06 Given Ambulat ory Pharmac y anthrax vaccine 2006 [id number] 24 [employer] complet ed anthrax vaccine 10/31/06 Given Ambulat ory Pharmac y typhoid vaccine, inactivated 2006 [id number] 101 sanofi pasteur complet ed typhoid vaccine, inactivat ed 10/31/06 Given Ambulat ory Pharmac y anthrax vaccine 2006 [id number] 24 [employer] complet ed anthrax vaccine 10/31/06 Given Ambulat ory Pharmac y anthrax vaccine 1 2006 [id number] 24 [employer] [place] ([facility]) complet ed anthrax vaccine DoD typhoid vaccine, parenteral, other than acetone-kille d, dried 1 2006 [id number] 41 Sanofi Pasteur ([facility]) complet ed typhoid vaccine, parentera l, other than acetone-k illed, dried DoD influenza virus vaccine,split 2005 [id number] 15 sanofi pasteur complet ed influenza virus vaccine,s plit 03/10/06 Given Ambulat ory Pharmac y influenza virus vaccine,split 2005 [id number] 15 sanofi pasteur complet ed influenza virus vaccine,s plit 03/10/06 Given Ambulat ory Pharmac y influenza virus vaccine, split virus (incl. purified surface antigen)-reti red CODE 1 2005 [id number] 15 Sanofi Pasteur (PMC) complet ed influenza [...] ory Pharmac y influenza virus vaccine,split 2004 [id number] 15 sanofi pasteur complet ed influenza virus vaccine,s plit 03/17/05 Given Ambulat ory Pharmac y hepatitis A adult vaccine 2004 [id number] 52 GlaxoSmithKli ne complet ed hepatitis A adult vaccine 03/17/05 Given Ambulat ory Pharmac y influenza virus vaccine,split 2004 [id number] 15 sanofi pasteur complet ed influenza virus vaccine,s plit 03/17/05 Given Ambulat ory Pharmac y influenza virus vaccine, whole virus 2004 CAPTCHRISTOPH ERRWEISGARBER [id number] 16 complet ed Result Comment: Route: Unknown Manufactu rer: Sanofi Pasteur ([facility]) 6130C-A f-C-375 [facility], mumps and rubella virus vaccine 1 2004 03 () Not Given measles, mumps and rubella virus vaccine DoD influenza virus vaccine, split virus (incl. purified surface antigen)-reti red CODE 1 2004 [id number] 15 Sanofi Pasteur ([facility]) complet ed influenza virus vaccine, split virus (incl. purified surface antigen)- retired CODE DoD influenza virus vaccine, whole virus 0 2004 [id number] 16 Sanofi Pasteur ([facility]) complet ed influenza virus vaccine, whole [...] dosage DoD tuberculin purified protein derivative 2004 [id number] 96 sanofi pasteur complet ed tuberculi n purified protein derivativ e 03/11/05 Given Ambulat ory Pharmac y meningococcal polysaccharid e (MPSV4) 2004 [id number] 32 sanofi pasteur complet ed meningoco ccal polysacch aride (MPSV4) 03/10/05 Given Ambulat ory Pharmac y poliovirus vaccine, inactivated 2004 [id number] 10 sanofi pasteur complet ed polioviru s vaccine, inactivat ed 03/10/05 Given Ambulat ory Pharmac y tetanus-dipht h toxoids (Td) adult/adol 2004 [id number] 09 sanofi pasteur complet ed tetanus-d iphth toxoids (Td) adult/ado l 03/10/05 Given Ambulat ory Pharmac y meningococcal polysaccharid e (MPSV4) 2004 [id number] 32 sanofi pasteur complet ed meningoco ccal polysacch aride (MPSV4) 03/10/05 Given Ambulat ory Pharmac y poliovirus vaccine, inactivated 2004 [id number] 10 sanofi pasteur complet ed polioviru s vaccine, inactivat ed 03/10/05 Given Ambulat ory Pharmac y tetanus-dipht h toxoids (Td) adult/adol 2004 [id number] 09 sanofi pasteur complet ed tetanus-d iphth toxoids (Td) adult/ado l 03/10/05 Given Ambulat ory Pharmac y tetanus and diphtheria toxoids, adsorbed, preservative free, for adult use (2 Lf of tetanus toxoid and 2 Lf of diphtheria toxoid) 1 2004 [id number] 09 Sanofi Pasteur (PMC) complet ed tetanus and diphtheri a toxoids, adsorbed, preservat mark free, for adult use (2 Lf of tetanus toxoid and 2 Lf of diphtheri a toxoid) DoD poliovirus vaccine, inactivated 1 2004 [id number] 10 Sanofi Pasteur (PMC) complet ed polioviru s vaccine, inactivat ed DoD meningococcal polysaccharid e vaccine (MPSV4) 1 2004 [id number] 32 Sanofi Pasteur (PMC) complet ed meningoco [...] y tetanus-dipht h toxoids (Td) adult/adol 2000 [id number] 09 [employer] complet ed tetanus-d iphth toxoids (Td) adult/ado l 11/29/00 Given Ambulat ory Pharmac y hepatitis B adult vaccine 2000 [id number] 43 [employer] Inc complet ed hepatitis B adult vaccine 11/29/00 Given Ambulat ory Pharmac y tetanus-dipht h toxoids (Td) adult/adol 2000 [id number] 09 [employer] complet ed tetanus-d iphth toxoids (Td) adult/ado l 11/29/00 Given Ambulat ory Pharmac y HepB, Adult 2000 CAPTCHRISTOPH ERRWEISGARBER [id number] 43 complet ed Result Comment: Route: Unknown Manufactu rer: Merck (MSD) 6130C-A f-C-375 Th Medgrp- Paul tetanus and diphtheria toxoids, adsorbed, preservative free, for adult use (2 Lf of tetanus toxoid and 2 Lf of diphtheria toxoid) 1 2000 [id number] 09 [place] (CON) complet ed tetanus and [...] oral 5 1989 T0559 02 Sanofi Pasteur ([facility]) complet ed trivalent polioviru s vaccine, [...] oral 4 1986 T0485 02 Sanofi Pasteur ([facility]) complet ed trivalent polioviru s vaccine, [...] vaccine DoD poliovirus vaccine, live, oral 1985 M1462-9 02 [facility] complet ed polioviru s vaccine, live, oral 07/19/85 Given Ambulat ory Pharmac y poliovirus vaccine, live, oral 1985 P0990-3 02 [facility] complet ed polioviru s vaccine, live, oral 07/19/85 Given Ambulat ory Pharmac y trivalent poliovirus vaccine, live, oral 3 1985 V6614-1 02 [facility] (CON) complet ed trivalent polioviru s vaccine, [...] Prevention' s HIV diagnostic algorithm. Refer to [facility] Lab Guide for additional information : [email or web address] x Testing performed by [employer] ce. 5600A-US AFSAM EPILAB Chemistry eGFR CKD EPI 99 mL/min/1 [...] decrease 15-29 Severe decrease <15 Kidney failure [address] [place] [address] Chemistry BUN 12 mg/dL 8 - 26 09/[address] [place] [address] Chemistry BUN/Creat Ratio 12 mg/dL 12 - 20 09/[address] [place] [address] Chemistry Calcium 9.2 mg/dL 8.4 - 10.2 09/[address] [place] [address] Chemistry Chloride 109 mmol/L 98 - 107 09/[address] [facility] Chemistry CO2 23 mmol/L 22 - 29 09/[address] [place] [address] Chemistry Creatinine Level 1.00 mg/dL 0.72 - 1.25 09/[address] [place] [address] Chemistry Glucose Lvl 101 mg/dL 74 - 99 09/[address] [place] [address] Chemistry Potassium Lvl 3.9 mmol/L 3.5 - 5.1 09/[address] [place] [address] Chemistry Sodium 142 mmol/L 136 - 145 09/[address] [place] [address] Chemistry AGAP 10.00 0.00 - 15.00 09/[address] [place] [address] Hematolog y Differenti al? Auto (09/16/23 12:12 PM) 09/[address] [place] [address] Hematolog y RDW 12.4 % 11.0 - 14.9 09/[address] [facility] Hematolog y WBC 11.8 x10^3/mc L 4.0 - 11.0103 09/[address] [facility] Hematolog y Platelets 305.0 x10^3/mc L 150.0 - 450.0103 09/[address] [facility] Hematolog y RBC 5.3 x10^6/mc L 4.0 - 5.6106 09/[address] [facility] Hematolog y MCHC 33.0 g/dL 33.0 - 36.5 09/[address] [facility] Hematolog y MCV 88 fL 80 - 97 09/[address] [facility] Hematolog y MPV 8.8 fL 7.4 - 10.4 09/[address] [facility] Hematolog y Hematocrit 47 % 40 - 49 09/[address] [facility] Hematolog y Hemoglobin 15.5 g/dL 13.0 - 16.3 09/[address] [facility] Hematolog y MCH 29 pg 28 - 33 09/[address] [facility] Chemistry Triglyceri sarahi 166 mg/dL 7 - 149 09/15 H Interpretiv e Data: AGES 0-9: Desirable: < 75 mg/dL Borderline High: 75-99 mg/dL High: >/= 100 mg/dL AGES 10-19: Desirable: < 90 mg/dL Borderline High: 90-129 mg/dL High: >/= 130 mg/dL ADULTS: Desirable: < 150 mg/dL Borderline High: 150-199 mg/dL High: >/= 240 mg/dL Very High: >/= 500 mg/dL [facility] Chemistry LDL 169 mg/dL 100 - 130 09/15 H Interpretiv e Data: AGES 0-19: Desirable: < 110 mg/dL Borderline High: 110-129 mg/dL High: >/= 130 mg/dL ADULTS: Desirable: <100 mg/dL Near/above optimal: 100-130 mg/dL Borderline High: 131-159 mg/dL High: 160-189 mg/dL Very High: 190 mg/dL [facility] Chemistry LDL/HDL 5 09/15 [facility] Chemistry HDL Cholestero l 37 mg/dL 40 - 59 09/15 L Interpretiv e Data: HDL (HIGH DENSITY LIPOPROTEIN ): ADULTS: Low: < 40 mg/dL High: >/= 60 mg/dL AGES 0 -19: Low: < 40 mg/dL Borderline Low: 40 - 45 mg/dL Acceptable: > 45 mg/dL [address] [place] [address] Chemistry Cholestero l Total 225 mg/dL 09/15 H Interpretiv e Data: According to the [place] [employer] : AGES 0-19: Desirable: < 170 mg/dL Borderline High: 170-199 mg/dL High Blood Cholesterol : >/= 200 mg/dL ADULTS: Desirable < 200 mg/dL Borderline High: 200-239 mg/dL High Blood Cholesterol : >/= 240 mg/dL [address] [place] [address] Chemistry Chol/HDL 6 mg/dL 09/[address] [place] [address] Chemistry Albumin 3.90 g/dL 3.50 - 5.20 09/[address] [place] [address] Chemistry Alk Phos 91 U/L 40 - 150 09/[address] [place] [address] Chemistry ALT 31 U/L 5 - 55 09/[address] [place] [address] Chemistry AST 17 U/L 5 - 34 09/15 N - [address] [place] [address] Chemistry Bilirubin Total 0.5 mg/dL 0.2 - 1.2 09/[address] [place] [address] Chemistry AGAP 9.00 0.00 - 15.00 09/[address] [place] [address] Chemistry CO2 24 mmol/L 22 - 29 09/[address] [place] [address] Chemistry Creatinine Level 0.90 mg/dL 0.72 - 1.25 09/[address] [place] [address] Chemistry Glucose Lvl 88 mg/dL 74 - 99 09/[address] [place] [address] Chemistry BUN 17 mg/dL 8 - 26 09/[address] [place] [address] Chemistry BUN/Creat Ratio 19 mg/dL 12 - 20 09/[address] [place] [address] Chemistry Calcium 9.2 mg/dL 8.4 - 10.2 09/15 N [facility]th [facility] Chemistry Chloride 107 mmol/L 98 - 107 09/15 [facility] Chemistry Protein Total 7.1 g/dL 6.4 - 8.3 09/15 N [facility] Chemistry Potassium Lvl 4.1 mmol/L 3.5 - 5.1 09/15 N [facility] Chemistry Sodium 140 mmol/L 136 - 145 [...] [facility]th [facility] Urinalysi s UA Spec Oreland 1.025 1.001 - 1.035 09/15 N 5th [...] Nitrite Negative (09/16/23 12:12 PM) 09/[address] [facility] Urinalysi s UA Glucose Negative mg/dL 09/[address] [facility] Urinalysi s UA Ketones Negative mg/dL 09/[address] [facility] Urinalysi s UA pH 5.5 5 - 8 09/15 [facility] Chemistry eAvg Glucose 128 mg/dL 09/[address] [place] [address] Chemistry Hemoglobin A1c 6.1 % 4.0 - [...] the patient and ordering Hemoglobin Electrophor esis. [facility] Chemistry eGFR CKD EPI 112 mL/min/1 .73_m2 [...] decrease 15-29 Severe decrease <[address] [facility] Chemistry TSH 1.190 mIU/L 0.270 - 4.200 09/15 N Interpretiv e Data: Recommend: TPO/Thyrope roxidase Antibody when TSH result is > 4.2 uIU/mL 5600A-US AFSAM EPILAB Hematolog y Eos Absolute 0.1 x10^3/mc L 0.0 - 0.7103 09/[address] [facility] Hematolog y Basophil % Auto 0.2 % 0.0 - 2.5 09/[address] [facility] Hematolog y Lymphocyte % Auto 21.7 % 20.0 - 40.0 09/[address] [facility] Hematolog y Eosinophil % Auto 1 % 0 - 5 09/[address] [facility] Hematolog y Baso Absolute 0.0 x10^3/mc L 0.0 - 0.1103 09/[address] [facility] Hematolog y Neutro Absolute 7.9 x10^3/mc L 2.0 - 7.0103 09/[address] [facility] Hematolog y Monocyte % Auto 9 % 1 - 12 09/15 N [facility]th [facility] Hematolog y Ripley Absolute 1.0 x10^3/mc L 0.2 - 0.8103 09/15 H - [facility] Hematolog y Lymph Absolute 2.6 x10^3/mc L 1.2 - 4.0103 09/15 N [facility] Hematolog y Neutrophil % Auto 67.2 % 46.0 - 77.0 09/[address] [facility] Chemistry eGFR AA 128 10/[address] [place] [address] Chemistry eGFR Non-AA 110 10/[address] [place] [address] Chemistry CRP Qn.LC 2 mg/L 10/29 Result Comment: Performed At: 01 [facility] [address] [id number] Berny Sutherland MD Ph:[phone] [address] [place] [address] Chemistry Hemoglobin A1c 5.8 % 4.0 - 5.6 10/[address] [place] [address] Chemistry eAvg Glucose 120 10/[address] [place] [address] Hematolog y MCV 86 fL 80 - 100 10/[address] [place] [address] Hematolog y MPV 9.3 8.0 - 11.0 10/[address] [place] [address] Hematolog y Platelets 227 10^3/uL 150 - 238153 10/[address] [place] [address] Hematolog y RBC 5.67 x10^6/mc L 4.50 - 6.94980 10/[address] [place] [address] Hematolog y WBC 6.0 x10^3/mc L 4.0 - 11.0103 10/[address] [place] [address] Hematolog y Hemoglobin 16.4 g/dL 14.5 - 18.0 10/[address] [place] [address] Hematolog y MCH 28.9 pg 27.0 - 33.0 10/[address] [place] [address] Hematolog y MCHC 34 g/dL 32 - 36 10/29 N [facility] Hematolog y Hematocrit 48.8 % 43.0 - 53.0 10/[address] [place] [address] Hematolog y RDW SD 41.2 10/[address] [place] [address] Hematolog y RDW CV 13 10/[address] [place] [address] Chemistry Free Testostero ne Direct LC 11.1 pg/mL 10/29 Result Comment: Performed At: 01 [facility] [place] [address] [facility] [address] [place], [place] [id number] Berny Sutherland MD Ph:[phone] Performed At: [address] [id number] Abraham Vincent MD Ph:[phone] [address] [place] [address] Chemistry Testostero ne Serum LC 455 ng/dL 10/29 Result Comment: Adult male reference interval is based on a population of healthy nonobese males (BMI <30) between 19 and 39 years old. Radha et.al. JCEM 2017,102;11 61-1173. PMID: [id number]. [address] [place] [address] Chemistry Vit D, 25-OH.LC 39.8 ng/mL 10/29 Result Comment: Vitamin D deficiency has been defined by the [place] [employer] and an Endocrine Society practice guideline as a level of serum 25-OH vitamin D less than 20 ng/mL (1,2). The Endocrine Society went on to further define vitamin D insufficien cy as a level between 21 and 29 ng/mL (2). 1. IOM ([place] [employer]). 2010. Dietary reference intakes for calcium and D. [place]: The National Academies Press. 2. Yoni MF, Benji NC, Diana vergara KASPER, et al. Evaluation, treatment, and prevention of vitamin D deficiency: an Endocrine Society clinical practice guideline. JCEM. 2010; 96(7):1911- 30. Performed At: 01 [facility] [address] [place] [address] [address] [place], [place] [id number] Berny Sutherland MD Ph:[phone] [address] [place] [address] Chemistry ALT 48 U/L 10/[address] [place] [address] Chemistry Alk Phos 72 U/L 38 - 126 10/[address] [place] [address] Chemistry Albumin 4.1 g/dL 3.5 - 5.0 10/[address] [place] [address] Chemistry AGAP 8 10/[address] [place] [address] Chemistry Globulin 3 10/[address] [place] [address] Chemistry Calcium 8.9 mg/dL 8.4 - 10.2 10/[address] [place] [address] Chemistry BUN 21.0 mg/dL 7.0 - 20.0 10/[address] [place] [address] Chemistry Bilirubin Total 0.9 mg/dL 0.2 - 1.5 10/[address] [place] [address] Chemistry Bilirubin Direct No Result 0.0 - 1.1 10/[address] [place] [address] Chemistry AST 31 U/L 15 - 46 10/[address] [place] [address] Chemistry Creatinine Level 0.9 mg/dL 0.7 - 1.5 10/[address] [place] [address] Chemistry A/G Ratio 1.4 10/[address] [place] [address] Chemistry Osmo Calc 272 10/[address] [place] [address] Chemistry BUN/Creat Ratio 24 10/[address] [place] [address] Chemistry Sodium 139 mmol/L 137 - 145 10/[address] [place] [address] Chemistry Potassium Lvl 3.80 mmol/L 3.50 - 5.10 10/[address] [place] [address] Chemistry Glucose Lvl 99 mg/dL 74 - 100 10/[address] [place] [address] Chemistry CO2 20.0 mmol/L 22.0 - 30.0 10/[address] [place] [address] Chemistry Chloride 111 mmol/L 96 - 107 10/[address] [place] [address] Chemistry Protein Total 7 g/dL 6 - 8 10/[address] [place] [address] Chemistry HDL Cholestero l 32 mg/dL 40 - 60 10/[address] [place] [address] Chemistry Chol/HDL 6 10/[address] [place] [address] Chemistry HDL/Chol 0 10/[address] [place] [address] Chemistry Cholestero l Total 183 mg/dL 100 - 200 10/[address] [place] [address] Chemistry Triglyceri sarahi 80.0 mg/dL 0.0 - 150.0 10/[address] [place] [address] Chemistry VLDL 16 10/[address] [place] [address] Chemistry LDL 136 mg/dL 0 - 100 10/[address] [place] [address] Chemistry LDL/HDL 4 10/[address] [place] [address] Chemistry TSH LC 2.340 uIU/mL 10/[address] [place] [address] Chemistry T4 Free Direct.LC 1.16 ng/dL 10/29 Result Comment: Performed At: 01 [facility] [address] [id number] Berny Sutherland MD Ph:[phone] [address] [place] [address] Hematolog y ESR Auto Plus 1 mm/h 0 - 15 10/[address] [place] [address] Hematolog y Neutrophil % Auto 56.6 10/[address] [place] [address] Hematolog y Monocyte % Auto 10.0 10/[address] [place] [address] Hematolog y Imm. Granulocyt e Absolute 0 10/[address] [place] [address] Hematolog y Eosinophil % Auto 3.2 % 0 - 5 10/[address] [place] [address] Hematolog y Imm. Granulocyt e % 0 10/[address] [place] [address] Hematolog y Neutro Absolute 3.4 x10^3/mc L 1.6 - 6.1103 10/[address] [place] [address] Hematolog y Baso Absolute 0.0 x10^3/mc L 0.0 - 0.1103 10/[address] [place] [address] Hematolog y Lymph Absolute 1.8 x10^3/mc L 1.2 - 3.9103 10/[address] [place] [address] Hematolog y Lymphocyte % Auto 30 10/[address] [place] [address] Hematolog y Basophil % Auto 0.3 10/[address] [place] [address] Hematolog y Eos Absolute 0.2 x10^3/mc L 0.0 - 0.5103 10/[address] [place] [address] Hematolog y Ripley Absolute 0.6 x10^3/mc L 0.3 - 0.9103 10/[address] [place] [address] Vital Signs Combined list of inpatient and outpatient Vital Signs from Department of Defense and Veterans Affairs, ranging from 12 months to all on record, depending upon the facility. Vital Sign Value Date Comments Source Blood Pressure Manual Automatic 12/24/2022 18:24:00 0055C-[facility] Temperature Oral 36.7 Silvia 09/30/2023 18:10:00 1611K-Ct-J-[facility] BP Site Left arm 09/30/2023 18:10:00 8247C-Mg-Z-[facility] Mean Arterial Pressure, Calc 96 mm[Hg] 09/30/2023 18:10:00 0106E-Yb-X-[facility] Peripheral Pulse Rate 71 bpm 09/30/2023 18:10:00 6955V-Zq-I-[facility] Systolic Blood Pressure 135 mm[Hg] 09/30/19 24 18:10:00 8826N-Eh-M-[facility] Diastolic Blood Pressure 76 mm[Hg] 024 18:10:00 8989N-Vh-Y-[facility] Respiratory Rate 16 br/min 09/30/2023 18:10:00 3793U-Ls-U-[facility] Peripheral Pulse Rate 69 bpm 05/13/2023 15:17:00 0055C-[facility] Blood Pressure Manual Automatic 05/13/2023 15:17:00 0055C-[facility] Temperature Oral 36.7 Silvia 05/13/2023 15:17:00 0055C-[facility] Respiratory Rate 16 br/min 05/13/2023 15:17:00 0055C-[facility] Temperature Oral 36.7 Silvia 10/20/2023 19:15:00 1060J-Uz-R-[facility] Respiratory Rate 17 br/min 10/20/2023 19:15:00 6132Y-Hu-I-[facility] Systolic Blood Pressure 137 mm[Hg] 10/20/19 19:15:00 2517J-Iu-E-[facility] Diastolic Blood Pressure 78 mm[Hg] 19:15:00 9168B-Tv-O-[facility] BP Site Right arm 10/20/2023 19:15:00 9042J-Ft-S-[facility] Peripheral Pulse Rate 73 bpm 10/20/2023 19:15:00 5303W-Vr-C-[facility] Mean Arterial Pressure, Calc 98 mm[Hg] 10/20/2023 19:15:00 1510M-Pf-Y-[facility] Blood Pressure Manual Automatic 03/16/2021 22:11:[address] [place] [address] Temperature Temporal Artery 37 Silvia 04/27/2023 15:02:00 0055C[facility] Blood Pressure Manual Automatic 04/27/2023 15:02:00 0055C[facility] Mean Arterial Pressure, Calc 98 mm[Hg] 09/02/2023 16:40:00 0055C-[facility] BP Site Right arm 09/02/2023 16:40:00 0055C[facility] Systolic Blood Pressure 138 mm[Hg] 09/02/19 16:40:00 0055C[facility] Diastolic Blood Pressure 78 mm[Hg] 024 16:40:00 0055C[facility] Peripheral Pulse Rate 72 [...] Blood Pressure 130 mm[Hg] 09/09/19 24 18:00:00 1325N-Kb-H-[facility] Diastolic Blood Pressure 75 mm[Hg] 024 18:00:00 1291Q-Pg-D-[facility] Respiratory Rate 15 br/min 09/09/2023 18:00:00 2064Z-Cl-R-[facility] Temperature Oral 36.7 Silvia 09/09/2023 18:00:00 1146K-Ku-J-[facility] Mean Arterial Pressure, Calc 93 mm[Hg] 09/09/2023 18:00:00 8304T-Mi-W-[facility] Peripheral Pulse Rate 70 bpm 09/09/2023 18:00:00 7910D-Wx-M-[facility] BP Site Right arm 09/09/2023 18:00:00 7945A-Ff-C-[facility] Blood Pressure Manual Automatic 04/29/2022 21:00:00 8088T-LK-W-[facility]nd [facility] Systolic Blood Pressure 145 mm[Hg] 09/16/19 [...] Systolic Blood Pressure 140 mm[Hg] 10/31/19 15:25:00 2801X-Ql-V-[facility] Diastolic Blood Pressure 82 mm[Hg] 15:25:00 5585F-Uq-Y-[facility] BP Site Right arm 10/31/2023 15:25:00 4531X-Vn-G-[facility] Peripheral Pulse Rate 73 bpm 10/31/2023 15:25:00 9695B-Ca-T-[facility] Mean Arterial Pressure, Calc 101 mm[Hg] 10/31/2023 15:25:00 7980C-Gb-W-[facility] Temperature Oral 36.8 Silvia 10/31/2023 15:25:00 5840Q-Gs-M-[facility] Respiratory Rate 17 br/min 10/31/2023 15:25:00 5472L-Vd-Z-[facility] BP Site Left arm 05/30/2024 17:01:00 [...] [facility] Blood Pressure Manual Automatic 06/01/2021 17:49:[address] [place] [address] Encounters Combined list of: 1) Encounters from Department of Veterans Affairs facilities going backup to the last 18 months, not all VA inpatient encounters are included; 2) Encounters from the Department of Defense facilities going backup to 280 months. Location Location Details Encounter Type Encounter Number Reason For Visit Attending Provider ADM Date DC Date Status Disposition Source [place] [employer] [place] OUTPATIENT [id number] possibl e [facility]/30 [facility] [place]itations [place] [employer] [place] [employer] [employer] OUTPATIENT [id number] INNA SANCHEZ 11/01 Released w/o Limitations [place] [employer] [employer] [place] [employer] [employer] TELE CONSULT [id number] Predepl oLUCITA Flores 11/02 [place] [employer] [employer] [facility] OUTPATIENT [id number] 01/09 Released w/o Limitations [facility] OUTPATIENT [id number] 01/10 Released w/o Limitations [facility] OUTPATIENT [id number] 02/13 Released with Work/Duty Limitations [facility] OUTPATIENT [id number] 02/14 Released w/o Limitations [facility] OUTPATIENT [id number] 02/14 Released w/o Limitations [facility] [place] [employer] [employer] OUTPATIENT [id number] post deploym ent AARTI ZHOU 07/27 Released w/o Limitations [place] [employer] [place] [employer] OUTPATIENT [id number] PHA RAIN ANDERSON 01/29 Released w/o Limitations [place] [employer] [place] [employer] OUTPATIENT [id number] choudhury splints RUBEN MOON 05/21 Released with Work/Duty Limitations [place] [employer] [employer] [place] [facility] OUTPATIENT [id number] choudhury splint on lf leg CAPO MAYS Y 09/27 Released w/o Limitations [place] [employer] ) [employer]([facility]) OUTPATIENT [id number] f/u LLE DEMI WADSWORTH 12/19 Released with Work/Duty Limitations [employer](F amily Practic e Blue) [employer](PHA Cell) OUTPATIENT [id number] [facility] 12/27 Released w/o Limitations [employer](P [facility] Cell) [employer] [facility] DENTAL [id number] Operati AP Zimmer 01/07 Released w/o Limitations [employer](D ental Clinic) [employer] DENTAL [id number] #2 cuspal MARYANN Mejia 02/13 Released w/o Limitations [employer](D ental Clinic) [employer]([facility]) TELE CONSULT [id number] referra l for stress test DEMI WADSWORTH 03/31 [employer](F amily Practic e Blue) [employer](Fam d[facility]) TELE CONSULT [id number] droppin g off paperwo JESSICA Batres 04/23 [employer](F amily Practic e Blue) [employer](Josette romuscosk eletal Screening ) OUTPATIENT [id number] COMPART MENT SYNDROM E NONTRAU FILIPPO AMARAL 04/25 Released w/o Limitations [employer](N euromus coskele ismael Screeni ng) [employer](Fam dacia Practice Red) OUTPATIENT [id number] SICK CALL- R Shoulde r SAULO Mix 01/14 Released w/o Limitations [employer](F amily Practic e Red) [employer](PHA Cell) OUTPATIENT [id number] KUSH KELLY 01/14 Released w/o Limitations [employer](P KASPER Cell) [employer](Fam [facility] Blue) TELE CONSULT [id number] Referra l request for 2nd opinion MONY CHI 01/23 [employer](F amily Practic e Blue) [employer](Fam [facility]) TELE CONSULT [id number] Referra l to Veronique BURCIAGA not entered ! SERRANO KERRI 02/02 Referred for Appointment [employer](F am[facility] Practic e Blue) [employer]([facility]am [facility]) OUTPATIENT [id number] ortho referra l JESSICA WATERMAN 02/09 Released w/o Limitations [employer](F amily Practic e Blue) [employer](Fam [facility]) TELE CONSULT [id number] pt would like a referra l to be seen with orthope dic provide r MONY CHI 02/23 [employer](F am[facility] Practic e Blue) [employer](Fam [facility]) TELE CONSULT [id number] appt line - referra l DR. BING Brooks for f/u appt 1 JESSICA WATERMAN 03/18 Referred for Appointment [employer](F am[facility] Practic e Blue) [employer](Fam [facility]) TELE CONSULT [id number] appt line - labs for seperat ion physica l 1 KERRI SERRANO 06/16 Referred for Appointment [employer](F am[facility] Practic e Blue) [employer](Fam [facility] Blue) OUTPATIENT [id number] seperat ion physica l BINH HICKMAN 07/06 Released w/o Limitations [employer](F amily Practic e Blue) [place] [address](Tylor patel REPLACED BY [facility] Team B) TELE CONSULT [id number] Notes Entered by: CHELO LEWIS 01 May 2012 1947 ------- ------- ------- ------- -- PHA ROUTINE RR: 2012: ARPAN PFEIFFER I 05/02 Referred for Appointment [facility] [place] [address](Leena rangel REPLACED BY [facility] Team B) [place] [address]([facility]) TELE CONSULT [id number] Notes Entered by: JORDAN NANCE 30 May 2012 1327 ------- ------- ------- ------- -- Respira JORDAN Nieto 05/30 [facility] [place] [address](O ccupati onal Medicin e [facility]) [place] [address]([facility]) OUTPATIENT [id number] PREDEPL OYMENT/ CHELO LANIER V 06/28 Released w/o Limitations [facility] [place] [address]([facility]) Theater Facility OUTPATIENT [id number] Theater Provider 01/08 Released w/o Limitations [place] [address]([facility]) OUTPATIENT [id number] [facility] 3 negativ e finding s HEIKE ESCAMILLA 05/24 Released w/o Limitations [facility] [place] [address]([facility]) [place] [address]([place]Team E) OUTPATIENT [id number] LEG PAIN/RE STEVE HERRERA 07/22 Released w/o Limitations [facility] [place] [address]([place] [address](Phy sical Therapy, [facility]) OUTPATIENT [id number] LIMB PAIN LOWER LEG MARCOS GONZALEZ 08/14 Released w/o Limitations [facility] [place] [address](P hysical Therapy , [facility]) [place] [address](Phy sical Therapy, [facility]) OUTPATIENT [id number] MARCOS GONZALEZ 09/06 Released w/o Limitations [facility] [place] [address](P hysical Therapy , [facility]) [place] [address]([facility] Emergency [facility]) OUTPATIENT [id number] Notes Entered by: YULI ZAVALA 16 Oct 2014 1020 ------- ------- ------- ------- -- CHILLS/ UPSET STOMACH /LIGHT DIARRHE A WAYNE LOUIS 10/16 Sick at Home/Quarter s [facility] [place] [address]([facility], [facility]) [place] [address]([facility] [place] [facility]) TELE CONSULT [id number] Notes Entered by: Yifan DOMINGUEZ 21 Jan 2015 0802 ------- ------- ------- ------- -- CATARINO BOO RR [id number] RLG SANA CALLAWAY 01/21 [facility] [place] [address]([facility] [place] [address]([facility]) OUTPATIENT [id number] Notes Entered by: YOMAIRA STRICKLAND 21 Jan 2015 1428 ------- ------- ------- ------- -- JUN#4/P ALONZO MUSE 01/21 Released w/o Limitations [facility] [place] [address](D eploe [facility], [facility]) [place] [address](Phy sical Med [facility]) OUTPATIENT [id number] Encount er for other general examina tion JULIETTE-DIXIE MACEDO 02/18 Released w/o Limitations [facility] [place] [address](P hysical Med [place]) [place] [address]([facility] hopedi, [facility]) OUTPATIENT [id number] Pain in left leg LEXUS SWENSON 03/05 Released w/o Limitations [place] [address](O rthoped ics, [facility]) [place] [address]([facility], [facility]) OUTPATIENT [id number] f/u Pain in left leg ;wants bone scan results done [id number] @[facility] LEXUS SWENSON 03/20 Released w/o Limitations [facility] [place] [address](O rthoped ics, [facility]) [place] [address]([facility], [facility]) OUTPATIENT [id number] f/u for compart ment testing on both legs ;per CARLEY Swenson [id number] LEXUS SWENSON 04/09 Released w/o Limitations [facility] [address](O rthoped ics, [facility]) [place] [address]([facility], [facility]) OUTPATIENT [id number] f/u for compart ment testing on both legs ;per CARLEY Swenson [id number] LEXUS SWENSON 04/09 Released w/o Limitations [facility] [place] [address](O rthoped ics, [facility]) [place] [address]([facility] hopedi, [facility]) OUTPATIENT [id number] Surgica l eval for compart ment syndrom e on left leg ;ref by CARLEY Swenson [id number] KUSH ROGERS 04/23 Released w/o Limitations [facility] [address](O rthoped ics, [facility]) [place] [address]([facility] hopedi, [facility]) OUTPATIENT [id number] pop hoglund heel resecti on, gastroc lengthe south; DOS: [id number] . KUSH SHEPPARD 07/10 Released w/o Limitations [facility] [place] [address](O rthoped ics, [facility]) [place] [address](Phy sical Therapy, [facility]) OUTPATIENT [id number] Left Leg. Post op, DOS: [id number] PAWAN LEY III 07/14 Released with Work/Duty Limitations [facility] [place] [address](P hysical Therapy , [facility]) [place] [address](Phy sical Therapy, [facility]) OUTPATIENT [id number] RAAD GATICA 07/21 Released w/o Limitations [facility] [place] [address](P hysical Therapy , [facility]) [place] [address](Phy sical Therapy, [facility]) OUTPATIENT [id number] ELAINE YESSENIA Roldan 07/23 Released w/o Limitations [facility] [place] [address](P hysical Therapy , [facility]) [place] [address](Phy sical Therapy, [facility]) OUTPATIENT [id number] KELLY COATES 07/24 Released w/o Limitations [facility] [place] [address](P hysical Therapy , [facility]) [place] [address](Phy sical Therapy, [facility]) OUTPATIENT [id number] KELLY COATES 07/27 Released w/o Limitations [facility] [place] [address](P hysical Therapy , [facility]) [place] [address](Phy sical Therapy, [facility]) OUTPATIENT [id number] KELLY COATES 07/29 Released w/o Limitations [facility] [place] [address](P hysical Therapy , [facility]) [place] [address](Phy sical Therapy, [facility]) OUTPATIENT [id number] KELLY COATES 07/30 Released w/o Limitations [facility] [place] [address](P hysical Therapy , [facility]) [place] [address](Ort hopedics, [facility]) OUTPATIENT [id number] 3wks f/u left leg surgery KUSH SHEPPARD Linda 07/31 Released w/o Limitations [facility] [place] [address](O rthoped ics, [facility]) [place] [address](Phy sical Therapy, [facility]) OUTPATIENT [id number] KELLY COATES 08/03 Released w/o Limitations [facility] [place] [address](P hysical Therapy , [facility]) [place] [address](Phy sical Therapy, [facility]) OUTPATIENT [id number] PAWAN LEY III 08/06 Released with Work/Duty Limitations [facility] [place] [address](P hysical Therapy , [facility]) [place] [address](Phy sical Therapy, [facility]) OUTPATIENT [id number] KELLY COATES 08/07 Released w/o Limitations [facility] [place] [address](P hysical Therapy , [facility]) [place] [address](Phy sical Therapy, [facility]) OUTPATIENT [id number] ANGELITA CATALAN 08/10 Released w/o Limitations [facility] [place] [address](P hysical Therapy , [facility]) [place] [address](Phy sical Therapy, [facility]) OUTPATIENT [id number] ANGELITA CATALAN 08/12 Released w/o Limitations [facility] [place] [address](P hysical Therapy , [facility]) [place] [address](Phy sical Therapy, [facility]) OUTPATIENT [id number] ANGELITA CATALAN 08/13 Released w/o Limitations [facility] [place] [address](P hysical Therapy , [facility]) [place] [address](Phy sical Therapy, [facility]) OUTPATIENT [id number] ANGELITA CATALAN 08/17 Released w/o Limitations [facility] [place] [address](P hysical Therapy , [facility]) [place] [address](Phy sical Therapy, [facility]) OUTPATIENT [id number] Notes Entered by: DIONISIO GONSALEZ 21 Aug 2015 1410 ------- ------- ------- ------- -- ADRIANA Avitia 08/20 Released w/o Limitations [facility] [place] [address](P hysical Therapy , [facility]) [place] [address](Phy sical Therapy, [facility]) OUTPATIENT [id number] ANGELITA CATALAN 08/24 Released w/o Limitations [facility] [place] [address](P hysical Therapy , [facility]) [place] [address](Phy sical Therapy, [facility]) OUTPATIENT [id number] RAAD GATICA 08/25 Released w/o Limitations [facility] [place] [address](P hysical Therapy , [facility]) [place] [address](Phy sical Therapy, [facility]) OUTPATIENT [id number] ADRIANA DOMINGUEZ 08/27 Released w/o Limitations [facility] [place] [address](P hysical Therapy , [facility]) [place] [address](Phy sical Therapy, [facility]) OUTPATIENT [id number] ADRIANA DOMINGUEZ 09/01 Released w/o Limitations [facility] [place] [address](P hysical Therapy , [facility]) [place] [address](Phy sical Therapy, [facility]) OUTPATIENT [id number] SHAUN LEY 09/02 Released w/o Limitations [facility] [place] [address](P hysical Therapy , [facility]) [place] [address](Phy sical Therapy, [facility]) OUTPATIENT [id number] [facility] 09/03 Released w/o Limitations [facility] [place] [address](P hysical Therapy , [facility]) [place] [address](Phy sical Therapy, [facility]) OUTPATIENT [id number] GAVI RAAD NILAM 09/03 Released w/o Limitations [facility] [place] [address](P hysical Therapy , [facility]) [place] [address](Phy sical Therapy, [facility]) OUTPATIENT [id number] [facility] 10/01 Released w/o Limitations [facility] [place] [address](P hysical Therapy , [facility]) [place] [address](Tylor patel REPLACED BY [facility] Team F) OUTPATIENT [id number] left leg pain SANA CALLAWAY 12/23 Released with Work/Duty Limitations [facility] [place] [address](Leena rangel REPLACED BY [facility] Team F) [place] [address](Hea ring Conservat ion,Fritz) OUTPATIENT [id number] Annual Audiogr am-082A KUSH ALMAGUER 03/01 Released w/o Limitations [facility] [place] [address](H earing Conserv ation,R pete) [place] [address]([facility], [facility]) TELE CONSULT [id number] Notes Entered by: YOMAIRA STRICKLAND 18 Mar 2016 1508 ------- ------- ------- ------- -- Dedra ELIZABETH appoint ment via telepho JAD Jo 03/18 [facility] [place] [address]([facility], [facility]) [place] [address]([facility] Med Team A) OUTPATIENT [id number] Notes Entered by: OSMIN CORDON DO 13 Apr 2016 1455 ------- ------- ------- ------- -- NON ZULY FELTON 04/13 Released w/o Limitations [facility] [place] [address]( [facility] [place] [address]([facility] Team F) OUTPATIENT [id number] C/O LT HAND ISSUES/ [facility] ULICES HUBBARD 01/12 Released w/o Limitations [facility] [place] [address]([facility] Team F) [place] [address]([facility] Team F) TELE CONSULT [id number] Notes Entered by: NIECY STOKES 13 Jan 2017 1110 ------- ------- ------- ------- -- Results ULICES HUBBARD 01/13 [facility] [place] [address]([facility] [place] [address](Occ upational Therapy, [facility]) OUTPATIENT [id number] Pain in left finger( s) HAO ROMO 02/09 Released w/o Limitations [facility] [place] [address](O ccupati onal Therapy , [facility]) [place] [address](Hea ring Conservat ion,Fritz) OUTPATIENT [id number] Annual - [id number]* * LOLLY ART 03/04 Released w/o Limitations [facility] [place] [address](H earing Conserv ation,R pete) [place] [address](Occ upational Therapy, [facility]) OUTPATIENT [id number] HAO ROMO 03/23 Released w/o Limitations [facility] [place] [address](O ccupati onal Therapy , [facility]) [place] [address](Phy sical Exams, Fritz) TELE CONSULT [id number] Notes Entered by: DERECK WOODWARD 31 Mar 2017 1506 ------- ------- ------- ------- -- AF FORM 422 REQUEST FOR RETRAIN DEONNA RIBERA SA 03/31 [facility] [place] [address](P hysical Exams, Fritz) [place] [address](BOM C,Fritz) OUTPATIENT [id number] MHA/PRE FERRED CONTACT TEL. CELL EULOGIO FARLEY 04/27 Released w/o Limitations [facility] [place] [address](B [facility],Je d) [place] [address]([facility] Team F) TELE CONSULT [id number] Notes Entered by: MARCELLO WALTER 16 May 2017 0914 ------- ------- ------- ------- -- FCR/JILL CK Appt. request re:high blood pressnoreen eJeffrey [phone] CIARA GAMBINO 05/16 [facility] [place] [address](Leena doughertyze REPLACED BY [facility] Team F) [place] [address]([facility] Team F) OUTPATIENT [id number] BLOOD PRESSUR E LETHA HUBBARDSEY Vasile 06/17 Released w/o Limitations [facility] [place] [address](Leena rangel REPLACED BY [facility] Team F) [facility] [place] [address]([facility], [facility]) OUTPATIENT [id number] Shortne ss of breath MURIELHOLLEYVERONIQUE KAY Gio 07/25 [facility]ased w/o Limitations [facility] [place] [address](P ulmonar y Medicin e, [facility]) [facility]) OUTPATIENT [id number] ENT referra VERONIQUE Bee 03/29 Released w/o Limitations [facility]) TELE CONSULT [id number] Notes Entered by: MIMI HWANG 06 Apr 2018 1340 ------- ------- ------- ------- -- Rout Req: req Audio ref SINGH BHARATHI Morrison 04/06 Referred for Appointment [facility](Aud iology Cl EG) OUTPATIENT [id number] ken Yusuf STEPHEN D 04/26 Released w/o Limitations [facility](A udiolog y Cl EG) [facility]([place] laryngolo EG) OUTPATIENT [id number] Other specifi ed disorde rs of tympani c membran e, unspeci fied ear STEVE WHALEY 05/01 Released w/o Limitations [facility](O tolaryn golo EG) [facility](Bas e Oper Med Cl Eg) OUTPATIENT [id number] [facility] #[id number] BASIL CATHERINE 05/24 Released w/o Limitations [facility](B ase Oper Med Cl Eg) [facility]) OUTPATIENT [id number] VIRTUAL / AIRFORC E SARAHI GUZMÁN 06/28 Released w/o Limitations [facility]( amily [facility]) [facility](Bas e Oper Med Cl Eg) TELE CONSULT [id number] Notes Entered by: BENITO CURTIS 18 Sep 2018 1412 ------- ------- ------- ------- -- GELAISS HARVEY LANGFORD 09/18 [facility](B ase Oper Med Cl Eg) [facility](Bas e Oper Med Cl Eg) TELE CONSULT [id number] Notes Entered by: YRIS LOJA 25 Jun 2019 0732 ------- ------- ------- ------- -- GENE Rogel 06/24 [facility](B ase Oper Med Cl Eg) [facility](Bas e Oper Med Cl Eg) OUTPATIENT [id number] [facility]# [phone] DEYANIRA DUPONT 08/29 Released w/o Limitations [facility](B ase Oper Med Cl Eg) [facility](Fli ght Med) OUTPATIENT [id number] Notes Entered by: SHASHANK SCHMIDT CH 17 Oct 2019 0845 ------- ------- ------- ------- -- KUSH ROB 10/16 Released w/o Limitations [facility](F light Med) [facility](Fli ght Med) TELE CONSULT [id number] Notes Entered by: Maurilio OCONNELL 04 Dec 2019 0744 ------- ------- ------- ------- -- Member is stating he has been having SOB since June. KUSH UGALDE 12/03 Referred for Appointment [facility](F light Med) [facility](Z-F light Med) OUTPATIENT [id number] Fatigue GENE LANCE 01/20 Released w/o Limitations [facility](Z -Flight Med) [facility](Spe ech Pathology Cl Eg) OUTPATIENT [id number] Dyspnea , unspeci SANTA Blum V 02/04 Released w/o Limitations [facility](S peech Patholo gy Cl Eg) [facility](Pul m Disease EG) OUTPATIENT [id number] Notes Entered by: CARLY ROSARIO 08 Feb 2020 1007 ------- ------- ------- ------- -- PFT/Dys pnea, unspeci fied EVAN OWEN 02/07 Released w/o Limitations [facility](P ulm Disease EG) [facility](Z-F light Med) TELE CONSULT [id number] Notes Entered by: GENE LEACH 20 Feb 2020 1555 ------- ------- ------- ------- -- Contact pt GONZÁLEZ HERNANDEZ 02/19 Referred for Appointment [facility](Z -Flight Med) [address] [place] [address](- light Med) OUTPATIENT [id number] F/U GENE LEACH 02/25 Released w/o Limitations [facility](Z -Flight Med) [facility](Z-F light Med) TELE CONSULT [id number] Notes Entered by: GENE LEACH 13 Mar 2020 1140 ------- ------- ------- ------- -- GERD JALEN COHEN 03/13 Other Not Elsewhere Classified [facility](Z -Flight Med) [facility](Pul m Disease EG) OUTPATIENT [id number] Gastro- esophag eal reflux disease without esophag itis KUSH KWON 04/11 Released w/o Limitations [facility](P ulm Disease EG) [facility](Pul m Disease EG) OUTPATIENT [id number] PSG EVAN OWEN 05/09 Released w/o Limitations [facility](P ulm Disease EG) [facility](Z-F light Med) TELE CONSULT [id number] Notes Entered by: Gio BLANCO 01 Jul 2020 1027 ------- ------- ------- ------- -- SLEEP STUDY RESULTS JALEN COHEN 07/01 Other Not Elsewhere Classified [facility](Z -Flight Med) [facility](War rior Operation al Medicine A) TELE CONSULT [id number] Notes Entered by: JALEN MUNSON 01 Jul 2020 1053 ------- ------- ------- ------- -- Request ing Sleep Study Results RUDDYDUANE SANCHEZ Krissy 07/01 Referred for Appointment [facility](W arrior Operati onal Medicin e A) [facility](War rior Operation al Medicine A) OUTPATIENT [id number] HC: Sleep study results [phone] MICHELLE CURIEL 07/01 Released w/o Limitations [facility](W arrior Operati onal Medicin e A) [facility](Z-F light Med) TELE CONSULT [id number] Notes Entered by: Maurilio OCONNELL 04 Jul 2020 1011 ------- ------- ------- ------- -- PRP ADHOC JUL 23 WARRIOR SARAHI CALL 07/04 [facility](Z -Flight Med) [place] [address](PRP Admin Qual Cell, [facility]) OUTPATIENT [id number] Notes Entered by: ANDRE DEL RIO 24 Jul 2020 0923 ------- ------- ------- ------- -- PRP Admin Qual ANDRE DEL RIO 07/24 Released w/o Limitations [facility] [place] [address](P RP Admin Qual Cell, [facility]) [place] [address](PRP Admin Qual Cell, [facility]) TELE CONSULT [id number] Notes Entered by: ORLANDO UGALDE 11 Aug 2020 1334 ------- ------- ------- ------- -- THEA Nj e 11 Aug 2020 KURT UGALDE 08/11 Released to Self Care [facility] [place] [address](P RP Admin Qual Cell, RAFB) [address] [place] [address] [facility])(Aud iology Procedure s) OUTPATIENT [id number] ANNUAL [facility] EVERARDO MARKS 05/17 Released w/o Limitations [address] [place] [address] [facility])(A udiolog y Procedu res) [address] [place] [address] [facility])(War rior Op Med Cln Tm A Ad) OUTPATIENT [id number] esequiel myles cough for 2 years F2F KUSH BECKETT 05/20 Released w/o Limitations [address] [place] [address] [facility])(W arrior Op Med Cln Tm A Ad) [address] [place] [address] [facility])(Sco tt Flight Medicine Tm) TELE CONSULT [id number] Notes Entered by: RAAD HONG 03 Jun 2022 1304 ------- ------- ------- ------- -- Jimmy knight/nolan myles notice/ 7days/A SWAPNA THOMAS 06/03 Other Not Elsewhere Classified [address] [place] [address] [facility])(S cott Flight Medicin e Tm) [address] [place] [address] [facility])(War rior Op Med Cln Tm A Ad) OUTPATIENT [id number] #5 rash on limbs PANDA MORIN 06/11 Released w/o Limitations [address] [place] [address] [facility])(W arrior Op Med Cln Tm A Ad) [address] [place] [address] [facility])(War rior Op Med Cln Tm A Ad) TELE CONSULT [id number] Notes Entered by: ALEXEY NI 09 Jul 2022 0908 ------- ------- ------- ------- -- Discuss Referra BEATRICE Mart 07/09 Other Not Elsewhere Classified [facility] [facility])(W arrior Op Med Cln Tm A Ad) [facility] [facility] P[facility])(War rior Op Med Cln Tm A Ad) OUTPATIENT [id number] M4B-Vsj erral Req-[phone] SHARMAINE BEE 07/22 Released w/o Limitations [facility] [employer] [facility]W arrior Op Med Cln Tm A Ad) [id number] [id number] Medgrp-Sc devante Between Visit [id number] 07/06 Discharge Disposition: Home or Self Care 6130C-A f-C-375 Medgrp- Paul 0055C-375 th MEDGRP-Sc [facility] [id number] Anxiety disorde r, unspeci fied JASONSIMMO NS 07/25 Discharge Disposition: Home or Self Care 0055C-3 75th MEDGRP- Paul 0055C-375 th MEDGRP-Sc [facility] [id number] Anxiety disorde r, unspeci fied FREDDY MMENDOZA 08/22 Discharge Disposition: Home or Self Care 0055C-3 75th MEDGRP- Paul 0055C-375 th MEDGRP-Sc devante Between Visit [id number] 08/28 Discharge Disposition: Home or Self Care 0055C-3 75th MEDGRP- Paul 0055C-375 th MEDGRP-Sc [facility] [id number] JASONSIMMO NS 09/04 0055C-[facility] Procedures Combined list of: 1) Procedures from Department of Veterans Affairs facilities going back up to thelast 18 months, not all VA non-surgical procedures are included; 2) All procedures from the Department of Defense facilities. Procedure Procedure Type Code Date Perfomer Gamaliel Sourzhao e Acupuncture, 1 or more needles; without electrical stimulation, initial 15 minutes of personal one-on-one contact with the patient Acupuncture, one or more needles, without electrical stimulation; initial 15 minutes of personal one-on-one contact with the patient [id number]-Af -C-375Th [facility] Acupuncture, 1 or more needles; with electrical stimulation, initial 15 minutes of personal one-on-one contact with the patient Acupuncture, one or more needles, with electrical stimulation; initial 15 minutes of personal one-on-one contact with the patient [id number] 6130-Af -C-375Th Medgrp-S giacomo Acupuncture, 1 or more needles; without electrical stimulation, initial 15 minutes of personal one-on-one contact with the patient Acupuncture, one or more needles, without electrical stimulation; initial 15 minutes of personal one-on-one contact with the patient [id number] 6130- -C-375Th Medgrp-S giacomo Acupuncture, 1 or more needles; without electrical stimulation, initial 15 minutes of personal one-on-one contact with the patient Acupuncture, one or more needles, without electrical stimulation; initial 15 minutes of personal one-on-one contact with the patient [id number] [facility]omo Acupuncture, 1 or more needles; without electrical stimulation, initial 15 minutes of personal one-on-one contact with the patient Acupuncture, one or more needles, without electrical stimulation; initial 15 minutes of personal one-on-one contact with the patient [id number] 5th MEDGRP-S giacomo PURE TONE AUDIOMETRY (THRESHOLD), AUTOMATED; AIR ONLY 2022 [facility] PHYSICAL THERAPY EVALUATION 2009 [facility] WAIVER SERVICES; NOT OTHERWISE SPECIFIED (NOS) 2020 [facility] TELE ASSESS & MGT SRV PROV QUAL NONPHYS HLTH CARE PRO TO EST PAT,PARENT,GUARD NOT ORIG REL ASSESS & MGT SRV PROV W/IN PREV 7 DAYS NOR LEAD ASSESS & MGT SRV/PX W/IN NXT 24 HR/SOON APT;5-10 MIN MED DIS 2020 [facility] POLYSOMNOGRAPHY; AGE 6 YEARS OR OLDER, SLEEP STAGING WITH 4 OR MORE ADDITIONAL PARAMETERS OF SLEEP, ATTENDED BY A TECHNOLOGIST 2020 [facility] SLEEP STUDY, UNATTENDED, SIMULTANEOUS RECORDING; HEART RATE, OXYGEN SATURATION, RESPIRATORY ANALYSIS (EG, BY AIRFLOW OR PERIPHERAL ARTERIAL TONE), AND SLEEP TIME 2020 [facility] TELE ASSESS & MGT SRV PROV [...] TYMPANOMETRY AND REFLEX THRESHOLD MEASUREMENTS 2018 DoD Internet Med Svc Qual Nonphys Healthcare Prof Estab Patient Internet Med Svc Qual Nonphys Healthcare Prof Estab Patient [id number] 2018 BASIL CATHERINE DoD Tympanometry With Reflex Threshold Measurements Tympanometry With Reflex Threshold Measurements 59819 2018 TRENTON GIBBS DoD Comprehensive Audiometry Comprehensive Audiometry 66159 2018 TR[place]ON GIBBS Evoked Otoacoustic Stella ions Comprehensive Evoked Otoacoustic Emissions Comprehensive 30804 2018 TRENTON GIBBS Pulmonary Function Tests Flow Volume Loop Pulmonary Function Tests [place] [address] 2017 VERONIQUE MORALES Internet Med Svc Qual Nonphys Healthcare Prof Estab Patient Internet Med Svc Qual Nonphys Healthcare Prof Estab Patient 47369 2017 EULOGIO RODRIGEZ Exercises A isted Exercises For ROM Exercises Assisted Exercises For ROM 07960 2016 HAO ROMO Occupational Therapy Re-Evaluation Occupational Therapy Re-Evaluation 87754 2016 HAO ROMO Threshold Audiogram (Pure Tone) Automated Threshold Audiogram (Pure Tone) Automated 0208T 2016 LOLLY ART Physical Therapy Education Orthotics Training 2016 HAO ROMO Hand finger orthosis, without joints, may include soft interface, straps, prefabricated, [id number] 2016 HAO ROMO Exercises A isted Exercises For ROM Exercises Assisted Exercises For ROM 59469 2016 HAO ROMO Threshold Audiogram (Pure Tone) Automated Threshold Audiogram (Pure Tone) Automated 0208T [address] [facility] Physical Therapy: ___ Se ion Segments, 15 Minutes Each Physical Therapy: ___ Session Segments, 15 Minutes Each 42708 2015 LEYPAWAN SORIA [facility] Physical Medicine Physical Therapy Re-Evaluation Physical Medicine Physical Therapy Re-Evaluation 99466 2015 LEYPAWAN SORIA [facility] Postoperative Visit, Without Charge Postoperative Visit, Without Charge [address] [facility] Exercises A isted Exercises For ROM Exercises Assisted Exercises For ROM [address] [facility] Physical Therapy: ___ Se ion Segments, 15 Minutes Each Physical Therapy: ___ Session Segments, 15 Minutes Each 68633 2015 LEYPAWAN SORIA [facility] Physical Medicine Physical Therapy Re-Evaluation Physical Medicine Physical Therapy Re-Evaluation 53497 2015 LEYPAWAN SORIA [facility] Physical Therapy Neuromuscular Re-education Physical Therapy Neuromuscular Re-education [address] [facility] Physical Therapy: ___ Se ion Segments, 15 Minutes Each Physical Therapy: ___ Session Segments, 15 Minutes Each 86619 2015 AV SHAUN Pam Exercises A isted Exercises For ROM Exercises Assisted Exercises For ROM 71463 2015 ADRIANA DOMINGUEZ Exercises A isted Exercises For ROM Exercises Assisted Exercises For ROM 43243 2015 ADRIANA DOMINGUEZ Exercises A isted Exercises For ROM Exercises Assisted Exercises For ROM [address] [facility] Physical Therapy: ___ Se ion Segments, 15 Minutes Each Physical Therapy: ___ Session Segments, 15 Minutes Each [address] [facility] Physical Therapy Neuromuscular Re-education Physical Therapy Neuromuscular Re-education [address] [facility] Physical Therapy Neuromuscular Re-education Physical Therapy Neuromuscular Re-education [address] [facility] Physical Therapy: ___ Se ion Segments, 15 Minutes Each Physical Therapy: ___ Session Segments, 15 Minutes Each [address] [facility] Physical Therapy Neuromuscular Re-education Physical Therapy Neuromuscular Re-education 90064 [address] [facility] Physical Therapy: ___ Se ion Segments, 15 Minutes Each Physical Therapy: ___ Session Segments, 15 Minutes Each 72322 2015 ANGELITA CATALAN A Pam Physical Therapy Neuromuscular Re-education Physical Therapy Neuromuscular Re-education 79638 [address] [facility] Physical Therapy: ___ Se ion Segments, 15 Minutes Each Physical Therapy: ___ Session Segments, 15 Minutes Each 26460 2015 ANGELITA CATALAN A Pam Physical Therapy Neuromuscular Re-education Physical Therapy Neuromuscular Re-education 98371 [address] [facility] Physical Therapy: ___ Se ion Segments, 15 Minutes Each Physical Therapy: ___ Session Segments, 15 Minutes Each [address] [facility] Physical Therapy: ___ Se ion Segments, 15 Minutes Each Physical Therapy: ___ Session Segments, 15 Minutes Each 22182 2015 KELLY COATES Physical Therapy: ___ Se ion Segments, 15 Minutes Each Physical Therapy: ___ Session Segments, 15 Minutes Each 48969 2015 PAWAN LEY [facility] Physical Medicine Physical Therapy Re-Evaluation Physical Medicine Physical Therapy Re-Evaluation 54819 [facility]: ___ Se ion Segments, 15 Minutes Each Physical Therapy: ___ Session Segments, 15 Minutes Each 00597 2015 KELLY COATES Modalities Cryotherapy Cold Packs Modalities Cryotherapy Cold Packs 96284 2015 KELLY COATES Physical Therapy: ___ Se ion Segments, 15 Minutes Each Physical Therapy: ___ Session Segments, 15 Minutes Each 92352 2015 KELLY COATES Modalities Cryotherapy Cold Packs Modalities Cryotherapy Cold Packs 90767 2015 KELLY COATES Physical Therapy: ___ Se ion Segments, 15 Minutes Each Physical Therapy: ___ Session Segments, 15 Minutes Each 20675 2015 KELLY COATES Physical Therapy: ___ Se ion Segments, 15 Minutes Each Physical Therapy: ___ Session Segments, 15 Minutes Each 17495 2015 KELLY COATES Physical Therapy: ___ Se ion Segments, 15 Minutes Each Physical Therapy: ___ Session Segments, 15 Minutes Each 77493 2015 KELLY COATES Postoperative Visit, Without Charge Postoperative Visit, Without Charge [address] [facility] Modalities Cryotherapy Cold Packs Modalities Cryotherapy Cold Packs [address] [facility] Physical Therapy: ___ Se ion Segments, 15 Minutes Each Physical Therapy: ___ Session Segments, 15 Minutes Each 98669 2015 YESSENIA HENRY Modalities Vasopneumatic Device Modalities Vasopneumatic Device [address] [facility] Exercises A isted Exercises For ROM Exercises Assisted Exercises For ROM [address] [facility] Physical Therapy: ___ Se ion Segments, 15 Minutes Each Physical Therapy: ___ Session Segments, 15 Minutes Each [address] [facility] Physical Medicine Physical Therapy Evaluation Physical Medicine Physical Therapy Evaluation 76945 2015 LEY, PAWAN III [facility] Interstitial Pre ure Monitoring Interstitial Pressure Monitoring 45941 2015 LEXUS SWENOSN Compartments measured using [place] pressure moniter [facility] Physical Therapy: ___ Se ion Segments, 15 Minutes Each Physical Therapy: ___ Session Segments, 15 Minutes Each [address] [facility] Physical Medicine Physical Therapy Re-Evaluation Physical Medicine Physical Therapy Re-Evaluation 73[address] [facility] Physical Therapy: ___ Se ion Segments, 15 Minutes Each Physical Therapy: ___ Session Segments, 15 Minutes Each [address] [facility] Physical Medicine Physical Therapy Evaluation Physical Medicine Physical Therapy Evaluation 61486 [address] [facility] Physical Medicine Physical Therapy Evaluation Physical Medicine Physical Therapy Evaluation [address] [facility] Non-Physician Phone Call To Pt/Provider Intermed (11-20 min) Non-Physician Phone Call To Pt/Provider Intermed (11-20 min) [address] [facility] Electrocardiogram Electrocardiogram [address] [facility] Fiberoptic Laryngoscopy With Stroboscopy Fiberoptic Laryngoscopy With Stroboscopy [address]64 [place] Pulmonary Function Tests Flow Volume Loop Pulmonary Function Tests Flow Volume Loop [address]695 EVAN OWEN Pulmonary Function MVV Pulmonary Function MVV 40352 EVAN OWEN Non-Physician Phone Call To Pt/Provider Lengthy (21-30 min) Non-Physician Phone Call To Pt/Provider Lengthy (21-30 min) [address] [facility] Sleep Study Unattended Record: Heart Rate, O2 Sat, Resp Analysis, Sleep Time Sleep Study Unattended Record: Heart Rate, O2 Sat, Resp Analysis, Sleep Time 78279 KUSH KWON Non-Physician Phone Call To Patient/Provider Brief (5-10min) Non-Physician Phone Call To Patient/Provider Brief (5-10min) 12519 DUANE BOWLING Waiver services; not otherwise specified (NOS) MICHELLE CURIEL [facility] Threshold Audiogram (Pure Tone) Automated Threshold Audiogram (Pure Tone) Automated 0208T EVERARDO YOUNG [facility] Social History Combined list of available smoking, tobacco, and other social history from Department of Defense and Veterans Affairs facilities. Social History Type Response Date Comment Sourc e Sex Representation Male (finding) 10/01/2020 Un [...] Source Assessment and Plan Extracted from:Title : [facility] Anxiety Author: PANDA MORIN PA Date: [...] 60 tab(s), 0 total refill(s), Maintenance, Pharmacy: [facility] #[id number] [External Rx] buPROPion(Wellbutrin XL 150 mg/24 hours oral tablet, extended release), 1 tab(s), Oral, every 24 hr, # 60 tab(s), 0 total refill(s), Maintenance, Pharmacy: [facility] #[id number] [External Rx] The patient (is not) World Wide Qualified. AM Dispo: Non-Fly Cleared for AFSC/MOS Duties: Y es Cleared for continued service: Yes Cleared for mobility duties: No Cleared for participation in physical fitness program: Yes PHA/MHA/DRHA: UTD Visit deployment related: No Profile Reviewed Yes MEB in progress: No IMR/ASIMS Status: R ed Maj Gio Morin BSC, PAAlisonC [facility] ([facility]) [place] Please note that this dictation was completed with computer voice recognition software, [email or web address]. Quite often unanticipated grammatical, syntax, homophones, and other interpretive errors are inadvertently transcribed by the computer software. Please disregard these errors and excuse any errors that have escaped final proofreading. If are any questions regarding documentation, please contact this provider directly. Extracted from:Title: [facility] Anxiety Author: GINA VARMA PA Date: [...] 0 total refill(s), Maintenance, 30 days, Pharmacy: [facility] #[id number] [External Rx] The patient (is not) World [...] and agreement. GINA VARMA, 1st Lt, PAAlisonC [facility] [place] [address] Extracted from:Title: [facility]-L foot pain/HTN Author: AP BENNETT MD [...] discontinuation precautions Recommended patient follow up with [facility] licensed veterinary technician blood pressure clinic next week, patient verbalized understanding Advised on weight reduction strategies Ordered: amLODIPine(amLODIPine 10 mg oral tablet), 1 tab(s), Oral, Daily, # 90 tab(s), 0 total refill(s), Maintenance, Pharmacy: [facility] [Not filled] 3. [...] Ap Bennett MD Resident, PGY-3 375 MDG, [facility] Family and Community Medicine Program [place], [place] Extracted from:Title: [facility] Lumbago Author: PANDA MORIN PA Date: [...] IRILO in process IMR/ASIMS Status: R ed J katie Morin BSC, PA-C [facility] ([facility]) [place] Please note that this dictation was completed with computer voice recognition software, [email or web address]. Quite often unanticipated grammatical, syntax, homophones, and other interpretive errors are inadvertently transcribed by the computer software. Please disregard these errors and excuse any errors that have escaped final proofreading. If are any questions regarding documentation, please contact this provider directly. Extracted from:Title: [facility] HTN Author: PANDA MORIN PA Date: [...] initiated IMR/ASIMS Status: Todd Morin, BSZhao, PAAlisonC [facility] ([facility]) [place] Please note that this dictation was completed with computer voice recognition software, [email or web address]. Quite often unanticipated grammatical, syntax, homophones, and other interpretive errors are inadvertently transcribed by the computer software. Please disregard these errors and excuse any errors that have escaped final proofreading. If are any questions regarding documentation, please contact this provider directly. Extracted from:Title: [facility] Cough Author: PANDA MORIN PA Date: 01/27/24 1. C Nexmoonic cough VIRTUAL APPT 38-year-old male with chronic [...] and PFT Capt Panda Morin, ROSALIO, PAAlisonC [facility] ([facility]) [place] Please note that this dictation was completed with computer voice recognition software, [email or web address]. Quite often unanticipated grammatical, syntax, homophones, and [...] on a clinical research study at the [facility] for sleep impairment / disturbances. They were treated today according to their randomization per study protocol. Treatment was tolerated well with no complications. Patient was released with no limitations. Addendum by VERONIQUE DENTON MD on September 30, 2023 15:02:52 CDT CPT: 04834 - application of a modality to 1 or more areas; electrical stimulationOn the date of this encounter, I saw and examined the patient, personally verifying the dhillon and critical findings and developed appropriate acupuncture t x plan in accordance with genna mcdowell protocol Maj Veronique Denton MD Family Medicine Physician [facility] [place], [place] Extracted from:Title: [facility] HTN Author: PANDA MORIN PA Date: [...] see above Capt Panda Morin, BSC, PA-C [facility] ([facility]) [place] Please note that this dictation was completed with computer voice recognition software, [email or web address]. Quite often unanticipated grammatical, syntax, homophones, and [...] by the ordering provider. Waylon Goldman, , [facility], Staff Physician Extracted from:Title: Office Clinic [...] Col Rebekah Whyte MD Family Medicine Physician [facility] [place], [place] Extracted from:Title: Optometry-CEE Author: JENNIFER CROFT, [...] his/her ability to perform duties of assigned AFKY, meet deployment standards, meet retention standards, or [...] dose steroid.? O rdered: Determination Refractive State 93010; 05/31/2023 08:13:00 MANAGER BENEFIT ? Ophthalmological Medical Xm&Eval Compre New Pt 1/> Vst 83362; 05/31/2023 08:13:00 MANAGER BENEFIT End of Orders Ordered: lifitegrast ophthalmic(Xiidra 5% ophthalmic solution), 1 drop(s), Eye-Both, BID, # 60 EA, 10 total refill(s), Maintenance, 1 drop(s) Eye-Both BID, Pharmacy: [facility] Extracted from:Title: [facility] R Knee Pain Author: PANDA MORIN [...] Views Right Capt Panda Morin, ROSALIO, PA-C [facility] ([facility]) [place] [employer] Extracted from:Title: [facility] - MEQ Examination Author: BING RUSSELL, Date: 04/27/23 1. C hest pain on [...] Above . //SIGNED// Bing Russell DO, Capt, [employer] Game Programer/Flight Surgeon [facility] Extracted from:Title: [facility] - Asthma Follow-Up Author: KUSH BECKETT PA Date: 01/19/23 1. A [facility] Patient with recent diagnosis of asthma presents to clinic for updates. Patient states that for the past 4 years he has been suffering with chronic cough and chest tightness. Concerned that may have been caused from fungal infection to lungs due to sputum results and requested a second opinion referral to pulmonology. Followed up with second electrical checkout mechanic and was determined that patient does have asthma but an MCT w as required. patient was discontinued on Advair and started on Flovent and states that he has had significant relief with current treatment plan. Patient still uses albuterol as needed. He has follow-up appointment with original electrical checkout mechanic in 1 month for reassessment. Additionally patient [...] 2.0 Referral Request 2.0 Kush Ferraro Physician Supervisor [facility] CLAUDIA Morales Extracted from:Title: Ambulatory Patient Education [...] by: An ear, nose, and throat specialist (orthopedic coder or ENT specialist). A specialist in hearing problems (brand marketing specialist). Noise damage is the most preventable cause [...] a noisy environment, such as: Using a it security project manager or leaf blower. Shooting firearms. Woodworking [...] for Disease Control and Prevention: www.cdc.gov National [place] on Deafness and Other Communication Disorders: www.nidcd.nih.gov [...] 05/10/2018 Document Revised: 05/10/2018 Document Reviewed: 05/10/2018 [employer] Interactive Patient Education 2019 [employer] Future Appointments Appointment Date: 09/04/2024 11:30:00 AM Scheduled Provider: PANDA MORIN Location: [address] [place] [address] Appointment Type: BENJI NEAL 08/31/[address] [place], [place] [address]Paul Assessment and Plan Extracted from:Title : [facility] Anxiety Author: PANDA MORIN PA Date: [...] 60 tab(s), 0 total refill(s), Maintenance, Pharmacy: [facility] #[id number] [External Rx] buPROPion(Wellbutrin XL 150 mg/24 hours oral tablet, extended release), 1 tab(s), Oral, every 24 hr, # 60 tab(s), 0 total refill(s), Maintenance, Pharmacy: [facility] #[id number] [External Rx] The patient (is not) World Wide Qualified. AM Dispo: Non-Fly Cleared for AFSC/MOS Duties: Y es Cleared for continued service: Yes Cleared for mobility duties: No Cleared for participation in physical fitness program: Yes PHA/MHA/DRHA: UTD Visit deployment related: No Profile Reviewed Yes MEB in progress: No IMR/ASIMS Status: R ed Homer J katie Morin, ROSALIO, PAAlisonC [facility] ([facility]) [place] Please note that this dictation was completed with computer voice recognition software, [email or web address]. Quite often unanticipated grammatical, syntax, homophones, and other interpretive errors are inadvertently transcribed by the computer software. Please disregard these errors and excuse any errors that have escaped final proofreading. If are any questions regarding documentation, please contact this provider directly. Extracted from:Title: [facility] Anxiety Author: GINA VARMA PA Date: [...] 0 total refill(s), Maintenance, 30 days, Pharmacy: [facility] #[id number] [External Rx] The patient (is not) World [...] and agreement. GINA VARMA, 1st Lt, PAAlisonC [facility] [place] [address] Extracted from:Title: [facility]-L foot pain/HTN Author: AP BENNETT MD [...] verbalized understanding Ordered: Referral Request 2.0 - [facility] 2. H [place] - Hypertension Chronic, uncontrolled per JNC-8 Repeat automated BP with 152/92 Pt reports home BP's also not controlled Recommend patient increase amlodipine at 10 mg daily Counseled on side effects and discontinuation precautions Recommended patient follow up with [facility] licensed veterinary technician blood pressure clinic next week, patient [...] Ap Bennett MD Resident, PGY-3 375 MDG, [facility] Family and Community Medicine Program [place], [place] Extracted from:Title: [facility] Lumbago Author: PANDA MORIN PA Date: [...] progress: IRILO in process IMR/ASIMS Status: R alfredo Hendricksmons, BSC, PAAlisonC [facility] ([facility]) [place] Please note that this dictation was completed with computer voice recognition software, [email or web address]. Quite often unanticipated grammatical, syntax, homophones, and other interpretive errors are inadvertently transcribed by the computer software. Please disregard these errors and excuse any errors that have escaped final proofreading. If are any questions regarding documentation, please contact this provider directly. Extracted from:Title: [facility] HTN Author: PANDA MORIN PA Date: [...] initiated IMR/ASIMS Status: Todd Morin BSC, JORGE [facility] ([facility]) [place] Please note that this dictation was completed with computer voice recognition software, [email or web address]. Quite often unanticipated grammatical, syntax, homophones, and other interpretive errors are inadvertently transcribed by the computer software. Please disregard these errors and excuse any errors that have escaped final proofreading. If are any questions regarding documentation, please contact this provider directly. Extracted from:Title: [facility] Cough Author: PANDA MORIN PA Date: [...] signs and PFT Capt Panda Morin BSC, PAAlisonC [facility] ([facility]) [place] Please note that this dictation was completed with computer voice recognition software, [email or web address]. Quite often unanticipated grammatical, syntax, homophones, and [...] Clark Rasmussen DO. Family Medicine Physician Capt. FLORI Extracted from:Title: Office Clinic Note Author: KUSH LEONARD Date: 10/20/23 1. E ncounter for examination for normal comparison and control in clinical research program Refer to history of illness, procedure narrative, and patient instructions for information. Addendum by CLARK RASMUSSEN DO on October 20, 2023 15:45:13 CDT I was present and performed ASP placment Clark Rasmussen DO. Family Medicine Physician [employer]. [employer] Extracted from:Title: Office Clinic Note Author: KUSH LEONARD Date: 09/30/23 1. E ncounter for examination for normal comparison and control in clinical research program Patient is participating on a clinical research study at the [facility] for sleep impairment / disturbances. They were treated today according to their randomization per study protocol. Treatment was tolerated well with no complications. Patient was released with no limitations. Addendum by VERONIQUE DENTON MD on September 30, 2023 15:02:52 CDT CPT: 73810 - application of a modality to 1 or more areas; electrical stimulationOn the date of this encounter, I saw and examined the patient, personally verifying the dhillon and critical findings and developed appropriate acupuncture t x plan in accordance with genna mcdowell protocol Maj Veronique Denton MD Family Medicine Physician Сергей grossman [facility] [place], [place] Extracted from:Title: [facility] HTN Author: PANDA MORIN PA Date: [...] Maintenance, 1 tab(s) Oral Daily, Pharmacy: [facility] [Not filled] telmisartan(telmisartan 40 mg oral tablet), 1 tab(s), Oral, Daily, for blood pressure, # 90 tab(s), 3 total refill(s), Maintenance, 1 tab(s) Oral Daily,Instr:for blood pressure, Pharmacy: [facility] [Not filled] Basic Metabolic Panel CBC w/ Diff Comprehensive Metabolic Panel Hemoglobin A1c Lipid Panel Thyroid Stimulating Hormone Urinalysis with Microscopic and Culture if Indicated 2. H ypertensive retinopathy see above Capt CL SarahC, PA-C [facility] ([facility]) [place] Please note that this dictation was completed with computer voice recognition software, [email or web address]. Quite often unanticipated grammatical, syntax, homophones, and [...] followed by the ordering provider. Maj Pam, [facility], Staff Physician Extracted from:Title: Office Clinic [...] Col Rebekah Whyte MD Family Medicine Physician [facility] [place], [place] Extracted from:Title: Optometry-CEE Author: JENNIFER CROFT, [...] dose steroid.? O rdered: Determination Refractive State [id number]; 05/31/2023 08:13:00 MANAGER BENEFIT ? Ophthalmological Medical Xm&Eval Compre New Pt / Vst [id number]; 05/31/2023 08:13:00 MANAGER BENEFIT End of Orders Ordered: lifitegrast ophthalmic(Xiidra 5% ophthalmic solution), 1 drop(s), Eye-Both, BID, # 60 EA, 10 total refill(s), Maintenance, 1 drop(s) Eye-Both BID, Pharmacy: [facility] Extracted from:Title: [facility] R Knee Pain Author: PANDA MORIN [...] Views Right Capt Panda Morin BSC, PA-C [facility] ([facility]) [place] Extracted from:Title: [facility] - MEQ Examination Author: BING RUSSELL DO [...] Above . //SIGNED// Bing Russell DO, Capt, [facility] Game Programer/Flight Surgeon [facility] Extracted from:Title: [facility] - Asthma Follow-Up Author: KUSH BECKETT PA Date: 01/19/23 1. A [facility] Patient with recent diagnosis of asthma presents to clinic for updates. Patient states that for the past 4 years he has been suffering with chronic cough and chest tightness. Concerned that may have been caused from fungal infection to lungs due to sputum results and requested a second opinion referral to pulmonology. Followed up with second electrical checkout mechanic and was determined that patient does have asthma but an MCT w as required. patient was discontinued on Advair and started on Flovent and states that he has had significant relief with current treatment plan. Patient still uses albuterol as needed. He has follow-up appointment with original electrical checkout mechanic in 1 month for reassessment. Additionally patient [...] 2.0 Referral Request 2.0 Kush Ferraro Physician Supervisor [facility] [place] Extracted from:Title: Ambulatory Patient Education Author: EN [...] by: An ear, nose, and throat specialist (orthopedic coder or ENT specialist). A specialist in hearing problems (brand marketing specialist). Noise damage is the most preventable cause [...] a noisy environment, such as: Using a it security project manager or leaf blower. Shooting firearms. Woodworking [...] for Disease Control and Prevention: www.cdc.gov National [place] on Deafness and Other Communication Disorders: www.nidcd.nih.gov [...] 05/10/2018 Document Revised: 05/10/2018 Document Reviewed: 05/10/2018 [employer] Interactive Patient Education 2019 [employer]. Future Appointments Appointment Date: 09/04/2024 11:30:00 AM Scheduled Provider: PANDA MORIN Location: [address] [place] [address] Appointment Type: BENJI [facility] 08/31/2024 [id number] [facility] Assessment and Plan Extracted from:Title : [facility] Anxiety Author: PANDA MORIN PA Date: [...] 60 tab(s), 0 total refill(s), Maintenance, Pharmacy: [facility] #[id number] [External Rx] buPROPion(Wellbutrin XL 150 mg/24 hours oral tablet, extended release), 1 tab(s), Oral, every 24 hr, # 60 tab(s), 0 total refill(s), Maintenance, Pharmacy: [facility] #[id number] [External Rx] The patient (is not) World Wide Qualified. AM Dispo: Non-Fly Cleared for AFSC/MOS Duties: Y es Cleared for continued service: Yes Cleared for mobility duties: No Cleared for participation in physical fitness program: Yes PHA/MHA/DRHA: UTD Visit deployment related: No Profile Reviewed Yes MEB in progress: No IMR/ASIMS Status: R ed Maj Gio Morin BSC, PA-C [facility] ([facility]) [place] Please note that this dictation was completed with computer voice recognition software, [email or web address]. Quite often unanticipated grammatical, syntax, homophones, and other interpretive errors are inadvertently transcribed by the computer software. Please disregard these errors and excuse any errors that have escaped final proofreading. If are any questions regarding documentation, please contact this provider directly. Extracted from:Title: [facility] Anxiety Author: GINA VARMA PA Date: [...] 0 total refill(s), Maintenance, 30 days, Pharmacy: [facility] #[id number] [External Rx] The patient (is not) World [...] and agreement. GINA VARMA, 1st Lt, PAAlisonC [facility] [place] [address] Extracted from:Title: [facility]-L foot pain/HTN Author: AP BENNETT MD [...] verbalized understanding Ordered: Referral Request 2.0 - [facility] 2. H [place] - Hypertension Chronic, uncontrolled per JNC-8 Repeat automated BP with 152/92 Pt reports home BP's also not controlled Recommend patient increase amlodipine at 10 mg daily Counseled on side effects and discontinuation precautions Recommended patient follow up with [facility] licensed veterinary technician blood pressure clinic next week, patient [...] Ap Bennett MD Resident, PGY-3 375 MDG, [facility] Family [facility] Community [facility] [place], [place] Extracted from:Title: [facility] Lumbago Author: PANDA MOIRN PA Date: 03/20/24 1. L umbago 3 [...] Duties: Y es Cleared for continued service: OSMAR in process Cleared for mobility duties: No Cleared for participation in physical fitness program: Yes with restrictions PHA/MHA/DRHA: UTD Visit deployment related: No Profile Reviewed N/A MEB in progress: IRILO in process IMR/ASIMS Status: Yifan Morin BSC, PAAlisonC [facility] ([facility]) [place] Please note that this dictation was completed with computer voice recognition software, [email or web address]. Quite often unanticipated grammatical, syntax, homophones, and other interpretive errors are inadvertently transcribed by the computer software. Please disregard these errors and excuse any errors that have escaped final proofreading. If are any questions regarding documentation, please contact this provider directly. Extracted from:Title: [facility] HTN Author: PANDA MORIN PA Date: [...] IRILO initiated IMR/ASIMS Status: Todd Morin BSC, PAYaneth [facility] ([facility]) [place] Please note that this dictation was completed with computer voice recognition software, [email or web address]. Quite often unanticipated grammatical, syntax, homophones, and other interpretive errors are inadvertently transcribed by the computer software. Please disregard these errors and excuse any errors that have escaped final proofreading. If are any questions regarding documentation, please contact this provider directly. Extracted from:Title: [facility] Cough Author: PANDA MORIN PA Date: [...] and PFT Capt Panda Morin, ROSALIO, PA-C [facility] ([facility]) [place] Please note that this dictation was completed with computer voice recognition software, [email or web address]. Quite often unanticipated grammatical, syntax, homophones, and [...] Clark Rasmussen DO. Family Medicine Physician Capt. FLORI Extracted from:Title: Office Clinic Note Author: KUSH LEONARD Date: 09/30/23 1. E ncounter for examination for normal comparison and control in clinical research program Patient is participating on a clinical research study at the [facility] for sleep impairment / disturbances. They were treated today according to their randomization per study protocol. Treatment was tolerated well with no complications. Patient was released with no limitations. Addendum by VERONIQUE DENTON MD on September 30, 2023 15:02:52 CDT CPT: 67917 - application of a modality to 1 or more areas; electrical stimulationOn the date of this encounter, I saw and examined the patient, personally verifying the dhillon and critical findings and developed appropriate acupuncture t x plan in accordance with s july protocol Maj Veronique Denton MD Family Medicine Physician Сергей grossman [facility] [place], [place] Extracted from:Title: [facility] HTN Author: PANDA MORIN PA Date: [...] ypertensive retinopathy see above Capt Panda Morin, CLC, PA-C [facility] ([facility]) [place] Please note that this dictation was completed with computer voice recognition software, [email or web address]. Quite often unanticipated grammatical, syntax, homophones, and other interpretive errors are inadvertently transcribed by the computer software. Please disregard these errors and excuse any errors that have escaped final proofreading. If are any questions regarding documentation, please contact this provider directly. Extracted from:Title: Office Clinic Note Author: KUSH LEONARD Date: 09/09/23 1. E ncounter for examination for normal [...] followed by the ordering provider. Maj Pam, [facility], Staff Physician Extracted from:Title: Office Clinic Note Author: NAYEKUSH FOLEY Date: 09/02/23 1. E ncounter for examination for normal comparison and control in clinical research program Please refer to procedure narrative and patient instructions for details. Addendum by REBEKAH WHYTE MD on September 05, 2023 14:23:07 CDT On the date of this encounter, I saw and examined the patient, personally completing the history, physical and procedure Lt Col Rebekah Whyte MD Family Medicine Physician [facility] [place], [place] Extracted from:Title: Optometry-CEE Author: JENNIFER CROFT, [...] dose steroid.? O rdered: Determination Refractive State [id number]; 05/31/2023 08:13:00 MANAGER BENEFIT ? Ophthalmological Medical Xm&Eval Compre New Pt 1/> Vst [id number]; 05/31/2023 08:13:00 MANAGER BENEFIT End of Orders Ordered: lifitegrast ophthalmic(Xiidra 5% ophthalmic solution), 1 drop(s), Eye-Both, BID, # 60 EA, 10 total refill(s), Maintenance, 1 drop(s) Eye-Both BID, Pharmacy: [facility] Extracted from:Title: [facility] R Knee Pain Author: PANDA MORIN PA Date: 05/13/23 1. 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 T TP [...] Views Right Capt Panda Morin BSC, PA-C [facility] ([facility]) [place] Extracted from:Title: [facility] - MEQ Examination Author: BING RUSSELL DO [...] Above . //SIGNED// Bing Russell DO, , [facility] Game Programer/Flight Surgeon [facility] Extracted from:Title: [facility] - Asthma Follow-Up Author: KUSH BECKETT PA Date: 01/19/23 1. A [facility] Patient with recent diagnosis of asthma presents to clinic for updates. Patient states that for the past 4 years he has been suffering with chronic cough and chest tightness. Concerned that may have been caused from fungal infection to lungs due to sputum results and requested a second opinion referral to pulmonology. Followed up with second electrical checkout mechanic and was determined that patient does have asthma but an MCT w as required. patient was discontinued on Advair and started on Flovent and states that he has had significant relief with current treatment plan. Patient still uses albuterol as needed. He has follow-up appointment with original electrical checkout mechanic in 1 month for reassessment. Additionally patient [...] 2.0 Referral Request 2.0 Kush Ferraro Physician Supervisor [facility] CLAUDIA Morales Extracted from:Title: Ambulatory Patient Education [...] by: An ear, nose, and throat specialist (orthopedic coder or ENT specialist). A specialist in hearing problems (brand marketing specialist). Noise damage is the most preventable cause [...] a noisy environment, such as: Using a it security project manager or leaf blower. Shooting firearms. Woodworking [...] for Disease Control and Prevention: www.cdc.gov National [place] on Deafness and Other Communication Disorders: www.nidcd.nih.gov [...] 05/10/2018 Document Revised: 05/10/2018 Document Reviewed: 05/10/2018 [employer] Interactive Patient Education 2019 [employer] Future Appointments Appointment Date: 09/04/2024 11:30:00 AM Scheduled Provider: PANDA MORIN Location: [address] [place] [address] Appointment Type: BENJI NE[facility] 08/31/[address] [place] [address] Functional Status Combined list of recent functional and cognitive assessments recorded at [employer] and [employer] (VA).VA Functional [place] Measurement (FIM) Scale: 1 = Total Assistance (Subject = 0% +), 2 = Maximal Assistance (Subject = 25% +), 3 = Moderate Assistance (Subject = 50% +), 4 = Minimal Assistance (Subject = 75% +), 5 = Supervision, 6 = Modified [place] (Device), 7 = Complete [place] (Timely, Safely). Assessment Date/Time Source Assessment Type Assessment Skill Assessment Score Assessment Details No data available for this section
[2024-08-31 08:11] VITALS: BP 128/72; PULSE 68; RESP 19; TEMP 36.6; O2SAT 95
--- OUTSIDE RECORDS SUMMARY | 2024-08-31 08:11 | XMS_ITS | Patient Health Record ---
Author Organization [facility] ([address]) Address [address] [place] [address] Care Team Providers Care Air Turning Machine Feeder Name Role Phone Panda Morin Primary Care Provider UnavailAniceto Shaver Unavailable [phone] Jose D Queen Unavailable Unavailable Trav Doan Unavailable [phone] Jennifer Coley Unavailable [phone] [facility], Provider Unavailable Unavailab le Allergies No Known Allergies Reason For Referral Reason R053 Referring Provider First Name Panda Referring Provider Last Name Morin Referred Organization [facility] Referred Provider Aniceto Stone Referred Address [address] [place], [place],[address],[place] Referred Provider Specialty Allergy/Immu nology Referral Priority Routine Medications Medication SIG (Take, Route, Frequency, Duration) Notes Start Date End Date Status FLUTICASONE NASAL 50 mcg/inh 2 spray(s) in each nostril twice a day for 90 days Active MONTELUKAST 10 mg 1 tab(s) orally once a day for 90 days Active Azelastine-Fluticasone 137-50 MCG/ACT 2 spray(s) intranasally 2 times a day Active Escitalopram Oxalate 10 MG 1 tablet Orally Once a day Active Fluticasone Propionate 50 MCG/ACT 2 spray(s) in each nostril twice a day for 30 days Active hydroCHLOROthiazide 25 MG 1 tablet in the morning Orally Once a day Active amLODIPine Besylate 2.5 MG 1 tablet Orally Once a day for 30 day(s) 09/20/2023 Active CETIRIZINE 10 mg 1 tab(s) orally once a day for 90 days Active Telmisartan 40 MG 1 tablet Orally Once a day for 30 day(s) 09/20/2023 Active FLUTICASONE NASAL 50 mcg/inh 2 spray(s) in each nostril twice a day for 90 days Active SIT (CLUSTER) variable per schedule per schedule for 999 days Active Fluticasone Propionate 50 MCG/ACT 2 spray(s) in each nostril twice a day for 90 days Active NASAL WASHES N/A as directed intranasally as needed for 30 days Active Azelastine HCl 137 MCG/SPRAY 2 spray(s) intranasally 2 times a day for 90 days Active FLUTICASONE 220 mcg/inh 2 puff(s) inhale d 2 times a day for 30 days Active Fluticasone Propionate (Inhal) 220 MCG/INH 2 PUFF(S) INHALED 2 TIMES A DAY for 30 DAYS *Please review and pick correct strength-formula tion from [employer] options. If intended option is not shown, [...] a day for 90 days 07/09/2024 Active EpiPen 2-Wilfrido 0.3 mg as directed intramuscularly once for 30 days Active MONTELUKAST 10 mg 1 tab(s) orally once a day for 90 days 07/19/2023 Active EPIPEN 2-WILFRIDO 0.3 mg as directed intramuscularly once for 30 days Active Social History Tobacco Use: Social History [...] Status Risk Notes Problem Chronic allergic conjunctivitis (72959470) Other chronic allergic conjunctivitis (H10.45) Active confirmed Problem Allergic rhinitis caused by pollen (disorder) (02631928) Allergic rhinitis due to pollen (J30.1) Active confirmed Problem Allergic rhinitis (26751248) Other allergic rhinitis (J30.89) Active confirmed Problem Allergic rhinitis caused by animal hair and dander (180016056907592) Allergic rhinitis due to animal (cat) (dog) hair and dander (J30.81) Active confirmed Problem Chronic cough (64346985) Chronic cough (R05.3) Active confirmed Vital Signs Oximetry 96 % 07/09/2024 Blood pressure diastolic 78 mm Hg 07/09/2024 Height 66 in 07/09/2024 Blood pressure systolic 130 mm Hg 07/09/2024 Weight 208.0 lbs 07/09/2024 BMI 33.57 kg/m2 07/09/2024 Encounters Encounter Location Date Provider Diagnosis [address] [address] 09/17/2023 Provider [facility] Allergic rhinitis due to pollen J30.1 and Chronic cough R05.3 [facility] [address] [place] [phone] 01/24/2024 Trav Doan Allergic rhinitis du e to pollen J30.1 ; Other allergic rhinitis J30.89 ; Allergic rhinitis due to animal (cat) (dog) hair and dander J30.81 and Other chronic allergic conjunctivitis H10.[address] [address] 01/31/2024 Trav Doan Allergic rhinitis du e to pollen J30.1 ; Other allergic rhinitis J30.89 ; Allergic rhinitis due to animal (cat) (dog) hair and dander J30.81 and Other chronic allergic conjunctivitis H10.[address] [address] 09/20/2023 Jennifer Coley Allergic rhinitis du e to pollen J30.1 ; Allergic rhinitis due to animal (cat) (dog) hair and dander J30.81 ; Other allergic rhinitis J30.89 ; Other chronic allergic conjunctivitis H10.45 ; Chronic cough R05.3 and Elevated blood-pressure reading, without diagnosis of hypertension R03.0 [facility] [address] [place] [address] [address] 09/29/2023 Trav Doan Allergic rhinitis du e to pollen J30.1 ; Allergic rhinitis due to animal (cat) (dog) hair and dander J30.81 ; Other allergic rhinitis J30.89 and Other chronic allergic conjunctivitis H10.45 [facility] [address] [place] [phone] 10/05/2023 Trav Doan Allergic rhinitis du e to pollen J30.1 ; Other allergic rhinitis J30.89 ; Allergic rhinitis due to animal (cat) (dog) hair and dander J30.81 and Other chronic allergic conjunctivitis H10.45 [facility] [address] [place] [address] [address] 10/11/2023 Trav Doan Allergic rhinitis du e to pollen J30.1 ; Other allergic rhinitis J30.89 ; Allergic rhinitis due to animal (cat) (dog) hair and dander J30.81 and Other chronic allergic conjunctivitis H10.45 [facility] [address] [place] [address] [address] 10/20/2023 Trav Doan Allergic rhinitis du e to pollen J30.1 ; Other allergic rhinitis J30.89 ; Allergic rhinitis due to animal (cat) (dog) hair and dander J30.81 and Other chronic allergic conjunctivitis H10.45 [facility] [address] [place] [address] [address] [place] [phone] 10/27/2023 Trav Doan Allergic rhinitis du e to pollen J30.1 ; Other allergic rhinitis J30.89 ; Allergic rhinitis due to animal (cat) (dog) hair and dander J30.81 and Other chronic allergic conjunctivitis H10.45 [facility] [address] [place] [address] [address] 11/10/2023 Trav Doan Allergic rhinitis du e to pollen J30.1 ; Other allergic rhinitis J30.89 ; Allergic rhinitis due to animal (cat) (dog) hair and dander J30.81 and Other chronic allergic conjunctivitis H10.45 [facility] [address] [place] [phone] 11/24/2023 Trav Doan Allergic rhinitis du e to pollen J30.1 ; Other allergic rhinitis J30.89 ; Allergic rhinitis due to animal (cat) (dog) hair and dander J30.81 and Other chronic allergic conjunctivitis H10.45 [facility] [address] [place] [phone] 12/07/2023 Trav Doan Allergic rhinitis du e to pollen J30.1 ; Other allergic rhinitis J30.89 ; Allergic rhinitis due to animal (cat) (dog) hair and dander J30.81 and Other chronic allergic conjunctivitis H10.45 [facility] [address] [place] [phone] 12/21/2023 Trav Doan Allergic rhinitis du e to pollen J30.1 ; Other allergic rhinitis J30.89 ; Allergic rhinitis due to animal (cat) (dog) hair and dander J30.81 and Other chronic allergic conjunctivitis H10.45 [facility] [address] [place] [phone] 01/19/2024 Trav Doan Allergic rhinitis du e to pollen J30.1 ; Other allergic rhinitis J30.89 ; Allergic rhinitis due to animal (cat) (dog) hair and dander J30.81 and Other chronic allergic conjunctivitis H10.45 [facility] [address] [place] [phone] 02/21/2024 Trav Doan Allergic rhinitis du e to pollen J30.1 ; Other allergic rhinitis J30.89 ; Allergic rhinitis due to animal (cat) (dog) hair and dander J30.81 and Other chronic allergic conjunctivitis H10.45 [facility] [address] [place] [phone] 03/20/2024 Trav Doan Allergic rhinitis du e to pollen J30.1 ; Other allergic rhinitis J30.89 ; Allergic rhinitis due to animal (cat) (dog) hair and dander J30.81 and Other chronic allergic conjunctivitis H10.45 [facility] [address] [place] [phone] 04/17/2024 Trav Doan Allergic rhinitis du e to pollen J30.1 ; Other allergic rhinitis J30.89 ; Allergic rhinitis due to animal (cat) (dog) hair and dander J30.81 and Other chronic allergic conjunctivitis H10.45 [facility] [address] [place] [phone] 06/12/2024 Trav Doan Allergic rhinitis du e to pollen J30.1 ; Other allergic rhinitis J30.89 ; Allergic rhinitis due to animal (cat) (dog) hair and dander J30.81 and Other chronic allergic conjunctivitis H10.45 [facility] [address] [place] [phone] 07/09/2024 Jennifer Coley Allergic rhinitis du e to pollen J30.1 ; Allergic rhinitis due to animal (cat) (dog) hair and dander J30.81 ; Other allergic rhinitis J30.89 ; Other chronic allergic conjunctivitis H10.45 ; Chronic cough R05.3 and Elevated blood-pressure reading, without diagnosis of hypertension R03.0 [facility] [address] [place] [phone] 07/17/2024 Trav Doan Allergic rhinitis du e to pollen J30.1 ; Other allergic rhinitis J30.89 ; Allergic rhinitis due to animal (cat) (dog) hair and dander J30.81 and Other chronic allergic conjunctivitis H10.45 [facility] [address] [place] [phone] 08/13/2024 Trav Doan Allergic rhinitis du e to pollen J30.1 ; Other allergic rhinitis J30.89 ; Allergic rhinitis due to animal (cat) (dog) hair and dander J30.81 and Other chronic allergic conjunctivitis H10.[address] [address] 09/07/2023 Aniceto Stone [facility] [address] [place] [phone] 06/28/2024 Aniceto Stone Assessments Encounter Date Diagnosis (ICD Code) Assessment Notes Treatment Notes Treatment Clinical Notes Section Notes 09/17/2023 Allergic rhinitis due to pollen (ICD-10 [...] 07/17/2024 Other allergic rhinitis (ICD-10 - J30.89) 08/13/2024 Allergic rhinitis due to pollen (ICD-10 - J30.1) 08/13/2024 Other allergic rhinitis (ICD-10 - J30.89) 08/13/2024 Allergic rhinitis due to animal (cat) (dog) hair and dander (ICD-10 - J30.81) 07/17/2024 Allergic rhinitis due to animal (cat) [...] as an adjunctive treatment to current regimen 10/05/2023 Other chronic allergic conjunctivitis (ICD-10 - [...] and continue SCIT as an adjunctive measure 08/13/2024 Other chronic allergic conjunctivitis (ICD-10 - H10.45) 07/17/2024 Other chronic allergic conjunctivitis (ICD-10 - 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 Reports PFT in May that was normal. 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 Reports PFT in May that was normal. [...] H10.45) 09/17/2023 Chronic cough (ICD-10 - R05.3) 09/20/2023 Elevated blood-pressure reading, without diagnosis of hypertension (ICD-10 - R03.0) BP elevated today without symptoms of urgency or emergency. Continue serial checks and follow-up with PCP 07/09/2024 Elevated blood-pressure reading, without diagnosis of hypertension (ICD-10 - R03.0) BP elevated today without symptoms of urgency or emergency. Continue serial checks and follow-up with PCP 09/29/2023 Other Plan Of Treatment Next Appt Details Provider Name:Trav BurnetteJeffrey Doan , 09/10/2024 04:40:00 PM, [address] [facility], [address], [place], [address], Insurance Providers Payer Name Payer Address Payer Phone Subscriber Number Group Number Insured Name Patient Relationship to Insured Coverage Start Date Coverage End Date [facility] [address] [phone] [id number] Jose Elias Vela Self - patient is the insured Medical (General) History Medical History History ICD Code Chronic cough R05.3 Allergic rhinitis due to animal (cat) (d og) hair and dander J30.81 Other allergic rhinitis J30.89 Other chronic allergic conjunctivitis H1 0.45 Allergic rhinitis due to pollen J30.1 Surgical History Surgery Date(Month/Year) [place] teeth removal 2009 Sinoplasty 09/2023 Ceptoplasty 09/2023
--- OUTSIDE RECORDS SUMMARY | 2024-08-31 08:15 | XMS_ITS | Continuity of Care Document ---
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 It does not include entries that were removed or entered in error. 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 7654V-Mm-X-[facility] Pain in lower limb Active 024 Condition 9533Z-Uh-H-[facility] Tear film insufficiency4 Active Condition Outside Source Comment: Last Assessment & Plan: Moderate SARAHI both eyes (OU), Art tears daily, monitor 8585B-Gt-S-[facility] Chronic cough Active 024 Condition 4755Q-Ho-O-[facility] Chronic sinusitis Active 024 Condition 4162U-Nl-T-[facility] EXAM/ASSESSMENT, OCCUPATIONAL, FOR INDIVIDUAL IN [...] of subpopulation Inactive Condition See DD From 0222 DoD visit for: services physical Inactive Condition visit for: services physical (INITIAL POST-DEPLOYMEN T ASSESSMENT: DOCUMENTED ON [id number]): No referral, member is to f/u as [...] Active Condition Unknow n Organization EXAM/ASSESSMENT, OCCUPATIONAL, TOBACCO BALER PERIODIC HEALTH ASSESSMENT (PHA) Active Condition -[facility] Hyperlipidemia Active Condition -3 [facility] Hypertension Active Condition -[facility] Hypertensive retinopathy Active Condition 54M-[facility] Prediabetes Active Condition -375[facility] Rash Active Condition 6640K-KN-N-42 nd [facility] Choudhury splint3 Active Condition Outside Source Comment: assured pt. gave handout op excercises for choudhury splints. f/u prn or sooner if sx's worsens. 8640[facility]Bw[facility] Medications Combined list of outpatient medications from Department of Defense and Veterans Affairs facilities.Medications provided include 1) outpatient medications from the last 15 months, and 2) patient-reported medications. Medication Details Route Status Patient Instructions Prescription Expires Prescription Number Last Dispense Date Ordering Provider Order Date Order Qty Source AZELASTINE HCL (AZELASTINE HCL), 137 MCG, SPRAY/PUMP, NASAL, APOTEX ANGELINE, 30 ml SQUEEZ BTL Active [id number] 4 2023 90 Pharmac y Data Transac tion Service Facilit y AZELASTINE HCL (AZELASTINE HCL), 137 MCG, SPRAY/PUMP, NASAL, APOTEX ANGELINE, 30 ml SQUEEZ BTL Active [id number] 4 2023 30 Pharmac y Data Transac tion Service Facilit y CETIRIZINE HCL (cetirizine HCl), 10 MG, TABLET, ORAL, 'S LAB, 500 ea. BOTTLE Active [id number] 4 2023 90 Pharmac y Data Transac tion Service Facilit y CETIRIZINE HCL (cetirizine HCl), 10 MG, TABLET, ORAL, 'S LAB, 500 ea. BOTTLE Active [id number] 4 2023 90 Pharmac y Data Transac tion Service Facilit y CETIRIZINE HCL (cetirizine HCl), 10 MG, TABLET, ORAL, 'S LAB, 500 ea. BOTTLE Active [id number] 4 2023 30 Pharmac y Data Transac tion Service Facilit y EPINEPHRINE (epinephrin e), 0.3MG/0.3, AUTO INJCT, INJECTION, MYLAN SPECIALTY, 2 ea. SYRINGE Active [id number] 4 2023 2 Pharmac y Data Transac tion Service Facilit y FLUTICASONE PROPIONATE (FLUTICASON E PROPIONATE) , 50MCG, SPRAY SUSP, NASAL, LESLIE LABS., 16 g AER W/ADAP Active [id number] 4 2023 48 Pharmac y Data Transac tion Service Facilit y FLUTICASONE PROPIONATE (FLUTICASON E PROPIONATE) , 50MCG, SPRAY SUSP, NASAL, LESLIE LABS., 16 g AER W/ADAP Active [id number] 4 2023 48 Pharmac y Data Transac tion Service Facilit y FLUTICASONE PROPIONATE (FLUTICASON E PROPIONATE) , 50MCG, SPRAY SUSP, NASAL, LESLIE LABS., 16 g AER W/ADAP Active [id number] 4 2023 16 Pharmac y Data Transac tion Service Facilit y FLUTICASONE PROPIONATE HFA (fluticason e propionate) , 220 MCG, AER W/ADAP, INHALATION, PRASCO LABS, 12 g AER W/ADAP Cancele d [id number] : 2023 0 Pharmac y Data Transac tion Service Facilit y FLUTICASONE PROPIONATE HFA (fluticason e propionate) , 220 MCG, AER W/ADAP, INHALATION, PRASCO LABS, 12 g AER W/ADAP Cancele d [id number] : 2023 0 Pharmac y Data Transac tion Service Facilit y HYDROCODONE -ACETAMINOP HEN (HYDROCODON E/ACETAMINO PHEN), 7.5-325MG, TABLET, ORAL, MALLINCKROD T PH, 500 ea. BOTTLE Active [id number] 4 2023 28 Pharmac y Data Transac tion Service Facilit y LORATADINE (LORATADINE ), 10 MG, TABLET, ORAL, NOVARTIS CONSUM, 30 ea. BLIST PACK Cancele d [id number] : 2023 0 Pharmac y Data Transac tion Service Facilit y MONTELUKAST SODIUM (MONTELUKAS T SODIUM), 10 MG, TABLET, ORAL, CAMBER PHARMACE, 1000 ea. BOTTLE Active [id number] 4 2023 90 Pharmac y Data Transac tion Service Facilit y telmisartan (U/D) 40 MG ORAL TAB Be careful if taking OTCs.Samm e or use exactly as directed .Do not take if . Active 09/15/2024 [id number] 2023 90 [facility] [place] ([facility] Allergies, Adverse Reactions, Alerts Combined list of [...] Site Reaction Lot Number CVX Code Drug Stonecutter Hand Status Comments Source influenza virus vaccine, inactivated 2022 ANNY Vasquez luis, right (delt oid) [id number] 150 [email or web address] complet ed influenza virus vaccine, inactivat ed 01/19/23 Given 0055C-3 [facility] influenza, injectable, quadrivalent- pf 2022 CAPTCHRISTOPH ERRWEISGARBER [id number] 150 complet ed Result Comment: Route: Unknown Manufactu rer: OT (SEQ) 6130C-A f-C-375 Th [facility] yellow fever vaccine 1 2022 [id number] 37 Sanofi Pasteur ([facility]) complet ed yellow fever vaccine DoD typhoid Vi capsular polysaccharid e vaccine 3 2022 [id number] 101 Sanofi Pasteur (PMC) complet ed typhoid Vi capsular polysacch aride vaccine DoD meningococcal oligosacchari de (groups A, C, Y and W-135) diphtheria toxoid conjugate vaccine (MCV4O) 2 2022 [id number] 136 [employer] (SKB) complet ed meningoco ccal oligosacc haride (groups A, C, Y and W-135) diphtheri a toxoid conjugate vaccine (MCV4O) DoD yellow fever vaccine 2022 CAPTCHRISTOPH ERRWEISGARBER [id number] 37 complet ed Result Comment: Route: Unknown Manufactu rer: Sanofi Pasteur (PMC) 6130C-A f-C-375 Th [facility] [place] typhoid Vi capsular polysaccharid e vac 2022 CAPTCHRISTOPVasile CHENISGARBER [id number] 101 complet ed Result Comment: Route: Unknown Manufactu rer: [employer] ([facility]) 6130C-A f-C-375 [facility] [place] meningococcal oligosacchari de (MCV4O) 2022 CAPTELGINRISTOPVasile CHENISGARBER [id number] 136 complet ed Result Comment: Route: Unknown Manufactu rer: Conatus Pharmaceuticalsjericho [employer]it ([facility]) 6130C-A f-C-375 [facility] [place] tetanus and diphtheria toxoids, adsorbed, preservative free, for adult use (2 Lf of tetanus toxoid and 2 Lf of diphtheria toxoid) 3 2022 [id number] 09 [employer] ([facility]) complet ed tetanus and diphtheri a toxoids, adsorbed, preservat mark free, for adult use (2 Lf of tetanus toxoid and 2 Lf of diphtheri a toxoid) [facility] tetanus-dipht h toxoids (Td) adult/adol 2022 CAPTCHRISTOPVasile CHENISGARBER [id number] 09 complet ed Result Comment: Route: Unknown Manufactu rer: [employer] Pasteur ([facility]) 6130C-A f-C-375 [facility] [place] Influenza, injectable, quadrivalent, preservative free 0 2021 [id number] 150 [facility] ([facility] complet ed Influenza , injectabl e, quadrival ent, preservat mark free [facility] influenza, injectable, quadrivalent- pf 2021 CAPTCHRISTOPVasile CHENISGARBER [id number] 150 complet ed Result Comment: Route: Unknown Manufactu rer: [employer] Pharm[employer] ([facility]) 6130C-A f-C-375 Th [facility] [place] COVID Vaccine Pfizer 2021 YOMAIRA Vasquez luis, right (delt oid) [id number] 208 P[employer]ER complet ed COVID Vaccine Pfizer 05/01/21 Given 0083C-K [facility] SARS-COV-2 (COVID-19) vaccine, mRNA, spike protein, LNP, preservative free, 30 mcg/0.3mL dose 3 2021 [id number] 208 [employer] Inc (PFR) complet ed SARS-COV- 2 (COVID-19 ) vaccine, mRNA, spike protein, LNP, preservat mark free, 30 mcg/0.3mL dose DoD influenza virus vaccine, inactivated 2020 LEVARSUNILJADON Christina luis, right (delt oid) [id number] 150 [facility] complet ed influenza virus vaccine, inactivat ed 01/09/21 Given 0083C-K [facility] Influenza, injectable, quadrivalent, preservative free 0 2020 [id number] 150 [employer] ([facility]) complet ed Influenza , injectabl e, quadrival ent, preservat mark free DoD influenza, injectable, quadrivalent- pf 2020 CAPTCHRISTOPH JACKLYNWEROLANDOBER [id number] 150 complet ed Result Comment: Route: Unknown Manufactu rer: John [employer]roe ([facility]) 6130C-A f-C-375 Th [facility] COVID Vaccine Pfizer 2020 [id number] 208 P[employer] complet ed COVID Vaccine Pfizer 07/29/20 Given Ambulat ory Pharmac y SARS-COV-2 (COVID-19) vaccine, mRNA, spike protein, LNP, preservative free, 30 mcg/0.3mL dose 2 2020 [id number] 208 [employer], [employer] (PFR) complet ed SARS-COV- 2 (COVID-19 ) vaccine, mRNA, spike protein, LNP, preservat mark free, 30 mcg/0.3mL dose DoD COVID Vaccine Pfizer 2020 [id number] 208 P[employer]ER complet ed COVID Vaccine Pfizer 07/08/20 Given Ambulat ory Pharmac y COVID Vaccine Pfizer 2020 [id number] 208 P[employer]ER complet ed COVID Vaccine Pfizer 07/08/20 Given Ambulat ory Pharmac y SARS-COV-2 (COVID-19) vaccine, mRNA, spike protein, LNP, preservative free, 30 mcg/0.3mL dose 1 2020 [id number] 208 [employer], [employer] (PFR) complet ed SARS-COV- 2 (COVID-19 ) [...] free, quadrival ent DoD Influenza, injectable, Madin Tabor Canine Kidney, quadrivalent with preservative 0 2019 186 [employer] (SEQ) comple t ed Influenza , injectabl e, Madin Tabor Canine Kidney, quadrival ent with preservat mark DoD influenza virus vaccine, inactivated 2019 GIULIANO MIN 88 complet ed Result Comment: Route: Unknown Manufactu rer: [employer] (SEQ) 6130C-A f-C-375 Th [facility] influenza, injectable, quadrivalent- pf 2018 [id number] 040 150 [employer] complet ed influenza , injectabl e, quadrival ent-pf 01/16/19 Given Ambulat ory Pharmac y influenza, injectable, quadrivalent- pf 2018 [id number] 040 150 [employer] complet ed influenza , injectabl e, quadrival ent-pf 01/16/19 Given Ambulat ory Pharmac y Influenza, injectable, quadrivalent, preservative free 0 2018 [id number] 040 150 [employer] (SEQ) complet ed Influenza , injectabl e, quadrival ent, preservat mark free DoD influenza, injectable, quadrivalent- pf 2017 [id number] 150 [employer] complet ed influenza , injectabl e, quadrival ent-pf 01/25/18 Given Ambulat ory Pharmac y influenza, injectable, quadrivalent- pf 2017 [id number] 150 [employer] complet ed influenza , injectabl e, quadrival ent-pf 01/25/18 Given Ambulat ory Pharmac y Influenza, injectable, quadrivalent, preservative free 13 2017 [id number] 150 [employer] (SEQ) comple t ed Influenza [...] preservat mark DoD influenza, seasonal, injectable-pf 2014 [id number] 140 CSL Behring complet ed influenza , seasonal, injectabl e-pf 01/17/15 Given Ambulat ory Pharmac y influenza, seasonal, injectable-pf 2014 [id number] 140 CSL Behring complet ed influenza , seasonal, injectabl e-pf 01/17/15 Given Ambulat ory Pharmac y Influenza, seasonal, injectable, preservative free 0 2014 [id number] 140 [employer]. (CSL) complet ed Influenza , seasonal, injectabl e, preservat mark free DoD influenza, seasonal, injectable-pf 2013 [id number] 140 Novartis Pharmaceutica ls complet ed influenza , seasonal, injectabl e-pf 01/15/14 Given Ambulat ory Pharmac y influenza, seasonal, injectable-pf 2013 [id number] 140 Novartis Pharmaceutica ls complet ed influenza , seasonal, injectabl e-pf 01/15/14 Given Ambulat ory Pharmac y Influenza, seasonal, injectable, preservative free 0 2013 [id number] 140 Novartis [employer] rVue Angeline. (NOV) complet ed Influenza , seasonal, injectabl e, preservat mark free DoD anthrax vaccine 2013 [id number] 24 [employer] complet ed anthrax vaccine 01/08/14 Given Ambulat ory Pharmac y anthrax vaccine 2013 [id number] 24 [employer] complet ed anthrax vaccine 01/08/14 Given Ambulat ory Pharmac y anthrax vaccine 4 2013 [id number] 24 [employer] Jorden (MIP) complet ed anthrax vaccine DoD typhoid Vi capsular polysaccharid e vac 2013 J1201 101 sanofi pasteur complet ed typhoid Vi capsular polysacch aride vac 06/18/13 Given Ambulat ory Pharmac y anthrax vaccine 2013 [id number] 24 [employer] complet ed anthrax vaccine 06/18/13 Given Ambulat ory Pharmac y typhoid Vi capsular polysaccharid e vac 2013 J1201 101 sanofi pasteur complet ed typhoid Vi capsular polysacch aride vac 06/18/13 Given Ambulat ory Pharmac y anthrax vaccine 2013 [id number] 24 [employer] complet ed anthrax vaccine 06/18/13 Given Ambulat ory Pharmac y anthrax vaccine 3 2013 [id number] 24 [employer] Gabriels (MIP) complet ed anthrax vaccine DoD typhoid Vi capsular polysaccharid e vaccine 2 2013 J1201 101 Sanofi Pasteur ([facility]) complet ed typhoid Vi capsular polysacch aride vaccine DoD influenza, live, intranasal,qu adrivalent 2012 [id number] 149 Medimmune Inc comple t ed influenza , live, intranasa l,quadriv alent 12/20/12 Given Ambulat ory Pharmac y influenza, live, intranasal,qu adrivalent 2012 [id number] 149 Medimmune Inc comple t ed influenza , live, intranasa l,quadriv alent 12/20/12 Given Ambulat ory Pharmac y influenza, live, intranasal, quadrivalent 8 2012 [id number] 149 MedImmune, Inc. (MED) complet ed influenza , live, intranasa l, quadrival ent DoD tetanus, diphtheria, acellular pertu is 2012 [id number] 7AA 115 GlaxoSmithKli ne complet ed tetanus, diphtheri a, acellular pertussis 05/05/12 Given Ambulat ory Pharmac y tetanus, diphtheria, acellular pertu is 2012 [id number] 7AA 115 GlaxoSmithKli ne complet ed tetanus, diphtheri a, acellular pertussis 05/05/12 Given Ambulat ory Pharmac y tetanus toxoid, reduced diphtheria toxoid, and acellular pertu is vaccine, adsorbed 0 2012 [id number] 7AA 115 [facility] (B) complet ed tetanus toxoid, reduced diphtheri a toxoid, and acellular pertussis vaccine, adsorbed DoD influenza virus vaccine, live 2011 [id number] 111 Medimmune Inc comple t ed influenza virus vaccine, live 01/13/12 Given Ambulat ory Pharmac y influenza virus vaccine, live 2011 [id number] 111 Medimmune Inc comple t ed influenza virus vaccine, live 01/13/12 Given Ambulat ory Pharmac y influenza virus vaccine, live, attenuated, for intranasal use 0 2011 [id number] 111 MedImmune, Inc. (MED) complet ed influenza virus vaccine, live, attenuate d, for intranasa l use DoD influenza virus vaccine, live 2009 [id number] 111 Medimmune Inc comple t ed influenza virus vaccine, live 01/06/10 Given Ambulat ory Pharmac y influenza virus vaccine, live 2009 [id number] 111 Medimmune Inc comple t ed influenza virus vaccine, live 01/06/10 Given Ambulat ory Pharmac y influenza virus vaccine, live, attenuated, for intranasal use 1 2009 [id number] 111 MedImmune, Inc. (MED) complet ed influenza virus vaccine, live, attenuate d, for intranasa l use DoD Novel influenza-H1N 1-09,pf,injec table 2009 [id number] 1 126 Novartis Pharmaceutica ls complet ed Novel influenza -C0M0-64, pf,inject able 04/16/09 Given Ambulat ory Pharmac y Novel Influenza-H1N 1-09,live virus,nasal 2009 [id number] 125 Medimmune Inc comple t ed Novel Influenza -V9Z3-93, live virus,josh al 04/16/09 Given Ambulat ory Pharmac y Novel influenza-H1N 1-09,pf,injec table 2009 [id number] 1 126 Novartis Pharmaceutica ls complet ed Novel influenza -P8M1-25, pf,inject able 04/16/09 Given Ambulat ory Pharmac y Novel Influenza-H1N 1-09,live virus,nasal 2009 [id number] 125 Medimmune Inc comple t ed Novel Influenza -P3Q8-67, live virus,josh al 04/16/09 Given Ambulat ory Pharmac y Novel Influenza-H1N 1-09, live virus for nasal administratio n 1 2009 [id number] 125 MedImmune, Inc. (MED) complet ed Novel Influenza -W2Z7-41, live virus for nasal administr ation DoD Novel influenza-H1N 1-09, preservative- free, injectable 1 2009 [id number] 1 126 Novartis Pharmaceutica l Angeline. (NOV) complet ed Novel influenza -E6X4-54, preservat mark-free, injectabl e DoD influenza virus vaccine, live 2008 [id number] 111 Medimmune Inc comple t ed influenza virus vaccine, live 01/21/09 Given Ambulat ory Pharmac y influenza virus vaccine, live 2008 [id number] 111 Medimmune Inc comple t ed influenza virus vaccine, live 01/21/09 Given Ambulat ory Pharmac y influenza virus vaccine, live, attenuated, for intranasal use 1 2008 [id number] 111 MedImmune, Inc. (MED) complet ed influenza virus vaccine, live, attenuate d, for intranasa l use DoD influenza virus vaccine,split 2007 [id number] 15 sanofi pasteur complet ed influenza virus vaccine,s plit 01/29/08 Given Ambulat ory Pharmac y influenza virus vaccine,split 2007 [id number] 15 sanofi pasteur complet ed influenza virus vaccine,s plit 01/29/08 Given Ambulat ory Pharmac y influenza virus vaccine, split virus (incl. purified surface antigen)-reti red CODE 1 2007 [id number] 15 Sanofi Pasteur (PMC) complet ed influenza virus vaccine, split virus (incl. purified surface antigen)- retired CODE DoD influenza virus vaccine, live 2006 [id number] 111 [employer] comple t ed influenza virus vaccine, live 02/25/07 Given Ambulat ory Pharmac y influenza virus vaccine, live 2006 [id number] 111 [employer] comple t ed influenza virus vaccine, live 02/25/07 Given Ambulat ory Pharmac y influenza virus vaccine, live, attenuated, for intranasal use 0 2006 [id number] 111 [employer]. (MED) complet ed influenza virus vaccine, live, attenuate d, for intranasa l use DoD vaccinia (smallpox) vaccine 2006 [id number] 75 [employer] complet ed vaccinia (smallpox ) vaccine 01/23/07 Given Ambulat ory Pharmac y anthrax vaccine 2006 [id number] 24 [employer] complet ed anthrax vaccine 01/23/07 Given Ambulat ory Pharmac y anthrax vaccine 2006 [id number] 24 [employer] complet ed anthrax vaccine 01/23/07 Given Ambulat ory Pharmac y vaccinia (smallpox) vaccine 2006 [id number] 75 [employer] complet ed vaccinia (smallpox ) vaccine 01/23/07 Given Ambulat ory Pharmac y anthrax vaccine 3 2006 [id number] 24 [employer] Gabriels (MIP) complet ed anthrax vaccine DoD vaccinia (smallpox) vaccine 0 2006 [id number] 75 [facility] ([facility]) complet ed vaccinia (smallpox ) vaccine DoD anthrax vaccine 2006 [id number] 24 [employer] complet ed anthrax vaccine 12/22/06 Given Ambulat ory Pharmac y anthrax vaccine 2006 [id number] 24 [employer] complet ed anthrax vaccine 12/22/06 Given Ambulat ory Pharmac y anthrax vaccine 2 2006 [id number] 24 [employer] Gabriels ([facility]) complet ed anthrax vaccine DoD typhoid vaccine, inactivated 2006 [id number] 101 sanofi pasteur complet ed typhoid vaccine, inactivat ed 10/31/06 Given Ambulat ory Pharmac y anthrax vaccine 2006 [id number] 24 [employer] complet ed anthrax vaccine 10/31/06 Given Ambulat ory Pharmac y typhoid vaccine, inactivated 2006 Z1102 101 sanofi pasteur complet ed typhoid vaccine, inactivat ed 10/31/06 Given Ambulat ory Pharmac y anthrax vaccine 2006 [id number] 24 [employer] complet ed anthrax vaccine 10/31/06 Given Ambulat ory Pharmac y anthrax vaccine 1 2006 [id number] 24 [employer] Gabriels ([facility]) complet ed anthrax vaccine DoD typhoid vaccine, parenteral, other than acetone-kille d, dried 1 2006 [id number] 41 Sanofi Pasteur ([facility]) complet ed typhoid vaccine, parentera l, other than acetone-k illed, dried DoD influenza virus vaccine,split 2005 [id number] 15 sanofi pasteur complet ed influenza virus vaccine,s plit 03/10/06 Given Ambulat ory Pharmac y influenza virus vaccine,split 2005 [id number] 15 sanofi pasteur complet ed influenza virus vaccine,s plit 03/10/06 Given Ambulat ory Pharmac y influenza virus vaccine, split virus (incl. purified surface antigen)-reti red CODE 1 2005 [id number] 15 Sanofi Pasteur (PMC) complet ed influenza [...] ory Pharmac y influenza virus vaccine,split 2004 [id number] 15 sanofi pasteur complet ed influenza virus vaccine,s plit 03/17/05 Given Ambulat ory Pharmac y hepatitis A adult vaccine 2004 [id number] 52 GlaxoSmithKli ne complet ed hepatitis A adult vaccine 03/17/05 Given Ambulat ory Pharmac y influenza virus vaccine,split 2004 [id number] 15 sanofi pasteur complet ed influenza virus vaccine,s plit 03/17/05 Given Ambulat ory Pharmac y measles, mumps and rubella virus vaccine 1 2004 03 () Not Given measles, mumps and rubella virus vaccine DoD influenza virus vaccine, split virus (incl. purified surface antigen)-reti red CODE 1 2004 [id number] 15 Sanofi Pasteur ([facility]) complet ed influenza virus vaccine, split virus (incl. purified surface antigen)- retired CODE DoD influenza virus vaccine, whole virus 0 2004 [id number] 16 Sanofi Pasteur ([facility]) complet ed influenza virus vaccine, whole [...] virus vaccine, whole virus 2004 CAPTCHRISTOPH ERRWEISGARBER [id number] 16 complet ed Result Comment: Route: Unknown Manufactu rer: Sanofi Pasteur ([facility]) 6130C-A f-C-375 [facility] tuberculin purified protein derivative 2004 [id number] 96 sanofi pasteur complet ed tuberculi n purified protein derivativ e 03/11/05 Given Ambulat ory Pharmac y meningococcal polysaccharid e (MPSV4) 2004 [id number] 32 sanofi pasteur complet ed meningoco ccal polysacch aride (MPSV4) 03/10/05 Given Ambulat ory Pharmac y poliovirus vaccine, inactivated 2004 [id number] 10 sanofi pasteur complet ed polioviru s vaccine, inactivat ed 03/10/05 Given Ambulat ory Pharmac y tetanus-dipht h toxoids (Td) adult/adol 2004 [id number] 09 sanofi pasteur complet ed tetanus-d iphth toxoids (Td) adult/ado l 03/10/05 Given Ambulat ory Pharmac y meningococcal polysaccharid e (MPSV4) 2004 [id number] 32 sanofi pasteur complet ed meningoco ccal polysacch aride (MPSV4) 03/10/05 Given Ambulat ory Pharmac y poliovirus vaccine, inactivated 2004 Y0535 10 sanofi pasteur complet ed polioviru s vaccine, inactivat ed 03/10/05 Given Ambulat ory Pharmac y tetanus-dipht h toxoids (Td) adult/adol 2004 [id number] 09 sanofi pasteur complet ed tetanus-d iphth toxoids (Td) adult/ado l 03/10/05 Given Ambulat ory Pharmac y tetanus and diphtheria toxoids, adsorbed, preservative free, for adult use (2 Lf of tetanus toxoid and 2 Lf of diphtheria toxoid) 1 2004 [id number] 09 Sanofi Pasteur (PMC) complet ed tetanus and diphtheri a toxoids, adsorbed, preservat mark free, for adult use (2 Lf of tetanus toxoid and 2 Lf of diphtheri a toxoid) DoD poliovirus vaccine, inactivated 1 2004 [id number] 10 Sanofi Pasteur (PMC) complet ed polioviru s vaccine, inactivat ed DoD meningococcal polysaccharid e vaccine (MPSV4) 1 2004 [id number] 32 Sanofi Pasteur (PMC) complet ed meningoco [...] y tetanus-dipht h toxoids (Td) adult/adol 2000 [id number] 09 [employer] complet ed tetanus-d iphth toxoids (Td) adult/ado l 11/29/00 Given Ambulat ory Pharmac y hepatitis B adult vaccine 2000 [id number] 43 [employer] & Company Inc complet ed hepatitis B adult vaccine 11/29/00 Given Ambulat ory Pharmac y tetanus-dipht h toxoids (Td) adult/adol 2000 [id number] 09 [employer] complet ed tetanus-d iphth toxoids (Td) adult/ado l 11/29/00 Given Ambulat ory Pharmac y tetanus and diphtheria toxoids, adsorbed, preservative free, for adult use (2 Lf of tetanus toxoid and 2 Lf of diphtheria toxoid) 1 2000 [id number] 09 [employer] (CON) complet ed tetanus and [...] 5 1989 [id number] 02 Sanofi Pasteur ([facility]) complet ed trivalent polioviru s vaccine, [...] 4 1986 [id number] 02 Sanofi Pasteur ([facility]) complet ed trivalent polioviru s vaccine, [...] vaccine DoD poliovirus vaccine, live, oral 1985 G8298-1 02 [facility] complet ed polioviru s vaccine, live, oral 07/19/85 Given Ambulat ory Pharmac y poliovirus vaccine, live, oral 1985 A9180-9 02 [facility] complet ed polioviru s vaccine, live, oral 07/19/85 Given Ambulat ory Pharmac y trivalent poliovirus vaccine, live, oral 3 1985 F9124-8 02 [facility] (CON) complet ed trivalent polioviru s vaccine, [...] Prevention' s HIV diagnostic algorithm. Refer to [facility] Lab Guide for additional information : [email or web address]://[email or web address]x. iWarda.[facility]/ kj/kx5/EPIL ab/Pages/la b_guide.asp x Testing performed by [email or web address]. 5600A-US AFSAM EPILAB Chemistry eGFR CKD [...] decrease 15-29 Severe decrease <15 Kidney failure [address] [place] [address] Chemistry BUN 12 mg/dL 8 - 26 09/[address] [place] [address] Chemistry BUN/Creat Ratio 12 mg/dL 12 - 20 09/[address] [place] [address] Chemistry Calcium 9.2 mg/dL 8.4 - 10.2 09/[address] [place] [address] Chemistry Chloride 109 mmol/L 98 - 107 09/[address] [place] [address] Chemistry CO2 23 mmol/L 22 - 09/[address] [place] [address] Chemistry Creatinine Level 1.00 mg/dL 0.72 - 1.25 09/[address] [place] [address] Chemistry Glucose Lvl 101 mg/dL 74 - 99 09/[address] [place] [address] Chemistry Potassium Lvl 3.9 mmol/L 3.5 - 5.1 09/[address] [place] [address] Chemistry Sodium 142 mmol/L 136 - 145 09/[address] [place] [address] Chemistry AGAP 10.00 0.00 - 15.00 09/[address] [place] [address] Chemistry Triglyceri sarahi 166 mg/dL 7 - 149 09/15 H Interpretiv e Data: AGES 0-9: Desirable: < 75 mg/dL Borderline High: 75-99 mg/dL High: >/= 100 mg/dL AGES 10-19: Desirable: < 90 mg/dL Borderline High: 90-129 mg/dL High: >/= 130 mg/dL ADULTS: Desirable: < 150 mg/dL Borderline High: 150-199 mg/dL High: >/= 240 mg/dL Very High: >/= 500 mg/dL [address] [place] [address] Chemistry LDL 169 mg/dL 100 - 130 09/15 H Interpretiv e Data: AGES 0-19: Desirable: < 110 mg/dL Borderline High: 110-129 mg/dL High: >/= 130 mg/dL ADULTS: Desirable: <100 mg/dL Near/above optimal: 100-130 mg/dL Borderline High: 131-159 mg/dL High: 160-189 mg/dL Very High: 190 mg/dL [address] [place] [address] Chemistry LDL/HDL 5 09/[address] [place] [address] Chemistry HDL Cholestero l 37 mg/dL 40 - 59 09/15 L Interpretiv e Data: HDL (HIGH DENSITY LIPOPROTEIN ): ADULTS: Low: < 40 mg/dL High: >/= 60 mg/dL AGES 0 -19: Low: < 40 mg/dL Borderline Low: 40 - 45 mg/dL Acceptable: > 45 mg/dL [address] [place] [address] Chemistry Cholestero l Total 225 mg/dL 09/15 H Interpretiv e Data: According to the [place] [employer] : AGES 0-19: Desirable: < 170 mg/dL Borderline High: 170-199 mg/dL High Blood Cholesterol : >/= 200 mg/dL ADULTS: Desirable < 200 mg/dL Borderline High: 200-239 mg/dL High Blood Cholesterol : >/= 240 mg/dL [address] [place] [address] Chemistry Chol/HDL 6 mg/dL 09/[address] [place] [address] Chemistry Albumin 3.90 g/dL 3.50 - 5.20 09/[address] [place] [address] Chemistry Alk Phos 91 U/L 40 - 150 09/[address] [place] [address] Chemistry ALT 31 U/L 5 - 55 09/[address] [place] [address] Chemistry AST 17 U/L 5 - 34 09/[address] [place] [address] Chemistry Bilirubin Total 0.5 mg/dL 0.2 - 1.2 09/[address] [place] [address] Chemistry AGAP 9.00 0.00 - 15.00 09/[address] [place] [address] Chemistry CO2 24 mmol/L 22 - 29 09/[address] [place] [address] Chemistry Creatinine Level 0.90 mg/dL 0.72 - 1.25 09/[address] [place] [address] Chemistry Glucose Lvl 88 mg/dL 74 - 99 09/[address] [place] [address] Chemistry BUN 17 mg/dL 8 - 26 09/[address] [place] [address] Chemistry BUN/Creat Ratio 19 mg/dL 12 - 20 09/[address] [place] [address] Chemistry Calcium 9.2 mg/dL 8.4 - 10.2 09/[address] [place] [address] Chemistry Chloride 107 mmol/L 98 - 107 09/[address] [place] [address] Chemistry Protein Total 7.1 g/dL 6.4 - 8.3 09/[address] [place] [address] Chemistry Potassium Lvl 4.1 mmol/L 3.5 - 5.1 09/[address] [place] [address] Chemistry Sodium 140 mmol/L 136 - 145 09/[address] [place] [address] Chemistry eAvg Glucose 128 mg/dL 09/[address] [place] [address] Chemistry Hemoglobin A1c 6.1 % 4.0 - [...] the patient and ordering Hemoglobin Electrophor esis. [address] [place] [address] Chemistry eGFR CKD EPI 112 mL/min/1 .73_m2 [...] decrease 15-29 Severe decrease <15 Kidney failure [facility] Chemistry TSH 1.190 mIU/L 0.270 - 4.200 09/15 N Interpretiv e Data: Recommend: TPO/Thyrope roxidase Antibody when TSH result is > 4.2 uIU/mL 5600A-US AFSAM EPILAB Hematolog y Differenti al? Auto (09/16/23 12:12 PM) 09/15 N [facility] Hematolog y RDW 12.4 % 11.0 - 14.9 09/[address] [place] [address] Hematolog y WBC 11.8 x10^3/mc L 4.0 - 11.0103 09/15 H [facility] Hematolog y Platelets 305.0 x10^3/mc L 150.0 - 450.0103 09/15 N [facility] Hematolog y RBC 5.3 x10^6/mc L 4.0 - 5.6106 09/15 N [facility] Hematolog y MCHC 33.0 g/dL 33.0 - 36.5 09/15 N [facility] Hematolog y MCV 88 fL 80 - 97 09/15 N [facility] Hematolog y MPV 8.8 fL 7.4 - 10.4 09/15 N [facility] Hematolog y Hematocrit 47 % 40 - 49 09/15 N [facility] Hematolog y Hemoglobin 15.5 g/dL 13.0 - 16.3 09/15 N [facility] Hematolog y MCH 29 pg 28 - 33 09/15 N [facility] Hematolog y Eos Absolute 0.1 x10^3/mc L 0.0 - 0.7103 09/15 N [facility] Hematolog y Basophil % Auto 0.2 % 0.0 - 2.5 09/15 N [facility] Hematolog y Lymphocyte % Auto 21.7 % 20.0 - 40.0 09/15 N [facility] Hematolog y Eosinophil % Auto 1 % 0 - 5 09/15 N [facility] Hematolog y Baso Absolute 0.0 x10^3/mc L 0.0 - 0.1103 09/15 N [facility] Hematolog y Neutro Absolute 7.9 x10^3/mc L 2.0 - 7.0103 09/15 H [facility] Hematolog y Monocyte % Auto 9 % 1 - 12 09/15 N [facility] Hematolog y [place] Absolute 1.0 x10^3/mc L 0.2 - 0.8103 09/15 H [facility] Hematolog y Lymph Absolute 2.6 x10^3/mc L 1.2 - 4.0103 09/15 N [facility] Hematolog y Neutrophil % Auto 67.2 % 46.0 - 77.0 09/15 N [facility] Urinalysi s [...] [facility] Urinalysi s UA Spec [place] 1.025 1.001 - 1.035 09/15 N 5th [...] Glucose Negative mg/dL 09/15 N [facility]th [facility] Urinalysi s UA Ketones Negative mg/dL 09/15 N [facility] Urinalysi s UA pH 5.5 5 - 8 09/15- 5th [facility] Chemistry eGFR AA 128 10/[address] [place] [address] Chemistry eGFR Non-AA 110 10/[address] [place] [address] Chemistry CRP Qn.LC 2 mg/L 10/29 Result Comment: Performed At: 01 [facility] [place] [address] [id number] Berny Sutherland MD Ph:[phone] [address] [place] [address] Chemistry Hemoglobin A1c 5.8 % 4.0 - 5.6 10/[address] [place] [address] Chemistry eAvg Glucose 120 10/[address] [place] [address] Chemistry Free Testostero ne Direct LC 11.1 pg/mL 10/29 Result Comment: Performed At: 01 [facility] [place] [address] [id number] Berny Sutherland MD Ph:[phone] Performed At: [address] [id number] Abraham Vincent MD Ph:[phone] [address] [place] [address] Chemistry Testostero ne Serum LC 455 ng/dL 10/29 Result Comment: Adult male reference interval is based on a population of healthy nonobese males (BMI <30) between 19 and 39 years old. trudy Garcia.al. JCEM 2017,102;11 61-1173. PMID: [id number]. [address] [place] [address] Chemistry Vit D, 25-OH.LC 39.8 ng/mL 10/29 Result Comment: Vitamin D deficiency has been defined by the [place] of [employer] and an Endocrine Society practice guideline as a level of serum 25-OH vitamin D less than 20 ng/mL (1,2). The Endocrine Society went on to further define vitamin D insufficien cy as a level between 21 and 29 ng/mL (2). 1. IOM ([place] of [employer]). 2010. Dietary reference intakes for calcium and D. [place]: The National Academies Press. 2. Yoni MF, Benji FRYE, Diana vergara KASPER, et al. Evaluation, treatment, and prevention of vitamin D deficiency: an Endocrine Society clinical practice guideline. JCEM. 2010; 96(7):1911- 30. Performed At: 01 [employer] [place] [address] [id number] Berny Sutherland MD Ph:[phone] [address] [place] [address] Chemistry ALT 48 U/L 10/[address] [place] [address] Chemistry Alk Phos 72 U/L 38 - 126 10/[address] [place] [address] Chemistry Albumin 4.1 g/dL 3.5 - 5.0 10/[address] [place] [address] Chemistry AGAP 8 10/[address] [place] [address] Chemistry Globulin 3 10/[address] [place] [address] Chemistry Calcium 8.9 mg/dL 8.4 - 10.2 10/[address] [place] [address] Chemistry BUN 21.0 mg/dL 7.0 - 20.0 10/[address] [place] [address] Chemistry Bilirubin Total 0.9 mg/dL 0.2 - 1.5 10/[address] [place] [address] Chemistry Bilirubin Direct No Result 0.0 - 1.1 10/[address] [place] [address] Chemistry AST 31 U/L 15 - 46 10/[address] [place] [address] Chemistry Creatinine Level 0.9 mg/dL 0.7 - 1.5 10/[address] [place] [address] Chemistry A/G Ratio 1.4 10/[address] [place] [address] Chemistry Osmo Calc 272 10/[address] [place] [address] Chemistry BUN/Creat Ratio 24 10/[address] [place] [address] Chemistry Sodium 139 mmol/L 137 - 145 10/[address] [place] [address] Chemistry Potassium Lvl 3.80 mmol/L 3.50 - 5.10 10/[address] [place] [address] Chemistry Glucose Lvl 99 mg/dL 74 - 100 10/[address] [place] [address] Chemistry CO2 20.0 mmol/L 22.0 - 30.0 10/[address] [place] [address] Chemistry Chloride 111 mmol/L 96 - 107 10/[address] [place] [address] Chemistry Protein Total 7 g/dL 6 - 8 10/[address] [place] [address] Chemistry HDL Cholestero l 32 mg/dL 40 - 60 10/[address] [place] [address] Chemistry Chol/HDL 6 10/[address] [place] [address] Chemistry HDL/Chol 0 10/[address] [place] [address] Chemistry Cholestero l Total 183 mg/dL 100 - 200 10/[address] [place] [address] Chemistry Triglyceri sarahi 80.0 mg/dL 0.0 - 150.0 10/[address] [place] [address] Chemistry VLDL 16 10/[address] [place] [address] Chemistry LDL 136 mg/dL 0 - 100 10/[address] [place] [address] Chemistry LDL/HDL 4 10/[address] [place] [address] Chemistry TSH LC 2.340 uIU/mL 10/[address] [place] [address] Chemistry T4 Free Direct.LC 1.16 ng/dL 10/29 Result Comment: Performed At: 01 [employer] [employer] [address] [id number] Berny Sutherland MD Ph:[phone] [address] [place] [address] Hematolog y MCV 86 fL 80 - 100 10/[address] [place] [address] Hematolog y MPV 9.3 8.0 - 11.0 10/[address] [place] [address] Hematolog y Platelets 227 10^3/uL 150 - 898555 10/[address] [place] [address] Hematolog y RBC 5.67 x10^6/mc L 4.50 - 6.47528 10/[address] [place] [address] Hematolog y WBC 6.0 x10^3/mc L 4.0 - 11.0103 10/[address] [place] [address] Hematolog y Hemoglobin 16.4 g/dL 14.5 - 18.0 10/[address] [place] [address] Hematolog y MCH 28.9 pg 27.0 - 33.0 10/[address] [place] [address] Hematolog y MCHC 34 g/dL 32 - 36 10/[address] [place] [address] Hematolog y Hematocrit 48.8 % 43.0 - 53.0 10/[address] [place] [address] Hematolog y RDW SD 41.2 10/[address] [place] [address] Hematolog y RDW CV 13 10/[address] [place] [address] Hematolog y ESR Auto Plus 1 mm/h 0 - 15 10/[address] [place] [address] Hematolog y Neutrophil % Auto 56.6 10/[address] [place] [address] Hematolog y Monocyte % Auto 10.0 10/[address] [place] [address] Hematolog y Imm. Granulocyt e Absolute 0 10/[address] [place] [address] Hematolog y Eosinophil % Auto 3.2 % 0 - 5 10/[address] [place] [address] Hematolog y Imm. Granulocyt e % 0 10/[address] [place] [address] Hematolog y Neutro Absolute 3.4 x10^3/mc L 1.6 - 6.1103 10/[address] [place] [address] Hematolog y Baso Absolute 0.0 x10^3/mc L 0.0 - 0.1103 10/[address] [place] [address] Hematolog y Lymph Absolute 1.8 x10^3/mc L 1.2 - 3.9103 10/[address] [place] [address] Hematolog y Lymphocyte % Auto 30 10/[address] [place] [address] Hematolog y Basophil % Auto 0.3 10/[address] [place] [address] Hematolog y Eos Absolute 0.2 x10^3/mc L 0.0 - 0.5103 10/[address] [place] [address] Hematolog y [place] Absolute 0.6 x10^3/mc L 0.3 - 0.9103 10/[address] [place] [address] Vital Signs Combined list of inpatient and outpatient Vital Signs from Department of Defense and Veterans Affairs, ranging from 12 months to all on record, depending upon the facility. Vital Sign Value Date Comments Source Blood Pressure Manual Automatic 12/24/2022 18:24:00 0055C-[facility] Temperature Oral 36.7 Silvia 09/30/2023 18:10:00 4727P-Ln-O-[facility] BP Site Left arm 09/30/2023 18:10:00 5801Z-Rq-V-[facility] Mean Arterial Pressure, Calc 96 mm[Hg] 09/30/2023 18:10:00 8860B-Nu-W-[facility] Peripheral Pulse Rate 71 bpm 09/30/2023 18:10:00 8272D-Gn-R-[facility] Systolic Blood Pressure 135 mm[Hg] 09/30/19 24 18:10:00 8500O-Bk-D-[facility] Diastolic Blood Pressure 76 mm[Hg] 024 18:10:00 1863M-Hy-V-[facility] Respiratory Rate 16 br/min 09/30/2023 18:10:00 3466A-Us-W-[facility] Peripheral Pulse Rate 69 bpm 05/13/2023 15:17:00 0055C-[facility] Blood Pressure Manual Automatic 05/13/2023 15:17:00 0055C-[facility] Temperature Oral 36.7 Silvia 05/13/2023 15:17:00 0055C-[facility] Respiratory Rate 16 br/min 05/13/2023 15:17:00 0055C-[facility] Temperature Oral 36.7 Silvia 10/20/2023 19:15:00 7960T-Ly-T-[facility] Respiratory Rate 17 br/min 10/20/2023 19:15:00 6985Z-Ng-W-[facility] Systolic Blood Pressure 137 mm[Hg] 10/20/19 19:15:00 2162F-Hg-W-[facility] Diastolic Blood Pressure 78 mm[Hg] 19:15:00 5322Y-Kk-K-[facility] BP Site Right arm 10/20/2023 19:15:00 1807D-Jt-S-[facility] Peripheral Pulse Rate 73 bpm 10/20/2023 19:15:00 5367V-Rc-C-[facility] Mean Arterial Pressure, Calc 98 mm[Hg] 10/20/2023 19:15:00 3287K-Az-W-[facility] Blood Pressure Manual Automatic 03/16/2021 22:11:[address] [place] [address] Temperature Temporal Artery 37 Silvia 04/27/2023 15:02:00 [...] Blood Pressure 130 mm[Hg] 09/09/19 24 18:00:00 2795V-Lr-M-[facility] Diastolic Blood Pressure 75 mm[Hg] 024 18:00:00 4018I-Pr-Y-[facility] Respiratory Rate 15 br/min 09/09/2023 18:00:00 4900J-Gr-R-[facility] Temperature Oral 36.7 Silvia 09/09/2023 18:00:00 9834P-Ku-J-[facility] Mean Arterial Pressure, Calc 93 mm[Hg] 09/09/2023 18:00:00 8147O-Nx-B-[facility] Peripheral Pulse Rate 70 bpm 09/09/2023 18:00:00 6910R-Ea-D-[facility] BP Site Right arm 09/09/2023 18:00:00 9405J-Cv-S-[facility] Blood Pressure Manual Automatic 04/29/2022 21:00:00 4713R-PU-B-42nd [facility] Systolic Blood Pressure 145 mm[Hg] 09/16/19 [...] Systolic Blood Pressure 140 mm[Hg] 10/31/19 15:25:00 6677H-Ce-M-[facility] Diastolic Blood Pressure 82 mm[Hg] 15:25:00 6007E-Ce-B-[facility] BP Site Right arm 10/31/2023 15:25:00 7599S-Zn-D-[facility] Peripheral Pulse Rate 73 bpm 10/31/2023 15:25:00 8407H-Xy-K-[facility] Mean Arterial Pressure, Calc 101 mm[Hg] 10/31/2023 15:25:00 0179X-Pj-P-[facility] Temperature Oral 36.8 Silvia 10/31/2023 15:25:00 5627T-Je-R-[facility] Respiratory Rate 17 br/min 10/31/2023 15:25:00 4969J-Qb-C-[facility] BP Site Left arm 05/30/2024 17:01:00 [...] [facility] Blood Pressure Manual Automatic 06/01/2021 17:49:[address] [place] [address] Encounters Combined list of: 1) Encounters from Department of Veterans Affairs facilities going backup to the last 18 months, not all VA inpatient encounters are included; 2) Encounters from the Department of Defense facilities going backup to 280 months. Location Location Details Encounter Type Encounter Number Reason For Visit Attending Provider ADM Date DC Date Status Disposition Source [place] [employer] [employer] OUTPATIENT [id number] possibl e [facility]/30 [facility] [place] Limitations [place] [employer] [employer] [place] [employer] [employer] OUTPATIENT [id number] INNA SANCHEZ 11/01 Released w/o Limitations [place] [employer] [employer] [place] [employer] TELE CONSULT [id number] Predepl oLUCITA Flores 11/02 [place] [facility] [employer] [employer] [facility] OUTPATIENT [id number] 01/09 Released w/o Limitations [facility] OUTPATIENT [id number] 01/10 Released w/o Limitations [facility] OUTPATIENT [id number] 02/13 Released with Work/Duty Limitations [facility] OUTPATIENT [id number] 02/14 Released w/o Limitations [facility] OUTPATIENT [id number] 02/14 Released w/o Limitations [facility] [place] [employer] OUTPATIENT [id number] post deploym ent AARTI ZHOU 07/27 Released w/o Limitations [place] [employer] [place] [employer] OUTPATIENT [id number] PHA RAIN ANDERSON 01/29 Released w/o Limitations [place] [employer] [place] [employer] OUTPATIENT [id number] choudhury splints RUBEN MOON 05/21 Released with Work/Duty Limitations [place] [employer] [place]) OUTPATIENT [id number] choudhury splint on lf leg CAPO MAYS Y 09/27 Released w/o Limitations [place] [employer] ) [employer]([facility]) OUTPATIENT [id number] f/u LLE DEMI WADSWORTH 12/19 Released with Work/Duty Limitations [employer](F amily Practic e Blue) [employer](PHA Cell) OUTPATIENT [id number] [facility]in[facility]O Peoples 12/27 Released w/o Limitations [employer](P KASPER Cell) [employer] [facility] DENTAL [id number] Operati AP Zimmer 01/07 Released w/o Limitations [employer](D ental Clinic) [employer] DENTAL [id number] #2 cuspal MARYANN Mejia 02/13 Released w/o Limitations [employer](D ental Clinic) [employer]([facility] Blue) TELE CONSULT [id number] referra l for stress test DEMI WADSWORTH 03/31 [employer](F amily Practic e Blue) [employer](Fam dacia [facility] Blue) TELE CONSULT [id number] droppin g off paperwo JESSICA Batres 04/23 [employer](F amily Practic e Blue) [employer](Josette [facility] eletal Screening ) OUTPATIENT [id number] COMPART MENT SYNDROM E NONTRAU FILIPPO AMARAL 04/25 Released w/o Limitations [employer](N euromus coskele ismael Screeni ng) [employer](Fam dacia Practice Red) OUTPATIENT [id number] SICK CALL- R Shoulde r SAULO Mix 01/14 Released w/o Limitations [employer](F amily Practic e Red) [employer](PHA Cell) OUTPATIENT [id number] KUSH KELLY 01/14 Released w/o Limitations [employer](P KASPER Cell) [employer](Fam [facility] Blue) TELE CONSULT [id number] Referra l request for 2nd opinion MONY CHI 01/23 [employer](F amily Practic e Blue) [employer](Fam [facility] Blue) TELE CONSULT [id number] Referra l to Veronique BURCIAGA not entered ! SERRANO KERRI 02/02 Referred for Appointment [employer](F amily Practic e Blue) [employer](Fam [facility]) OUTPATIENT [id number] ortho referra l JESSICA WATERMAN 02/09 Released w/o Limitations [employer](F amily Practic e Blue) [employer](Fam [facility] Blue) TELE CONSULT [id number] pt would like a referra l to be seen with orthope dic provide r MONY CHI 02/23 [employer](F am[facility] Practic e Blue) [employer](Fam [facility]) TELE CONSULT [id number] appt line - referra l DR. BING Brooks for f/u appt 1 JESSICA WATERMAN 03/18 Referred for Appointment [employer](F amily Practic e Blue) [employer](Fam [facility] Blue) TELE CONSULT [id number] appt line - labs for seperat ion physica l 1 KERRI SERRANO 06/16 Referred for Appointment [employer](F amily Practic e Blue) [employer](Fam [facility]) OUTPATIENT [id number] seperat ion physica l BINH HICKMAN 07/06 Released w/o Limitations [employer](F amily Practic e Blue) [place] [address](Tylor patel [facility] Team B) TELE CONSULT [id number] Notes Entered by: CHELO LEWIS 01 May 2012 1947 ------- ------- ------- ------- -- PHA ROUTINE RR: 2012: ARPAN PFEIFFER I 05/02 Referred for Appointment [facility] [place] [address](Leena rangel [facility] Team B) [place] [address]([facility]) TELE CONSULT [id number] Notes Entered by: JORDAN NANCE 30 May 2012 1327 ------- ------- ------- ------- -- Respira JORDAN Nieto 05/30 [facility] [place] [address](O ccupati onal Medicin e [facility]) [place] [address]([facility]) OUTPATIENT [id number] PREDEPL OYMENT/ CHELO LANIER V 06/28 Released w/o Limitations [facility] [place] [address](D [facility]) Theater Facility OUTPATIENT [id number] Theater Provider 01/08 Released w/o Limitations [place] [address]([facility]) OUTPATIENT [id number] [facility] 3 negativ e finding s HEIKE ESCAMILLA 05/24 Released w/o Limitations [facility] [place] [address](D [facility]) [place] [address]([place]_[facility] _Team E) OUTPATIENT [id number] LEG PAIN/RE STEVE HERRERA 07/22 Released w/o Limitations [facility] [place] [address]([place] _[facility]_Te am E) [place] [address](Phy sical Therapy, [facility]) OUTPATIENT [id number] LIMB PAIN LOWER LEG MARCOS GONZALEZ 08/14 Released w/o Limitations [facility] [place] [address](P hysical Therapy , [facility]) [place] [address](Phy sical Therapy, [facility]) OUTPATIENT [id number] MARCOS GONZALEZ 09/06 Released w/o Limitations NAD[facility] [address](P hysical Therapy , [facility]) [place] [address]([facility] [place],[facility]) OUTPATIENT [id number] Notes Entered by: YULI ZAVALA 16 Oct 2014 1020 ------- ------- ------- ------- -- CHILLS/ UPSET STOMACH /LIGHT DIARRHE A WAYNE LOUIS 10/16 Sick at Home/Quarter s [facility] [place] [address]([facility], [facility]) [place] [address] _Team E) TELE CONSULT [id number] Notes Entered by: Yifan DOMINGUEZ 21 Jan 2015 0802 ------- ------- ------- ------- -- CATARINO BOO RR [id number] RLG SANA CALLAWAY 01/21 [facility] [place] [address]([facility] [place] [facility]) [place] [address]([facility]) OUTPATIENT [id number] Notes Entered by: YOMAIRA STRICKLAND 21 Jan 2015 1428 ------- ------- ------- ------- -- JUN#4/P ALONZO MUSE 01/21 Released w/o Limitations [facility] [place] [address](D eploe [facility], [facility]) [place] [address](Phy sical Med [facility]) OUTPATIENT [id number] Encount er for other general examina tion JULIETTE-DIXIE MACEDO 02/18 Released w/o Limitations [facility] [place] [address](P hysical Med [place]) [place] [address]([facility] hopedi, [facility]) OUTPATIENT [id number] Pain in left leg LEXUS SWENSON 03/05 Released w/o Limitations [facility] [place] [address](O rthoped ics, [facility]) [place] [address]([facility], [facility]) OUTPATIENT [id number] f/u Pain in left leg ;wants bone scan results done [id number] @[facility] LEXUS SWENSON 03/20 Released w/o Limitations [facility] [place] [address](O rthoped ics, [facility]) [place] [address]([facility], [facility]) OUTPATIENT [id number] f/u for compart ment testing on both legs ;per CARLEY Swenson [id number] LEXUS SWENSON 04/09 Released w/o Limitations [facility] [place] [address](O rthoped ics, [facility]) [place] [address]([facility], [facility]) OUTPATIENT [id number] f/u for compart ment testing on both legs ;per CARLEY Swenson [id number] LEXUS SWENSON 04/09 Released w/o Limitations [facility] [place] [address](O rthoped ics, [facility]) [place] [address]([facility] hopedi, [facility]) OUTPATIENT [id number] Surgica l eval for compart ment syndrom e on left leg ;ref by CARLEY Swenson [id number] KUSH ROGERS 04/23 Released w/o Limitations [facility] [place] [address](O rthoped ics, [facility]) [place] [address]([facility] hopedi, [facility]) OUTPATIENT [id number] pop hoglund heel resecti on, gastroc lengthe south; DOS: [id number] . KUSH SHEPPARD 07/10 Released w/o Limitations [facility] [place] [address](O rthoped ics, [facility]) [place] [address](Phy sical Therapy, [facility]) OUTPATIENT [id number] Left Leg. Post op, DOS: [id number] PAWAN LEY III 07/14 Released with Work/Duty Limitations [facility] [place] [address](P hysical Therapy , [facility]) [place] [address](Phy sical Therapy, ASC) OUTPATIENT [id number] RAAD GATICA 07/21 Released w/o Limitations [facility] [place] [address](P hysical Therapy , [facility]) [place] [address](Phy sical Therapy, [facility]) OUTPATIENT [id number] ELAINE YESSENIA Roldan 07/23 Released w/o Limitations [facility] [place] [address](P hysical Therapy , [facility]) [place] [address](Phy sical Therapy, ASC) OUTPATIENT [id number] KELLY COATES 07/24 Released w/o Limitations [facility] [place] [address](P hysical Therapy , [facility]) [place] [address](Phy sical Therapy, ASC) OUTPATIENT [id number] KELLY COATES 07/27 Released w/o Limitations [facility] [place] [address](P hysical Therapy , [facility]) [place] [address](Phy sical Therapy, ASC) OUTPATIENT [id number] KELLY COATES 07/29 Released w/o Limitations [facility] [place] [address](P hysical Therapy , [facility]) [place] [address](Phy sical Therapy, ASC) OUTPATIENT [id number] KELLY COATES 07/30 Released w/o Limitations [facility] [place] [address](P hysical Therapy , [facility]) [place] [address](Ort hopedics, [facility]) OUTPATIENT [id number] 3wks f/u left leg surgery KUSH SHEPPARD Linda 07/31 Released w/o Limitations [facility] [place] [address](O rthoped ics, [facility]) [place] [address](Phy sical Therapy, [facility]) OUTPATIENT [id number] KELLY COATES 08/03 Released w/o Limitations [facility] [place] [address](P hysical Therapy , ASC) [place] [address](Phy sical Therapy, [facility]) OUTPATIENT [id number] PAWAN LEY III 08/06 Released with Work/Duty Limitations [facility] [place] [address](P hysical Therapy , [facility]) [place] [address](Phy sical Therapy, [facility]) OUTPATIENT [id number] KELLY COATES 08/07 Released w/o Limitations [facility] [place] [address](P hysical Therapy , ASC) [place] [address](Phy sical Therapy, [facility]) OUTPATIENT [id number] ANGELITA CATALAN 08/10 Released w/o Limitations NAD[facility] [place] [address](P hysical Therapy , [facility]) [place] [address](Phy sical Therapy, ASC) OUTPATIENT [id number] ANGELITA CATALAN 08/12 Released w/o Limitations [facility] [place] [address](P hysical Therapy , [facility]) [place] [address](Phy sical Therapy, ASC) OUTPATIENT [id number] ANGELITA CATALAN 08/13 Released w/o Limitations NADIA [facility] [place] [address](P hysical Therapy , [facility]) [place] [address](Phy sical Therapy, [facility]) OUTPATIENT [id number] ANGELITA CATALAN 08/17 Released w/o Limitations [facility] [place] [address](P hysical Therapy , [facility]) [place] [address](Phy sical Therapy, [facility]) OUTPATIENT [id number] Notes Entered by: DIONISIO GONSALEZ 21 Aug 2015 1410 ------- ------- ------- ------- -- ADRIANA Avitia 08/20 Released w/o Limitations [facility] [place] [address](P hysical Therapy , [facility]) [place] [address](Phy sical Therapy, [facility]) OUTPATIENT [id number] ANGELITA CATALAN 08/24 Released w/o Limitations [facility] [place] [address](P hysical Therapy , [facility]) [place] [address](Phy sical Therapy, [facility]) OUTPATIENT [id number] RAAD GATICA 08/25 Released w/o Limitations [facility] [place] [address](P hysical Therapy , [facility]) [place] [address](Phy sical Therapy, [facility]) OUTPATIENT [id number] ADRIANA DOMINGUEZ 08/27 Released w/o Limitations [facility] [place] [address](P hysical Therapy , [facility]) [place] [address](Phy sical Therapy, [facility]) OUTPATIENT [id number] ADRIANA DOMINGUEZ 09/01 Released w/o Limitations [facility] [place] [address](P hysical Therapy , [facility]) [place] [address](Phy sical Therapy, [facility]) OUTPATIENT [id number] SHAUN LEY 09/02 Released w/o Limitations [facility] [place] [address](P hysical Therapy , [facility]) [place] [address](Phy sical Therapy, [facility]) OUTPATIENT [id number] [facility] 09/03 Released w/o Limitations [facility] [place] [address](P hysical Therapy , [facility]) [place] [address](Phy sical Therapy, [facility]) OUTPATIENT [id number] GAVI RAAD NILAM 09/03 Released w/o Limitations [facility] [place] [address](P hysical Therapy , [facility]) [place] [address](Phy sical Therapy, [facility]) OUTPATIENT [id number] [facility] 10/01 Released w/o Limitations [facility] [place] [address](P hysical Therapy , [facility]) [place] [address](Tylor patel [facility] Team F) OUTPATIENT [id number] left leg pain SANA CALLAWAY 12/23 Released with Work/Duty Limitations [facility] [place] [address](Leena rangel [facility] Team F) [place] [address](Hea ring Conservat ion,Fritz) OUTPATIENT [id number] Annual Audiogr am-082A KUSH ALMAGUER 03/01 Released w/o Limitations [facility] [place] [address](H earing Conserv ation,R pete) [place] [address]([facility], [facility]) TELE CONSULT [id number] Notes Entered by: YOMAIRA STRICKLAND 18 Mar 2016 1508 ------- ------- ------- ------- -- Dedra ELIZABETH appoint ment via telepho JAD Jo 03/18 [facility] [place] [address]([facility], [facility]) [place] [address]([facility] Team A) OUTPATIENT [id number] Notes Entered by: OSMIN CORDON DO 13 Apr 2016 1455 ------- ------- ------- ------- -- NON ZULY FELTON 04/13 Released w/o Limitations [facility] [place] [address]( [facility] [place] [address]([facility] Team F) OUTPATIENT [id number] C/O LT HAND ISSUES/ [facility] ULICES HUBBARD 01/12 Released w/o Limitations [facility] [place] [address]([facility] Team F) [place] [address]([facility] Team F) TELE CONSULT [id number] Notes Entered by: NIECY STOKES 13 Jan 2017 1110 ------- ------- ------- ------- -- Results ULICES HUBBARD 01/13 [facility] [place] [address]([facility] [place] [address](Occ upational Therapy, [facility]) OUTPATIENT [id number] Pain in left finger( s) HAO ROMO 02/09 Released w/o Limitations [facility] [place] [address](O ccupati onal Therapy , [facility]) [place] [address](Hea ring Conservat ion,Fritz) OUTPATIENT [id number] Annual - [id number] 0800* * LOLLY ART 03/04 Released w/o Limitations [facility] [place] [address](H earing Conserv ation,R pete) [place] [address](Occ upational Therapy, [facility]) OUTPATIENT [id number] HAO ROMO 03/23 Released w/o Limitations [facility] [place] [address](O ccupati onal Therapy , [facility]) [place] [address](Phy sical Exams, Fritz) TELE CONSULT [id number] Notes Entered by: DERECK WOODWARD 31 Mar 2017 1506 ------- ------- ------- ------- -- AF FORM 422 REQUEST FOR RETRAIN DEONNA RIBERA SA 03/31 [facility] [place] [address](P hysical Exams, Fritz) [place] [address](BOM C,Fritz) OUTPATIENT [id number] MHA/PRE FERRED CONTACT TEL. CELL EULOGIO FARLEY 04/27 Released w/o Limitations [facility] [place] [address](B [facility],Je d) [place] [address]([facility] Team F) TELE CONSULT [id number] Notes Entered by: MARCELLO WALTER 16 May 2017 0914 ------- ------- ------- ------- -- FCR/JILL CK Appt. request re:high blood pressnoreen eJeffrey [phone] CIARA GAMBINO 05/16 [facility] [place] [address](Leena doughertyze [facility] Team F) [place] [address]([facility] Team F) OUTPATIENT [id number] BLOOD PRESSUR E LETHA HUBBARDSEY Vasile 06/17 Released w/o Limitations [facility] [place] [address](Leena rangel [facility] Team F) [facility] [place] [address]([facility], [facility]) OUTPATIENT [id number] Shortne ss of breath MURIELHOLLEYVERONIQUE KAY Gio 07/25 [facility]/o Limitations [facility] [place] [address](P ulmonar y Medicin e, [facility]) [facility]) OUTPATIENT [id number] ENT referra VERONIQUE Bee 03/29 Released w/o Limitations [facility]) TELE CONSULT [id number] Notes Entered by: MIMI HWANG 06 Apr 2018 1340 ------- ------- ------- ------- -- Rout Req: req Audio ref SINGH BHARATHI Morrison 04/06 Referred for Appointment [facility](Aud iology Cl EG) OUTPATIENT [id number] ken Yusuf STEPHEN D 04/26 Released w/o Limitations [facility](A udiolog y Cl EG) [facility]([place] laryngolo EG) OUTPATIENT [id number] Other specifi ed disorde rs of tympani c membran e, unspeci fied ear STEVE WHALEY 05/01 Released w/o Limitations [facility](O tolaryn golo EG) [facility](Bas e Oper Med Cl Eg) OUTPATIENT [id number] [facility] #[id number] BASIL CATHERINE 05/24 Released w/o Limitations [facility](B ase Oper Med Cl Eg) [facility]) OUTPATIENT [id number] VIRTUAL / AIRFORC E SARAHI GUZMÁN 06/28 Released w/o Limitations [facility]( amily [facility]) [facility](Bas e Oper Med Cl Eg) TELE CONSULT [id number] Notes Entered by: BENITO CURTIS 18 Sep 2018 1412 ------- ------- ------- ------- -- GELAISS HARVEY LANGFORD 09/18 [facility](B ase Oper Med Cl Eg) [facility](Bas e Oper Med Cl Eg) TELE CONSULT [id number] Notes Entered by: YRIS LOJA 25 Jun 2019 0732 ------- ------- ------- ------- -- GENE Rogel 06/24 [facility](B ase Oper Med Cl Eg) [facility](Bas e Oper Med Cl Eg) OUTPATIENT [id number] [facility]# [phone] DEYANIRA DUPONT 08/29 Released w/o Limitations [facility](B ase Oper Med Cl Eg) [facility](Fli ght Med) OUTPATIENT [id number] Notes Entered by: SHASHANK SCHMIDT CH 17 Oct 2019 0845 ------- ------- ------- ------- -- KSUH ROB 10/16 Released w/o Limitations [facility](F light Med) [facility](Fli ght Med) TELE CONSULT [id number] Notes Entered by: Maurilio OCONNELL 04 Dec 2019 0744 ------- ------- ------- ------- -- Member is stating he has been having SOB since June. KUSH UGALDE 12/03 Referred for Appointment [facility](F light Med) [facility](Z-F light Med) OUTPATIENT [id number] Fatigue GENE LANCE 01/20 Released w/o Limitations [facility](Z -Flight Med) [facility](Spe ech Pathology Cl Eg) OUTPATIENT [id number] Dyspnea , unspeci SANTA Blum V 02/04 Released w/o Limitations [facility](S peech Patholo gy Cl Eg) [facility](Pul m Disease EG) OUTPATIENT [id number] Notes Entered by: CARLY ROSARIO 08 Feb 2020 1007 ------- ------- ------- ------- -- PFT/Dys pnea, unspeci fied EVAN OWEN 02/07 Released w/o Limitations [facility](P ulm Disease EG) [facility](Z-F light Med) TELE CONSULT [id number] Notes Entered by: GENE LEACH 20 Feb 2020 1555 ------- ------- ------- ------- -- Contact pt GONZÁLEZ HERNANDEZ 02/19 Referred for Appointment [facility](Z -Flight Med) [address] [place] [address](- light Med) OUTPATIENT [id number] F/U GENE LEACH 02/25 Released w/o Limitations [facility](Z -Flight Med) [facility](Z-F light Med) TELE CONSULT [id number] Notes Entered by: GENE LEACH 13 Mar 2020 1140 ------- ------- ------- ------- -- GERD JALEN COHEN 03/13 Other Not Elsewhere Classified [facility](Z -Flight Med) [facility](Pul m Disease EG) OUTPATIENT [id number] Gastro- esophag eal reflux disease without esophag itis KUSH KWON 04/11 Released w/o Limitations [facility](P ulm Disease EG) [facility](Pul m Disease EG) OUTPATIENT [id number] PSG EVAN OWEN 05/09 Released w/o Limitations [facility](P ulm Disease EG) [facility](Z-F light Med) TELE CONSULT [id number] Notes Entered by: Gio BLANCO 01 Jul 2020 1027 ------- ------- ------- ------- -- SLEEP STUDY RESULTS JALEN COHEN 07/01 Other Not Elsewhere Classified [facility](Z -Flight Med) [facility](War rior Operation al Medicine A) TELE CONSULT [id number] Notes Entered by: JALEN MUNSON 01 Jul 2020 1053 ------- ------- ------- ------- -- Request ing Sleep Study Results RUDDYDUANE SANCHEZ Krissy 07/01 Referred for Appointment [facility](W arrior Operati onal Medicin e A) [facility](War rior Operation al Medicine A) OUTPATIENT [id number] HC: Sleep study results [id number] MICHELLE CURIEL 07/01 Released w/o Limitations [facility](W arrior Operati onal Medicin e A) [facility](Z-F light Med) TELE CONSULT [id number] Notes Entered by: Maurilio OCONNELL 04 Jul 2020 1011 ------- ------- ------- ------- -- PRP ADHOC JUL 23 WARRIOR SARAHI CALL 07/04 [facility](Z -Flight Med) [place] [address](PRP Admin Qual Cell, RAF[facility]) OUTPATIENT [id number] Notes Entered by: ANDRE DEL RIO 24 Jul 2020 0923 ------- ------- ------- ------- -- PRP Admin Qual ANDRE DEL RIO 07/24 Released w/o Limitations [facility] [place] [address](P RP Admin Qual Cell, [facility]) [place] [address](PRP Admin Qual Cell, [facility]) TELE CONSULT [id number] Notes Entered by: ORLANDO UGALDE 11 Aug 2020 1334 ------- ------- ------- ------- -- THEA Nj e 11 Aug 2020 KURT UGALDE 08/11 Released to Self Care [facility] [place] [address](P RP Admin Qual Cell, RAF[facility]) [address] [place] [address] Paul [facility])(Aud iology Procedure s) OUTPATIENT [id number] ANNUAL [facility] EVERARDO MARKS 05/17 Released w/o Limitations [address] [place] [address] Paul [facility])(A udiolog y Procedu res) [address] [place] [address] Paul [facility])(War rior Op Med Cln Tm A Ad) OUTPATIENT [id number] esequiel myles cough for 2 years F2F KUSH BECKETT 05/20 Released w/o Limitations [address] [place] [address] Paul [facility])(W arrior Op Med Cln Tm A Ad) [address] [place] [address] Paul [facility])(Sco tt Flight Medicine Tm) TELE CONSULT [id number] Notes Entered by: RAAD HONG 03 Jun 2022 1304 ------- ------- ------- ------- -- Jimmy knight/nolan myles notice/ 7days/A SWAPNA THOMAS 06/03 Other Not Elsewhere Classified [address] [place] [address] Paul [facility])(S cott Flight Medicin e Tm) [address] [place] [address] Paul [facility])(War rior Op Med Cln Tm A Ad) OUTPATIENT [id number] #5 rash on limbs PANDA MORIN 06/11 Released w/o Limitations [address] [place] [address] Paul [facility])(W arrior Op Med Cln Tm A Ad) [address] [place] [address] Paul [facility])(War rior Op Med Cln Tm A Ad) TELE CONSULT [id number] Notes Entered by: ALEXEY NI 09 Jul 2022 0908 ------- ------- ------- ------- -- Discuss Referra BEATRICE Mart 07/09 Other Not Elsewhere Classified [employer] Paul [facility])(W arrior Op Med Cln Tm A Ad) [employer] Paul [facility])(War rior Op Med Cln Tm A Ad) OUTPATIENT [id number] Q2A-Qau erral Req-[phone] SHARMAINE BEE 07/22 Released w/o Limitations [employer] [facility] KALEB ([facility]W arrior Op Med Cln Tm A Ad) [id number]- C-[facility]Sc devante Between Visit [id number] 07/06 Discharge Disposition: Home or Self Care 6130C-A f-C-[facility]- Paul 0055C-375 th [facility] Clinic [id number] Anxiety disorde r, unspeci fied JASONSIMMO NS 07/25 Discharge Disposition: Home or Self Care 0055C-3 75th [facility]- Paul 0055C-375 th [facility] [id number] Anxiety disorde r, unspeci fied FREDDY MMENDOZA 08/22 Discharge Disposition: Home or Self Care 0055C-3 [facility]- Paul 0055C-375 th [facility] devante Between Visit [id number] 08/28 Discharge Disposition: Home or Self Care 0055C-3 [facility]th [facility]- [facility] 0055C-375 th MED[facility]-Sc devante [facility] [id number] JASONSIMMO NS 09/04 0055C-3 [facility] MEDGRP- Paul Procedures Combined list of: 1) Procedures from Department of Veterans Affairs facilities going back up to thelast 18 months, not all VA non-surgical procedures are included; 2) All procedures from the Department of Defense facilities. Procedure Procedure Type Code Date Perfomer Comments Sourc e PURE TONE AUDIOMETRY (THRESHOLD), AUTOMATED; AIR ONLY 2022 DoD PHYSICAL THERAPY EVALUATION 2009 [employer] WAIVER SERVICES; NOT OTHERWISE SPECIFIED (NOS) [...] SCORING AND DOCUMENTATION, PER STANDARDIZED INSTRUMENT 2018 [facility] BRIEF EMOTIONAL/BEHAVIORAL ASSESSMENT (EG, DEPRESSION INVENTORY, ATTENTION-DEFICIT/HY PERACTIVITY DISORDER [ADHD] SCALE), WITH SCORING AND DOCUMENTATION, PER STANDARDIZED INSTRUMENT 2018 [facility] TYMPANOMETRY AND REFLEX THRESHOLD MEASUREMENTS 2018 [facility] Internet Med Svc Qual Nonphys Healthcare Prof Estab Patient Internet Med Svc Qual Nonphys Healthcare Prof Estab Patient 02228 2018 BASIL CATHERINE [facility] Tympanometry With Reflex Threshold Measurements Tympanometry With Reflex Threshold Measurements 90992 2018 [facility] [facility] Comprehensive Audiometry Comprehensive Audiometry 68176 2018 [place] [facility] Evoked Otoacoustic Stella ions Comprehensive Evoked Otoacoustic Emissions Comprehensive 97370 2018 [place] [facility] Pulmonary Function Tests Flow Volume Loop Pulmonary Function [place] [address] 2017 VERONIQUE MORALES [facility] Internet Med Svc Qual Nonphys Healthcare Prof Estab Patient Internet Med Svc Qual Nonphys Healthcare Prof Estab Patient 56839 2017 EULOGIO RODRIGEZ Exercises A isted Exercises For ROM Exercises Assisted Exercises For ROM 01529 2016 HAO ROMO Occupational Therapy Re-Evaluation Occupational Therapy Re-Evaluation 22313 2016 HAO ROMO Threshold Audiogram (Pure Tone) Automated Threshold Audiogram (Pure Tone) Automated 0208T 2016 LOLLY ART [facility] Physical Therapy Education Orthotics Training 2016 HAO ROMO Hand finger orthosis, without joints, may include soft interface, straps, prefabricated, [id number] 2016 HAO ROMO Exercises A isted Exercises For ROM Exercises Assisted [place] ROM 48711 2016 HAO ROMO Threshold Audiogram (Pure Tone) Automated Threshold Audiogram (Pure Tone) Automated 0208T 2015 KUSH ALMAGUER [facility] Physical Therapy: ___ Se ion Segments, 15 Minutes Each Physical Therapy: ___ Session Segments, 15 Minutes Each 76806 2015 PAWAN LEY III [facility] Physical Medicine Physical Therapy Re-Evaluation Physical Medicine Physical Therapy Re-Evaluation 13380 2015 PAWAN LEY [facility] Postoperative Visit, Without Charge Postoperative Visit, Without Charge 41821 2015 KUSH SHEPPARD Exercises A isted Exercises For ROM Exercises Assisted Exercises For ROM 82785 2015 RAAD GATICA Physical Therapy: ___ Se ion Segments, 15 Minutes Each Physical Therapy: ___ Session Segments, 15 Minutes Each 22366 2015 PAWAN LEY [facility] Physical Medicine Physical Therapy Re-Evaluation Physical Medicine Physical Therapy Re-Evaluation 41544 2015 PAWAN LEY [facility] Physical Therapy Neuromuscular Re-education Physical Therapy Neuromuscular Re-education 07131 2015 SHAUN LEY Physical Therapy: ___ Se ion Segments, 15 Minutes Each Physical Therapy: ___ Session Segments, 15 Minutes Each 45869 2015 SHAUN LEY Exercises A isted Exercises For ROM Exercises Assisted Exercises For ROM 03700 2015 ADRIANA DOMINGUEZ Exercises A isted Exercises For ROM Exercises Ass[place] 53851 2015 ADRIANA DOMINGUEZ Exercises A isted Exercises For ROM Exercises Assisted Exercises For ROM 57759 2015 RAAD GATICA Physical Therapy: ___ Se ion Segments, 15 Minutes Each Physical Therapy: ___ Session Segments, 15 Minutes Each 77908 2015 ANGELITA CATALAN Physical Therapy Neuromuscular Re-education Physical Therapy Neuromuscular Re-education 35926 2015 ANGELITA CATALAN Physical Therapy Neuromuscular Re-education Physical Therapy Neuromuscular Re-education 70764 2015 ADRIANA DOMINGUEZ Physical Therapy: ___ Se ion Segments, 15 Minutes Each Physical Therapy: ___ Session Segments, 15 Minutes Each 95900 2015 ANGELITA CATALAN Physical Therapy Neuromuscular Re-education Physical Therapy Neuromuscular Re-education 03359 2015 ANGELITA CATALAN Physical Therapy: ___ Se ion Segments, 15 Minutes Each Physical Therapy: ___ Session Segments, 15 Minutes Each 25217 2015 ANGELITA CATALAN Physical Therapy Neuromuscular Re-education Physical Therapy Neuromuscular Re-education 29653 2015 CORY CATALANAUSTIN Husain [facility] Physical Therapy: ___ Se ion Segments, 15 Minutes Each Physical Therapy: ___ Session Segments, 15 Minutes Each 67496 2015 HOSSEIN ANGELITA A [facility] Physical Therapy Neuromuscular Re-education Physical Therapy Neuromuscular Re-education 37823 2015 ANGELITA CATALAN Rodrigue [facility] Physical Therapy: ___ Se ion Segments, 15 Minutes Each Physical Therapy: ___ Session Segments, 15 Minutes Each 54420 2015 ANGELITA CATALAN [facility] Physical Therapy: ___ Se ion Segments, 15 Minutes Each Physical Therapy: ___ Session Segments, 15 Minutes Each 36720 2015 KELLY COATES Physical Therapy: ___ Se ion Segments, 15 Minutes Each Physical Therapy: ___ Session Segments, 15 Minutes Each 83740 2015 [facility] Physical Therapy Re-Evaluation Physical Medicine Physical Therapy Re-Evaluation 98440 2015 LEY, [facility] Physical Therapy: ___ Se ion Segments, 15 Minutes Each Physical Therapy: ___ Session Segments, 15 Minutes Each 23957 2015 KELLY COATES Modalities Cryotherapy Cold Packs Modalities Cryotherapy Cold Packs 86065 2015 KELLY COATES Physical Therapy: ___ Se ion Segments, 15 Minutes Each Physical Therapy: ___ Session Segments, 15 Minutes Each 75298 2015 KELLY COATES Modalities Cryotherapy Cold Packs Modalities Cryotherapy Cold Packs 52442 2015 KELLY COATES Physical Therapy: ___ Se ion Segments, 15 Minutes Each Physical Therapy: ___ Session Segments, 15 Minutes Each 92313 2015 KELLY COATES Physical Therapy: ___ Se ion Segments, 15 Minutes Each Physical Therapy: ___ Session Segments, 15 Minutes Each 89673 2015 KELLY COATES Physical Therapy: ___ Se ion Segments, 15 Minutes Each Physical Therapy: ___ Session Segments, 15 Minutes Each 84306 2015 KELLY COATES Postoperative Visit, Without Charge Postoperative Visit, Without Charge 29337 2015 KUSH SHEPPARD [facility] Modalities Cryotherapy Cold Packs Modalities Cryotherapy Cold Packs 47005 2015 YESSENIA HENRY [facility] Physical Therapy: ___ Se ion Segments, 15 Minutes Each Physical Therapy: ___ Session Segments, 15 Minutes Each 56086 2015 YESSENIA HENRY [facility] Modalities Vasopneumatic Device Modalities Vasopneumatic Device 86748 2015 RAAD GATICA [facility] Exercises A isted Exercises For ROM Exercises Assisted Exercises For ROM 92295 2015 RAAD GATICA [facility] Physical Therapy: ___ Se ion Segments, 15 Minutes Each Physical Therapy: ___ Session Segments, 15 Minutes Each 78734 2015 LEYPAWAN SORIA III [facility] Physical Medicine Physical Therapy Evaluation Physical Medicine Physical Therapy Evaluation 70938 [facility] Interstitial Pre ure Monitoring Interstitial Pressure Monitoring 39208 2015 LEXUS SWENSON Compartments measured using Bartolo pressure moniter [facility] Physical Therapy: ___ Se ion Segments, 15 Minutes Each Physical Therapy: ___ Session Segments, 15 Minutes Each 76425 2014 MARCOS GONZALEZ [facility] Physical Medicine Physical Therapy Re-Evaluation Physical Medicine Physical Therapy Re-Evaluation 63412 2014 MARCOS GONZALEZ [facility] Physical Therapy: ___ Se ion Segments, 15 Minutes Each Physical Therapy: ___ Session Segments, 15 Minutes Each 10123 2014 MARCOS GONZALEZ [facility] Physical Medicine Physical Therapy Evaluation Physical Medicine Physical Therapy Evaluation 33064 2014 MARCOS GONZALEZ [facility] Physical Medicine Physical Therapy Evaluation Physical Medicine Physical Therapy Evaluation 17099 2009 FILIPPO LARSON [facility] Non-Physician Phone Call To Pt/Provider Intermed (11-20 min) Non-Physician Phone Call To Pt/Provider Intermed (11-20 min) 27915 KUSH UGALDE [facility] Electrocardiogram Electrocardiogram 24130 [address] Fiberoptic Laryngoscopy With Stroboscopy Fiberoptic Laryngoscopy With Stroboscopy 65691 [place] Pulmonary Function Tests Flow Volume Loop Pulmonary Function Tests Flow Volume Loop [address] [place] Pulmonary Function MVV Pulmonary Function MVV 42871 EVAN OWEN Non-Physician Phone Call To Pt/Provider Lengthy (21-30 min) Non-Physician Phone Call To Pt/Provider Lengthy (21-30 min) 97247 GONZÁLEZ HERNANDEZ [facility] Sleep Study Unattended Record: Heart Rate, O2 Sat, Resp Analysis, Sleep Time Sleep Study Unattended Record: Heart Rate, O2 Sat, Resp Analysis, Sleep Time 08097 KUSH KWON Non-Physician Phone Call To Patient/Provider Brief (5-10min) Non-Physician Phone Call To Patient/Provider Brief (5-10min) 45269 DUANE BOWLING Waiver services; not otherwise specified (NOS) MICHELLE CURIEL Threshold Audiogram (Pure Tone) Automated Threshold Audiogram (Pure Tone) Automated 0208T EVERARDO YOUNG [facility] Acupuncture, 1 or more needles; without electrical stimulation, initial 15 minutes of personal one-on-one contact with the patient Acupuncture, one or more needles, without electrical stimulation; initial 15 minutes of personal one-on-one contact with the patient 07379 2023 6130C-Af -C-[address] [facility] Acupuncture, 1 or more needles; with electrical stimulation, initial 15 minutes of personal one-on-one contact with the patient Acupuncture, one or more needles, with electrical stimulation; initial 15 minutes of personal one-on-one contact with the patient 50334 2023 6130C-Af -C-375Th Med[facility]-S cott Acupuncture, 1 or more needles; without electrical stimulation, initial 15 minutes of personal one-on-one contact with the patient Acupuncture, one or more needles, without electrical stimulation; initial 15 minutes of personal one-on-one contact with the patient 34059 2023 6130C-Af -C-375Th [facility] Acupuncture, 1 or more needles; without electrical stimulation, initial 15 minutes of personal one-on-one contact with the patient Acupuncture, one or more needles, without electrical stimulation; initial 15 minutes of personal one-on-one contact with the patient 91765 2023 6130C-Af -C-375Th [facility] cott Acupuncture, 1 or more needles; without electrical stimulation, initial 15 minutes of personal one-on-one contact with the patient Acupuncture, one or more needles, without electrical stimulation; initial 15 minutes of personal one-on-one contact with the patient 61142 2023 0055C-[id number] [facility] [facility] Social History Combined list of available smoking, tobacco, and other social history from Department of Defense and Veterans Affairs facilities. Social History Type Response Date Comment [facility] e Sex Representation Male (finding) 10/01/2020 Un known Organization This section is an empty social history section. [facility] Tobacco Frequent/Daily exposure to secondhand [...] Source Assessment and Plan Extracted from:Title : [facility] Anxiety Author: PANDA MORIN PA Date: [...] 60 tab(s), 0 total refill(s), Maintenance, Pharmacy: [facility] #[id number] [External Rx] buPROPion(Wellbutrin XL 150 mg/24 hours oral tablet, extended release), 1 tab(s), Oral, every 24 hr, # 60 tab(s), 0 total refill(s), Maintenance, Pharmacy: [facility] #[id number] [External Rx] The patient (is not) World Wide Qualified. AM Dispo: Non-Fly Cleared for AFSC/MOS Duties: Y es Cleared for continued service: Yes Cleared for mobility duties: No Cleared for participation in physical fitness program: Yes PHA/MHA/DRHA: UTD Visit deployment related: No Profile Reviewed Yes MEB in progress: No IMR/ASIMS Status: R ed Maj Gio Morin BSC, PAAlisonC [facility] ([facility]) [place] Please note that this dictation was completed with computer voice recognition software, [employer] Quite often unanticipated grammatical, syntax, homophones, and other interpretive errors are inadvertently transcribed by the computer software. Please disregard these errors and excuse any errors that have escaped final proofreading. If are any questions regarding documentation, please contact this provider directly. Extracted from:Title: [facility] Anxiety Author: GINA VARMA PA Date: [...] 0 total refill(s), Maintenance, 30 days, Pharmacy: [facility] #[id number] [External Rx] The patient (is not) World [...] and agreement. GINA VARMA, 1st Lt, PAAlisonC [facility] [place] [address] Extracted from:Title: [facility]-L foot pain/HTN Author: AP BENNETT MD [...] discontinuation precautions Recommended patient follow up with [facility] iv technician blood pressure clinic next week, patient verbalized understanding Advised on weight reduction strategies Ordered: amLODIPine(amLODIPine 10 mg oral tablet), 1 tab(s), Oral, Daily, # 90 tab(s), 0 total refill(s), Maintenance, Pharmacy: [facility] [Not filled] 3. S creening [...] Ap Bennett MD Resident, PGY-3 375 MDG, [facility] Family [facility] Community Medicine Program [place], [place] Extracted from:Title: [facility] Lumbago Author: PANDA MORIN PA Date: [...] in process IMR/ASIMS Status: R ed J ktaie Morin BSC, PA-C [facility] ([facility]) [place] Please note that this dictation was completed with computer voice recognition software, [employer] Quite often unanticipated grammatical, syntax, homophones, and other interpretive errors are inadvertently transcribed by the computer software. Please disregard these errors and excuse any errors that have escaped final proofreading. If are any questions regarding documentation, please contact this provider directly. Extracted from:Title: [facility] HTN Author: PANDA MORIN PA Date: [...] initiated IMR/ASIMS Status: Todd Morin, BSZhao, PAAlisonC [facility] ([facility]) [place] Please note that this dictation was completed with computer voice recognition software, [employer] Quite often unanticipated grammatical, syntax, homophones, and other interpretive errors are inadvertently transcribed by the computer software. Please disregard these errors and excuse any errors that have escaped final proofreading. If are any questions regarding documentation, please contact this provider directly. Extracted from:Title: [facility] Cough Author: PANDA MORIN PA Date: 01/27/24 1. C CHAINelsonic cough VIRTUAL APPT 38-year-old male with chronic [...] and PFT Capt Panda Morin, ROSALIO, PAAlisonC [facility] ([facility]) [place] Please note that this dictation was completed with computer voice recognition software, [employer] Quite often unanticipated grammatical, syntax, homophones, and [...] a clinical research study at the [facility] for sleep impairment / disturbances. They were treated today according to their randomization per study protocol. Treatment was tolerated well with no complications. Patient was released with no limitations. Addendum by VERONIQUE DENTON MD on September 30, 2023 15:02:52 CDT CPT: 76628 - application of a modality to 1 or more areas; electrical stimulationOn the date of this encounter, I saw and examined the patient, personally verifying the dhillon and critical findings and developed appropriate acupuncture t x plan in accordance with genna mcdowell protocol Maj Veronique Denton MD Family Medicine Physician [facility] [place], [place] Extracted from:Title: [facility] HTN Author: PANDA MORIN PA Date: [...] see above Capt Panda Morin, BSC, PA-C [facility] ([facility]) [place] Please note that this dictation was completed with computer voice recognition software, [employer] Quite often unanticipated grammatical, syntax, homophones, and [...] by the ordering provider. 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 O rdered: Determination Refractive State [id number]; 05/31/2023 08:13:00 FIRE ENGINE PUMP OPERATOR ? Ophthalmological Medical Xm&Eval Compre New Pt 1/> Vst 00903; 05/31/2023 08:13:00 FIRE ENGINE PUMP OPERATOR End of Orders Ordered: lifitegrast ophthalmic(Xiidra 5% ophthalmic solution), 1 drop(s), Eye-Both, BID, # 60 EA, 10 total refill(s), Maintenance, 1 drop(s) Eye-Both BID, Pharmacy: [facility] Extracted from:Title: [facility] R Knee Pain Author: PANDA MORIN [...] Views Right Capt Panda Morin, ROSALIO, PA-C [facility] ([facility]) [place] [employer] Extracted from:Title: [facility] - MEQ Examination Author: BING RUSSELL, Date: [...] . //SIGNED// Bing Russell DO, Capt, [employer] Production Supervisor Off Shift/Flight Surgeon [facility] Extracted from:Title: [facility] - Asthma Follow-Up Author: KUSH BECKETT PA Date: 01/19/23 1. A [facility] Patient with recent diagnosis of asthma presents to clinic for updates. Patient states that for the past 4 years he has been suffering with chronic cough and chest tightness. Concerned that may have been caused from fungal infection to lungs due to sputum results and requested a second opinion referral to pulmonology. Followed up with second slurry blender and was determined that patient does have asthma but an MCT w as required. patient was discontinued on Advair and started on Flovent and states that he has had significant relief with current treatment plan. Patient still uses albuterol as needed. He has follow-up appointment with original slurry blender in 1 month for reassessment. Additionally patient [...] 2.0 Referral Request 2.0 Kush Ferraro Physician Pulmonary Disease Specialist [facility] CLAUDIA Morales Extracted [...] by: An ear, nose, and throat specialist (door fitter or ENT specialist). A specialist in hearing problems (grade foreman). Noise damage is the most preventable cause [...] a noisy environment, such as: Using a operating systems programmer or leaf blower. Shooting firearms. Woodworking with [...] for Disease Control and Prevention: www.cdc.gov National [place] on Deafness and Other Communication Disorders: www.nidcd.nih.gov [...] 05/10/2018 Document Revised: 05/10/2018 Document Reviewed: 05/10/2018 Not iT Interactive Patient Education 2019 Not [employer]. Future Appointments Appointment Date: 09/04/2024 11:30:00 AM Scheduled Provider: PANDA MORIN Location: [address] [place] [address] Appointment Type: BENJI NEAL 08/31/[address] [place], [place] [address]Paul Assessment and Plan Extracted from:Title : [facility] Anxiety Author: PANDA MORIN PA Date: [...] 60 tab(s), 0 total refill(s), Maintenance, Pharmacy: [facility] #[id number] [External Rx] buPROPion(Wellbutrin XL 150 mg/24 hours oral tablet, extended release), 1 tab(s), Oral, every 24 hr, # 60 tab(s), 0 total refill(s), Maintenance, Pharmacy: [facility] #[id number] [External Rx] The patient (is not) World Wide Qualified. AM Dispo: Non-Fly Cleared for AFSC/MOS Duties: Y es Cleared for continued service: Yes Cleared for mobility duties: No Cleared for participation in physical fitness program: Yes PHA/MHA/DRHA: UTD Visit deployment related: No Profile Reviewed Yes MEB in progress: No IMR/ASIMS Status: R ed Homer J katie Morin, ROSALIO, PAAlisonC [facility] ([facility]) [place] Please note that this dictation was completed with computer voice recognition software, [employer] Quite often unanticipated grammatical, syntax, homophones, and other interpretive errors are inadvertently transcribed by the computer software. Please disregard these errors and excuse any errors that have escaped final proofreading. If are any questions regarding documentation, please contact this provider directly. Extracted from:Title: [facility] Anxiety Author: GINA VARMA PA Date: [...] 0 total refill(s), Maintenance, 30 days, Pharmacy: [facility] #[id number] [External Rx] The patient (is not) World [...] and agreement. GINA VARMA, 1st Lt, PAAlisonC [facility] [place] [address] Extracted from:Title: [facility]-L foot pain/HTN Author: AP BENNETT MD [...] verbalized understanding Ordered: Referral Request 2.0 - [facility] 2. H [place] - Hypertension Chronic, uncontrolled per JNC-8 Repeat automated BP with 152/92 Pt reports home BP's also not controlled Recommend patient increase amlodipine at 10 mg daily Counseled on side effects and discontinuation precautions Recommended patient follow up with [facility] iv technician blood pressure clinic next week, patient [...] Ap Bennett MD Resident, PGY-3 375 MDG, [facility] Family and Community Medicine Program [place], [place] Extracted from:Title: [facility] Lumbago Author: PANDA MORIN PA Date: [...] IMR/ASIMS Status: R alfredo Hendricksmons, BSC, PAAlisonC [facility] ([facility]) [place] Please note that this dictation was completed with computer voice recognition software, [employer] Quite often unanticipated grammatical, syntax, homophones, and other interpretive errors are inadvertently transcribed by the computer software. Please disregard these errors and excuse any errors that have escaped final proofreading. If are any questions regarding documentation, please contact this provider directly. Extracted from:Title: [facility] HTN Author: PANDA MORIN PA Date: [...] initiated IMR/ASIMS Status: Todd Morin BSC, JORGE [facility] ([facility]) [place] Please note that this dictation was completed with computer voice recognition software, [employer] Quite often unanticipated grammatical, syntax, homophones, and other interpretive errors are inadvertently transcribed by the computer software. Please disregard these errors and excuse any errors that have escaped final proofreading. If are any questions regarding documentation, please contact this provider directly. Extracted from:Title: [facility] Cough Author: PANDA MORIN PA Date: [...] and PFT Capt Panda Morin BSC, PAAlisonC [facility] ([facility]) [place] Please note that this dictation was completed with computer voice recognition software, [employer] Quite often unanticipated grammatical, syntax, homophones, and [...] a clinical research study at the [facility] for sleep impairment / disturbances. They were treated today according to their randomization per study protocol. Treatment was tolerated well with no complications. Patient was released with no limitations. Addendum by VERONIQUE DENTON MD on September 30, 2023 15:02:52 CDT CPT: 55886 - application of a modality to 1 or more areas; electrical stimulationOn the date of this encounter, I saw and examined the patient, personally verifying the dhillon and critical findings and developed appropriate acupuncture t x plan in accordance with genna mcdowell protocol Maj Veronique Denton MD Family Medicine Physician Сергей grossman [facility] [place], [place] Extracted from:Title: [facility] HTN Author: PANDA MORIN PA Date: [...] 1 tab(s) Oral Daily,Instr:for blood pressure, Pharmacy: [facility] [Not filled] Basic Metabolic Panel CBC w/ Diff Comprehensive Metabolic Panel Hemoglobin A1c Lipid Panel Thyroid Stimulating Hormone Urinalysis with Microscopic and Culture if Indicated 2. H ypertensive retinopathy see above Capt CL SarahC, PA-C [facility] ([facility]) [place] Please note that this dictation was completed with computer voice recognition software, [employer] Quite often unanticipated grammatical, syntax, homophones, and [...] followed by the ordering provider. Maj Pam, [facility], Staff Physician Extracted from:Title: Office Clinic [...] Col Rebekah Whyte MD Family Medicine Physician [facility] [place], [place] Extracted from:Title: Optometry-CEE Author: JENNIFER CROFT, [...] dose steroid.? O rdered: Determination Refractive State 78930; 05/31/2023 08:13:00 FIRE ENGINE PUMP OPERATOR ? Ophthalmological Medical Xm&Eval Compre New Pt / Vst 44081; 05/31/2023 08:13:00 FIRE ENGINE PUMP OPERATOR End of Orders Ordered: lifitegrast ophthalmic(Xiidra 5% ophthalmic solution), 1 drop(s), Eye-Both, BID, # 60 EA, 10 total refill(s), Maintenance, 1 drop(s) Eye-Both BID, Pharmacy: [facility] Extracted from:Title: [facility] HOSPITAL R Knee Pain Author: PANDA MORIN [...] Views Right Capt Panda Morin BSC, PA-C [facility] ([facility]) Paul [place]EL[place] Extracted from:Title: [facility] – [...] Above . //SIGNED// Bing Russell DO, Capt, [facility] Production Supervisor Off Shift/Flight Surgeon [facility] Extracted from:Title: [facility] - Asthma Follow-Up Author: KUSH BECKETT PA Date: 01/19/23 1. [facility] Patient with recent diagnosis of asthma presents to clinic for updates. Patient states that for the past 4 years he has been suffering with chronic cough and chest tightness. Concerned that may have been caused from fungal infection to lungs due to sputum results and requested a second opinion referral to pulmonology. Followed up with second slurry blender and was determined that patient does have asthma but an MCT w as required. patient was discontinued on Advair and started on Flovent and states that he has had significant relief with current treatment plan. Patient still uses albuterol as needed. He has follow-up appointment with original slurry blender in 1 month for reassessment. Additionally patient [...] 2.0 Referral Request 2.0 Kush Ferraro Physician Pulmonary Disease Specialist [facility] [place] Extracted from:Title: Ambulatory Patient Education Author: EN [...] by: An ear, nose, and throat specialist (door fitter or ENT specialist). A specialist in hearing problems (grade foreman). Noise damage is the most preventable cause [...] a noisy environment, such as: Using a operating systems programmer or leaf blower. Shooting firearms. Woodworking with [...] for Disease Control and Prevention: www.cdc.gov National [place] on Deafness and Other Communication Disorders: www.nidcd.nih.gov [...] 05/10/2018 Document Revised: 05/10/2018 Document Reviewed: 05/10/2018 Not iT Interactive Patient Education 2019 Lishang.[employer]. Future Appointments Appointment Date: 09/04/2024 11:30:00 AM Scheduled Provider: PANDA MORIN Location: [address] [place] [address] Appointment Type: [facility]I [facility] 08/31/2024 [id number] [facility] Assessment and Plan Extracted from:Title : [facility] Anxiety Author: PANDA MORIN PA Date: [...] Pharmacy: [facility] #[id number] [External Rx] buPROPion(Wellbutrin XL 150 mg/24 hours oral tablet, extended release), 1 tab(s), Oral, every 24 hr, # 60 tab(s), 0 total refill(s), Maintenance, Pharmacy: [facility] #[id number] [External Rx] The patient (is not) World Wide Qualified. AM Dispo: Non-Fly Cleared for AFSC/MOS Duties: Y es Cleared for continued service: Yes Cleared for mobility duties: No Cleared for participation in physical fitness program: Yes PHA/MHA/DRHA: UTD Visit deployment related: No Profile Reviewed Yes MEB in progress: No IMR/ASIMS Status: R ed Maj Gio Morin BSC, PA-C [facility] ([facility]) [place] Please note that this dictation was completed with computer voice recognition software, [employer] Quite often unanticipated grammatical, syntax, homophones, and other interpretive errors are inadvertently transcribed by the computer software. Please disregard these errors and excuse any errors that have escaped final proofreading. If are any questions regarding documentation, please contact this provider directly. Extracted from:Title: [facility] Anxiety Author: GINA VARMA PA Date: [...] 0 total refill(s), Maintenance, 30 days, Pharmacy: [facility] #[id number] [External Rx] The patient (is not) World [...] and agreement. GINA VARMA, 1st Lt, PAAlisonC [facility] [place] [address] Extracted from:Title: [facility]-L foot pain/HTN Author: AP BENNETT MD [...] verbalized understanding Ordered: Referral Request 2.0 - [facility] 2. H [place] - Hypertension Chronic, uncontrolled per JNC-8 Repeat automated BP with 152/92 Pt reports home BP's also not controlled Recommend patient increase amlodipine at 10 mg daily Counseled on side effects and discontinuation precautions Recommended patient follow up with [facility] iv technician blood pressure clinic next week, patient [...] Ap Bennett MD Resident, PGY-3 375 MDG, [facility] [place], [place] Extracted from:Title: [facility] Lumbago Author: PANDA MORIN PA Date: [...] process IMR/ASIMS Status: Yifan Morin BSC, PAAlisonC [facility] ([facility]) [place] Please note that this dictation was completed with computer voice recognition software, [employer] Quite often unanticipated grammatical, syntax, homophones, and other interpretive errors are inadvertently transcribed by the computer software. Please disregard these errors and excuse any errors that have escaped final proofreading. If are any questions regarding documentation, please contact this provider directly. Extracted from:Title: [facility] HTN Author: PANDA MORIN PA Date: [...] initiated IMR/ASIMS Status: Todd Morin BSC, PAYaneth [facility] ([facility]) [place] Please note that this dictation was completed with computer voice recognition software, [employer]. Quite often unanticipated grammatical, syntax, homophones, and other interpretive errors are inadvertently transcribed by the computer software. Please disregard these errors and excuse any errors that have escaped final proofreading. If are any questions regarding documentation, please contact this provider directly. Extracted from:Title: [facility] Cough Author: PANDA MORIN PA Date: [...] and PFT Capt Panda Morin, ROSALIO, PA-C [facility] ([facility]) [place] Please note that this dictation was completed with computer voice recognition software, [employer] Quite often unanticipated grammatical, syntax, homophones, and [...] a clinical research study at the [facility] for sleep impairment / disturbances. They were treated today according to their randomization per study protocol. Treatment was tolerated well with no complications. Patient was released with no limitations. Addendum by VERONIQUE DENTON MD on September 30, 2023 15:02:52 CDT CPT: 78853 - application of a modality to 1 or more areas; electrical stimulationOn the date of this encounter, I saw and examined the patient, personally verifying the dhillon and critical findings and developed appropriate acupuncture t x plan in accordance with s july protocol Maj Veronique Denton MD Family Medicine Physician [facility] [place], [place] Extracted from:Title: [facility] HTN Author: PANDA MORIN PA Date: [...] see above Capt Panda Morin, CLC, PA-C [facility] ([facility]) [place] Please note that this dictation was completed with computer voice recognition software, [employer] Quite often unanticipated grammatical, syntax, homophones, and [...] followed by the ordering provider. Maj Pam, [facility], Staff Physician Extracted from:Title: Office Clinic [...] Col Rebekah Whyte MD Family Medicine Physician [facility] [place], [place] Extracted from:Title: Optometry-CEE Author: JENNIFER CROFT, [...] dose steroid.? O rdered: Determination Refractive State [id number]; 05/31/2023 08:13:00 FIRE ENGINE PUMP OPERATOR ? Ophthalmological Medical Xm&Eval Compre New Pt 1/> Vst [id number]; 05/31/2023 08:13:00 FIRE ENGINE PUMP OPERATOR End of Orders Ordered: lifitegrast ophthalmic(Xiidra 5% ophthalmic solution), 1 drop(s), Eye-Both, BID, # 60 EA, 10 total refill(s), Maintenance, 1 drop(s) Eye-Both BID, Pharmacy: [facility] Extracted from:Title: [facility] R Knee Pain Author: PANDA MORIN PA Date: 05/13/23 1. 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 T TP [...] Views Right Capt Panda Morin BSC, PA-C [facility] ([facility]) [place] Extracted from:Title: [facility] [...] Above . //SIGNED// Bing Russell DO, , [facility] Production Supervisor Off Shift/Flight Surgeon [facility] Extracted from:Title: [facility] - Asthma Follow-Up Author: KUSH BECKETT PA Date: 01/19/23 1. [facility] Patient with recent diagnosis of asthma presents to clinic for updates. Patient states that for the past 4 years he has been suffering with chronic cough and chest tightness. Concerned that may have been caused from fungal infection to lungs due to sputum results and requested a second opinion referral to pulmonology. Followed up with second slurry blender and was determined that patient does have asthma but an MCT w as required. patient was discontinued on Advair and started on Flovent and states that he has had significant relief with current treatment plan. Patient still uses albuterol as needed. He has follow-up appointment with original slurry blender in 1 month for reassessment. Additionally patient [...] 2.0 Referral Request 2.0 Kush Ferraro Physician Pulmonary Disease Specialist [facility] CLAUDIA Morales Extracted [...] by: An ear, nose, and throat specialist (door fitter or ENT specialist). A specialist in hearing problems (grade foreman). Noise damage is the most preventable cause [...] a noisy environment, such as: Using a operating systems programmer or leaf blower. Shooting firearms. Woodworking with [...] for Disease Control and Prevention: www.cdc.gov National [place] on Deafness and Other Communication Disorders: www.nidcd.nih.gov [...] 05/10/2018 Document Revised: 05/10/2018 Document Reviewed: 05/10/2018 [email or web address] Interactive Patient Education 2019 Not iT Inc. Future Appointments Appointment Date: 09/04/2024 11:30:00 AM Scheduled Provider: PANDA MORIN Location: [address] [place] [address] Appointment Type: BENJI [facility] 08/31/[address] [place] [address] Functional Status Combined list of recent functional [...]
== END 2024-08-31 08:23 | disposition home or self-care (01) ==
PROVIDERS: Emergency Provider Nurse Practitioner
DX: S81.802A Unspecified open wound, left lower leg, initial encounter (principal); W27.8XXA Contact with other nonpowered hand tool, initial encounter; Z87.891 Personal history of nicotine dependence
CPT/HCPCS: 99211; G0463

== ENCOUNTER 2024-12-12 14:33 | Emergency (ER) | payer OTHER, SELFPAY ==
--- OUTSIDE RECORDS SUMMARY | 2024-10-09 11:30 | XMS_ITS ---
Author Organization Formerly [facility], [facility] [employer] [place] ([address]) Address [address] [place] [address] Care Team Providers Care Chilling Hood Operator Name Role Phone Panda Morin Primary Care Provider UnavailMayelin Jaime Unavailable [phone] Jose D Queen Unavailable Unavailable Trav Doan Unavailable [phone] REASON FOR VISIT SCIT - Traditional Schedule Allergy Immunotherapy (Week ) Social History Sex Assigned At : Social History Observation Description Sex Assigned At Male Encounters Encounter Location Date Provider Diagnosis [facility] [address] [place] [address] 10/09/2024 Trav Doan Allergic rhinitis du e to pollen J30.1 ; Other allergic rhinitis J30.89 ; Allergic rhinitis due to animal (cat) (dog) hair and dander J30.81 and Other chronic allergic conjunctivitis H10.45 Assessments Encounter Date Diagnosis (ICD Code) Assessment Notes Treatment Notes Treatment Clinical Notes Section Notes 10/09/2024 Allergic rhinitis due to pollen (ICD-10 - J30.1) 10/09/2024 Other allergic rhinitis (ICD-10 - J30.89) 10/09/2024 Allergic rhinitis due to animal (cat) (dog) hair and dander (ICD-10 - J30.81) 10/09/2024 Other chronic allergic conjunctivitis (ICD-10 - H10.45) Plan Of Treatment Next Appt Details Follow Up: As scheduled, [place] son: Provider Name:Trav Doan , 12/17/2024 12:30:00 PM, [address] [facility], [address], [place], [address], Provider Name:Trav Doan , 12/24/2024 12:30:00 PM, [address] [facility], [address], [place], [address], Provider Name:Mayelin Powers cha betty, 01/03/2025 12:30:00 PM, [address] [facility], [address], [place], [address], Provider Name:Trav Velasquez Franki , 01/21/2025 12:30:00 PM, [address] [facility], [address] [facility], [place], [address], Progress Notes * DAVID Jose Eli[birth year]DOB:[birth year] (38 yo M)Acc No.[id number]:10/09/2024 SCIT-Aeroallergen Patient: Jose Elias FRIEDMAN Provider: Inocencia Doan MD :1985 A ge:38 Y S ex:Male Date:10/09/2024 Address:[address] [place] [address], [place], [id number] Pcp:Panda Morin Subjective: * Chief Complaints: * 1 . SCIT - Traditional Schedule Allergy Immunotherapy (Week ). * HPI: * Introduction: The patient is [...] immunotherapy) is on file. * Medical History: Objective: * Vitals: Assessment: * Assessment: 1. A llergic rhinitis due to pollen - J30.1 (Primary) 2 . O ther allergic rhinitis - J30.89 3 . A llergic rhinitis due to animal (cat) (dog) hair and dander - J30.81 4 . O ther chronic allergic conjunctivitis - H10.45 Plan: * Treatment: * Preventive Medicine: Counseling: E xercise A [...] Information: * Visit Code: * Procedure Codes: 10214 IMMUNOTHERAPY INJECTIONS. * Electronic signature of Cindy Doan MD, FAAAAI on 12/12/2024 at 03:05 PM CDT Sign off status: Pending * Provider: Inocencia Doan MD Date: 0 10/09/2024 Generated for Savannah barnes/Millie/Induitting on: 0 12/12/2024 03:05 PM CDT History and Physical Notes * HPI [...]
--- NOTE | ~2024-12-12 | XR_ITS ---
X-rays left foot Indication: Plantar pain, no trauma, runner Comparison: None Technique: 4 views left foot Findings/Impression: 1. No fracture or dislocation left foot. 2. Tiny calcaneal enthesophyte at insertion site of plantar fascia. Reviewed, dictated and finalized at location R.
--- NOTE | 2024-12-12 14:36 | ED.GENADULT ---
HPI - General Adult General Chief complaint: Extremity Problem,Nontraumatic Stated complaint: L foot pain Time Seen by Provider: 12/12/24 14:35 Source: patient Mode of arrival: ambulatory Limitations: no limitations History of Present Illness HPI narrative: Pt is a 38 y/o male presenting with c/o pain to the plantar aspect of the L. foot. Pain has been present since May. Aggravating factors include running. He states he has been training for a marathon but does not believe he will able to run the marathon next week due to the pain. He states the foot was evaluated in May, shortly after onset of pain and found to have a blanco fracture and arthritis which is what he is expecting an xray to show today. No additional complaints. Related Data Home Medications ?Medication ?Instructions ?Recorded ?Confirmed ?Last Taken ?Type cetirizine 10 mg tablet 10 mg PO DAILY PRN 11/02/23 07/10/24 Unknown History fluticasone propionate 50 1 spray intranasal DAILY 11/02/23 07/10/24 Unknown History mcg/actuation nasal spray,suspension (Allergy Relief (fluticasone)) hydrochlorothiazide 25 mg tablet 25 mg PO DAILY 11/02/23 12/12/24 Unknown History amlodipine 2.5 mg tablet (Norvasc) 2.5 mg PO DAILY 04/24/24 12/12/24 Unknown History escitalopram oxalate 10 mg tablet 10 mg PO DAILY 07/10/24 07/10/24 Unknown History Allergies Allergy/AdvReac Type Severity Reaction Status Date / Time No Known Allergies Allergy Verified 12/12/24 14:42 Review of Systems Review of Systems: CONSTITUTIONAL: Denies body aches, fever, chills, or sweats. EYES: Denies visual changes, redness, or discharge. ENT: Denies rhinorrhea, congestion, sore throat, or otalgia. CARDIOVASCULAR: Denies chest pain, palpitations, or edema. RESPIRATORY: Denies cough or dyspnea. GASTROINTESTINAL: Denies abdominal pain, nausea, vomiting, or diarrhea. GENITOURINARY: Denies dysuria or hematuria. SKIN: Denies rash, itching, or wounds. MUSCULOSKELETAL: Reports pain to the plantar aspect of the L. foot Denies back pain NEUROLOGIC: Denies headache, numbness, tingling, or weakness. PSYCH: Denies depression or anxiety. All systems reviewed & are unremarkable except as noted in HPI and below (HPI) [facility] Past Medical History Medical History Chronic cough Sleep apnea Migraines Surgical History Surgical History Hx of sinus surgery Social History Social History Smoking status: Former smoker Additional smoking assessment comments: Smoked 1 year in high school socially. Alcohol intake: current Substance use: never Exam Narrative: GENERAL: Well-appearing, well-nourished, and in no acute distress. HEAD: Normocephalic, atraumatic. EYES: EOMI. No redness or drainage. Conjunctivae normal. NECK: Normal AROM. Supple. CHEST: No respiratory distress. HEART: Regular rate Normal peripheral pulses. MUSCULOSKELETAL: No bony tenderness. EXTREMITIES: Normal range of motion. No edema. Unable to elicit any pain with palpation of the L. foot. The L. foot is without any edema, erythema, ecchymosis, open wounds or other acute findings. +FROM +DNVI to the LLE SKIN: Warm, dry, no rash. Capillary refill normal. Normal skin turgor. NEURO: No focal deficits. Alert and oriented x3. Gait steady. PSYCH: Normal affect. No signs of depression or anxiety. Course Course Level of Care: Express Care Visit Vital Signs Vital signs: Vital Signs Temperature 97.0 F L 12/12/24 14:42 Pulse Rate 81 12/12/24 14:42 Respiratory Rate 16 12/12/24 14:42 Blood Pressure 131/88 12/12/24 14:42 Pulse Oximetry 97 12/12/24 14:42 Oxygen Delivery Room Air 12/12/24 14:42 Temperature 97.0 F L 12/12/24 14:42 Pulse Rate 81 12/12/24 14:42 Respiratory Rate 16 12/12/24 14:42 Blood Pressure 131/88 12/12/24 14:42 Pulse Oximetry 97 12/12/24 14:42 Oxygen Delivery Room Air 12/12/24 14:42 Medical Decision Making Vital Signs Vital Signs: Vital Signs Temperature 97.0 F L 12/12/24 14:42 Pulse Rate 81 12/12/24 14:42 Respiratory Rate 16 12/12/24 14:42 Blood Pressure 131/88 12/12/24 14:42 Pulse Oximetry 97 12/12/24 14:42 Oxygen Delivery Room Air 12/12/24 14:42 Temperature 97.0 F L 12/12/24 14:42 Pulse Rate 81 12/12/24 14:42 Respiratory Rate 16 12/12/24 14:42 Blood Pressure 131/88 12/12/24 14:42 Pulse Oximetry 97 12/12/24 14:42 Oxygen Delivery Room Air 12/12/24 14:42 Imaging Data Attestation: I personally reviewed and interpreted this imaging study as follows: My impression: NAF Discharge Plan Discharge Clinical Impression: Chronic pain in left foot, Bone spur of left foot Patient Disposition: Home Condition: Stable Additional Instructions: Go straight to ER should your symptoms become worse or should any new symptoms develop Patient Language: Iraqi Prescriptions: No Action (DME) inhalational spacing device Spacer See Rx Instructions .ROUTE .MEDSUPPLY Qty: 1 0RF Rx Instructions: As directed azelastine 137 mcg (0.1 %) aerosol,spray 1 spray intranasal Q12H Qty: 30 2RF Rx Instructions: administer into each nostril hydrochlorothiazide 25 mg tablet 25 mg PO DAILY cetirizine 10 mg tablet 10 mg PO DAILY PRN fluticasone propionate [Allergy Relief (fluticasone)] 50 mcg/actuation spray,suspension 1 spray intranasal DAILY Rx Instructions: administer into each nostril amlodipine [Norvasc] 2.5 mg tablet 2.5 mg PO DAILY escitalopram oxalate 10 mg tablet 10 mg PO DAILY montelukast 10 mg tablet 10 mg PO QHS Qty: 30 6RF fluticasone propion-salmeterol [Wixela Inhub] 500-50 mcg/dose blister with device 1 inh inhalation Q12H Qty: 60 6RF Follow-up/Referrals: CASCADE, [Primary Care Provider] - 12/13/24 Time of Disposition: 14:58
[2024-12-12 14:42] VITALS: BP 131/88; PULSE 81; RESP 16; TEMP 36.1; O2SAT 97
--- OUTSIDE RECORDS SUMMARY | 2024-12-12 15:05 | XMS_ITS | Clinical Summary ---
Author Organization [facility] Address [address] [place] [address] Care Team Providers Care Cda Teacher Name Role Phone Ramontia Escalante Primary Care Pr ovider Allergies No known active allergies Medications azelastine (ASTELIN) 137 mcg (0.1 %) nasal spray USE 1 SPRAY IN EACH NOSTRIL EVERY 12 HOURS 03/03/20 23 Active fluticasone propionate (FLONASE) 50 mcg/actuation nasal spray [place] 1 spray every day by intranasal route. 06/21/19 24 Active montelukast sodium (SINGULAIR ORAL) Act mark cetirizine (ZyrTEC) 10 mg tablet Take 1 tablet (10 mg total) by mouth daily 06/21/19 24 Active EPINEPHrine 0.3 mg/0.3 mL auto-injection syringe INJECT 1 PEN IN THE MUSCLE ONE TIME DIRECTED Active buPROPion XL (WELLBUTRIN XL) 150 mg 24 hr tablet Take 1 tablet (150 mg total) by mouth 07/26/19 25 Active escitalopram (LEXAPRO) 10 mg tablet Take 1 tablet (10 mg total) by mouth daily Active amLODIPine (NORVASC) 10 mg tablet Take 1 tablet (10 mg total) by mouth daily Active fluticasone propion-salmeteroL (ADVAIR DISKUS) 500-50 mcg/dose diskus inhaler Inhale 1 puff 2 (two) times a day Rinse mouth with water after use. Do not swallow. 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 FU PCP Chronic cough 08/08/2023 Generalized enlarged lymph nodes 08/08/2023 Chronic sinusitis 07/06/2023 Posterior rhinorrhea 07/06/2023 Encounters Date Type Department Care Team Description 11/14/2024 9:00 AM CDT Office Visit [facility] [address] [place] [id number] Jovita Roman, VINCENT Tinnitus of both ears (Primary Dx); Seasonal allergic rhinitis due to pollen; Pressure sensation in both ears 11/14/2024 8:30 AM CDT Procedure visit [facility] [address] [place] [phone] Yuly Hyde Dysfunction of both eustachian tubes (Primary Dx); Tinnitus of both ears from Last 3 Months Surgical History Surgery Date Site/Laterality Comments NASAL ENDOSCOPY W/ B[place] SINUPLASTY SEPTOPLASTY WISDOM TOOTH EXTRACTION FASCIOTOMY Medical History Medical History Date Comments Allergic rhinitis Anxiety Depression HTN (hypertension) Ear problems Tinnitus HL (hearing loss) Family History Medical History Relation Name Comments Hypertension Father Diabetes Mother Hypertension Mother Relation Name Status Comments Father Mother Social History Tobacco Use Types Packs/Day Years Used Date Smoking Tobacco: Never Tobacco Cessation:Counseling Given: Not Answered Personal Safety Answer Date Recorded Have you ever been in or are you currently in a harmful physical or emotional relationship or is someone making you feel afraid or unsafe? Denies 09/09/2022 Sex and Gender Information Value Date Recorded [...] 09/09/2022 11:09 AM CDT Respiratory Rate 18 11/14/2024 8:51 AM CDT Oxygen Saturation 96% 09/09/2022 4:35 PM CDT Inhaled Oxygen Concentration - - Weight 93 kg (205 lb) 11/14/2024 8:51 AM CDT Height 167.6 cm (5' 6) 11/14/2024 8:51 AM CDT Body Mass Index 33.09 11/14/2024 8:51 AM CDT Plan of Treatment Health Maintenance Due Date Last Done Comments Depression Screening 1985 Hepatitis C Screening 1985 Varicella Vaccines (1 of 2 - 13+ 2-dose series) 1997 Regular Well Visit/Exam 18-64 2002 HPV Vaccines (1 - 3-dose SCDM series) 01/01/2012 Covid-19 Vaccine ( - season) 2023 05/01/2021, 07/29/2020, 07/08/2020 Influenza Vaccine (#1) 2024 , 02/18/2022, 01/09/2021, Additional history exists DTaP/Tdap/Td Vaccine (4 - Td or Tdap) 08/12/2034 08/12/2024, 05/25/2022, 05/05/2012, Additional history exists Hepatitis B Screening Completed 01/25/2003, 001 Pneumococcal vaccine <65 Aged Out No longer eligible based on patient's age to complete this topic Insurance [facility] Care Teams Cda Teacher Relationship Specialty Start Date End Date Ramonita Escalante PA [address] [place] [address] PCP - General Physician Transfer Station Attendant 10/30/24
--- OUTSIDE RECORDS SUMMARY | 2024-12-12 15:05 | XMS_ITS | Clinical Summary ---
Author Organization [facility] Address [address] [place] [address] Care Team Providers Care Outside Parts Sales Name Role Phone Panda Morin PA-C Primary Care Provider [phone] Medications azelastine (ASTELIN) 0.1 % nasal spray 2 sprays 2 (two) times daily. 09/25/19 24 Active cetirizine (ZYRTEC) 10 MG tablet Take 1 tablet (10 mg total) by mouth daily. 09/25/19 24 Active montelukast (SINGULAIR) 10 MG tablet Take 1 tablet (10 mg total) by mouth daily. 07/19/19 24 Active hydroCHLOROthi azide (HYDRODIURIL) 25 MG tablet Take 1 tablet (25 mg total) by mouth every morning. CALL FOR AN APPOINTMENT 30 tablet 12/01/19 25 Active hydroCHLOROthi azide (HYDRODIURIL) 25 MG tablet Take 1 tablet (25 mg total) by mouth every morning. 90 tablet 3 10/28/19 24 025 Discontinued Active Problems No known active problems Family [...] 3:22 PM CDT Height 167.6 cm (5' 6) 10/28/2023 3:22 PM CDT Body Mass Index 34.86 10/28/2023 3:22 PM CDT Plan of Treatment Health Maintenance Due Date Last Done Comments Annual Physical 01/01/1988 Hepatitis C 2002 Hepatitis B Vaccines (3 of 3 - 3-dose series) 03/22/2003 01/25/2003, 11/29/2000 HPV Vaccines (1 - 3-dose SCDM series) 01/01/2012 COVID-19 Vaccine (4 - season) 2024 05/01/2021, 07/29/2020, 07/08/2020 DTaP, Tdap and Td [...] to complete this topic Insurance Care Teams Outside Parts Sales Relationship Specialty Start Date End Date Panda Morin [place] [address] PCP - General PHYSICIAN DEPUTY [employer] CUSTOMS DIRECTOR 09/22/23
--- OUTSIDE RECORDS SUMMARY | 2024-12-12 15:05 | XMS_ITS | Patient Health Record ---
Author Organization [facility] [employer] [facility] [place] ([address]) Address [address] [place] [address] Care Team Providers Care Office Coordinator Receptionist Name Role Phone Patience Panda Primary Care Provider UnavailMayelin Jaime Unavailable [phone] Jose D Queen Unavailable Unavailable Trav Doan Unavailable [phone] Aniceto Stone Unavailable [phone] Jennifer Coley Unavailable [phone] Allergies No Known Allergies Reason For Referral Referring Provider First Name GINA Referring Provider Last Name KOJO Referring Provider Speciality Physician Wildlife Photographer Referred Organization [facility] Referred Provider Trav Doan Referred Address [address], [place],[address], Referred Provider Specialty Allergy/Immu nology Referral Priority Routine Medications Medication SIG (Take, Route, Frequency, Duration) Notes Start Date End Date Status Fluticasone Propionate 50 MCG/ACT 2 spray(s) in each nostril twice a day; Duration: 90 days Active SIT (CLUSTER) variable per schedule per schedule; Duration: 999 days Active MONTELUKAST 10 mg 1 tab(s) orally once a day; Duration: 90 days 07/19/2023 Active AZELASTINE NASAL 137 mcg/inh 2 spray(s) intranasally 2 times a day; Duration: 90 days Active Cetirizine HCl 10 MG TAKE 1 TABLET BY MOUTH ONCE A DAY; Duration: 90 Active Fluticasone Propionate 50 MCG/ACT 2 spray(s) in each nostril twice a day; Duration: 30 days Active Azelastine-Fluticasone 137-50 MCG/ACT 2 spray(s) intranasally 2 times a day Active Fluticasone Propionate (Inhal) 220 MCG/INH 2 PUFF(S) INHALED 2 TIMES A DAY; Duration: 30 DAYS *Please review and pick correct strength-formula tion from [employer] options. If intended option is not shown, discontinue and re-order from Quick Search* Active Azelastine HCl 137 MCG/SPRAY 2 spray(s) intranasally 2 times a day; Duration: 90 days Active Telmisartan 40 MG 1 tablet Orally Once a day; Duration: 30 day(s) 09/20/2023 Active amLODIPine Besylate 2.5 MG 1 tablet Orally Once a day; Duration: 30 day(s) 09/20/2023 Active EpiPen 2-Calvin 0.3 mg as directed intramuscularly once; Duration: 30 days Active EPIPEN 2-CALVIN 0.3 mg as directed intramuscularly once; Duration: 30 days Active MONTELUKAST 10 mg 1 tab(s) orally once a day; Duration: 90 days Active FLUTICASONE 220 mcg/inh 2 puff(s) inhale d 2 times a day; Duration: 30 days Active NASAL WASHES N/A as directed intranasally as needed; Duration: 30 days Active FLUTICASONE NASAL 50 mcg/inh 2 spray(s) in each nostril twice a day; Duration: 90 days Active FLUTICASONE NASAL 50 mcg/inh 2 spray(s) in each nostril twice a day; Duration: 90 days Active Azelastine HCl 137 MCG/SPRAY 2 puffs (1 spray in each nostril) Nasally Twice a day; Duration: 90 days 07/09/2024 Active CETIRIZINE 10 mg 1 tab(s) orally once a day; Duration: 90 days Active hydroCHLOROthiazide 25 MG 1 tablet in the morning Orally Once a day Active Escitalopram Oxalate 10 MG 1 tablet Orally Once a day Active Social History Tobacco Use: Social History Observation Description Date Details (start date - stop date) Never Smoker NA - NA Sex Assigned At : Social History Observation Description Sex Assigned At Male Tobacco Control (Standard) Question Answer Notes Tobacco [...] Status Risk Notes Problem Chronic allergic conjunctivitis (29685994) Other chronic allergic conjunctivitis (H10.45) Active confirmed Problem Allergic rhinitis caused by pollen (disorder) (57973425) Allergic rhinitis due to pollen (J30.1) Active confirmed Problem Allergic rhinitis (83644758) Other allergic rhinitis (J30.89) Active confirmed Problem Allergic rhinitis caused by animal hair and dander (768745921671273) Allergic rhinitis due to animal (cat) (dog) hair and dander (J30.81) Active confirmed Problem Chronic cough (57804798) Chronic cough (R05.3) Active confirmed Vital Signs Oximetry 96 % 07/09/2024 Blood pressure diastolic 78 mm Hg 07/09/2024 Height 66 in 07/09/2024 Blood pressure systolic 130 mm Hg 07/09/2024 Weight 208.0 lbs 07/09/2024 BMI 33.57 kg/m2 07/09/2024 Encounters Encounter Location Date Provider Diagnosis [facility] [address] [address] 11/12/2024 Trav Doan Allergic rhinitis du e to pollen J30.1 ; Other allergic rhinitis J30.89 ; Allergic rhinitis due to animal (cat) (dog) hair and dander J30.81 and Other chronic allergic conjunctivitis H10.45 [facility] [address] [place] [phone] 01/31/2024 Trav Doan Allergic rhinitis du e to pollen J30.1 ; Other allergic rhinitis J30.89 ; Allergic rhinitis due to animal (cat) (dog) hair and dander J30.81 and Other chronic allergic conjunctivitis H10.45 [facility] [address] [place] [phone] 01/24/2024 Trav Doan Allergic rhinitis du e to pollen J30.1 ; Other allergic rhinitis J30.89 ; Allergic rhinitis due to animal (cat) (dog) hair and dander J30.81 and Other chronic allergic conjunctivitis H10.45 [facility] [address] [place] [phone] 10/15/2024 Trav Doan Allergic rhinitis du e to pollen J30.1 ; Other allergic rhinitis J30.89 ; Allergic rhinitis due to animal (cat) (dog) hair and dander J30.81 and Other chronic allergic conjunctivitis H10.45 [facility] [address] [place] [address] [employer] [address] [address] 09/10/2024 Trav Franki Allergic rhinitis du e to pollen J30.1 ; Other allergic rhinitis J30.89 ; Allergic rhinitis due to animal (cat) (dog) hair and dander J30.81 and Other chronic allergic conjunctivitis H10.45 [facility] [address] [place] [phone] 08/13/2024 Trav Franki Allergic rhinitis du e to pollen J30.1 ; Other allergic rhinitis J30.89 ; Allergic rhinitis due to animal (cat) (dog) hair and dander J30.81 and Other chronic allergic conjunctivitis H10.45 [facility] [address] [place] [phone] 07/17/2024 Travponce Doan Allergic rhinitis du e to pollen J30.1 ; Other allergic rhinitis J30.89 ; Allergic rhinitis due to animal (cat) (dog) hair and dander J30.81 and Other chronic allergic conjunctivitis H10.45 [facility] [address] [place] [phone] 06/12/2024 Travponce Doan Allergic rhinitis du e to pollen J30.1 ; Other allergic rhinitis J30.89 ; Allergic rhinitis due to animal (cat) (dog) hair and dander J30.81 and Other chronic allergic conjunctivitis H10.[address] [address] 04/17/2024 Trav Doan Allergic rhinitis du e to pollen J30.1 ; Other allergic rhinitis J30.89 ; Allergic rhinitis due to animal (cat) (dog) hair and dander J30.81 and Other chronic allergic conjunctivitis H10.45 [facility] [address] [place] [phone] 03/20/2024 Trav Doan Allergic rhinitis du e to pollen J30.1 ; Other allergic rhinitis J30.89 ; Allergic rhinitis due to animal (cat) (dog) hair and dander J30.81 and Other chronic allergic conjunctivitis H10.[address] [phone] 02/21/2024 Trav Doan Allergic rhinitis du e to pollen J30.1 ; Other allergic rhinitis J30.89 ; Allergic rhinitis due to animal (cat) (dog) hair and dander J30.81 and Other chronic allergic conjunctivitis H10.[address] [address] 01/19/2024 Trav Doan Allergic rhinitis du e to pollen J30.1 ; Other allergic rhinitis J30.89 ; Allergic rhinitis due to animal (cat) (dog) hair and dander J30.81 and Other chronic allergic conjunctivitis H10.45 [facility] [address] [place] [phone] 12/21/2023 Trav Doan Allergic rhinitis du e to pollen J30.1 ; Other allergic rhinitis J30.89 ; Allergic rhinitis due to animal (cat) (dog) hair and dander J30.81 and Other chronic allergic conjunctivitis H10.[address] [address] 07/09/2024 Jennifer Coley Allergic rhinitis du e to pollen J30.1 ; Allergic rhinitis due to animal (cat) (dog) hair and dander J30.81 ; Other allergic rhinitis J30.89 ; Other chronic allergic conjunctivitis H10.45 ; Chronic cough R05.3 and Elevated blood-pressure reading, without diagnosis of hypertension R03.[address] [address] 12/10/2024 Trav Doan Allergic rhinitis du e to pollen J30.1 ; Other allergic rhinitis J30.89 ; Allergic rhinitis due to animal (cat) (dog) hair and dander J30.81 and Other chronic allergic conjunctivitis H10.45 [facility] [address] [address] 06/28/2024 Aniceto Stone Assessments Encounter Date Diagnosis (ICD Code) Assessment Notes Treatment Notes Treatment Clinical Notes Section Notes 12/21/2023 Allergic rhinitis due to pollen (ICD-10 - J30.1) 12/21/2023 Other allergic rhinitis (ICD-10 - J30.89) 01/19/2024 Allergic rhinitis due to pollen (ICD-10 - J30.1) 01/19/2024 Other allergic rhinitis (ICD-10 - J30.89) 01/24/2024 Allergic rhinitis due to pollen (ICD-10 - J30.1) 01/24/2024 Other allergic rhinitis (ICD-10 - J30.89) 02/21/2024 Allergic rhinitis due to pollen (ICD-10 - J30.1) 02/21/2024 Other allergic rhinitis (ICD-10 - J30.89) 06/12/2024 [...] 07/17/2024 Other allergic rhinitis (ICD-10 - J30.89) 09/10/2024 Allergic rhinitis due to pollen (ICD-10 - J30.1) 09/10/2024 Other allergic rhinitis (ICD-10 - J30.89) 10/15/2024 Allergic rhinitis due to pollen (ICD-10 - J30.1) 10/15/2024 Other allergic rhinitis (ICD-10 - J30.89) 11/12/2024 Allergic rhinitis due to pollen (ICD-10 - J30.1) 11/12/2024 Other allergic rhinitis (ICD-10 - J30.89) 12/10/2024 Allergic rhinitis due to pollen (ICD-10 - J30.1) 12/10/2024 Other allergic rhinitis (ICD-10 - J30.89) 08/13/2024 Allergic rhinitis due to pollen (ICD-10 - J30.1) 08/13/2024 Other allergic rhinitis (ICD-10 - J30.89) 04/17/2024 Allergic rhinitis due to pollen (ICD-10 - J30.1) 04/17/2024 Other allergic rhinitis (ICD-10 - J30.89) 03/20/2024 Allergic rhinitis due to pollen (ICD-10 - J30.1) 03/20/2024 Other allergic rhinitis (ICD-10 - J30.89) 01/31/2024 Allergic rhinitis due to pollen (ICD-10 - J30.1) 01/31/2024 Other allergic rhinitis (ICD-10 - J30.89) 01/31/2024 Allergic rhinitis due to animal (cat) (dog) hair and dander (ICD-10 - J30.81) 03/20/2024 Allergic rhinitis due to animal (cat) (dog) hair and dander (ICD-10 - J30.81) 04/17/2024 Allergic rhinitis due to animal (cat) (dog) hair and dander (ICD-10 - J30.81) 08/13/2024 Allergic rhinitis due to animal (cat) (dog) hair and dander (ICD-10 - J30.81) 12/10/2024 Allergic rhinitis due to animal (cat) (dog) hair and dander (ICD-10 - J30.81) 11/12/2024 Allergic rhinitis due to animal (cat) (dog) hair and dander (ICD-10 - J30.81) 10/15/2024 Allergic rhinitis due to animal (cat) (dog) hair and dander (ICD-10 - J30.81) 09/10/2024 Allergic rhinitis due to animal (cat) (dog) [...] hair and dander (ICD-10 - J30.81) 12/21/2023 Other chronic allergic conjunctivitis (ICD-10 - [...] persist, consider adding additional medications including intraocular antihistamine/mas t cell stabilizer, PRN and continue SCIT as an adjunctive measure 09/10/2024 Other chronic allergic conjunctivitis (ICD-10 - H10.45) 10/15/2024 Other chronic allergic conjunctivitis (ICD-10 - H10.45) 11/12/2024 Other chronic allergic conjunctivitis (ICD-10 - H10.45) 12/10/2024 Other chronic allergic conjunctivitis (ICD-10 - H10.45) 07/17/2024 Other chronic allergic conjunctivitis (ICD-10 - H10.45) 08/13/2024 Other chronic allergic conjunctivitis (ICD-10 - [...] production. Currently followed by Dr. Queen - medical service representative at [facility]. Reports PFT in May that was normal. [...] consider neurogenic cough and establish with neurology 07/09/2024 Elevated blood-pressure reading, without diagnosis of hypertension (ICD-10 - R03.0) BP elevated today without symptoms of urgency or emergency. Continue serial checks and follow-up with PCP Plan Of Treatment Next Appt Details Provider Name:Trav Doan , 12/17/2024 12:30:00 PM, [address] [employer], [address], [address], Provider Name:Trav Doan , 12/24/2024 12:30:00 PM, [address] [employer], [address], [place], [address], Provider Name:Mayelin hernández, 01/03/2025 12:30:00 PM, [address] [facility], [address], [place], [address], Provider Name:Trav VasileJeffrey Doan , 01/21/2025 12:30:00 PM, [address] [facility], [address], [place], [address], Insurance Providers Payer Name Payer Address Payer Phone Subscriber Number Group Number Insured Name Patient Relationship to Insured Coverage Start Date Coverage End Date [facility] [address] [phone] [id number] Jose Elias Vela Self - patient is the insured Medical (General) History Medical History History ICD Code Chronic cough R05.3 Allergic rhinitis due to animal (cat) (d og) hair and dander J30.81 Other allergic rhinitis J30.89 Other chronic allergic conjunctivitis H1 0.45 Allergic rhinitis due to pollen J30.1 Surgical History Surgery Date(Month/Year) [place] teeth removal 2009 Sinoplasty 09/2023 Ceptoplasty 09/2023
== END 2024-12-12 15:09 | disposition home or self-care (01) ==
PROVIDERS: Emergency Provider Registered Nurse
DX: G89.29 Other chronic pain (principal); M79.672 Pain in left foot; M77.32 Calcaneal spur, left foot; Z87.891 Personal history of nicotine dependence
CPT/HCPCS: 73630; 99213; G0463